=== PATIENT | male | born 1955 | race Hispanic/Latino ===

== ENCOUNTER 2016-12-11 07:52 | Emergency (ER) | payer MEDICARE, BC ==
[2016-12-11 08:29] VITALS: BP 133/97; PULSE 76; RESP 20; TEMP 98.5; O2SAT 95; BMI 38.3
--- NOTE | 2016-12-11 09:26 | ED PDOC ---
Arrival/HPI - General Chief Complaint: Abnormal Skin Integrity Time Seen by Provider: 12/11/16 08:36 Historian: Patient - History of Present Illness Narrative History of Present Illness (Text): 12/11/16 09:22 61 year old male with past medical history that includes CHF, hypertension, TIA , hiatal hernia, presents to the emergency department complaining of left posterior elbow redness x 4 days. He said he has been taking Clindamycin TID. Denies fever or other complains. Time/Duration: < week Context: Home Past Medical History - Provider Review Nursing Documentation Reviewed: Yes - Infectious Disease Hx of Infectious Diseases: None - Tetanus Immunization Tetanus Immunization: Up to Date - Cardiac Hx Congestive Heart Failure: Yes Hx PR: No Hx Hypertension: Yes - Pulmonary Hx Respiratory Disorders: No - Neurological Hx Transient Ischemic Attacks (TIA): Yes - HEENT Hx HEENT Disorder: No (WEARS RX GLASSES) - Renal Hx Renal Disorder: No - Endocrine/Metabolic Hx Diabetes Mellitus Type 2: Yes - Hematological/Oncological Hx Blood Transfusions: No Hx Blood Transfusion Reaction: No - Integumentary Hx Dermatological Disorder: No - Musculoskeletal/Rheumatological Hx Musculoskeletal Disorders: No - Gastrointestinal Hx Gastrointestinal Disorders: No Other/Comment: HIATAL HERNIA,CONSTIPATION - Genitourinary/Gynecological Hx Genitourinary Disorders: No - Psychiatric Hx Emotional Abuse: No Hx Physical Abuse: No Hx Substance Use: No - Surgical History Hx Cardiac Catheterization: Yes Hx Orthopedic Surgery: Yes Other/Comment: LEFT MENISCUS TEAR,POLPS REMOVED -NASAL PASSAGES. - Anesthesia Hx Anesthesia: Yes Hx Anesthesia Reactions: No Hx Malignant Hyperthermia: No - Suicidal Assessment Feels Threatened In Home Enviroment: No Family/Social History - Physician Review Nursing Documentation Reviewed: Yes Family/Social History: No Known Family HX Smoking Status: Never Smoked Hx Alcohol Use: Yes (OCCASIONALLY) Hx Substance Use: No Allergies/Home Meds Allergies/Adverse Reactions: Allergies codeine Allergy (Verified 12/11/16 08:29) SWELLING metformin Allergy (Verified 12/11/16 08:29) DIARRHEA Penicillins Allergy (Verified 12/11/16 08:29) SWELLING tetracycline Allergy (Verified 12/11/16 08:29) SWELLING Home Medications: Home Meds Medication Instructions Recorded Confirmed Valsartan [Diovan] 40 mg PO QAM 11/08/15 12/11/16 Slow-Mag 1 tab PO DAILY 01/08/16 12/11/16 Apixaban [Eliquis] 5 mg PO BID 12/11/16 12/11/16 Glycambia 5 mg PO BID 12/11/16 Review of Systems - Review of Systems Constitutional: Normal. absent: Fatigue, Weight Change, Fevers Eyes: Normal ENT: Normal Respiratory: Normal Cardiovascular: Normal Gastrointestinal: Normal Genitourinary Male: Normal Musculoskeletal: Other ((+) posterior elbow redness and swelling.) Skin: Normal Neurological: Normal Endocrine: Normal Hemo/Lymphatic: Normal Psychiatric: Normal Physical Exam Vital Signs Temp Pulse Resp BP Pulse Ox 12/11/16 08:24 98.5 F 76 20 133/97 H 95 Temperature: Afebrile Blood Pressure: Normal Pulse: Regular Respiratory Rate: Normal Appearance: Positive for: Well-Appearing, Non-Toxic, Comfortable Pain Distress: None Mental Status: Positive for: Alert and Oriented X 3 - Systems Exam Head: Present: Atraumatic, Normocephalic Pupils: Present: PERRL Extroacular Muscles: Present: EOMI Conjunctiva: Present: Normal Mouth: Present: Moist Mucous Membranes Neck: Present: Normal Range of Motion Respiratory/Chest: Present: Clear to Auscultation, Good Air Exchange. No: Respiratory Distress, Accessory Muscle Use, Wheezes, Retracting, Rhonchi Cardiovascular: Present: Regular Rate and Rhythm, Bradycardic. No: Murmurs Upper Extremity: Present: Normal ROM, NORMAL PULSES, Tenderness, Swelling, Erythema, Neurovascularly Intact, Capillary Refill < 2s. No: Cyanosis, Edema, Temperature Abnormalties, Deformity Lower Extremity: Present: Normal Inspection, NORMAL PULSES, Normal ROM, Neurovascularly Intact, Capillary Refill < 2 s. No: Edema, CALF TENDERNESS Neurological: Present: GCS=15, CN II-XII Intact, Speech Normal, Motor Func Grossly Intact Skin: Present: Warm, Dry, Normal Color, Other ((+) postreior elbow redness, mild swelling. It resembles olecranon bursitis). No: Rashes Psychiatric: Present: Alert, Oriented x 3 Medical Decision Making ED Course and Treatment: 12/11/16 09:29 Patient came c/o left posterior elbow swelling, and redness. Patient was recommended NSAIDs, and to see Dr. Ramirez Orthopedist. in 1-2 days. 12/11/16 09:33 This case was discussed with Dr. Comer, and he agrees with plan. Re-evaluation Time: 09:30 Reassessment Condition: Re-examined, Improved Disposition/Present on Arrival - Present on Arrival Any Indicators Present on Arrival: No History of DVT/PE: No History of Uncontrolled Diabetes: Yes Urinary Catheter: No History of Decub. Ulcer: No History Surgical Site Infection Following: None - Disposition Have Diagnosis and Disposition been Completed?: Yes Diagnosis: Olecranon bursitis of left elbow Disposition: HOME/ ROUTINE Disposition Time: 09:30 Patient Plan: Discharge Patient Problems: Current Active Problems Problem Status Onset Olecranon bursitis of left elbow Acute Condition: GOOD Discharge Instructions (ExitCare): Elbow Bursitis (ED) Additional Instructions: Call Dr. Ramirez Orthopedist Office in 1-2 days for revaluation. Continue with home Clindamycin. Take medication as instructed with food. Return to emergency if symptoms worsen. Prescriptions: Naproxen [Naprosyn Tab] 375 mg PO BID #14 tab Referrals: Jeremy Lambert, [Primary Care Provider] - Follow up with primary Holly Ramirez MD [Staff Provider] - Follow up with primary
== END 2016-12-11 09:54 | disposition home or self-care (01) ==
LOC: ED 07:52
DX: M70.22 Olecranon bursitis, left elbow (principal)
CPT/HCPCS: 96372; 99283; J1885

== ENCOUNTER 2017-06-17 08:58 | Emergency (ER) | payer MEDICARE, BC ==
[2017-06-17 09:12] VITALS: TEMP 97.9; BMI 37.0
[2017-06-17 09:19] VITALS: RESP 16
[2017-06-17] MEDS ORDERED: Morphine 2 mg/ml ISec IVP STA (09:29)
[2017-06-17] MEDS ORDERED: Sodium Chloride 0.9% 1,000 ML IV SCH (09:30)
[2017-06-17 09:50] LABS: BASO # 0.02 K/mm3 (0.0-2.0); BASO % 0.2 % (0.0-3.0); EOS # 0.1 (0.0-0.7); EOS % 0.6 % (1.5-5.0); GRAN # 10.43 (1.4-6.5); GRAN % 83.8 % (50.0-68.0); HEMATOCRIT 51.7 % (42.0-52.0); LYMPH # 1.4 (1.2-3.4); LYMPH % 11.3 % (22.0-35.0); MEAN CELL VOLUME 89.8 fl (80.0-105.0); MEAN CORPUSCULAR HEMOGLOBIN 30.6 pg (25.0-35.0); MEAN PLATELET VOLUME 10.8 fl (7.0-11.0); MONO # 0.5 (0.1-0.6); MONO % 4.1 % (1.0-6.0); RED CELL DISTRIBUTION WIDTH 14.9 % (11.5-14.5); WHITE BLOOD COUNT 12.5 10^3/ul (4.5-11.0)
--- NOTE | 2017-06-17 09:53 | ED PDOC ---
Arrival/HPI - General Chief Complaint: Cough, Cold, Congestion Time Seen by Provider: 06/17/17 08:59 Historian: Patient EM Caveat: Acuity of Condition - History of Present Illness Narrative History of Present Illness (Text): 06/17/17 09:54 pt presents with sudden onset of severe diffuse body chills, no sweats, no new pain; pt states he was receiving his 3 days/weekly back rehab for his chronic back pain when he suddenly felt the severe body chills and noted dry coughing; pt states no fever/sweats, no cp/sob/palpitations, + dry coughing, no abd pain, no n/v, no numbness/tingling, no urinary/bowel changes, no fall/trauma/sick contact, no travel; pt denied other complaints; pt is here for further eval. Time/Duration: Prior to Arrival Symptom Onset: Sudden Symptom Course: Unchanged Severity Level: Moderate Activities at Onset: Rest Context: Other (pt was receiving rehabilitation) Past Medical History - Provider Review Nursing Documentation Reviewed: Yes - Travel History Have you recently traveled outside [place] w/in the past 3 mons?: No - Infectious Disease Hx of Infectious Diseases: None - Tetanus Immunization Tetanus Immunization: Up to Date - Cardiac Hx Cardiac Disorders: Yes Hx Congestive Heart Failure: Yes Hx WI: No Hx Hypertension: Yes Hx Pacemaker: Yes - Pulmonary Hx Respiratory Disorders: No - Neurological Hx Transient Ischemic Attacks (TIA): Yes - HEENT Hx HEENT Disorder: No (WEARS RX GLASSES) - Renal Hx Renal Disorder: No - Endocrine/Metabolic Hx Diabetes Mellitus Type 2: Yes - Hematological/Oncological Hx Blood Transfusions: No Hx Blood Transfusion Reaction: No - Integumentary Hx Dermatological Disorder: No - Musculoskeletal/Rheumatological Hx Musculoskeletal Disorders: No Hx Back Pain: Yes - Gastrointestinal Hx Gastrointestinal Disorders: No Other/Comment: HIATAL HERNIA,CONSTIPATION - Genitourinary/Gynecological Hx Genitourinary Disorders: No - Psychiatric Hx Emotional Abuse: No Hx Physical Abuse: No Hx Substance Use: No - Surgical History Hx Cardiac Catheterization: Yes Hx Orthopedic Surgery: Yes Other/Comment: LEFT MENISCUS TEAR,POLPS REMOVED -NASAL PASSAGES. - Anesthesia Hx Anesthesia: Yes Hx Anesthesia Reactions: No Hx Malignant Hyperthermia: No - Suicidal Assessment Suicidal Thoughts: No Feels Threatened In Home Enviroment: No Family/Social History - Physician Review Nursing Documentation Reviewed: Yes Family/Social History: Other (non-contributory) Smoking Status: Never Smoked Hx Alcohol Use: Yes (OCCASIONALLY) Frequency of alcohol use: Socially Hx Substance Use: No Route: Oral Hx Substance Use Treatment: No Allergies/Home Meds Allergies/Adverse Reactions: Allergies codeine Allergy (Verified 12/11/16 08:29) SWELLING metformin Allergy (Verified 12/11/16 08:29) DIARRHEA Penicillins Allergy (Verified 12/11/16 08:29) SWELLING tetracycline Allergy (Verified 12/11/16 08:29) SWELLING Home Medications: Home Meds Medication Instructions Recorded Confirmed Apixaban [Eliquis] 5 mg PO BID 12/11/16 06/17/17 Glycambia 10 mg PO BID 12/11/16 06/17/17 K Phos/Na Phos, Dibasic/Na P 250 mg PO DAILY 06/17/17 06/17/17 [Potassium/Sodium Phosphate] Review of Systems - Review of Systems Constitutional: Normal, Other (chills/no sweats) Eyes: Normal ENT: Normal Respiratory: Cough Cardiovascular: Normal. absent: Chest Pain, Palpitations, Syncope Gastrointestinal: Normal Genitourinary Male: Normal Musculoskeletal: Back Pain (chronic back pain) Skin: Normal Neurological: Normal Endocrine: Normal Hemo/Lymphatic: Normal Psychiatric: Normal Physical Exam Vital Signs Reviewed: Yes (elevated BP) Vital Signs Temp Pulse Resp BP Pulse Ox 06/17/17 11:05 97.9 F 94 H 16 138/98 H 96 06/17/17 09:12 97.9 F 96 H 16 96 06/17/17 09:11 97.9 F 86 19 145/109 H 97 Temperature: Afebrile Blood Pressure: Hypertensive Pulse: Regular Respiratory Rate: Normal Appearance: Positive for: Well-Appearing Pain Distress: Mild (mild back pain) Mental Status: Positive for: Alert and Oriented X 3 - Systems Exam Head: Present: Atraumatic, Normocephalic Pupils: Present: PERRL Extroacular Muscles: Present: EOMI Conjunctiva: Present: Normal Ears: Present: Normal Mouth: Present: Moist Mucous Membranes Pharnyx: Present: Normal Neck: Present: Normal Range of Motion Respiratory/Chest: Present: Clear to Auscultation, Good Air Exchange, Respiratory Distress, Accessory Muscle Use Cardiovascular: Present: Regular Rate and Rhythm, Murmurs, Normal S1, S2 Abdomen: Present: Normal Bowel Sounds, Other (obese male, no focal tenderness, no aguayo's sign, no mcburney's point tenderness). No: Tenderness, Distention, Rebound Back: Present: Normal Inspection Upper Extremity: Present: Normal Inspection. No: Cyanosis, Edema Lower Extremity: Present: Normal Inspection, Capillary Refill < 2 s. No: Edema Neurological: Present: GCS=15, CN II-XII Intact, Speech Normal Skin: Present: Warm, Normal Color. No: Rashes Psychiatric: Present: Alert, Oriented x 3, Normal Insight, Normal Concentration Medical Decision Making ED Course and Treatment: 06/17/17 11:08 pt with sudden onset of coughing/chills and chronic back pain (unchanged), no trauma/sick contact; no urinary/bowel changes noted; will check patient's lab results/U/A; provide pain control as pt states his back pain is becoming worse and he is on the last dose of tramadol; pt denied numbness/tingling to lower extremities; pt remains able to ambulate A/P: cough/chills, chronic back pain - labs - ua - ekg - xray - observe - spportive care 06/17/17 12:34 pt felt improved, pt's pain is improved pt is currently awaiting U/A results final disposition is pending Paged Dr Ramos, spoke to Dr Cotter, made aware of pt's medical presentation, agrees with ED mgt/txt, agrees with ED disposition, pt can be discharged with outpt f/u as directed 06/17/17 13:31 Dr Ramos was at bedside and spoke with the patient; Dr Ramos expressed concern that patient with his cough and chills, he would recommend abx coverage for him before pt is discharged home; pt is made aware of his PCP's recommendations and expressed agreement slightly improved vitals pt remained comfortable pt is not in any distress pt is made aware of his medical results pt will f/u as directed pt will be discharged home 06/17/17 13:34 Re-evaluation Time: 11:10 Reassessment Condition: Re-examined - Lab Interpretations Narrative Lab Interpretation (Text): 06/17/17 13:33 elevated GLUC; slightly above normal WBCs Lab Results: 06/17/17 09:37 06/17/17 09:37 Lab Results 06/17/17 11:23: Urine Color Yellow, Urine Appearance Clear, Urine pH 6.0, Ur Specific [place] 1.025, Urine Protein 100 H, Urine Glucose (UA) 100 H, Urine Ketones Negative, Urine Blood Negative, Urine Nitrate Negative, Urine Bilirubin Negative, Urine Urobilinogen 0.2, Ur Leukocyte Esterase Negative, Urine RBC 0 - 2, Urine WBC 0 - 2, Ur Epithelial Cells 1 - 3, Urine Bacteria Few, Fine Granular Casts 0 - 2 06/17/17 09:37: Sodium 138, Potassium 4.7, Chloride 101, Carbon Dioxide 26, Anion Gap 16, BUN 37 H, Creatinine 1.0, Est GFR ( Amer) > 60, Est GFR ( Non-Af Amer) > 60, Random Glucose 257 H, Calcium 9.6, Total Bilirubin 1.1, AST 24, ALT 25, Alkaline Phosphatase 99, Total Protein 8.0, Albumin 4.3, Globulin 3.7, Albumin/Globulin Ratio 1.1, Lipase 107 06/17/17 09:37: WBC 12.5 H D, RBC 5.76, Hgb 17.6, Hct 51.7, MCV 89.8, MCH 30.6, MCHC 34.0, RDW 14.9 H, Plt Count 155, MPV 10.8, Gran % 83.8 H, Lymph % (Auto) 11.3 L, [place] % (Auto) 4.1, Eos % (Auto) 0.6 L, Baso % (Auto) 0.2, Gran # 10.43 H , Lymph # 1.4, [place] # 0.5, Eos # 0.1, Baso # 0.02 I have reviewed the lab results: Yes - RAD Interpretation Narrative RAD Interpretations (Text): 06/17/17 11:17 PLEURA: No significant pleural effusion identified. No pneumothorax apparent. CARDIOVASCULAR: Mild cardiomegaly. Dual lead pacemaker OSSEOUS STRUCTURES: No significant abnormalities. VISUALIZED UPPER ABDOMEN: Normal. OTHER FINDINGS: None. IMPRESSION: No active disease. Radiology Orders: 06/17/17 09:28 CXR [CHEST TWO VIEWS (PA/LAT)] [RAD] Stat Instructor Modeling: Radiologist - EKG Interpretation EKG Interpretation (Text): 06/17/17 11:11 PACED rhythm at 85 bpm, + ECTOPYs, ABNL EKG; unchanged compare with old ekg 2015 Interpreted by ED Physician: Yes Type: 12 lead EKG Comparison: Similar to previous EKG - Medication Orders Current Medication Orders: Sodium Chloride (Sodium Chloride 0.9%) 1,000 mls @ 100 mls/hr IV .Q10H KATE Last Admin: 06/17/17 09:57 Dose: 100 mls/hr eMAR Start Stop Document 06/17/17 09:57 MS (Rec: 06/17/17 10:02 MS [id number]) Intravenous Solution Start Date 06/17/17 Start Time 10:02 Discontinued Medications Morphine Sulfate (Morphine) 4 mg IVP STAT STA Stop: 06/17/17 09:30 Last Admin: 06/17/17 10:02 Dose: 4 mg MAR Pain Assessment Document 06/17/17 10:02 MS (Rec: 06/17/17 10:03 MS [id number]) Pain Reassessment Is this a pain reassessment? No Sleep Is patient sleeping during reassessment? No Presence of Pain Presence of Pain Yes Pain Scale Used Pain Scale Used Numeric Location Pain Location Body Site Back Description Description Constant Intensity of Pain at present 7 Pain Behavior Moaning Facial Grimacing Aggravating Factors ADL's Changing Position IVP Administration Document 06/17/17 10:02 MS (Rec: 06/17/17 10:03 MS [id number]) Charges for Administration # of IVP Administrations 2 Disposition/Present on Arrival - Present on Arrival Any Indicators Present on Arrival: No History of DVT/PE: No History of Uncontrolled Diabetes: Yes Urinary Catheter: No History of Decub. Ulcer: No History Surgical Site Infection Following: None - Disposition Have Diagnosis and Disposition been Completed?: Yes Diagnosis: Chills (without fever), Cough Disposition: HOME/ ROUTINE Disposition Time: 13:19 Patient Plan: Discharge Patient Problems: Current Active Problems Problem Status Onset Chills (without fever) Acute Cough Acute Condition: STABLE Discharge Instructions (ExitCare): Acute Cough (ED), Normal Exam (ED) Print Language: [place] LEONE[place] Additional Instructions: Make sure to see your doctor in 1-2 days DRINK PLENTY OF FLUIDS; keep hydrated take your medications as prescribed RETURN TO ED IF worse pain, cant breath, persistent vomiting, high fever >101- 102 for hours, altered behavior, unable to urinate, heavy/persistent bleeding, passing out, chest pain, or other medical emergencies Prescriptions: levoFLOXacin [Levaquin] 750 mg PO DAILY 7 Days tab Referrals: Tye Ramos MD [Primary Care Provider] - Follow up with primary Forms: Air[employer] (Czech)
[2017-06-17 10:02] LABS: ALB/GLOB RATIO 1.1 (1.1-1.8); BILIRUBIN,TOTAL 1.1 mg/dL (0.2-1.3); CALCIUM 9.6 mg/dL (8.4-10.5); GFR AFRICAN-AMERICAN > 60; GLUCOSE,RANDOM 257 mg/dL (70-110); LIPASE 107 U/L (23-300)
[2017-06-17 10:03] LABS: ALKALINE PHOSPHATASE 99 U/L (38-126); ALT/SGPT 25 U/L (7-56); AST/SGOT 24 U/L (17-59); BLOOD UREA NITROGEN 37 mg/dL (7-21); CARBON DIOXIDE 26 mmol/L (21-33); CHLORIDE 101 mmol/L (98-107); POTASSIUM 4.7 mmol/L (3.6-5.0); SODIUM 138 mmol/L (132-148)
--- NOTE | 2017-06-17 10:07 | ED PDOC ---
Physical Exam Vital Signs Temp Pulse Resp BP Pulse Ox 06/17/17 09:12 97.9 F 96 H 16 96 06/17/17 09:11 97.9 F 86 19 145/109 H 97 Medical Decision Making ED Course and Treatment: 06/17/17 10:06 Patient is signed out to me by Dr. Andino. The patient is pending labs and chest x-ray. 06/17/17 11:06 CXR normal. No pneumonia. Signed case back to Dr. Rahman, to f/u UA, reevaluate and disposition. - Lab Interpretations Lab Results: 06/17/17 09:37 06/17/17 09:37 Lab Results 06/17/17 09:37: Sodium 138, Potassium 4.7, Chloride 101, Carbon Dioxide 26, Anion Gap 16, BUN 37 H, Creatinine 1.0, Est GFR ( Amer) > 60, Est GFR ( Non-Af Amer) > 60, Random Glucose 257 H, Calcium 9.6, Total Bilirubin 1.1, AST 24, ALT 25, Alkaline Phosphatase 99, Total Protein 8.0, Albumin 4.3, Globulin 3.7, Albumin/Globulin Ratio 1.1, Lipase 107 06/17/17 09:37: WBC 12.5 H D, RBC 5.76, Hgb 17.6, Hct 51.7, MCV 89.8, MCH 30.6, MCHC 34.0, RDW 14.9 H, Plt Count 155, MPV 10.8, Gran % 83.8 H, Lymph % (Auto) 11.3 L, [place] % (Auto) 4.1, Eos % (Auto) 0.6 L, Baso % (Auto) 0.2, Gran # 10.43 H , Lymph # 1.4, [place] # 0.5, Eos # 0.1, Baso # 0.02 - RAD Interpretation Radiology Orders: 06/17/17 09:28 CXR [CHEST TWO VIEWS (PA/LAT)] [RAD] Stat - Medication Orders Current Medication Orders: Sodium Chloride (Sodium Chloride 0.9%) 1,000 mls @ 100 mls/hr IV .Q10H KATE Last Admin: 06/17/17 09:57 Dose: 100 mls/hr eMAR Start Stop Document 06/17/17 09:57 MS (Rec: 06/17/17 10:02 MS [id number]) Intravenous Solution Start Date 06/17/17 Start Time 10:02 Discontinued Medications Morphine Sulfate (Morphine) 4 mg IVP STAT STA Stop: 06/17/17 09:30 Last Admin: 06/17/17 10:02 Dose: 4 mg MAR Pain Assessment Document 06/17/17 10:02 MS (Rec: 06/17/17 10:03 [id number] Pain Reassessment Is this a pain reassessment? No Sleep Is patient sleeping during reassessment? No Presence of Pain Presence of Pain Yes Pain Scale Used Pain Scale Used Numeric Location Pain Location Body Site Back Description Description Constant Intensity of Pain at present 7 Pain Behavior Moaning Facial Grimacing Aggravating Factors ADL's Changing Position IVP Administration Document 06/17/17 10:02 MS (Rec: 06/17/17 10:03 [id number] Charges for Administration # of IVP Administrations 2 - Scribe Statement The provider has reviewed the documentation as recorded by the Carolaibdaniel Salazar Provider Scribe Attestation: All medical record entries made by the Scribe were at my direction and personally dictated by me. I have reviewed the chart and agree that the record accurately reflects my personal performance of the history, physical exam, medical decision making, and the department course for this patient. I have also personally directed, reviewed, and agree with the discharge instructions and disposition. Disposition/Present on Arrival - Present on Arrival Any Indicators Present on Arrival: Yes History of DVT/PE: No History of Uncontrolled Diabetes: Yes Urinary Catheter: No History of Decub. Ulcer: No History Surgical Site Infection Following: None - Disposition Have Diagnosis and Disposition been Completed?: Yes Diagnosis: Chills (without fever), Cough Disposition: HOME/ ROUTINE Disposition Time: 13:51 Patient Plan: Discharge Condition: STABLE Discharge Instructions (ExitCare): Normal Exam (ED), Acute Cough (ED) Print Language: SLOVENIAN Additional Instructions: Make sure to see your doctor in 1-2 days DRINK PLENTY OF FLUIDS; keep hydrated take your medications as prescribed RETURN TO ED IF worse pain, cant breath, persistent vomiting, high fever >101- 102 for hours, altered behavior, unable to urinate, heavy/persistent bleeding, passing out, chest pain, or other medical emergencies Prescriptions: levoFLOXacin [Levaquin] 750 mg PO DAILY 7 Days tab Referrals: Tye Ramos MD [Primary Care Provider] - Follow up with primary Forms: Par[employer] (Micronesian)
--- NOTE | 2017-06-17 10:26 | RAD ---
HISTORY: cough, weakness COMPARISON: 01/24/2016 TECHNIQUE: Chest PA and lateral FINDINGS: LUNGS: No active pulmonary disease. PLEURA: No significant pleural effusion identified. No pneumothorax apparent. CARDIOVASCULAR: Mild cardiomegaly. Dual lead pacemaker OSSEOUS STRUCTURES: No significant abnormalities. VISUALIZED UPPER ABDOMEN: Normal. OTHER FINDINGS: None. IMPRESSION: No active disease.
[2017-06-17 12:40] LABS: URINE BILIRUBIN NEGATIVE (NEGATIVE); URINE BLOOD NEGATIVE (NEGATIVE); URINE GLUCOSE (UA) 100 mg/dL (NEGATIVE); URINE KETONE NEGATIVE (NEGATIVE); URINE LEUKOCYTE ESTERASE NEGATIVE Leu/uL (NEGATIVE); URINE PROTEIN 100 mg/dL (<30 mg/dL); URINE UROBILINOGEN 0.2 E.U./dL (<1 E.U./dL)
[2017-06-17 12:41] LABS: URINE APPEARANCE CLEAR (CLEAR); URINE COLOR YELLOW (YELLOW)
[2017-06-17 12:52] LABS: URINE BACTERIA FEW (NEG); URINE RBC 0 - 2 /hpf (0-2); URINE WBC 0 - 2 /hpf (0-6)
[2017-06-17 13:58] VITALS: BP 180/93; PULSE 88; O2SAT 98
--- NOTE | 2017-06-17 15:40 | CARD ---
APPROVED REPORT EKG Measurement Heart [id number] <Conclusion> Electronic ventricular pacemaker Underlying rhythm is A Fib fusion beats.
== END 2017-06-17 13:50 | disposition home or self-care (01) ==
LOC: ED 08:58
DX: R68.83 Chills (without fever) (principal); R05 Cough; I10 Essential (primary) hypertension; E11.9 Type 2 diabetes mellitus without complications; Z86.73 Personal history of transient ischemic attack (TIA), and cerebral infarction without residual deficits; Z95.0 Presence of cardiac pacemaker
CPT/HCPCS: 71020; 80053; 81001; 83690; 85025; 93005; 96374; 96376; 99283; J2270; J7040

== ENCOUNTER 2017-06-18 11:41 | Inpatient (IN) | payer MEDICARE, BC ==
[2017-06-18 11:59] VITALS: BMI 37.3
--- NOTE | 2017-06-18 12:08 | ED PDOC ---
Arrival/HPI - General Chief Complaint: Dizziness/Lightheaded Time Seen by Provider: 06/18/17 11:52 Historian: Patient - History of Present Illness Narrative History of Present Illness (Text): 06/18/17 12:02 A 62 year old male, whose past medical history includes hypertension, chronic back pain, diabetes type 2, presents to the emergency department complaining of lightheadedness/dizziness. Patient was evaluated yesterday by me and followed up with Dr. Ramos today. Today, patient reports he was driving and began experiencing lightheadedness. He states having a near-syncopal episode, however did not syncope. Also, he notes continuation of coughing from yesterday, and experiences chronic back pain, and fatigue upon exertion Patient denies any sweats, nausea, diarrhea, abdominal pain, chest pain, shortness of breath, wheezing, tachycardia, dysuria, urinary output changes, or any other complaints. pt was at pcp's office today and was noted to have decr BP as well pt is here for further eval/exam PMD: Dr. Ramos 06/18/17 14:53 Time/Duration: Prior to Arrival Symptom Onset: Sudden Symptom Course: Unchanged Past Medical History - Provider Review Nursing Documentation Reviewed: Yes - Travel History Have you recently traveled outside [place] w/in the past 3 mons?: No - Infectious Disease Hx of Infectious Diseases: None - Tetanus Immunization Tetanus Immunization: Up to Date - Cardiac Hx Cardiac Disorders: Yes Hx Congestive Heart Failure: Yes Hx [place]: No Hx Hypertension: Yes Hx Pacemaker: Yes - Pulmonary Hx Respiratory Disorders: No - Neurological Hx Transient Ischemic Attacks (TIA): Yes - HEENT Hx HEENT Disorder: No (WEARS RX GLASSES) - Renal Hx Renal Disorder: No - Endocrine/Metabolic Hx Diabetes Mellitus Type 2: Yes - Hematological/Oncological Hx Blood Transfusions: No Hx Blood Transfusion Reaction: No - Integumentary Hx Dermatological Disorder: No - Musculoskeletal/Rheumatological Hx Musculoskeletal Disorders: No Hx Back Pain: Yes - Gastrointestinal Hx Gastrointestinal Disorders: No Other/Comment: HIATAL HERNIA,CONSTIPATION - Genitourinary/Gynecological Hx Genitourinary Disorders: No - Psychiatric Hx Emotional Abuse: No Hx Physical Abuse: No Hx Substance Use: No - Surgical History Hx Cardiac Catheterization: Yes Hx Orthopedic Surgery: Yes Other/Comment: LEFT MENISCUS TEAR,POLPS REMOVED -NASAL PASSAGES. - Anesthesia Hx Anesthesia: Yes Hx Anesthesia Reactions: No Hx Malignant Hyperthermia: No - Suicidal Assessment Feels Threatened In Home Enviroment: No Family/Social History - Physician Review Nursing Documentation Reviewed: Yes Family/Social History: No Known Family HX Smoking Status: Never Smoked Hx Alcohol Use: Yes (OCCASIONALLY) Hx Substance Use: No Hx Substance Use Treatment: No Allergies/Home Meds Allergies/Adverse Reactions: Allergies codeine Allergy (Verified 06/18/17 12:29) SWELLING metformin Allergy (Verified 06/18/17 12:29) DIARRHEA Penicillins Allergy (Verified 06/18/17 12:29) SWELLING tetracycline Allergy (Verified 06/18/17 12:29) SWELLING Home Medications: Home Meds Medication Instructions Recorded Confirmed Apixaban [Eliquis] 5 mg PO BID 12/11/16 06/18/17 Glycambia 10 mg PO BID 12/11/16 06/18/17 K Phos/Na Phos, Dibasic/Na P 250 mg PO DAILY 06/17/17 06/18/17 [Potassium/Sodium Phosphate] Cyclobenzaprine [Flexeril] 10 mg PO TID 06/18/17 06/18/17 Famotidine [Pepcid] 20 mg PO BID 06/18/17 06/18/17 Torsemide [Demadex] 5 mg PO BID 06/18/17 06/18/17 traMADol [Ultram] 50 mg PO QID PRN 06/18/17 06/18/17 Review of Systems - Physician Review All systems were reviewed & negative as marked: Yes - Review of Systems Constitutional: Fatigue. absent: Night Sweats Respiratory: Cough (since yesterday). absent: SOB, Wheezing Cardiovascular: absent: Chest Pain, Syncope (had near-syncopal episode but no syncope), Other (no tachycardia) Gastrointestinal: absent: Abdominal Pain, Diarrhea, Nausea Genitourinary Male: absent: Dysuria, Urinary Output Changes Musculoskeletal: Back Pain (chronic back pain) Neurological: Dizziness (lightheadedness) Physical Exam Vital Signs Reviewed: Yes (decr BP) Vital Signs Temp Pulse Resp BP Pulse Ox 06/18/17 13:53 74 17 119/76 97 06/18/17 11:56 97.6 F 75 16 98/66 L 97 Temperature: Afebrile Blood Pressure: Hypotensive Pulse: Regular Respiratory Rate: Normal Appearance: Positive for: Well-Appearing, Other (slightly uncomfortable, resting in bed, cooperative, alert/awake, GCS = 15, oriented x 3) Pain Distress: None Mental Status: Positive for: Alert and Oriented X 3 Finger Stick Blood Glucose: 220 - Systems Exam Head: Present: Atraumatic, Normocephalic Pupils: Present: PERRL Extroacular Muscles: Present: EOMI Conjunctiva: Present: Normal Ears: Present: Normal Mouth: Present: Moist Mucous Membranes Pharnyx: Present: Normal Neck: Present: Normal Range of Motion Respiratory/Chest: Present: Clear to Auscultation, Good Air Exchange. No: Respiratory Distress, Accessory Muscle Use Cardiovascular: Present: Regular Rate and Rhythm, Normal S1, S2. No: Murmurs Abdomen: Present: Normal Bowel Sounds. No: Tenderness, Distention, Peritoneal Signs Back: Present: Normal Inspection Upper Extremity: Present: Normal Inspection, Normal ROM, Capillary Refill < 2s. No: Cyanosis, Edema Lower Extremity: Present: Normal Inspection, Normal ROM, Capillary Refill < 2 s. No: Edema Neurological: Present: GCS=15, CN II-XII Intact, Speech Normal, Other (NIH stroke scale ~ 0; CNII-XII WNL, no facial asymmetries) Skin: Present: Warm, Dry, Normal Color. No: Rashes Psychiatric: Present: Alert, Oriented x 3, Normal Insight, Normal Concentration Medical Decision Making ED Course and Treatment: 06/18/17 12:06 pt with dizziness, decr BP, not feeling well, weakness, cough; pt was evaluated in the ED yesterday for cough/chills A/P: dizziness, decr BP, weakness - labs - iv - lactate - acs - observe - supportive care 06/18/17 14:57 pt is doing well currently pt's vital signs improved pt is made aware of his medical results agrees with admission pt denied chest pain currently I spoke with Dr Ramos, pt's PCP, made aware, agrees with ED mgt/txt and recommends admission; would like his resident paged and notified I spoke to Dr Alcaraz (resident), made aware, will see patient Re-evaluation Time: 14:30 Reassessment Condition: Improving,but remains with symptoms - Lab Interpretations Narrative Lab Interpretation (Text): 06/18/17 14:59 elevated BNP Lab Results: 06/18/17 12:22 06/18/17 12:22 Lab Results 06/18/17 12:22: pO2 37, VBG pH 7.33, VBG pCO2 47.0, VBG HCO3 24.8, VBG Total CO2 26.2, VBG O2 Sat (Calc) 69.5 H, VBG Base Excess -1.5 L, VBG Potassium 4.7, Sodium 136.0, Chloride 100.0, Glucose 274 H, Lactate 1.9, FiO2 21.0, Venous Blood Potassium 4.7 06/18/17 12:22: TSH 3rd Generation 7.56 H 06/18/17 12:22: Sodium 137, Chloride 103, Potassium 4.7, Carbon Dioxide 25, Anion Gap 14, BUN 36 H, Creatinine 1.0, Est GFR ( Amer) > 60, Est GFR ( Non-Af Amer) > 60, Random Glucose 255 H, Calcium 9.5, Total Bilirubin 0.9, AST 23, ALT 32, Alkaline Phosphatase 100, Troponin I 0.04 D, NT-Pro-B Natriuret Pep 3860 H, Total Protein 7.3, Albumin 3.9, Globulin 3.4, Albumin/Globulin Ratio 1.2 06/18/17 12:22: WBC 8.9 D, RBC 5.80, Hgb 17.7, Hct 51.9, MCV 89.5, MCH 30.5, MCHC 34.1, RDW 14.8 H, Plt Count 163, MPV 10.7, Gran % 68.8 H, Lymph % (Auto) 21.4 L, Sherman % (Auto) 8.0 H, Eos % (Auto) 1.6, Baso % (Auto) 0.2, Gran # 6.10, Lymph # 1.9, Sherman # 0.7 H, Eos # 0.1, Baso # 0.02 I have reviewed the lab results: Yes Interpretation: Abnormal lab values (elevated GLUC) - EKG Interpretation EKG Interpretation (Text): 06/18/17 14:59 Paced rhythm at 75 bpm, ABNL EKG; unchanged compare with recent EKG Interpreted by ED Physician: Yes Type: 12 lead EKG Comparison: Similar to previous EKG - Medication Orders Current Medication Orders: Discontinued Medications Furosemide (Lasix) 40 mg IVP STAT STA Stop: 06/18/17 14:41 - Scribe Statement The provider has reviewed the documentation as recorded by the Rhys Knapp Provider Scribe Attestation: All medical record entries made by the Scribe were at my direction and personally dictated by me. I have reviewed the chart and agree that the record accurately reflects my personal performance of the history, physical exam, medical decision making, and the department course for this patient. I have also personally directed, reviewed, and agree with the discharge instructions and disposition. Disposition/Present on Arrival - Present on Arrival Any Indicators Present on Arrival: Yes History of DVT/PE: No History of Uncontrolled Diabetes: Yes Urinary Catheter: No History of Decub. Ulcer: No History Surgical Site Infection Following: None - Disposition Have Diagnosis and Disposition been Completed?: Yes Diagnosis: Near syncope, Weakness, Acute on chronic combined systolic and diastolic CHF ( congestive heart failure), Hypotension Disposition: HOSPITALIZED Disposition Time: 14:42 Patient Plan: Admission, Telemetry Patient Problems: Current Active Problems Problem Status Onset Near syncope Acute Weakness Acute Acute on chronic combined systolic and diastolic CHF (congestive heart failure) Acute Hypotension Acute Condition: STABLE Discharge Instructions (ExitCare): Heart Failure (ED), Weakness (ED) Referrals: Tye Ramos MD [Primary Care Provider] - Follow up with primary Forms: [employer] (Al[place]ian)
[2017-06-18 12:44] LABS: BASO # 0.02 K/mm3 (0.0-2.0); BASO % 0.2 % (0.0-3.0); EOS # 0.1 (0.0-0.7); EOS % 1.6 % (1.5-5.0); GRAN # 6.1 (1.4-6.5); GRAN % 68.8 % (50.0-68.0); HEMATOCRIT 51.9 % (42.0-52.0); LYMPH # 1.9 (1.2-3.4); LYMPH % 21.4 % (22.0-35.0); MEAN CELL VOLUME 89.5 fl (80.0-105.0); MEAN CORPUSCULAR HEMOGLOBIN 30.5 pg (25.0-35.0); MEAN CORPUSCULAR HGB CONC 34.1 g/dl (31.0-37.0); MEAN PLATELET VOLUME 10.7 fl (7.0-11.0); MONO # 0.7 (0.1-0.6); RED CELL DISTRIBUTION WIDTH 14.8 % (11.5-14.5); WHITE BLOOD COUNT 8.9 10^3/ul (4.5-11.0)
[2017-06-18 12:51] LABS: VENOUS BLOOD GAS BASE EXCESS -1.5 mmol/L (0.0-2.0); VENOUS BLOOD PH 7.33 (7.32-7.43)
[2017-06-18 13:09] LABS: TROPONIN I 0.04 ng/mL
[2017-06-18 13:25] LABS: ALB/GLOB RATIO 1.2 (1.1-1.8); ALKALINE PHOSPHATASE 100 U/L (38-126); ALT/SGPT 32 U/L (7-56); AST/SGOT 23 U/L (17-59); BILIRUBIN,TOTAL 0.9 mg/dL (0.2-1.3); BLOOD UREA NITROGEN 36 mg/dL (7-21); CALCIUM 9.5 mg/dL (8.4-10.5); CARBON DIOXIDE 25 mmol/L (21-33); CHLORIDE 103 mmol/L (98-107); GFR AFRICAN-AMERICAN > 60; GLUCOSE,RANDOM 255 mg/dL (70-110); POTASSIUM 4.7 mmol/L (3.6-5.0); SODIUM 137 mmol/L (132-148); TOTAL PROTEIN 7.3 g/dL (5.8-8.3)
[2017-06-18] MEDS ORDERED: Albuterol-Ipratrop 3 mg / 0.5 (3 ml) UD IH PRN (15:35)
[2017-06-18 16:10] LABS: CHOLESTEROL 184 mg/dL (130-200)
[2017-06-18] MEDS ORDERED: Oxycodone/Acetaminophen 5/325 mg Tab PO STA (16:10)
--- NOTE | 2017-06-18 16:11 | CP.PCM.HP ---
History of Present Illness - History of Present Illness History of Present Illness: CC: Dizziness HPI: Patient is a 62 year old male with PMH significant for HTN, chronic back pain, DM2, CHF with AICD in place, atrial fibrillation, HLD, who presents to [facility] complaining of dizziness. Patient had been previously seen in ED yesterday for similar symptoms. Patient was seen at his PMD, Dr. Ramos today and noted to be hypotensive, cool to touch and dizzy without episode of syncope and sent over for evaluation. Patient reports that today while driving he began experiencing lightheadedness. He reports feeling dizzy standing up from seated position. Patient denies any history of previous work up for dizziness. Patient was most recently in [facility] about 2 weeks ago for possible acute exacerbation of CHF and given IV lasix. Patient was discharged home with plan for outpatient follow up with his PMD. Patient reports a four pillow orthopnea and denies waking up at night gasping for air. At current time of interview patient reports an ongoing dry non productive cough, back pain for which is chronic in nature and fatigue upon exertion. Patient denies sharp chest pain, chest pressure, abdominal pain, diarrhea, constipation, wheezing, palpitations, dysuria, hematuria, fever, nausea, sweats or vomiting. PMH: As above PSH: Left knee meniscus repair, Polyp removal from left nares SocHx: Tobacco: Denies, ETOH: social ID: denies All: Codeine, metformin, PCN, tetracycline Meds: Entresto 96/103mg BID Coreg 6.25mg 2 tabs BID Spironolactone 25mg BID Isosorbide Mononitrate 30mg Daily Eliquis 5mg BID Torsemide 5mg BID Atorvastatin 10mg Daily Famotidine 20mg BID Glyxambi 10/5mg Daily Tramadol 50mg 4 Tabs PRN pain Cyclopenzaprine 10mg TID prn muscle spasm K-Phos 1 tab daily PMD: Dr. Ramos Present on Admission - Present on Admission Any Indicators Present on Admission: No Review of Systems - Review of Systems Review of Systems: 12 point ROS benign otherwise mentioned in HPI Past Patient History - Infectious Disease Hx of Infectious Diseases: None - Tetanus Immunizations Tetanus Immunization: Up to Date - Past Social History Smoking Status: Never Smoked Alcohol: Social Drugs: Denies - CARDIAC Hx Cardiac Disorders: Yes Hx Congestive Heart Failure: Yes Hx Heart Attack: No Hx Hypertension: Yes Hx Pacemaker: Yes - PULMONARY Hx Respiratory Disorders: No - NEUROLOGICAL Hx Transient Ischemic Attacks (TIA): Yes - HEENT Hx HEENT Problems: No (WEARS RX GLASSES) - RENAL Hx Chronic Kidney Disease: No - ENDOCRINE/METABOLIC Hx Diabetes Mellitus Type 2: Yes - HEMATOLOGICAL/ONCOLOGICAL Hx Blood Transfusions: No Hx Blood Transfusion Reaction: No - INTEGUMENTARY Hx Dermatological Problems: No - MUSCULOSKELETAL/RHEUMATOLOGICAL Hx Musculoskeletal Disorders: No Hx Back Pain: Yes - GASTROINTESTINAL Hx Gastrointestinal Disorders: No Other/Comment: HIATAL HERNIA,CONSTIPATION - GENITOURINARY/GYNECOLOGICAL Hx Genitourinary Disorders: No - PSYCHIATRIC Hx Emotional Abuse: No Hx Physical Abuse: No Hx Substance Use: No - SURGICAL HISTORY Hx Cardiac Catheterization: Yes Hx Orthopedic Surgery: Yes Other/Comment: LEFT MENISCUS TEAR,POLPS REMOVED -NASAL PASSAGES. - ANESTHESIA Hx Anesthesia: Yes Hx Anesthesia Reactions: No Hx Malignant Hyperthermia: No Meds Allergies/Adverse Reactions: Allergies Allergy/AdvReac Type Severity Reaction Status Date / Time codeine Allergy SWELLING Verified 06/18/17 12:29 metformin Allergy DIARRHEA Verified 06/18/17 12:29 Penicillins Allergy SWELLING Verified 06/18/17 12:29 tetracycline Allergy SWELLING Verified 06/18/17 12:29 Physical Exam - Constitutional Appears: No Acute Distress - Head Exam Head Exam: ATRAUMATIC, NORMAL INSPECTION, NORMOCEPHALIC - Eye Exam Eye Exam: EOMI, PERRL - ENT Exam ENT Exam: Mucous Membranes Moist - Respiratory Exam Respiratory Exam: Rales (mild at right base), NORMAL BREATHING PATTERN. absent : Decreased Breath Sounds, Rhonchi, Wheezes - Cardiovascular Exam Cardiovascular Exam: Irregular Rhythm, +S1, +S2. absent: JVD - GI/Abdominal Exam GI & Abdominal Exam: Normal Bowel Sounds, Soft. absent: Guarding, Mass, Rebound , Rigid, Tenderness - Extremities Exam Extremities exam: Positive for: normal capillary refill, pedal edema (trace), pedal pulses present. Negative for: calf tenderness - Back Exam Back exam: paraspinal tenderness (Lumbar bilateral ) - Neurological Exam Neurological exam: Alert, CN II-XII Intact, Normal Gait, Oriented x3 Additional comments: Moving all four extremities Motor and Sensory grossly intact - Psychiatric Exam Psychiatric exam: Normal Affect, Normal Mood - Skin Skin Exam: Dry, Intact, Warm Results - Vital Signs Recent Vital Signs: Last Vital Signs Temp 97.6 F 06/18/17 11:56 Pulse 74 06/18/17 13:53 Resp 17 06/18/17 13:53 BP 119/76 06/18/17 13:53 Pulse Ox 97 06/18/17 13:53 - Labs Result Diagrams: 06/18/17 12:22 06/18/17 12:22 Assessment & Plan - Assessment and Plan (Free Text) Assessment: Patient is a 62 year old male with PMH significant for HTN, chronic back pain, DM2, CHF with AICD in place, atrial fibrillation, HLD, who presents to [facility] complaining of dizziness. Patient is to be admitted for dizziness and acute exacerbation of CHF. Plan: 1. Acute on Chronic CHF - CHF systolic, dilated cardiomyopathy, with AICD - Last known EF 30-35% per handoff, BNP 3000+ - Patient recently admitted to [facility] for acute exacerbation, IV lasix and discharge with plan for follow up - IV lasix 40mg Daily - Echocardiogram - Cardiology Consult, Dr. Clifton, appreciate recs - Trend Troponins 2. Dizziness - Etiology: hypotension vs. orthostatics vs. acute exacerbation of CHF - Orthostatics - Echocardiogram - Carotid US 3. Hypotension - Patient reportedly hypotensive in PMD office today - holding anti-HTN meds at this time - Will consider restarting anti-HTN meds if showing increase - monitor 4. Atrial Fibrillation - Chronic on AC with Eliquis 5mg BID - EKG showing Atrial Fibrillation in ED with AICD pacing - Eliquis continue 5. DM2 - ACHS - Carb consistent diet - ISS-low GI ppx: Pepcid DVT ppx: Eliquis 5mg, SCDs Patient, case, and plan discussed and reviewed with attending - Date & Time Date: 06/18/17 Time: 16:14
[2017-06-18] MEDS: Insulin Lispro (humaLOG) LOW Coverage SC SCH ×2 (17:28→21:38)
[2017-06-18] MEDS ORDERED: Pneumococcal 23-Valent Vaccine IM ONE (20:00)
[2017-06-18] MEDS ORDERED: Influenza Vaccine 60 mcg/0.5 mL SYR (4YR UP) IM ONE (20:00)
[2017-06-19 07:33] LABS: BASO # 0.03 K/mm3 (0.0-2.0); BASO % 0.3 % (0.0-3.0); EOS # 0.2 (0.0-0.7); EOS % 2.4 % (1.5-5.0); GRAN # 5.14 (1.4-6.5); GRAN % 56.6 % (50.0-68.0); HEMATOCRIT 49.2 % (42.0-52.0); LYMPH # 2.7 (1.2-3.4); LYMPH % 29.7 % (22.0-35.0); MEAN CELL VOLUME 90.3 fl (80.0-105.0); MEAN CORPUSCULAR HEMOGLOBIN 29.9 pg (25.0-35.0); MEAN CORPUSCULAR HGB CONC 33.1 g/dl (31.0-37.0); MEAN PLATELET VOLUME 10.8 fl (7.0-11.0); RED CELL DISTRIBUTION WIDTH 14.9 % (11.5-14.5); WHITE BLOOD COUNT 9.1 10^3/ul (4.5-11.0)
[2017-06-19 08:00] LABS: ALB/GLOB RATIO 1.1 (1.1-1.8); ALKALINE PHOSPHATASE 87 U/L (38-126); ALT/SGPT 28 U/L (7-56); AST/SGOT 17 U/L (17-59); BILIRUBIN,TOTAL 0.6 mg/dL (0.2-1.3); BLOOD UREA NITROGEN 41 mg/dL (7-21); CALCIUM 9.7 mg/dL (8.4-10.5); CARBON DIOXIDE 21 mmol/L (21-33); CHLORIDE 107 mmol/L (98-107); GFR AFRICAN-AMERICAN > 60; GLUCOSE,RANDOM 157 mg/dL (70-110); POTASSIUM 4.7 mmol/L (3.6-5.0); SODIUM 136 mmol/L (132-148); TOTAL PROTEIN 6.7 g/dL (5.8-8.3)
[2017-06-19 08:10] LABS: INR 1.2 (0.93-1.08)
[2017-06-19] MEDS: Insulin Lispro (humaLOG) LOW Coverage SC SCH ×4 (08:22→22:22)
[2017-06-19 09:10] LABS: FREE T4 1.04 ng/dL (0.78-2.19)
[2017-06-19] MEDS ORDERED: Sodium Chloride 0.9% 250 ML IV STA (09:20)
[2017-06-19 09:23] LABS: T3 1.13 ng/mL (0.97-1.69); THYROID STIMULATING HORMONE 6.56 mIU/mL (0.46-4.68)
--- NOTE | 2017-06-19 12:06 | CP.PCM.PN ---
Subjective - Date & Time of Evaluation Date of Evaluation: 06/19/17 Time of Evaluation: 12:03 - Subjective Subjective: Medicine Progress Note for [place] PGY2 Patient seen and examined at bedside. As per nursing, there were no acute overnight events. Patient report still feeling lightheaded today. He denies having chest pain, shortness of breath, decreased appetite, nausea/vomiting/ diarrhea, fever/chills, vision changes, numbness/tingling, dysuria or hematuria. Objective - Vital Signs/Intake and Output Vital Signs (last 24 hours): Temp Pulse Resp BP Pulse Ox 97.2 F L 75 18 96/68 L 94 L 06/19/17 06:00 06/19/17 06:00 06/19/17 06:00 06/19/17 06:00 06/19/17 06:00 Intake and Output: 06/19/17 06/19/17 06:59 18:59 Intake Total 240 Output Total 650 Balance -410 - Medications Medications: Current Medications Albuterol/Ipratropium (Duoneb 3 Mg/0.5 Mg (3 Ml) Ud) 3 ml IH [id number] PRN PRN Reason: Shortness of Breath Apixaban (Eliquis) 5 mg PO BID KATE PRN Reason: Protocol Last Admin: 06/19/17 10:30 Dose: 5 mg Atorvastatin Calcium (Lipitor) 10 mg PO DIN [facility] Last Admin: 06/18/17 17:42 Dose: 10 mg Carvedilol (Coreg) 6.25 mg PO BID [facility] Last Admin: 06/18/17 17:42 Dose: 6.25 mg Famotidine (Pepcid) 20 mg PO BID [facility] Last Admin: 06/19/17 10:30 Dose: 20 mg Furosemide (Lasix) 40 mg IVP DAILY [facility] Sodium Chloride (Sodium Chloride 0.9%) 1,000 mls @ 50 mls/hr IV .Q20H [facility] Insulin Human Lispro (Humalog Low) 0 units SC ACHS KATE PRN Reason: Protocol Last Admin: 06/19/17 08:22 Dose: 1 units - Labs Labs: 06/19/17 06:00 06/19/17 06:00 PT 13.2 SECONDS (9.4-12.5) H 06/19/17 06:00 INR 1.20 (0.93-1.08) H 06/19/17 06:00 - Constitutional Appears: No Acute Distress - Head Exam Head Exam: ATRAUMATIC, NORMAL INSPECTION, NORMOCEPHALIC - Eye Exam Eye Exam: Normal appearance, PERRL Pupil Exam: NORMAL ACCOMODATION, PERRL - ENT Exam ENT Exam: Mucous Membranes Dry - Respiratory Exam Respiratory Exam: Clear to Ausculation Bilateral, NORMAL BREATHING PATTERN. absent: Rales, Rhonchi, Wheezes - Cardiovascular Exam Cardiovascular Exam: REGULAR RHYTHM, +S1, +S2. absent: Gallop, Rubs - GI/Abdominal Exam GI & Abdominal Exam: Soft, Normal Bowel Sounds. absent: Rigid, Tenderness, Mass , Rebound - Extremities Exam Extremities Exam: Full ROM, Normal Inspection. absent: Calf Tenderness, Pedal Edema - Neurological Exam Neurological Exam: Alert, Awake, CN II-XII Intact, Oriented x3 - Psychiatric Exam Psychiatric exam: Normal Affect, Normal Mood - Skin Skin Exam: Dry, Warm Assessment and Plan - Assessment and Plan (Free Text) Assessment: This is a 62yo male with PMH of HTN, DM2, CHF with AICD, a.fib, HLD, chornic back pain who came to ED for dizziness which is secondary to dehydration. Plan: 1. Lightheadedness - Patient noted to be hypotensive and dehydrated - No evidence of fluid overload (lungs clear, no edema) - Orthostatics positive - Carotid dopplers pending - Cardiology consulted. - Discussed with Cardiology, Dr. Clifton: Hold hypertensives for now, start patient on NS@50 - If patient gets SOB, give patient Lasix 40mg IVP once - Troponins trended- stable - Patient was recently at [facility] and had a full work up. Echo not needed at this time. - will repeat orthostatics in AM - physical therapy 2. Chronic CHF - Last known Echo showed EF 30-35% as per Dr. Lawson - Patient is not in acute CHF at this time with no evidence of fluid overload - Will hold IV lasix and BP meds held for hypotension - AICD recently interrogated - Cardiology Consulted- recs appreciated - Will add Lasix 40IVP prn SOB since patient is on NS@50 3. Hx of Atrial fibrillation - EKG showed a.fib with AICD pacing - Continue home dose Eliquis 5mg BID 4. Hypothyroidism - Subclinical - TSH mildly elevated, T3/T4 normal - Recheck as outpatient 5. Hx of DM - will check HgbA1c - continue to monitor BG ACHS - ISS - Carb consistent/Heart healthy Diet 6. HLD - LDL: 114, goal LDL <70 - Will increase Lipitor to 20mg - Counseled patient on diet and exercise GI ppx: Pepcid DVT ppx: Eliquis 5mg, SCDs Case seen, discussed and reviewed with Dr. aLwson. [place] PGY2
[2017-06-19] MEDS ORDERED: Sodium Chloride 0.9% 1,000 ML IV SCH (12:15)
--- NOTE | 2017-06-19 12:49 | CON ---
CARDIOLOGY CONSULTATION DATE: 06/19/2017 HISTORY: The patient is a 62-year-old male who presented with transient dizziness. The patient's past medical history is notable for a dilated cardiomyopathy with an EF of 30-35%, treated with an ICD as well as a pacemaker. The patient also suffers from diabetes mellitus, atrial fibrillation as well as history of CHF. The patient denies shortness of breath. Denies edema in the lower extremities. SOCIAL HISTORY: The patient does not smoke. REVIEW OF SYSTEMS: A 14-point review of systems was reviewed in detail. No other cardiac symptomatology is noted. PHYSICAL EXAMINATION: VITAL SIGNS: Blood pressure is 112/77 with positive orthostatic changes, heart rate in the 70s which is paced. NECK: Negative JVD. LUNGS: Without rales. HEART: With S1, S2. EXTREMITIES: Without edema. LABORATORY DATA: Atrial fibrillation with paced rhythm. Troponins are negative. BUN and creatinine is 41 and 1.3. The hemoglobin is 16.3. IMPRESSION: 1. Dizziness likely secondary to #2. 2. Dehydration. 3. Dilated cardiomyopathy. 4. Coronary artery disease. 5. Atrial fibrillation. PLAN: Given these findings, I withhold the diuretics for today. Gentle hydration for the next 24 hours. Would recheck the orthostatic in the morning. If okay, the patient can be discharged with low doses of diuretics at home. Angus Clifton MD
--- NOTE | 2017-06-19 18:37 | US ---
PROCEDURE: Bilateral carotid artery duplex ultrasound HISTORY: Carotid stenosis PHYSICIAN(S): Angus Patel MD. TECHNIQUE: Duplex sonography and color-flow Doppler were used to evaluate the carotid bifurcations and limited segments of the vertebral arteries bilaterally. The exam is limited by body habitus FINDINGS: There is mild smooth heterogeneous plaque noted at the carotid bifurcations bilaterally. The peak systolic velocity in the proximal right internal carotid artery is 55 cm/sec. This corresponds to a 20 to 39% proximal right ICA stenosis. Normal systolic velocities are noted in the proximal right external carotid artery. There is antegrade flow in the right vertebral artery. The peak systolic velocity in the proximal left internal carotid artery is 39 cm/sec. This corresponds to a 20 to 39% proximal left ICA stenosis. Normal systolic velocities are noted in the proximal left external carotid artery. There is antegrade flow in the left vertebral artery. IMPRESSION: 1. Bilateral 20-39% proximal ICA stenoses. 2. Antegrade flow in both vertebral arteries.
--- NOTE | 2017-06-19 22:13 | CARD ---
APPROVED REPORT EKG Measurement Heart [id number] <Conclusion> Electronic ventricular pacemaker Underlying rhythm is A Fib
[2017-06-20 07:13] LABS: BASO # 0.02 K/mm3 (0.0-2.0); BASO % 0.2 % (0.0-3.0); EOS # 0.2 (0.0-0.7); EOS % 2.2 % (1.5-5.0); GRAN # 6.18 (1.4-6.5); GRAN % 64.8 % (50.0-68.0); HEMATOCRIT 49.2 % (42.0-52.0); LYMPH # 2.2 (1.2-3.4); LYMPH % 23.5 % (22.0-35.0); MEAN CELL VOLUME 90.1 fl (80.0-105.0); MEAN CORPUSCULAR HGB CONC 33.3 g/dl (31.0-37.0); MONO # 0.9 (0.1-0.6); MONO % 9.3 % (1.0-6.0); RED CELL DISTRIBUTION WIDTH 14.9 % (11.5-14.5); WHITE BLOOD COUNT 9.5 10^3/ul (4.5-11.0)
[2017-06-20 07:20] LABS: ALB/GLOB RATIO 1.2 (1.1-1.8); ALKALINE PHOSPHATASE 88 U/L (38-126); ALT/SGPT 25 U/L (7-56); AST/SGOT 17 U/L (17-59); BILIRUBIN,TOTAL 0.7 mg/dL (0.2-1.3); BLOOD UREA NITROGEN 36 mg/dL (7-21); CALCIUM 9.6 mg/dL (8.4-10.5); CARBON DIOXIDE 25 mmol/L (21-33); CHLORIDE 106 mmol/L (98-107); GFR AFRICAN-AMERICAN > 60; GLUCOSE,RANDOM 140 mg/dL (70-110); POTASSIUM 5.3 mmol/L (3.6-5.0); SODIUM 139 mmol/L (132-148); TOTAL PROTEIN 7.2 g/dL (5.8-8.3)
[2017-06-20] MEDS: Insulin Lispro (humaLOG) LOW Coverage SC SCH ×4 (08:03→22:46)
[2017-06-20] MEDS ORDERED: Sod Polystyrene Sulf 15 gm/60 ml Susp PO ONE (08:43)
--- NOTE | 2017-06-20 12:21 | CP.PCM.PN ---
<Desiree Garner - Last Filed: 06/20/17 12:18> Subjective - Date & Time of Evaluation Date of Evaluation: 06/20/17 Time of Evaluation: 07:00 - Subjective Subjective: Medicine Progress Note for New Jacob PGY2 Patient seen and examined at bedside. As per nursing staff, there were no acute overnight events. Patient reports his dizziness has improved. He denies chest pain, shortness of breath, numbness/tingling, nausea/vomiting/diarrhea, fever or chills. Patient is worried about going home because he is "afraid he will come right back to the hospital". Objective - Vital Signs/Intake and Output Vital Signs (last 24 hours): Temp Pulse Resp BP Pulse Ox 97.5 F L 73 19 136/85 95 06/20/17 06:00 06/20/17 09:15 06/20/17 06:00 06/20/17 10:04 06/20/17 06:00 Intake and Output: 06/20/17 06/20/17 06:59 18:59 Intake Total 620 Output Total 750 Balance -130 - Medications Medications: Current Medications Albuterol/Ipratropium (Duoneb 3 Mg/0.5 Mg (3 Ml) Ud) 3 ml IH [id number] PRN PRN Reason: Shortness of Breath Apixaban (Eliquis) 5 mg PO BID [facility] PRN Reason: Protocol Last Admin: 06/20/17 10:04 Dose: 5 mg Atorvastatin Calcium (Lipitor) 20 mg PO DIN [facility] Last Admin: 06/19/17 17:20 Dose: 20 mg Carvedilol (Coreg) 6.25 mg PO BID [facility] Last Admin: 06/18/17 17:42 Dose: 6.25 mg Famotidine (Pepcid) 20 mg PO BID [facility] Last Admin: 06/20/17 10:04 Dose: 20 mg Insulin Human Lispro (Humalog Low) 0 units SC ACHS [facility] PRN Reason: Protocol Last Admin: 06/20/17 12:13 Dose: Not Given Ketorolac Tromethamine (Toradol) 15 mg IVP Q6 PRN PRN Reason: Pain, moderate (4-7) Last Admin: 06/20/17 08:27 Dose: 15 mg Torsemide (Demadex) 10 mg PO DAILY [facility] - Labs Labs: 12/03/17 06:00 06/20/17 06:00 PT 13.2 SECONDS (9.4-12.5) H 06/19/17 06:00 INR 1.20 (0.93-1.08) H 06/19/17 06:00 - Constitutional Appears: Younger Than Stated Age - Head Exam Head Exam: ATRAUMATIC, NORMAL INSPECTION, NORMOCEPHALIC - Eye Exam Eye Exam: Normal appearance, PERRL Pupil Exam: NORMAL ACCOMODATION, PERRL - ENT Exam ENT Exam: Mucous Membranes Moist - Neck Exam Neck Exam: Full ROM, Normal Inspection - Respiratory Exam Respiratory Exam: Clear to Ausculation Bilateral, NORMAL BREATHING PATTERN. absent: Rales, Rhonchi, Wheezes - Cardiovascular Exam Cardiovascular Exam: REGULAR RHYTHM, +S1, +S2. absent: Gallop, Rubs, Murmur - GI/Abdominal Exam GI & Abdominal Exam: Soft, Normal Bowel Sounds. absent: Rigid, Tenderness, Mass , Rebound - Extremities Exam Extremities Exam: Normal Inspection. absent: Calf Tenderness, Pedal Edema - Neurological Exam Neurological Exam: Alert, Awake, CN II-XII Intact, Oriented x3 - Psychiatric Exam Psychiatric exam: Normal Affect, Normal Mood - Skin Skin Exam: Dry, Warm Assessment and Plan - Assessment and Plan (Free Text) Assessment: This is a 62yo male with PMH of HTN, DM2, CHF with AICD, a.fib, HLD, chornic back pain who came to ED for dizziness which is secondary to dehydration. Plan: 1. Lightheadedness- resolved - Repeat orthostatic normal - Carotid dopplers 20-39% bilateral ICA stenosis - Cardiology consulted- recs appreciated - Troponins trended- stable - Patient was recently at [facility] and had a full work up. Echo not needed at this time. - Physical therapy recommended TCU - BP now in 150s- will restart Coreg and Toresemide 10mg (is on 20mg at home) 2. Chronic CHF - Last known Echo showed EF 30-35% as per Dr. Lawson - Patient is not in acute CHF at this time with no evidence of fluid overload - AICD recently interrogated - Cardiology Consulted- recs appreciated - Toresemide 10mg daily 3. Hx of Atrial fibrillation - EKG showed a.fib with AICD pacing - Eliquis 5mg BID 4. Hypothyroidism (Subclinical) - TSH mildly elevated, T3/T4 normal - Recheck as outpatient 5. Hx of DM - hgbA1c pending - BGM ACHS, ISS 6. HLD - LDL: 114, goal LDL <70 - Lipitor 20mg (Lipitor 20mg not covered for insurance- Crestor 5mg sent to pharmacy upon D/C) GI ppx: Pepcid DVT ppx: Eliquis 5mg, SCDs Case seen, discussed and reviewed with Dr. Jose Roberto Garner PGY2 <Steven Cid - Last Filed: 06/21/17 06:45> Subjective - Subjective Subjective: discussed w/ resident at length went ob=raheel meds labs tests orders plans Objective - Vital Signs/Intake and Output Vital Signs (last 24 hours): Temp Pulse Resp BP Pulse Ox 97.6 F 75 18 145/100 H 96 06/21/17 06:00 06/21/17 06:00 06/21/17 06:00 06/21/17 06:00 06/21/17 06:00 - Medications Medications: Current Medications Albuterol/Ipratropium (Duoneb 3 Mg/0.5 Mg (3 Ml) Ud) 3 ml IH [id number] PRN PRN Reason: Shortness of Breath Apixaban (Eliquis) 5 mg PO BID [facility] PRN Reason: Protocol Last Admin: 06/20/17 18:05 Dose: 5 mg Atorvastatin Calcium (Lipitor) 20 mg PO DIN [facility] Last Admin: 06/20/17 18:05 Dose: 20 mg Carvedilol (Coreg) 6.25 mg PO BID [facility] Last Admin: 06/20/17 18:05 Dose: 6.25 mg Famotidine (Pepcid) 20 mg PO BID [facility] Last Admin: 06/20/17 18:05 Dose: 20 mg Insulin Human Lispro (Humalog Low) 0 units SC [facility] PRN Reason: Protocol Last Admin: 06/20/17 22:46 Dose: Not Given Ketorolac Tromethamine (Toradol) 15 mg IVP Q6 PRN PRN Reason: Pain, moderate (4-7) Last Admin: 06/21/17 01:04 Dose: 15 mg Torsemide (Demadex) 10 mg PO DAILY [facility] - Labs Labs: 06/20/17 06:00 06/20/17 06:00 PT 13.2 SECONDS (9.4-12.5) H 06/19/17 06:00 INR 1.20 (0.93-1.08) H 06/19/17 06:00
--- NOTE | 2017-06-20 13:20 | PN ---
DATE: 06/20/2017 SUBJECTIVE: The patient's dizziness is much improved. The patient is no longer orthostatic after IV hydration. OBJECTIVE: VITAL SIGNS: Blood pressure is 136/85 and heart rate is in the 70s. NECK: Negative JVD. LUNGS: Without rales. HEART: S1 and S2. EXTREMITIES: Without edema. LABORATORY DATA: BUN and creatinine is proved. Hemoglobin is 16.4. IMPRESSION: 1. Status post orthostatic hypotension secondary to dehydration secondary to dual diuretics. 2. Dehydration secondary to dual diuretics. 3. History of cardiomyopathy. 4. Coronary artery disease. 5. Chronic atrial fibrillation. PLAN: Given these findings, we will discontinue IV fluids. We will resume his diuretics. We will cut down his home diuretics to 12.5 of Aldactone at home. We will continue his Demadex. I will discontinue telemetry today. Angus Clifton MD
[2017-06-20 23:49] VITALS: RESP 18; TEMP 97.6
[2017-06-21 06:06] VITALS: O2SAT 96
[2017-06-21 07:58] LABS: BASO # 0.02 K/mm3 (0.0-2.0); BASO % 0.2 % (0.0-3.0); EOS # 0.2 (0.0-0.7); EOS % 2.2 % (1.5-5.0); GRAN # 5.35 (1.4-6.5); GRAN % 64.6 % (50.0-68.0); HEMATOCRIT 47.4 % (42.0-52.0); LYMPH # 1.9 (1.2-3.4); LYMPH % 22.7 % (22.0-35.0); MEAN CELL VOLUME 89.4 fl (80.0-105.0); MEAN CORPUSCULAR HEMOGLOBIN 29.6 pg (25.0-35.0); MEAN CORPUSCULAR HGB CONC 33.1 g/dl (31.0-37.0); MEAN PLATELET VOLUME 10.9 fl (7.0-11.0); MONO # 0.9 (0.1-0.6); MONO % 10.3 % (1.0-6.0); RED CELL DISTRIBUTION WIDTH 14.7 % (11.5-14.5); WHITE BLOOD COUNT 8.3 10^3/ul (4.5-11.0)
[2017-06-21 08:12] LABS: ALB/GLOB RATIO 1.3 (1.1-1.8); ALKALINE PHOSPHATASE 88 U/L (38-126); ALT/SGPT 30 U/L (7-56); AST/SGOT 17 U/L (17-59); BILIRUBIN,TOTAL 0.7 mg/dL (0.2-1.3); BLOOD UREA NITROGEN 41 mg/dL (7-21); CALCIUM 9.5 mg/dL (8.4-10.5); CARBON DIOXIDE 25 mmol/L (21-33); CHLORIDE 106 mmol/L (98-107); GFR AFRICAN-AMERICAN > 60; GLUCOSE,RANDOM 144 mg/dL (70-110); POTASSIUM 5.3 mmol/L (3.6-5.0); SODIUM 139 mmol/L (132-148)
[2017-06-21] MEDS: Insulin Lispro (humaLOG) LOW Coverage SC SCH ×2 (09:26→11:34)
[2017-06-21 09:27] VITALS: BP 161/109; PULSE 74
--- NOTE | 2017-06-21 13:48 | PN ---
DATE: 06/21/2017 CARDIOLOGY FOLLOWUP NOTE SUBJECTIVE: The patient is in bed and he is comfortable. He is still complaining of mild dizziness. PHYSICAL EXAMINATION: VITAL SIGNS: Blood pressure is up to 145/100. NECK: Negative JVD. LUNGS: Decreased breath sounds. HEART: Reveals S1 and S2. EXTREMITIES: Without edema. LABORATORY DATA: Hemoglobin is 15.7. Chemistries, BUN and creatinine is 41 over 1.3. IMPRESSION: 1. Resolution of orthostatic hypotension. 2. Chronic atrial fibrillation. 3. Hypercholesterolemia. 4. Obesity. 5. Hypertension. PLAN: Given these findings, I agree with restarting him on his diuretic. I agree with restarting on the diuretics. May need to restart GIUSEPPE or ARB depending on his response to his diuretics. Angus Clifton MD
--- NOTE | 2017-06-21 15:55 | CP.PCM.DIS ---
Provider - Provider Date of Admission: 06/18/17 14:44 Attending physician: Tye Ramos MD Primary care physician: Tye Ramos MD Consults: Cardiology: Dr. Angus Clifton Time Spent in preparation of Discharge (in minutes): 25 Hospital Course - Lab Results Lab Results: Most Recent Lab Values WBC 8.3 10^3/ul (4.5-11.0) 06/21/17 07:30 RBC 5.30 10^6/uL (3.5-6.1) 06/21/17 07:30 Hgb 15.7 g/dL (14.0-18.0) 06/21/17 07:30 Hct 47.4 % (42.0-52.0) 06/21/17 07:30 MCV 89.4 fl (80.0-105.0) 06/21/17 07:30 MCH 29.6 pg (25.0-35.0) 06/21/17 07:30 MCHC 33.1 g/dl (31.0-37.0) 06/21/17 07:30 RDW 14.7 % (11.5-14.5) H 06/21/17 07:30 Plt Count 168 10^3/uL (120.0-450.0) 06/21/17 07:30 MPV 10.9 fl (7.0-11.0) 06/21/17 07:30 Gran % 64.6 % (50.0-68.0) 06/21/17 07:30 Lymph % (Auto) 22.7 % (22.0-35.0) 06/21/17 07:30 Curry % (Auto) 10.3 % (1.0-6.0) H 06/21/17 07:30 Eos % (Auto) 2.2 % (1.5-5.0) 06/21/17 07:30 Baso % (Auto) 0.2 % (0.0-3.0) 06/21/17 07:30 Gran # 5.35 (1.4-6.5) 06/21/17 07:30 Lymph # 1.9 (1.2-3.4) 06/21/17 07:30 Curry # 0.9 (0.1-0.6) H 06/21/17 07:30 Eos # 0.2 (0.0-0.7) 06/21/17 07:30 Baso # 0.02 K/mm3 (0.0-2.0) 06/21/17 07:30 PT 13.2 SECONDS (9.4-12.5) H 06/19/17 06:00 INR 1.20 (0.93-1.08) H 06/19/17 06:00 pO2 37 mm/Hg (30-55) 06/18/17 12:22 VBG pH 7.33 (7.32-7.43) 06/18/17 12:22 VBG pCO2 47.0 (40-60) 06/18/17 12:22 VBG HCO3 24.8 mmol/l (21-28) 06/18/17 12:22 VBG Total CO2 26.2 mmol.L (22-28) 06/18/17 12:22 VBG O2 Sat (Calc) 69.5 % (40-65) H 06/18/17 12:22 VBG Base Excess -1.5 mmol/L (0.0-2.0) L 06/18/17 12:22 VBG Potassium 4.7 mmol/L (3.6-5.2) 06/18/17 12:22 Sodium 136.0 mmol/L (132-148) 06/18/17 12:22 Chloride 100.0 mmol/L (98-107) 06/18/17 12:22 Glucose 274 mg/dl (75-110) H 06/18/17 12:22 Lactate 1.9 mmol/L (0.7-2.1) 06/18/17 12:22 FiO2 21.0 % 06/18/17 12:22 Sodium 139 mmol/L (132-148) 06/21/17 07:30 Potassium 5.3 mmol/L (3.6-5.0) H 06/21/17 07:30 Chloride 106 mmol/L (98-107) 06/21/17 07:30 Carbon Dioxide 25 mmol/L (21-33) 06/21/17 07:30 Anion Gap 13 (10-20) 06/21/17 07:30 BUN 41 mg/dL (7-21) H 06/21/17 07:30 Creatinine 1.3 mg/dl (0.8-1.5) 06/21/17 07:30 Est GFR ( Amer) > 60 06/21/17 07:30 Est GFR (Non-Af Amer) 56 06/21/17 07:30 POC Glucose (mg/dL) 149 mg/dL (65-110) H 06/18/17 17:10 Random Glucose 144 mg/dL (70-110) H 06/21/17 07:30 Hemoglobin A1c 8.5 % (4.2-6.5) H D 06/18/17 12:22 Calcium 9.5 mg/dL (8.4-10.5) 06/21/17 07:30 Total Bilirubin 0.7 mg/dL (0.2-1.3) 06/21/17 07:30 AST 17 U/L (17-59) 06/21/17 07:30 ALT 30 U/L (7-56) 06/21/17 07:30 Alkaline Phosphatase 88 U/L (38-126) 06/21/17 07:30 Troponin I 0.04 ng/mL D 06/19/17 00:25 NT-Pro-B Natriuret Pep 3860 pg/mL (0-450) H 06/18/17 12:22 Total Protein 7.0 g/dL (5.8-8.3) 06/21/17 07:30 Albumin 3.9 g/dL (3.0-4.8) 06/21/17 07:30 Globulin 3.1 gm/dL 06/21/17 07:30 Albumin/Globulin Ratio 1.3 (1.1-1.8) 06/21/17 07:30 Triglycerides 133 mg/dL (35-160) 06/18/17 12:22 Cholesterol 184 mg/dL (130-200) 06/18/17 12:22 LDL Cholesterol Direct 144 mg/dL (0-129) H 06/18/17 12:22 HDL Cholesterol 31 mg/dL (29-60) 06/18/17 12:22 Free T4 1.04 ng/dL (0.78-2.19) 06/19/17 07:30 Total T3 1.13 ng/mL (0.97-1.69) 06/19/17 07:30 TSH 3rd Generation 6.56 mIU/mL (0.46-4.68) H 06/19/17 07:30 Venous Blood Potassium 4.7 mmol/L (3.6-5.2) 06/18/17 12:22 - Hospital Course Hospital Course: This is a 62yo male with PMH of HTN, DM2, CHF with AICD, a.fib, HLD, chornic back pain who came to ED for dizziness which is secondary to dehydration. Upon admission, orthostatics were mildly positive. BP medications were held. Patient was evaluated by Cardiology. Dr. Clifton recommended to gently hydrate patient. Patients BP improved. Orthostasis resolved. Carotid doppler showed 20-39% stenosis of the internal carotids bilaterally. Lipid panel showed elevated LDL. Lipitor was increased to 20mg. Patient continued to complain of weakness and back pain. Patient was evaluated by physical therapy and recommended further work with rehab. Patient evaluated and accepted by TCU. Patient discharged to TCU for reconditioning and physical therapy. Patient plan and medical management discussed and agreed upon. - Date & Time of H&P Date of H&P: 06/18/17 Time of H&P: 15:46 Discharge Exam - Head Exam Head Exam: ATRAUMATIC, NORMAL INSPECTION, NORMOCEPHALIC - Eye Exam Eye Exam: EOMI, PERRL - Neck Exam Neck exam: Full Rom - Respiratory Exam Respiratory Exam: Clear to PA & Lateral, NORMAL BREATHING PATTERN - Cardiovascular Exam Cardiovascular Exam: REGULAR RHYTHM, +S1, +S2 - GI/Abdominal Exam GI & Abdominal Exam: Normal Bowel Sounds, Soft, Tenderness (mild LLQ). absent: Guarding, Mass, Rigid - Back Exam Back exam: paraspinal tenderness (lumbar bilateral ) - Neurological Exam Neurological exam: Alert, Normal Gait, Oriented x3 - Psychiatric Exam Psychiatric exam: Normal Affect, Normal Mood - Skin Skin Exam: Dry, Intact Discharge Plan - Discharge Medications Prescriptions: Rosuvastatin Calcium [Crestor] 5 mg PO DAILY #30 tab Torsemide [Demadex] 10 mg PO DAILY #30 tab - Follow Up Plan Condition: STABLE Disposition: REHAB FACILITY/REHAB UNIT Instructions: Heart Failure (DC), Syncope (DC), Hypotension (DC), Weakness (GEN ) Additional Instructions: discharge to TCU for rehabilitation Continue current medications and orders Referrals: Tye Ramos MD [Primary Care Provider] -
== END 2017-06-21 15:40 | DRG 640 ==
LOC: ED 11:41 → ERH 14:44 → 3RSO 17:22
PROVIDERS: ADMIT Internal Medicine; ATTEND Internal Medicine
DX: E86.0 Dehydration (principal); I50.43 Acute on chronic combined systolic (congestive) and diastolic (congestive) heart failure; I42.0 Dilated cardiomyopathy; I95.2 Hypotension due to drugs; I48.2 Chronic atrial fibrillation; T50.2X5A Adverse effect of carbonic-anhydrase inhibitors, benzothiadiazides and other diuretics, initial encounter; I11.0 Hypertensive heart disease with heart failure; E11.9 Type 2 diabetes mellitus without complications; I25.10 Atherosclerotic heart disease of native coronary artery without angina pectoris; E78.5 Hyperlipidemia, unspecified; E78.00 Pure hypercholesterolemia, unspecified; E66.9 Obesity, unspecified; G89.29 Other chronic pain; Z79.01 Long term (current) use of anticoagulants; Z86.73 Personal history of transient ischemic attack (TIA), and cerebral infarction without residual deficits; Z95.0 Presence of cardiac pacemaker; Z95.810 Presence of automatic (implantable) cardiac defibrillator; K59.00 Constipation, unspecified; K44.9 Diaphragmatic hernia without obstruction or gangrene; Z88.1 Allergy status to other antibiotic agents; Z88.5 Allergy status to narcotic agent; Z88.0 Allergy status to penicillin; Z88.8 Allergy status to other drugs, medicaments and biological substances; R42 Dizziness and giddiness; E03.9 Hypothyroidism, unspecified; Z68.37 Body mass index [BMI] 37.0-37.9, adult

== ENCOUNTER 2017-06-21 15:40 | Inpatient (IN) | payer OTHER, BC ==
[2017-06-21] MEDS ORDERED: Albuterol-Ipratrop 3 mg / 0.5 (3 ml) UD IH PRN (17:03)
[2017-06-21] MEDS: Insulin Lispro (humaLOG) LOW Coverage SC SCH ×2 (18:05→21:38)
[2017-06-21] MEDS ORDERED: Influenza Vaccine 60 mcg/0.5 mL SYR (4YR UP) IM ONE (22:19)
[2017-06-21] MEDS ORDERED: Pneumococcal 23-Valent Vaccine IM ONE (22:19)
[2017-06-22] MEDS: Insulin Lispro (humaLOG) LOW Coverage SC SCH ×4 (06:30→21:41)
[2017-06-22 07:15] LABS: BASO # 0.03 K/mm3 (0.0-2.0); BASO % 0.3 % (0.0-3.0); EOS # 0.2 (0.0-0.7); EOS % 1.8 % (1.5-5.0); GRAN # 6.31 (1.4-6.5); GRAN % 68.6 % (50.0-68.0); HEMATOCRIT 48.3 % (42.0-52.0); LYMPH # 1.8 (1.2-3.4); LYMPH % 19.8 % (22.0-35.0); MEAN CELL VOLUME 89.4 fl (80.0-105.0); MEAN CORPUSCULAR HEMOGLOBIN 29.6 pg (25.0-35.0); MEAN CORPUSCULAR HGB CONC 33.1 g/dl (31.0-37.0); MEAN PLATELET VOLUME 10.7 fl (7.0-11.0); MONO # 0.9 (0.1-0.6); MONO % 9.5 % (1.0-6.0); RED CELL DISTRIBUTION WIDTH 14.7 % (11.5-14.5); WHITE BLOOD COUNT 9.2 10^3/ul (4.5-11.0)
[2017-06-22 07:18] LABS: ALB/GLOB RATIO 1.2 (1.1-1.8); ALKALINE PHOSPHATASE 94 U/L (38-126); ALT/SGPT 27 U/L (7-56); AST/SGOT 21 U/L (17-59); BILIRUBIN,TOTAL 0.6 mg/dL (0.2-1.3); BLOOD UREA NITROGEN 39 mg/dL (7-21); CALCIUM 9.3 mg/dL (8.4-10.5); CARBON DIOXIDE 25 mmol/L (21-33); CHLORIDE 104 mmol/L (98-107); GFR AFRICAN-AMERICAN > 60; GLUCOSE,RANDOM 144 mg/dL (70-110); POTASSIUM 4.6 mmol/L (3.6-5.0); SODIUM 139 mmol/L (132-148); TOTAL PROTEIN 7.6 g/dL (5.8-8.3)
--- NOTE | 2017-06-22 12:28 | CP.PCM.HP ---
History of Present Illness - History of Present Illness History of Present Illness: CC: Deconditioning HPI: This is a 62yo male with PMH of HTN, DM2, CHF with AICD, a.fib, HLD, chornic back pain who came to [facility] ED on 06/1017 for dizziness which is secondary to dehydration. Upon admission, orthostatics were mildly positive. BP medications were held. Patient was evaluated by Cardiology. Dr. Clifton recommended to gently hydrate patient. Patients BP improved. Orthostasis resolved. Carotid doppler showed 20-39% stenosis of the internal carotids bilaterally. Lipid panel showed elevated LDL. Lipitor was increased to 20mg. Patient continued to complain of weakness and back pain. Patient was evaluated by physical therapy and recommended further work with rehab. Patient evaluated and accepted by TCU. Patient discharged to TCU for reconditioning and physical therapy. Patient continues to complain of dizziness and lightheadedness that he describes as a fog when his BP is elevated or decreased. Patient glycemic medications to be restarted slowly. Patient home BP medications to be restarted slowly with continued monitoring for dizziness or orthostatic hypotension. Patient denies chest pain, shortness of breath, abdominal pain, constipation, diarrhea, nausea, vomiting, fever, chills. PMH: As above PSH: Left knee meniscus repair, Polyp removal from left nares SocHx: Tobacco: Denies, ETOH: social ID: denies All: Codeine, metformin, PCN, tetracycline Meds: See SEP PMD: Dr. Ramos Present on Admission - Present on Admission Any Indicators Present on Admission: No Review of Systems - Review of Systems Review of Systems: 12 point ROS benign otherwise mentioned in HPI Past Patient History - Infectious Disease Hx of Infectious Diseases: None - Tetanus Immunizations Tetanus Immunization: Up to Date - Past Social History Smoking Status: Former Smoker Alcohol: Social Drugs: Denies - CARDIAC Hx Hypertension: Yes - PULMONARY Hx Respiratory Disorders: No - NEUROLOGICAL Hx Neurological Disorder: No Hx Transient Ischemic Attacks (TIA): (pt denies) - HEENT Hx HEENT Problems: No (WEARS RX GLASSES) - RENAL Hx Chronic Kidney Disease: No - ENDOCRINE/METABOLIC Hx Diabetes Mellitus Type 2: Yes - HEMATOLOGICAL/ONCOLOGICAL Hx Blood Disorders: No - INTEGUMENTARY Hx Dermatological Problems: Yes Other/Comment: muultiple red scabs and rash to both feet c/o itch - MUSCULOSKELETAL/RHEUMATOLOGICAL Hx Falls: No - GASTROINTESTINAL Hx Gastrointestinal Disorders: Yes (obese) Other/Comment: HIATAL HERNIA,pt denies constipation, colonoscopy 11/11/15 dx hemorrhoids diverticulosis - GENITOURINARY/GYNECOLOGICAL Hx Reproductive Disorders: No - PSYCHIATRIC Hx Emotional Abuse: No Hx Physical Abuse: No - SURGICAL HISTORY Hx Orthopedic Surgery: Yes Other/Comment: LEFT MENISCUS TEAR 1996,POLPS REMOVED from NASAL PASSAGES, arthroscopic sx r knee - ANESTHESIA Hx Anesthesia: Yes Hx Anesthesia Reactions: No Hx Malignant Hyperthermia: No Meds Allergies/Adverse Reactions: Allergies Allergy/AdvReac Type Severity Reaction Status Date / Time codeine Allergy SWELLING Verified 06/18/17 12:29 metformin Allergy DIARRHEA Verified 06/18/17 12:29 Penicillins Allergy SWELLING Verified 06/18/17 12:29 tetracycline Allergy SWELLING Verified 06/18/17 12:29 Physical Exam - Constitutional Appears: Non-toxic, No Acute Distress - Head Exam Head Exam: ATRAUMATIC, NORMAL INSPECTION, NORMOCEPHALIC - Eye Exam Eye Exam: EOMI, PERRL - ENT Exam ENT Exam: Mucous Membranes Moist - Respiratory Exam Respiratory Exam: Clear to Auscultation Bilateral, NORMAL BREATHING PATTERN. absent: Rales, Rhonchi, Wheezes - Cardiovascular Exam Cardiovascular Exam: REGULAR RHYTHM, +S1, +S2 - GI/Abdominal Exam GI & Abdominal Exam: Normal Bowel Sounds, Soft. absent: Tenderness - Extremities Exam Extremities exam: Positive for: pedal pulses present. Negative for: calf tenderness - Back Exam Back exam: paraspinal tenderness (bilateral lumbar) - Neurological Exam Neurological exam: Alert, Normal Gait, Oriented x3 - Psychiatric Exam Psychiatric exam: Normal Affect, Normal Mood - Skin Skin Exam: Dry, Intact Results - Vital Signs Recent Vital Signs: Last Vital Signs Temp 97.4 F L 06/22/17 10:00 Pulse 74 06/22/17 10:00 Resp 20 06/22/17 10:00 BP 139/96 H 06/22/17 10:00 Pulse Ox 98 06/22/17 10:00 - Labs Result Diagrams: 06/22/17 06:30 06/22/17 06:30 Labs: Laboratory Results - last 24 hr 06/22/17 06/22/17 06/22/17 05:45 06:30 06:30 WBC 9.2 RBC 5.40 Hgb 16.0 Hct 48.3 MCV 89.4 MCH 29.6 MCHC 33.1 RDW 14.7 H Plt Count 177 MPV 10.7 Gran % 68.6 H Lymph % (Auto) 19.8 L Davidson % (Auto) 9.5 H Eos % (Auto) 1.8 Baso % (Auto) 0.3 Gran # 6.31 Lymph # 1.8 Davidson # 0.9 H Eos # 0.2 Baso # 0.03 Sodium 139 Potassium 4.6 Chloride 104 Carbon Dioxide 25 Anion Gap 14 BUN 39 H Creatinine 1.3 Est GFR ( Amer) > 60 Est GFR (Non-Af Amer) 56 POC Glucose (mg/dL) 133 H Random Glucose 144 H Calcium 9.3 Total Bilirubin 0.6 AST 21 ALT 27 Alkaline Phosphatase 94 Total Protein 7.6 Albumin 4.1 Globulin 3.5 Albumin/Globulin Ratio 1.2 Assessment & Plan - Assessment and Plan (Free Text) Assessment: Patient is a 62 year old male with PMH significant for HTN, chronic back pain, DM2, CHF with AICD in place, atrial fibrillation, HLD, who presented to [facility] ED complaining of dizziness. Patient was admitted for dizziness and acute exacerbation of CHF. Patient vital signs were stable and clinically improved. Patient noted to have weakness and lightheadedness, evaluated by physical therapy with recommendations for TCU for reconditioning. Plan: 1. Deconditioning - Admit to TCU - Physical therapy for reconditioning - continue to monitor 2. Acute on Chronic CHF - improved - CHF systolic, dilated cardiomyopathy, with AICD - Last known EF 30-35% per handoff - Patient recently admitted to [facility] for acute exacerbation, IV lasix and discharge with plan for follow up - Torsemide 10mg Daily - Cardiology Consult, Dr. Clifton continue 3. Dizziness/lightheadedness - Etiology: hypotension vs. orthostatics vs. acute exacerbation of CHF - Orthostatics - negative after admission - Carotid US - 20-39% previous admission - Persistent at this time - neuro consulted, appreciate recs 4. Chronic Back Pain - Etiology due disc bulge vs. stenosis - Patient recently admitted to [facility] with testing - Will call over for records of testing preformed - Pain control with Tylenol - Holding nephro damaging drugs due to elevation in Cr function 5. Hypertension - Patient on admission hypotensive - Hypertensive over past 24-48 hours - Restart home meds slowly - Carvedilol, Aldactone - Consider Entresto 24-26 for tomorrow 6. Atrial Fibrillation - chronic - Chronic on AC with Eliquis 5mg BID - EKG showing Atrial Fibrillation in ED with AICD pacing - Eliquis continue 7. DM2 - ACHS - HgA1c 8.5 - Carb consistent diet - ISS-low - Begin to restart home meds slowly - Glyxambi GI ppx: Pepcid DVT ppx: Eliquis 5mg, SCDs Patient, case, and plan discussed and reviewed with attending - Date & Time Date: 06/22/17 Time: 12:29
--- NOTE | 2017-06-22 13:04 | CP.PCM.CON ---
<Ifrah Roach - Last Filed: 06/22/17 16:10> History of Present Illness - History of Present Illness History of Present Illness: PGY-2 Neurology consult note for Dr. Paz's service 62 year old male with PMH of HTN, chronic back pain, DM2, CHF with AICD, atrial fibrillation, Hyperlipidemia, who presents complaining of lightheadedness and hypotension. Patient states that he was in physical therapy for his back pain when he began to have chills. He went to his primary care doctor and was found to be hypotensive, cold and lightheaded without episode of syncope. Patient was worked up in the hospital; and found to have orthostatic hypotension. Cardiology was consulted. patient was treated for dehydration and transferred to TCU for additional rehab. In rehab he continues to complain of lightheadedness. He describes it as becoming foggy. He states that it is intermittent, does not occur with standing, or movement of his head. He states that he has had it in the past when his blood pressure was to low or to high. He denies near syncope, dizziness. He does report mild tension headache, weakness, numbness or tingling. He also complains fo chronic back pain and neck pain. He states that he has been going to physical therapy and was to see a pain management doctor for epidural injection. Patient denies chest pain, sob, abd pain, fever, chills. PMH: HTN, chronic back pain, DM2, CHF with AICD, atrial fibrillation, Hyperlipidemia PSH: Left knee meniscus repair, Polyp removal from left nares SocHx: Tobacco: Denies, ETOH: social ID: denies All: Codeine, metformin, PCN, tetracycline Review of Systems - Review of Systems All systems: reviewed and no additional remarkable complaints except (as stated in HPI) Past Patient History - Infectious Disease Hx of Infectious Diseases: None - Tetanus Immunizations Tetanus Immunization: Up to Date - Past Social History Smoking Status: Former Smoker Alcohol: Social Drugs: Denies - CARDIAC Hx Hypertension: Yes - PULMONARY Hx Respiratory Disorders: No - NEUROLOGICAL Hx Neurological Disorder: No Hx Transient Ischemic Attacks (TIA): (pt denies) - HEENT Hx HEENT Problems: No (WEARS RX GLASSES) - RENAL Hx Chronic Kidney Disease: No - ENDOCRINE/METABOLIC Hx Diabetes Mellitus Type 2: Yes - HEMATOLOGICAL/ONCOLOGICAL Hx Blood Disorders: No - INTEGUMENTARY Hx Dermatological Problems: Yes Other/Comment: muultiple red scabs and rash to both feet c/o itch - MUSCULOSKELETAL/RHEUMATOLOGICAL Hx Falls: No - GASTROINTESTINAL Hx Gastrointestinal Disorders: Yes (obese) Other/Comment: HIATAL HERNIA,pt denies constipation, colonoscopy 11/11/15 dx hemorrhoids diverticulosis - GENITOURINARY/GYNECOLOGICAL Hx Reproductive Disorders: No - PSYCHIATRIC Hx Emotional Abuse: No Hx Physical Abuse: No - SURGICAL HISTORY Hx Orthopedic Surgery: Yes Other/Comment: LEFT MENISCUS TEAR 1996,POLPS REMOVED from NASAL PASSAGES, arthroscopic sx r knee - ANESTHESIA Hx Anesthesia: Yes Hx Anesthesia Reactions: No Hx Malignant Hyperthermia: No Meds Allergies/Adverse Reactions: Allergies Allergy/AdvReac Type Severity Reaction Status Date / Time codeine Allergy SWELLING Verified 06/18/17 12:29 metformin Allergy DIARRHEA Verified 06/18/17 12:29 Penicillins Allergy SWELLING Verified 06/18/17 12:29 tetracycline Allergy SWELLING Verified 06/18/17 12:29 - Medications Medications: Current Medications Albuterol/Ipratropium (Duoneb 3 Mg/0.5 Mg (3 Ml) Ud) 3 ml IH [id number] PRN; Protocol PRN Reason: Shortness of Breath Apixaban (Eliquis) 5 mg PO BID KATE PRN Reason: Protocol Last Admin: 06/22/17 11:56 Dose: 5 mg Atorvastatin Calcium (Lipitor) 20 mg PO DIN KATE PRN Reason: Protocol Last Admin: 06/21/17 18:21 Dose: 20 mg Carvedilol (Coreg) 6.25 mg PO 0800,1800 KATE PRN Reason: Protocol Last Admin: 06/22/17 08:03 Dose: 6.25 mg Famotidine (Pepcid) 20 mg PO 1000,2200 KATE PRN Reason: Protocol Last Admin: 06/22/17 11:00 Dose: 20 mg Insulin Human Lispro (Humalog Low) 0 units SC ACHS KATE PRN Reason: Protocol Last Admin: 06/22/17 06:30 Dose: Not Given Non-Formulary Medication (Empagliflozin/Linagliptin [Glyxambi 10 Mg-5 Mg Tablet] ) 1 tab PO DAILY KATE Spironolactone (Aldactone) 25 mg PO BID KATE Torsemide (Demadex) 10 mg PO DAILY KATE PRN Reason: Protocol Last Admin: 06/22/17 11:00 Dose: 10 mg Physical Exam - Constitutional Appears: Well, No Acute Distress - Head Exam Head Exam: ATRAUMATIC, NORMAL INSPECTION, NORMOCEPHALIC - Eye Exam Eye Exam: EOMI, Normal appearance, PERRL - ENT Exam ENT Exam: Mucous Membranes Moist - Respiratory Exam Respiratory Exam: Clear to Auscultation Bilateral, NORMAL BREATHING PATTERN. absent: Rales, Rhonchi, Wheezes, Respiratory Distress, Stridor - Cardiovascular Exam Cardiovascular Exam: REGULAR RHYTHM. absent: Tachycardia, Systolic Murmur - Extremities Exam Extremities exam: Positive for: normal inspection. Negative for: pedal edema, tenderness - Neurological Exam Neurological exam: Alert, CN II-XII Intact, Oriented x3 - Expanded Neurological Exam Expanded Patient oriented to: person, place, time Cranial nerves: EOM's Intact: Normal, Nystagmus: Normal, Tongue Deviation: Normal Cerebellar Function: Finger to Nose: Normal Neuro motor strength exam: Left Upper Extremity: 5, Right Upper Extremity: 5, Left Lower Extremity: 5, Right Lower Extremity: 5 - Psychiatric Exam Psychiatric exam: Normal Affect, Normal Mood - Skin Skin Exam: Dry, Intact, Normal Color, Warm Results - Vital Signs Recent Vital Signs: Last Vital Signs Temp 97.4 F L 06/22/17 10:00 Pulse 71 06/22/17 12:12 Resp 20 06/22/17 10:00 BP 139/96 H 06/22/17 10:00 Pulse Ox 98 06/22/17 10:00 - Labs Result Diagrams: 06/22/17 06:30 06/22/17 06:30 Labs: Laboratory Results - last 24 hr 06/22/17 06/22/17 06/22/17 05:45 06:30 06:30 WBC 9.2 RBC 5.40 Hgb 16.0 Hct 48.3 MCV 89.4 MCH 29.6 MCHC 33.1 RDW 14.7 H Plt Count 177 MPV 10.7 Gran % 68.6 H Lymph % (Auto) 19.8 L Greene % (Auto) 9.5 H Eos % (Auto) 1.8 Baso % (Auto) 0.3 Gran # 6.31 Lymph # 1.8 Greene # 0.9 H Eos # 0.2 Baso # 0.03 Sodium 139 Potassium 4.6 Chloride 104 Carbon Dioxide 25 Anion Gap 14 BUN 39 H Creatinine 1.3 Est GFR ( Amer) > 60 Est GFR (Non-Af Amer) 56 POC Glucose (mg/dL) 133 H Random Glucose 144 H Calcium 9.3 Total Bilirubin 0.6 AST 21 ALT 27 Alkaline Phosphatase 94 Total Protein 7.6 Albumin 4.1 Globulin 3.5 Albumin/Globulin Ratio 1.2 Assessment & Plan - Assessment and Plan (Free Text) Assessment: 62 year old male with PMH of HTN, chronic back pain, DM2, CHF with AICD, atrial fibrillation, Hyperlipidemia, who complains of lightheadedness most likely secondary to hypertension. 1. lightheadedness, dizziness 2. HTN 3. CHF - carotid US showed bilateral 20-39% stenosis of proximal ICA - maintain SBP between 120-130 - avoid fluctuation in Blood pressure - avoid sudden drops in blood pressure - PT/OT case reviewed and discussed with attending <Kp Paz - Last Filed: 06/22/17 17:07> Meds - Medications Medications: Current Medications Albuterol/Ipratropium (Duoneb 3 Mg/0.5 Mg (3 Ml) Ud) 3 ml IH [id number] PRN; Protocol PRN Reason: Shortness of Breath Apixaban (Eliquis) 5 mg PO BID KATE PRN Reason: Protocol Last Admin: 06/22/17 11:56 Dose: 5 mg Atorvastatin Calcium (Lipitor) 20 mg PO DIN KATE PRN Reason: Protocol Last Admin: 06/21/17 18:21 Dose: 20 mg Carvedilol (Coreg) 6.25 mg PO 0800,1800 KATE PRN Reason: Protocol Last Admin: 06/22/17 08:03 Dose: 6.25 mg Famotidine (Pepcid) 20 mg PO 1000,2200 KATE PRN Reason: Protocol Last Admin: 06/22/17 11:00 Dose: 20 mg Insulin Human Lispro (Humalog Low) 0 units SC ACHS KATE PRN Reason: Protocol Last Admin: 06/22/17 12:00 Dose: 1 units Non-Formulary Medication (Empagliflozin/Linagliptin [Glyxambi 10 Mg-5 Mg Tablet] ) 1 tab PO DAILY [facility] Spironolactone (Aldactone) 25 mg PO BID [facility] Last Admin: 06/22/17 13:13 Dose: 25 mg Torsemide (Demadex) 10 mg PO DAILY KATE PRN Reason: Protocol Last Admin: 06/22/17 11:00 Dose: 10 mg Results - Vital Signs Recent Vital Signs: Last Vital Signs Temp 97.4 F L 06/22/17 10:00 Pulse 71 06/22/17 12:12 Resp 20 06/22/17 10:00 BP 139/96 H 06/22/17 10:00 Pulse Ox 98 06/22/17 10:00 - Labs Result Diagrams: 06/22/17 06:30 06/22/17 06:30 Labs: Laboratory Results - last 24 hr 06/22/17 06/22/17 06/22/17 05:45 06:30 06:30 WBC 9.2 RBC 5.40 Hgb 16.0 Hct 48.3 MCV 89.4 MCH 29.6 MCHC 33.1 RDW 14.7 H Plt Count 177 MPV 10.7 Gran % 68.6 H Lymph % (Auto) 19.8 L Greene % (Auto) 9.5 H Eos % (Auto) 1.8 Baso % (Auto) 0.3 Gran # 6.31 Lymph # 1.8 Greene # 0.9 H Eos # 0.2 Baso # 0.03 Sodium 139 Potassium 4.6 Chloride 104 Carbon Dioxide 25 Anion Gap 14 BUN 39 H Creatinine 1.3 Est GFR ( Amer) > 60 Est GFR (Non-Af Amer) 56 POC Glucose (mg/dL) 133 H Random Glucose 144 H Calcium 9.3 Total Bilirubin 0.6 AST 21 ALT 27 Alkaline Phosphatase 94 Total Protein 7.6 Albumin 4.1 Globulin 3.5 Albumin/Globulin Ratio 1.2 Attending/Attestation - Attestation I have personally seen and examined this patient.: Yes I have fully participated in the care of the patient.: Yes I have reviewed all pertinent clinical information: Yes Notes (Text): combination of orthostatic hypotension/hypertension fluctuations/ poor cardiac output can lead to the dizziness. vincent COX 06/22/17 17:06
[2017-06-23 07:42] LABS: BASO # 0.03 K/mm3 (0.0-2.0); BASO % 0.4 % (0.0-3.0); EOS # 0.2 (0.0-0.7); GRAN # 4.53 (1.4-6.5); GRAN % 55.4 % (50.0-68.0); HEMATOCRIT 47.1 % (42.0-52.0); LYMPH # 2.5 (1.2-3.4); LYMPH % 31.1 % (22.0-35.0); MEAN CORPUSCULAR HEMOGLOBIN 29.7 pg (25.0-35.0); MEAN CORPUSCULAR HGB CONC 33.3 g/dl (31.0-37.0); MEAN PLATELET VOLUME 10.5 fl (7.0-11.0); MONO # 0.9 (0.1-0.6); MONO % 11.1 % (1.0-6.0); RED CELL DISTRIBUTION WIDTH 14.7 % (11.5-14.5); WHITE BLOOD COUNT 8.2 10^3/ul (4.5-11.0)
[2017-06-23 08:12] LABS: BLOOD UREA NITROGEN 34 mg/dL (7-21); CARBON DIOXIDE 25 mmol/L (21-33); CHLORIDE 103 mmol/L (98-107); GFR AFRICAN-AMERICAN > 60; GLUCOSE,RANDOM 135 mg/dL (70-110); POTASSIUM 4.5 mmol/L (3.6-5.0); SODIUM 138 mmol/L (132-148)
[2017-06-23] MEDS: Insulin Lispro (humaLOG) LOW Coverage SC SCH ×4 (08:28→21:34)
[2017-06-23] MEDS ORDERED: EMPAGLIFLOZIN PO SCH (10:00)
[2017-06-23] MEDS ORDERED: LINAGLIPTIN PO SCH (10:00)
--- NOTE | 2017-06-23 10:44 | CP.PCM.PN ---
Subjective - Date & Time of Evaluation Date of Evaluation: 06/23/17 Time of Evaluation: 09:00 - Subjective Subjective: PGY-2 Neurology progress note for Dr[address] Paz's service Patient seen and examined at bedside in TCU. No acute distress, patient is resting comfortably. He doe3s report mild lightheadedness with headache. He states that his blood pressure was elevated this morning. He denies chest pain, sob, vision changes. Objective - Vital Signs/Intake and Output Vital Signs (last 24 hours): Temp Pulse Resp BP Pulse Ox 97.3 F L 66 18 146/113 H 97 06/22/17 17:37 06/22/17 17:40 06/22/17 17:37 06/23/17 05:37 06/22/17 17:37 - Medications Medications: Current Medications Acetaminophen (Tylenol 325mg Tab) 650 mg PO Q6H PRN PRN Reason: Pain, Mild (1-3) Last Admin: 06/22/17 23:40 Dose: 650 mg Albuterol/Ipratropium (Duoneb 3 Mg/0.5 Mg (3 Ml) Ud) 3 ml IH [id number] PRN; Protocol PRN Reason: Shortness of Breath Apixaban (Eliquis) 5 mg PO BID KATE PRN Reason: Protocol Last Admin: 06/23/17 10:31 Dose: 5 mg Atorvastatin Calcium (Lipitor) 20 mg PO DIN KATE PRN Reason: Protocol Last Admin: 06/22/17 17:40 Dose: 20 mg Carvedilol (Coreg) 6.25 mg PO 0800,1800 KATE PRN Reason: Protocol Last Admin: 06/23/17 08:28 Dose: Not Given Famotidine (Pepcid) 20 mg PO 1000,2200 KATE PRN Reason: Protocol Last Admin: 06/22/17 21:45 Dose: 20 mg Insulin Human Lispro (Humalog Low) 0 units SC ACHS KATE PRN Reason: Protocol Last Admin: 06/23/17 08:28 Dose: Not Given Non-Formulary Medication (Empagliflozin/Linagliptin [Glyxambi 10 Mg-5 Mg Tablet] ) 1 tab PO DAILY [facility] Spironolactone (Aldactone) 25 mg PO BID [facility] Last Admin: 06/23/17 10:31 Dose: 25 mg Torsemide (Demadex) 10 mg PO DAILY KATE PRN Reason: Protocol Last Admin: 06/23/17 10:31 Dose: 10 mg - Labs Labs: 06/23/17 07:10 06/23/17 07:10 - Constitutional Appears: No Acute Distress - Head Exam Head Exam: ATRAUMATIC, NORMAL INSPECTION, NORMOCEPHALIC - Eye Exam Eye Exam: EOMI, Normal appearance - ENT Exam ENT Exam: Mucous Membranes Moist - Respiratory Exam Respiratory Exam: Clear to Ausculation Bilateral, NORMAL BREATHING PATTERN. absent: Respiratory Distress - Cardiovascular Exam Cardiovascular Exam: REGULAR RHYTHM - Neurological Exam Neurological Exam: Alert, Awake, CN II-XII Intact, Oriented x3 Neuro motor strength exam: Left Upper Extremity: 5, Right Upper Extremity: 5, Left Lower Extremity: 5, Right Lower Extremity: 5 - Skin Skin Exam: Dry, Intact, Normal Color, Warm Assessment and Plan - Assessment and Plan (Free Text) Assessment: 62 year old male with PMH of HTN, chronic back pain, DM2, CHF with AICD, atrial fibrillation, Hyperlipidemia, who complains of lightheadedness most likely secondary to combination of orthostatic hypotension, hypertension fluctuations and poor cardiac output. 1. lightheadedness, dizziness 2. HTN 3. CHF - carotid US showed bilateral 20-39% stenosis of proximal ICA - will order CT head - maintain SBP between 120-130 - avoid fluctuation in Blood pressure - avoid sudden drops in blood pressure - PT/OT case reviewed and discussed with attending
--- NOTE | 2017-06-23 11:05 | CP.PCM.PN ---
Subjective - Date & Time of Evaluation Date of Evaluation: 06/23/17 Time of Evaluation: 09:00 - Subjective Subjective: PGY [address] OBRIEN/DR. FLEMING Patient seen and evaluated in TCU. Patient resting comfortably in chair. No events overnight reported. Patient complaining of continued light headedness and dizziness, headache, and elevated blood pressure. Patient denies chest pain , shortness of breath, numbness, weakness in extremities, abdominal pain, n/v/f/ c. Patient to continue with physical therapy. Objective - Vital Signs/Intake and Output Vital Signs (last 24 hours): Temp Pulse Resp BP Pulse Ox 97.3 F L 66 18 146/113 H 97 06/22/17 17:37 06/22/17 17:40 06/22/17 17:37 06/23/17 05:37 06/22/17 17:37 - Medications Medications: Current Medications Acetaminophen (Tylenol 325mg Tab) 650 mg PO Q6H PRN PRN Reason: Pain, Mild (1-3) Last Admin: 06/22/17 23:40 Dose: 650 mg Albuterol/Ipratropium (Duoneb 3 Mg/0.5 Mg (3 Ml) Ud) 3 ml IH [id number] PRN; Protocol PRN Reason: Shortness of Breath Apixaban (Eliquis) 5 mg PO BID KATE PRN Reason: Protocol Last Admin: 06/23/17 10:31 Dose: 5 mg Atorvastatin Calcium (Lipitor) 20 mg PO DIN KATE PRN Reason: Protocol Last Admin: 06/22/17 17:40 Dose: 20 mg Carvedilol (Coreg) 6.25 mg PO 0800,1800 KATE PRN Reason: Protocol Last Admin: 06/23/17 08:28 Dose: Not Given Famotidine (Pepcid) 20 mg PO 1000,2200 KATE PRN Reason: Protocol Last Admin: 06/22/17 21:45 Dose: 20 mg Insulin Human Lispro (Humalog Low) 0 units SC ACHS KATE PRN Reason: Protocol Last Admin: 06/23/17 08:28 Dose: Not Given Ketorolac Tromethamine (Toradol) 15 mg IM Q6 [facility] Stop: 06/28/17 10:45 Non-Formulary Medication (Empagliflozin/Linagliptin [Glyxambi 10 Mg-5 Mg Tablet] ) 1 tab PO DAILY [facility] Spironolactone (Aldactone) 25 mg PO BID [facility] Last Admin: 06/23/17 10:31 Dose: 25 mg Torsemide (Demadex) 10 mg PO DAILY [facility] PRN Reason: Protocol Last Admin: 06/23/17 10:31 Dose: 10 mg - Labs Labs: 06/23/17 07:10 06/23/17 07:10 - Constitutional Appears: Non-toxic - Head Exam Head Exam: ATRAUMATIC, NORMAL INSPECTION, NORMOCEPHALIC - Eye Exam Eye Exam: EOMI, PERRL - ENT Exam ENT Exam: Mucous Membranes Moist - Respiratory Exam Respiratory Exam: Clear to Ausculation Bilateral, NORMAL BREATHING PATTERN. absent: Rales, Rhonchi, Wheezes - Cardiovascular Exam Cardiovascular Exam: REGULAR RHYTHM, +S1, +S2 - GI/Abdominal Exam GI & Abdominal Exam: Soft, Tenderness, Normal Bowel Sounds - Extremities Exam Extremities Exam: Pedal Edema. absent: Calf Tenderness - Back Exam Back Exam: paraspinal tenderness (bilateral lumbar, thoracic ) - Neurological Exam Neurological Exam: Alert, Awake, Normal Gait, Oriented x3 - Psychiatric Exam Psychiatric exam: Normal Affect, Normal Mood - Skin Skin Exam: Dry, Warm Assessment and Plan - Assessment and Plan (Free Text) Assessment: Patient is a 62 year old male with PMH significant for HTN, chronic back pain, DM2, CHF with AICD in place, atrial fibrillation, HLD, who presented to [facility] [place] ED complaining of dizziness. Patient was admitted for dizziness and acute exacerbation of CHF. Patient vital signs were stable and clinically improved. Patient noted to have weakness and lightheadedness, evaluated by physical therapy with recommendations for TCU for reconditioning. Plan: 1. Deconditioning - Physical therapy for reconditioning - continue to monitor 2. Acute on Chronic CHF - improved - CHF systolic, dilated cardiomyopathy, with AICD - Last known EF 30-35% - Torsemide 10mg Daily 3. Dizziness/lightheadedness - Etiology: hypotension vs. orthostatics vs. acute exacerbation of CHF - Orthostatics - negative to date - Persistent at this time - neuro consulted, appreciate recs - credit to low cardiac function, fluctuation in BP contributing to sxs - monitor BP with anti HTN meds 4. Chronic Back Pain - Etiology due disc bulge vs. stenosis - Patient recently admitted to [facility] [place] [place] with testing - Will call over for records of testing preformed - Pain control with Tylenol - Holding nephro damaging drugs due to elevation in Cr function - Toradol IM 15mg prn pain 5. Hypertension - Patient on admission hypotensive - Hypertensive over past 24-48 hours - Restart home meds slowly - Address pain for better control - Carvedilol, Aldactone - Patient to have friend bring in [employer] 6. Atrial Fibrillation - chronic - Chronic on AC with Eliquis 5mg BID - EKG showing Atrial Fibrillation in ED with AICD pacing - Eliquis continue 7. DM2 - ACHS - HgA1c 8.5 - Carb consistent diet - ISS-low - Begin to restart home meds slowly - Glyxambi GI ppx: Pepcid DVT ppx: Eliquis 5mg, SCDs Patient, case, and plan discussed and reviewed with attending
[2017-06-23] MEDS: EMPAGLIFLOZIN PO SCH (12:07)
[2017-06-23] MEDS: LINAGLIPTIN PO SCH (12:07)
[2017-06-24] MEDS: Insulin Lispro (humaLOG) LOW Coverage SC SCH ×5 (05:50→22:02)
[2017-06-24 07:41] LABS: BASO # 0.02 K/mm3 (0.0-2.0); BASO % 0.2 % (0.0-3.0); EOS # 0.2 (0.0-0.7); EOS % 2.7 % (1.5-5.0); GRAN # 5.17 (1.4-6.5); GRAN % 62.8 % (50.0-68.0); HEMATOCRIT 47.1 % (42.0-52.0); LYMPH # 1.9 (1.2-3.4); MEAN CELL VOLUME 89.4 fl (80.0-105.0); MEAN CORPUSCULAR HEMOGLOBIN 29.6 pg (25.0-35.0); MEAN CORPUSCULAR HGB CONC 33.1 g/dl (31.0-37.0); MEAN PLATELET VOLUME 10.2 fl (7.0-11.0); MONO # 0.9 (0.1-0.6); MONO % 11.3 % (1.0-6.0); RED CELL DISTRIBUTION WIDTH 14.6 % (11.5-14.5); WHITE BLOOD COUNT 8.2 10^3/ul (4.5-11.0)
--- NOTE | 2017-06-24 08:14 | CP.PCM.PN ---
Subjective - Date & Time of Evaluation Date of Evaluation: 06/24/17 Time of Evaluation: 07:30 - Subjective Subjective: PGY-[address] OBRIEN/DR. FLEMING Patient seen and evaluated in TCU. Patient reports continued dizzy symptoms and back pain. Patient indicates pain is mildly controlled with current medications. Does not take narcotics outpatient. Patient denies chest pain, shob , abdominal pain, weakness, numbness, syncope, n/v/f/c. Patient reports continued work with PT. Objective - Vital Signs/Intake and Output Vital Signs (last 24 hours): Temp Pulse Resp BP Pulse Ox 97.8 F 76 20 139/98 H 98 06/23/17 17:42 06/23/17 17:42 06/23/17 17:42 06/23/17 17:42 06/23/17 17:42 Intake and Output: 06/24/17 06/24/17 06:59 18:59 Intake Total 420 Balance 420 - Medications Medications: Current Medications Acetaminophen (Tylenol 325mg Tab) 650 mg PO Q6H PRN PRN Reason: Pain, Mild (1-3) Last Admin: 06/24/17 01:14 Dose: 650 mg Albuterol/Ipratropium (Duoneb 3 Mg/0.5 Mg (3 Ml) Ud) 3 ml IH [id number] PRN; Protocol PRN Reason: Shortness of Breath Apixaban (Eliquis) 5 mg PO BID KATE PRN Reason: Protocol Last Admin: 06/23/17 17:34 Dose: 5 mg Atorvastatin Calcium (Lipitor) 20 mg PO DIN KATE PRN Reason: Protocol Last Admin: 06/23/17 17:34 Dose: 20 mg Carvedilol (Coreg) 6.25 mg PO 0800,1800 KATE PRN Reason: Protocol Last Admin: 06/23/17 17:34 Dose: 6.25 mg Famotidine (Pepcid) 20 mg PO 1000,2200 KATE PRN Reason: Protocol Last Admin: 06/23/17 21:23 Dose: 20 mg Insulin Human Lispro (Humalog Low) 0 units SC ACHS KATE PRN Reason: Protocol Last Admin: 06/24/17 06:30 Dose: Not Given Ketorolac Tromethamine (Toradol) 15 mg IM Q6 [facility] Stop: 06/28/17 10:45 Last Admin: 06/24/17 05:22 Dose: 15 mg Non-Formulary Medication (Empagliflozin/Linagliptin [Glyxambi 10 Mg-5 Mg Tablet] ) 1 tab PO DAILY [facility] Last Admin: 06/23/17 12:07 Dose: 1 tab Spironolactone (Aldactone) 25 mg PO BID [facility] Last Admin: 06/23/17 17:33 Dose: 25 mg Torsemide (Demadex) 10 mg PO DAILY [facility] PRN Reason: Protocol Last Admin: 06/23/17 10:31 Dose: 10 mg - Labs Labs: 06/24/17 07:00 06/23/17 07:10 - Constitutional Appears: Non-toxic, No Acute Distress - Head Exam Head Exam: ATRAUMATIC, NORMAL INSPECTION, NORMOCEPHALIC - Eye Exam Eye Exam: EOMI, PERRL - ENT Exam ENT Exam: Mucous Membranes Moist - Neck Exam Neck Exam: Full ROM. absent: Tenderness - Respiratory Exam Respiratory Exam: Clear to Ausculation Bilateral, NORMAL BREATHING PATTERN - Cardiovascular Exam Cardiovascular Exam: REGULAR RHYTHM, +S1, +S2 - GI/Abdominal Exam GI & Abdominal Exam: Soft, Normal Bowel Sounds. absent: Tenderness - Extremities Exam Extremities Exam: absent: Calf Tenderness, Pedal Edema - Back Exam Back Exam: paraspinal tenderness (lumbar and thoracic bilateral) - Neurological Exam Neurological Exam: Alert, Awake, Normal Gait, Oriented x3 Neuro motor strength exam: Left Upper Extremity: 5, Right Upper Extremity: 5, Left Lower Extremity: 5, Right Lower Extremity: 5 - Psychiatric Exam Psychiatric exam: Normal Affect, Normal Mood - Skin Skin Exam: Dry, Intact, Normal Color. absent: Rash Assessment and Plan - Assessment and Plan (Free Text) Assessment: Patient is a 62 year old male with PMH significant for HTN, chronic back pain, DM2, CHF with AICD in place, atrial fibrillation, HLD, who presented to [facility] [place] ED complaining of dizziness. Patient was admitted for dizziness and acute exacerbation of CHF. Patient vital signs were stable and clinically improved. Patient noted to have weakness and lightheadedness, evaluated by physical therapy with recommendations for TCU for reconditioning. Patient continues to work with physical therapy and require medical management of blood pressure. Plan: 1. Deconditioning - Physical therapy for reconditioning - PT recommends continued work with PT - continue to monitor 2. Acute on Chronic CHF - improved - CHF systolic, dilated cardiomyopathy, with AICD - Last known EF 30-35% - Torsemide 10mg Daily 3. Dizziness/lightheadedness - Etiology: hypotension vs. orthostatics vs. acute exacerbation of CHF - Orthostatics - negative to date - Persistent at this time - neuro consulted, appreciate recs - credit to low cardiac function, fluctuation in BP contributing to sxs - head CT negative - monitor BP with anti HTN meds - avoid fluctuation in BP 4. Chronic Back Pain - Etiology due disc bulge vs. stenosis - Lumbar CT showing spinal stenosis with L5, myelogram spondolisthesis - Pain control with Tylenol - Toradol IM 15mg prn pain - E stim, warm compresses 5. Hypertension - Address pain for better control - Carvedilol, Aldactone - restart low dose entresto hussein 6. Atrial Fibrillation - chronic - Chronic on AC with Eliquis 5mg BID - EKG showing Atrial Fibrillation in ED with AICD pacing - Eliquis continue 7. DM2 - ACHS - Carb consistent diet - ISS-low - Glyxambi GI ppx: Pepcid DVT ppx: Eliquis 5mg, SCDs Patient, case, and plan discussed and reviewed with attending
[2017-06-24 08:25] LABS: BLOOD UREA NITROGEN 39 mg/dL (7-21); CALCIUM 9.4 mg/dL (8.4-10.5); CARBON DIOXIDE 26 mmol/L (21-33); CHLORIDE 102 mmol/L (98-107); GFR AFRICAN-AMERICAN > 60; GLUCOSE,RANDOM 131 mg/dL (70-110); SODIUM 138 mmol/L (132-148)
--- NOTE | 2017-06-24 10:00 | CP.PCM.PN ---
Subjective - Date & Time of Evaluation Date of Evaluation: 06/24/17 Time of Evaluation: 09:57 - Subjective Subjective: PGY-2 Neurology progress note for Dr[address] Paz's service Patient seen and examined at bedside in TCU. No acute distress, patient is resting comfortably. He reports that he does not have a headache and his lightheadedness has improved. He denies chest pain, sob, vision changes. Objective - Vital Signs/Intake and Output Vital Signs (last 24 hours): Temp Pulse Resp BP Pulse Ox 97.8 F 72 20 145/99 H 98 06/23/17 17:42 06/24/17 08:18 06/23/17 17:42 06/24/17 08:18 06/23/17 17:42 Intake and Output: 06/24/17 06/24/17 06:59 18:59 Intake Total 420 Balance 420 - Medications Medications: Current Medications Acetaminophen (Tylenol 325mg Tab) 650 mg PO Q6H PRN PRN Reason: Pain, Mild (1-3) Last Admin: 06/24/17 01:14 Dose: 650 mg Albuterol/Ipratropium (Duoneb 3 Mg/0.5 Mg (3 Ml) Ud) 3 ml IH [id number] PRN; Protocol PRN Reason: Shortness of Breath Apixaban (Eliquis) 5 mg PO BID KATE PRN Reason: Protocol Last Admin: 06/23/17 17:34 Dose: 5 mg Atorvastatin Calcium (Lipitor) 20 mg PO DIN KATE PRN Reason: Protocol Last Admin: 06/23/17 17:34 Dose: 20 mg Carvedilol (Coreg) 6.25 mg PO 0800,1800 KATE PRN Reason: Protocol Last Admin: 06/24/17 08:18 Dose: 6.25 mg Famotidine (Pepcid) 20 mg PO 1000,2200 KATE PRN Reason: Protocol Last Admin: 06/23/17 21:23 Dose: 20 mg Insulin Human Lispro (Humalog Low) 0 units SC ACHS KATE PRN Reason: Protocol Last Admin: 06/24/17 06:30 Dose: Not Given Ketorolac Tromethamine (Toradol) 15 mg IM Q6 KATE Stop: 06/28/17 10:45 Last Admin: 06/24/17 05:22 Dose: 15 mg Non-Formulary Medication (Empagliflozin/Linagliptin [Glyxambi 10 Mg-5 Mg Tablet] ) 1 tab PO DAILY [facility] Last Admin: 06/23/17 12:07 Dose: 1 tab Spironolactone (Aldactone) 25 mg PO BID [facility] Last Admin: 06/23/17 17:33 Dose: 25 mg Torsemide (Demadex) 10 mg PO DAILY [facility] PRN Reason: Protocol Last Admin: 06/23/17 10:31 Dose: 10 mg - Labs Labs: 06/24/17 07:00 06/24/17 07:00 - Constitutional Appears: No Acute Distress - Head Exam Head Exam: ATRAUMATIC, NORMAL INSPECTION, NORMOCEPHALIC - Eye Exam Eye Exam: EOMI, Normal appearance - ENT Exam ENT Exam: Mucous Membranes Moist - Respiratory Exam Respiratory Exam: Clear to Ausculation Bilateral, NORMAL BREATHING PATTERN. absent: Rhonchi, Wheezes, Respiratory Distress - Cardiovascular Exam Cardiovascular Exam: REGULAR RHYTHM - Neurological Exam Neurological Exam: Alert, Awake, CN II-XII Intact, Oriented x3 Neuro motor strength exam: Left Upper Extremity: 5, Right Upper Extremity: 5, Left Lower Extremity: 5, Right Lower Extremity: 5 Assessment and Plan - Assessment and Plan (Free Text) Assessment: 62 year old male with PMH of HTN, chronic back pain, DM2, CHF with AICD, atrial fibrillation, Hyperlipidemia, who complains of lightheadedness most likely secondary to combination of orthostatic hypotension, hypertension fluctuations and poor cardiac output. 1. lightheadedness, dizziness 2. HTN 3. CHF - carotid US showed bilateral 20-39% stenosis of proximal ICA - CT head showed nonspecific changes - maintain SBP between 120-130 - avoid fluctuation in Blood pressure - avoid sudden drops in blood pressure - PT/OT case reviewed and discussed with attending
[2017-06-24] MEDS: LINAGLIPTIN PO SCH (10:31)
[2017-06-24] MEDS: EMPAGLIFLOZIN PO SCH (10:31)
[2017-06-25] MEDS: Insulin Lispro (humaLOG) LOW Coverage SC SCH ×4 (06:57→21:35)
[2017-06-25 07:13] LABS: BASO # 0.03 K/mm3 (0.0-2.0); BASO % 0.4 % (0.0-3.0); EOS # 0.2 (0.0-0.7); EOS % 2.5 % (1.5-5.0); GRAN # 5.28 (1.4-6.5); HEMATOCRIT 45.8 % (42.0-52.0); LYMPH # 1.9 (1.2-3.4); LYMPH % 22.7 % (22.0-35.0); MEAN CELL VOLUME 88.8 fl (80.0-105.0); MEAN CORPUSCULAR HGB CONC 33.8 g/dl (31.0-37.0); MEAN PLATELET VOLUME 10.3 fl (7.0-11.0); MONO # 1.1 (0.1-0.6); MONO % 12.4 % (1.0-6.0); RED CELL DISTRIBUTION WIDTH 14.5 % (11.5-14.5); WHITE BLOOD COUNT 8.5 10^3/ul (4.5-11.0)
[2017-06-25 07:36] LABS: BLOOD UREA NITROGEN 40 mg/dL (7-21); CALCIUM 9.4 mg/dL (8.4-10.5); CARBON DIOXIDE 25 mmol/L (21-33); CHLORIDE 104 mmol/L (98-107); GFR AFRICAN-AMERICAN > 60; GLUCOSE,RANDOM 134 mg/dL (70-110); POTASSIUM 4.8 mmol/L (3.6-5.0); SODIUM 138 mmol/L (132-148)
--- NOTE | 2017-06-25 09:00 | CP.PCM.PN ---
Subjective - Date & Time of Evaluation Date of Evaluation: 06/25/17 Time of Evaluation: 08:57 - Subjective Subjective: IM PROGRESS NOTE DR. OBRIEN/DR. FLEMING Patient seen and examined at bedside. No acute events reported overnight. Patient complains of continued foggy, lightheadedness. Patient continues to work with PT. Pt denies syncope, weakness, numbness, chest pain, shob, abdominal pain, n/v/f/c. Objective - Vital Signs/Intake and Output Vital Signs (last 24 hours): Temp Pulse Resp BP Pulse Ox 97.5 F L 78 20 148/110 H 95 06/24/17 17:37 06/24/17 18:07 06/24/17 17:37 06/24/17 18:07 06/24/17 17:37 Intake and Output: 06/25/17 06/25/17 06:59 18:59 Intake Total 460 Balance 460 - Medications Medications: Current Medications Acetaminophen (Tylenol 325mg Tab) 650 mg PO Q6H PRN PRN Reason: Pain, Mild (1-3) Last Admin: 06/24/17 10:30 Dose: 650 mg Albuterol/Ipratropium (Duoneb 3 Mg/0.5 Mg (3 Ml) Ud) 3 ml IH [id number] PRN; Protocol PRN Reason: Shortness of Breath Apixaban (Eliquis) 5 mg PO BID KATE PRN Reason: Protocol Last Admin: 06/24/17 18:08 Dose: 5 mg Atorvastatin Calcium (Lipitor) 20 mg PO DIN KATE PRN Reason: Protocol Last Admin: 06/24/17 18:07 Dose: 20 mg Carvedilol (Coreg) 6.25 mg PO 0800,1800 KATE PRN Reason: Protocol Last Admin: 06/24/17 18:07 Dose: 6.25 mg Famotidine (Pepcid) 20 mg PO 1000,2200 KATE PRN Reason: Protocol Last Admin: 06/24/17 22:02 Dose: 20 mg Insulin Human Lispro (Humalog Low) 0 units SC ACHS KATE PRN Reason: Protocol Last Admin: 06/25/17 06:57 Dose: Not Given Ketorolac Tromethamine (Toradol) 15 mg IM Q6 KATE Stop: 06/28/17 10:45 Last Admin: 06/25/17 06:58 Dose: Not Given Non-Formulary Medication (Empagliflozin/Linagliptin [Glyxambi 10 Mg-5 Mg Tablet] ) 1 tab PO DAILY [facility] Last Admin: 06/24/17 10:31 Dose: 1 tab Sacubitril/Valsartan (Entresto 24 Mg-26 Mg Tablet) 1 each PO BID [facility] Spironolactone (Aldactone) 25 mg PO BID [facility] Last Admin: 06/24/17 18:07 Dose: 25 mg Torsemide (Demadex) 10 mg PO DAILY [facility] PRN Reason: Protocol Last Admin: 06/24/17 10:31 Dose: 10 mg - Labs Labs: 06/25/17 06:40 06/25/17 06:40 Assessment and Plan - Assessment and Plan (Free Text) Assessment: Patient is a 62 year old male with PMH significant for HTN, chronic back pain, DM2, CHF with AICD in place, atrial fibrillation, HLD, who presented to [facility] [place] [facility] complaining of dizziness. Patient was admitted for dizziness and acute exacerbation of CHF. Patient vital signs were stable and clinically improved. Patient noted to have weakness and lightheadedness, evaluated by physical therapy with recommendations for TCU for reconditioning. Patient continues to work with physical therapy and require medical management of blood pressure. Plan: 1. Deconditioning - Physical therapy for reconditioning - PT recommends continued work with PT - continue to monitor 2. Acute on Chronic CHF - improved - CHF systolic, dilated cardiomyopathy, with AICD - Last known EF 30-35% - Torsemide 10mg Daily 3. Dizziness/lightheadedness - Etiology: hypotension vs. orthostatics vs. acute exacerbation of CHF - Orthostatics - negative to date - Persistent at this time - neuro consulted, appreciate recs - credit to low cardiac function, fluctuation in BP contributing to sxs - head CT negative - monitor BP with anti HTN meds - avoid fluctuation in BP 4. Chronic Back Pain - Etiology due disc bulge vs. stenosis - Lumbar CT showing spinal stenosis with L5, myelogram spondolisthesis - Pain control with Tylenol - Toradol IM 15mg prn pain - E stim, warm compresses 5. Hypertension - Address pain for better control - Carvedilol, Aldactone - Entresto 6. Atrial Fibrillation - chronic - Chronic on AC with Eliquis 5mg BID - EKG showing Atrial Fibrillation in ED with AICD pacing - Eliquis continue 7. DM2 - ACHS - Carb consistent diet - ISS-low - Glyxambi GI ppx: Pepcid DVT ppx: Eliquis 5mg, SCDs Patient, case, and plan discussed and reviewed with attending
[2017-06-25] MEDS: SACUBITRIL 24mg/VALSARTAN 26mg tab PO SCH ×2 (11:02→18:47)
[2017-06-25] MEDS: EMPAGLIFLOZIN PO SCH (11:30)
[2017-06-25] MEDS: LINAGLIPTIN PO SCH (11:30)
--- NOTE | 2017-06-25 14:20 | CP.PCM.PN ---
Subjective - Date & Time of Evaluation Date of Evaluation: 06/25/17 Time of Evaluation: 09:30 - Subjective Subjective: PGY-2 Neurology progress note for Dr. Paz's service Patient seen and examined at bedside in TCU. No acute distress, patient is resting comfortably. He reports that he does not have a headache and his lightheadedness has improved. He denies chest pain, sob, vision changes. He is participating with PT Objective - Vital Signs/Intake and Output Vital Signs (last 24 hours): Temp Pulse Resp BP Pulse Ox 98.7 F 73 18 145/100 H 97 06/25/17 11:32 06/25/17 11:32 06/25/17 11:32 06/25/17 11:32 06/25/17 11:32 Intake and Output: 06/25/17 06/25/17 06:59 18:59 Intake Total 460 Balance 460 - Medications Medications: Current Medications Acetaminophen (Tylenol 325mg Tab) 650 mg PO Q6H PRN PRN Reason: Pain, Mild (1-3) Last Admin: 06/24/17 10:30 Dose: 650 mg Albuterol/Ipratropium (Duoneb 3 Mg/0.5 Mg (3 Ml) Ud) 3 ml IH [id number] PRN; Protocol PRN Reason: Shortness of Breath Apixaban (Eliquis) 5 mg PO BID KATE PRN Reason: Protocol Last Admin: 06/25/17 11:02 Dose: 5 mg Atorvastatin Calcium (Lipitor) 20 mg PO DIN KATE PRN Reason: Protocol Last Admin: 06/24/17 18:07 Dose: 20 mg Carvedilol (Coreg) 6.25 mg PO 0800,1800 KATE PRN Reason: Protocol Last Admin: 06/25/17 11:03 Dose: 6.25 mg Docusate Sodium (Colace) 100 mg PO BID KATE Famotidine (Pepcid) 20 mg PO 1000,2200 KATE PRN Reason: Protocol Last Admin: 06/25/17 11:02 Dose: 20 mg Insulin Human Lispro (Humalog Low) 0 units SC ACHS KATE PRN Reason: Protocol Last Admin: 06/25/17 06:57 Dose: Not Given Ketorolac Tromethamine (Toradol) 15 mg IM Q6 KATE Stop: 06/28/17 10:45 Last Admin: 06/25/17 06:58 Dose: Not Given Non-Formulary Medication (Empagliflozin/Linagliptin [Glyxambi 10 Mg-5 Mg Tablet] ) 1 tab PO DAILY [facility] Last Admin: 06/24/17 10:31 Dose: 1 tab Sacubitril/Valsartan (Entresto 24 Mg-26 Mg Tablet) 1 each PO BID [facility] Last Admin: 06/25/17 11:02 Dose: 1 each Spironolactone (Aldactone) 25 mg PO BID [facility] Last Admin: 06/25/17 11:02 Dose: 25 mg Torsemide (Demadex) 10 mg PO DAILY [facility] PRN Reason: Protocol Last Admin: 06/25/17 11:02 Dose: 10 mg - Labs Labs: 06/25/17 06:40 06/25/17 06:40 - Constitutional Appears: Well, No Acute Distress - Head Exam Head Exam: ATRAUMATIC, NORMAL INSPECTION, NORMOCEPHALIC - Eye Exam Eye Exam: EOMI, Normal appearance - ENT Exam ENT Exam: Mucous Membranes Moist - Respiratory Exam Respiratory Exam: NORMAL BREATHING PATTERN. absent: Respiratory Distress - Cardiovascular Exam Cardiovascular Exam: REGULAR RHYTHM - Neurological Exam Neurological Exam: Alert, Awake, CN II-XII Intact, Oriented x3 Neuro motor strength exam: Left Upper Extremity: 5, Right Upper Extremity: 5, Left Lower Extremity: 5, Right Lower Extremity: 5 - Skin Skin Exam: Dry, Intact, Normal Color, Warm Assessment and Plan - Assessment and Plan (Free Text) Assessment: 62 year old male with PMH of HTN, chronic back pain, DM2, CHF with AICD, atrial fibrillation, Hyperlipidemia, who complains of lightheadedness most likely secondary to combination of orthostatic hypotension, hypertension fluctuations and poor cardiac output. 1. lightheadedness, dizziness 2. HTN 3. CHF - carotid US showed bilateral 20-39% stenosis of proximal ICA - CT head showed nonspecific changes - maintain SBP between 120-130 - avoid fluctuation in Blood pressure - avoid sudden drops in blood pressure - PT/OT case reviewed and discussed with attending
[2017-06-26] MEDS: Insulin Lispro (humaLOG) LOW Coverage SC SCH ×4 (06:45→22:09)
[2017-06-26] MEDS: LINAGLIPTIN PO SCH (11:24)
[2017-06-26] MEDS: EMPAGLIFLOZIN PO SCH (11:24)
[2017-06-26] MEDS: SACUBITRIL 24mg/VALSARTAN 26mg tab PO SCH ×2 (11:25→17:32)
--- NOTE | 2017-06-26 12:46 | CP.PCM.PN ---
Subjective - Date & Time of Evaluation Date of Evaluation: 06/26/17 Time of Evaluation: 12:43 - Subjective Subjective: Seen and examined at bedside. No acute overnight events or new complaints. Encouraged continue with PT. Denies cp, palpitations, SOB. Objective - Vital Signs/Intake and Output Vital Signs (last 24 hours): Temp Pulse Resp BP Pulse Ox 98.3 F 82 20 139/93 H 96 06/26/17 10:26 06/26/17 10:26 06/26/17 10:26 06/26/17 10:26 06/26/17 10:26 - Medications Medications: Current Medications Acetaminophen (Tylenol 325mg Tab) 650 mg PO Q6H PRN PRN Reason: Pain, Mild (1-3) Last Admin: 06/26/17 08:31 Dose: 650 mg Albuterol/Ipratropium (Duoneb 3 Mg/0.5 Mg (3 Ml) Ud) 3 ml IH [id number] PRN; Protocol PRN Reason: Shortness of Breath Apixaban (Eliquis) 5 mg PO BID KATE PRN Reason: Protocol Last Admin: 06/26/17 11:24 Dose: 5 mg Atorvastatin Calcium (Lipitor) 20 mg PO DIN KATE PRN Reason: Protocol Last Admin: 06/25/17 18:45 Dose: 20 mg Carvedilol (Coreg) 6.25 mg PO 0800,1800 KATE PRN Reason: Protocol Last Admin: 06/26/17 08:29 Dose: 6.25 mg Docusate Sodium (Colace) 100 mg PO BID [facility] Last Admin: 06/26/17 11:23 Dose: 100 mg Famotidine (Pepcid) 20 mg PO 1000,2200 KATE PRN Reason: Protocol Last Admin: 06/26/17 11:25 Dose: 20 mg Insulin Human Lispro (Humalog Low) 0 units SC ACHS KATE PRN Reason: Protocol Last Admin: 06/26/17 12:13 Dose: 1 units Ketorolac Tromethamine (Toradol) 15 mg IM Q6 KATE Stop: 06/28/17 10:45 Last Admin: 06/26/17 05:37 Dose: 15 mg Non-Formulary Medication (Empagliflozin/Linagliptin [Glyxambi 10 Mg-5 Mg Tablet] ) 1 tab PO DAILY [facility] Last Admin: 06/26/17 11:24 Dose: 1 tab Sacubitril/Valsartan (Entresto 24 Mg-26 Mg Tablet) 1 each PO BID [facility] Last Admin: 06/26/17 11:25 Dose: 1 each Spironolactone (Aldactone) 25 mg PO BID [facility] Last Admin: 06/26/17 11:23 Dose: 25 mg Torsemide (Demadex) 10 mg PO DAILY [facility] PRN Reason: Protocol Last Admin: 06/26/17 11:24 Dose: 10 mg - Labs Labs: 06/25/17 06:40 06/25/17 06:40 - Constitutional Appears: No Acute Distress - Head Exam Head Exam: ATRAUMATIC, NORMOCEPHALIC - Eye Exam Eye Exam: EOMI, PERRL - ENT Exam ENT Exam: Mucous Membranes Moist - Respiratory Exam Respiratory Exam: absent: Rales, Rhonchi, Wheezes - Cardiovascular Exam Cardiovascular Exam: Irregular Rhythm, +S1, +S2. absent: Gallop, Rubs - GI/Abdominal Exam GI & Abdominal Exam: Soft. absent: Distended, Firm, Guarding, Rigid, Tenderness , Rebound - Neurological Exam Neurological Exam: Alert, Awake, Oriented x3 - Psychiatric Exam Psychiatric exam: Normal Affect, Normal Mood - Skin Skin Exam: Dry, Intact, Normal Color, Warm Assessment and Plan - Assessment and Plan (Free Text) Plan: Patient is a 62 year old male with PMH significant for HTN, chronic back pain, DM2, CHF with AICD in place, atrial fibrillation, HLD, who presented to [facility] [place] [facility] complaining of dizziness. Patient was admitted for dizziness and acute exacerbation of CHF. Patient vital signs were stable and clinically improved. Patient noted to have weakness and lightheadedness, evaluated by physical therapy with recommendations for TCU for reconditioning. Patient continues to work with physical therapy and require medical management of blood pressure. 1. Deconditioning - Physical therapy for reconditioning - PT recommends continued work with PT 2. Acute on Chronic CHF - improved - CHF systolic, dilated cardiomyopathy, with AICD - Last known EF 30-35% - Torsemide 10mg Daily 3. Dizziness/lightheadedness - Etiology: hypotension vs. orthostatics vs. acute exacerbation of CHF - Orthostatics - negative to date - Persistent at this time - neuro consulted, appreciate recs - credit to low cardiac function, fluctuation in BP contributing to sxs - head CT negative - monitor BP with anti HTN meds - avoid fluctuation in BP 4. Chronic Back Pain - Etiology due disc bulge vs. stenosis - Lumbar CT showing spinal stenosis with L5, myelogram spondolisthesis - Pain control with Tylenol - Toradol IM 15mg prn pain - E stim, warm compresses 5. Hypertension - Address pain for better control - Carvedilol, Aldactone - Entresto 6. Atrial Fibrillation - chronic - Chronic on AC with Eliquis 5mg BID - EKG showing Atrial Fibrillation in ED with AICD pacing 7. DM2 - ACHS - Carb consistent diet - ISS-low - Glyxambi GI ppx: Pepcid DVT ppx: Eliquis 5mg, SCDs Patient, case, and plan discussed and reviewed with attending
[2017-06-27 06:08] LABS: HEMATOCRIT 50.4 % (42.0-52.0); MEAN CELL VOLUME 89.8 fl (80.0-105.0); MEAN CORPUSCULAR HEMOGLOBIN 30.5 pg (25.0-35.0); MEAN CORPUSCULAR HGB CONC 33.9 g/dl (31.0-37.0); MEAN PLATELET VOLUME 10.4 fl (7.0-11.0); RED CELL DISTRIBUTION WIDTH 14.6 % (11.5-14.5); WHITE BLOOD COUNT 8.6 10^3/ul (4.5-11.0)
[2017-06-27 06:19] LABS: CALCIUM 9.5 mg/dL (8.4-10.5); POTASSIUM 5.2 mmol/L (3.6-5.0)
[2017-06-27] MEDS: Insulin Lispro (humaLOG) LOW Coverage SC SCH ×4 (06:42→22:15)
--- NOTE | 2017-06-27 09:36 | CP.PCM.PN ---
Subjective - Date & Time of Evaluation Date of Evaluation: 06/27/17 Time of Evaluation: 07:50 - Subjective Subjective: Medicine progress note: Pt seen and examined at bedside. No acute events overnight. Denies any mcadams, or dizziness at this time. No sob or chest pain. Pt States that he is doing well. 12 Point ROS performed and negative other than stated above. Objective - Vital Signs/Intake and Output Vital Signs (last 24 hours): Temp Pulse Resp BP Pulse Ox 98.3 F 77 20 112/88 96 06/26/17 10:26 06/27/17 08:12 06/26/17 10:26 06/27/17 08:12 06/26/17 10:26 Intake and Output: 06/27/17 06/27/17 06:59 18:59 Intake Total 420 Balance 420 - Medications Medications: Current Medications Acetaminophen (Tylenol 325mg Tab) 650 mg PO Q6H PRN PRN Reason: Pain, Mild (1-3) Last Admin: 06/26/17 08:31 Dose: 650 mg Albuterol/Ipratropium (Duoneb 3 Mg/0.5 Mg (3 Ml) Ud) 3 ml IH [id number] PRN; Protocol PRN Reason: Shortness of Breath Apixaban (Eliquis) 5 mg PO BID KATE PRN Reason: Protocol Last Admin: 06/26/17 17:32 Dose: 5 mg Atorvastatin Calcium (Lipitor) 20 mg PO DIN KATE PRN Reason: Protocol Last Admin: 06/26/17 17:30 Dose: 20 mg Carvedilol (Coreg) 6.25 mg PO 0800,1800 KATE PRN Reason: Protocol Last Admin: 06/27/17 08:12 Dose: 6.25 mg Cyclobenzaprine HCl (Flexeril) 5 mg PO TID PRN PRN Reason: Muscle spasm Last Admin: 06/26/17 17:32 Dose: 5 mg Docusate Sodium (Colace) 100 mg PO BID [facility] Last Admin: 06/26/17 17:31 Dose: 100 mg Famotidine (Pepcid) 20 mg PO 1000,2200 KATE PRN Reason: Protocol Last Admin: 06/26/17 22:09 Dose: 20 mg Insulin Human Lispro (Humalog Low) 0 units SC ACHS KATE PRN Reason: Protocol Last Admin: 06/27/17 06:42 Dose: Not Given Ketorolac Tromethamine (Toradol) 15 mg IM Q6 [facility] Stop: 06/28/17 10:45 Last Admin: 06/27/17 06:43 Dose: 15 mg Non-Formulary Medication (Empagliflozin/Linagliptin [Glyxambi 10 Mg-5 Mg Tablet] ) 1 tab PO DAILY [facility] Last Admin: 06/26/17 11:24 Dose: 1 tab Sacubitril/Valsartan (Entresto 24 Mg-26 Mg Tablet) 1 each PO BID [facility] Last Admin: 06/26/17 17:32 Dose: 1 each Spironolactone (Aldactone) 25 mg PO BID [facility] Last Admin: 06/26/17 17:31 Dose: 25 mg Torsemide (Demadex) 10 mg PO DAILY [facility] PRN Reason: Protocol Last Admin: 06/26/17 11:24 Dose: 10 mg - Labs Labs: 06/27/17 05:45 06/27/17 05:45 - Constitutional Appears: No Acute Distress - Head Exam Head Exam: ATRAUMATIC, NORMOCEPHALIC - Eye Exam Eye Exam: EOMI, PERRL - ENT Exam ENT Exam: Mucous Membranes Moist - Respiratory Exam Respiratory Exam: Clear to Ausculation Bilateral. absent: Wheezes - Cardiovascular Exam Cardiovascular Exam: REGULAR RHYTHM, RRR, +S1, +S2 - GI/Abdominal Exam GI & Abdominal Exam: Soft. absent: Tenderness - Extremities Exam Extremities Exam: absent: Calf Tenderness, Pedal Edema - Neurological Exam Neurological Exam: Alert, Awake, Oriented x3 - Psychiatric Exam Psychiatric exam: Normal Affect, Normal Mood - Skin Skin Exam: Dry, Intact, Warm Assessment and Plan - Assessment and Plan (Free Text) Assessment: Patient is a 62 year old male with PMH significant for HTN, chronic back pain, DM2, CHF with AICD in place, atrial fibrillation, HLD, who presented [place] [facility] [place] of [place]. Patient was admitted for dizziness and acute exacerbation of CHF. Patient vital signs were stable and clinically improved. Patient noted to have weakness and lightheadedness, evaluated by physical therapy with recommendations for TCU for reconditioning. Patient continues to work with physical therapy in TCU. 1. Deconditioning - Continue physical therapy for reconditioning 2. Acute on Chronic CHF - improved - CHF systolic, dilated cardiomyopathy, with AICD - Last known EF 30-35% - Torsemide 10mg Daily 3. Dizziness/lightheadedness - Etiology: hypotension vs. orthostatics vs. acute exacerbation of CHF - Orthostatics - negative - Persistent at this time - neuro consulted, appreciate recs - credit to low cardiac function, fluctuation in BP contributing to sxs - head CT negative - monitor BP with anti HTN meds 4. Chronic Back Pain - Etiology due disc bulge vs. stenosis - Lumbar CT showing spinal stenosis with L5, myelogram spondolisthesis - Pain control with Tylenol, Toradol IM 15mg prn pain - E stim, warm compresses 5. Hypertension - Address pain for better control - Carvedilol, Aldactone, Entresto 6. Atrial Fibrillation - chronic - Chronic on AC with Eliquis 5mg BID - rate controlled 7. DM2 - ACHS - Carb consistent diet - ISS-low - Glyxambi 8. Hyperkalemia - K of 5.2 - Will cont to monitor GI ppx: Pepcid DVT ppx: Eliquis 5mg, SCDs Patient, case, and plan discussed and reviewed with attending
[2017-06-27] MEDS: LINAGLIPTIN PO SCH (10:22)
[2017-06-27] MEDS: SACUBITRIL 24mg/VALSARTAN 26mg tab PO SCH ×2 (10:22→18:33)
[2017-06-27] MEDS: EMPAGLIFLOZIN PO SCH (10:22)
[2017-06-28] MEDS: Insulin Lispro (humaLOG) LOW Coverage SC SCH ×4 (06:33→22:08)
--- NOTE | 2017-06-28 06:42 | CP.PCM.PN ---
Subjective - Date & Time of Evaluation Date of Evaluation: 06/28/17 Time of Evaluation: 07:30 - Subjective Subjective: PGY [address] OBRIEN/DR. FLEMING Patient seen and evaluated at bedside. No acute events overnight reported. Patient denies chest pain, shob, abdominal pain, syncope, weakness, numbness. Patient continues to endorse dizziness at rest. Patient continues to work with physical therapy. Objective - Vital Signs/Intake and Output Vital Signs (last 24 hours): Temp Pulse Resp BP Pulse Ox 98.7 F 86 26 H 135/100 H 97 06/27/17 16:29 06/28/17 06:24 06/27/17 16:29 06/28/17 06:24 06/27/17 16:29 Intake and Output: 06/27/17 06/28/17 18:59 06:59 Intake Total 420 Balance 420 - Medications Medications: Current Medications Acetaminophen (Tylenol 325mg Tab) 650 mg PO Q6H PRN PRN Reason: Pain, Mild (1-3) Last Admin: 06/26/17 08:31 Dose: 650 mg Albuterol/Ipratropium (Duoneb 3 Mg/0.5 Mg (3 Ml) Ud) 3 ml IH [id number] PRN; Protocol PRN Reason: Shortness of Breath Apixaban (Eliquis) 5 mg PO BID [facility] PRN Reason: Protocol Last Admin: 06/27/17 18:32 Dose: 5 mg Atorvastatin Calcium (Lipitor) 20 mg PO DIN [facility] PRN Reason: Protocol Last Admin: 06/27/17 18:34 Dose: 20 mg Carvedilol (Coreg) 6.25 mg PO 0800,1800 [facility] PRN Reason: Protocol Last Admin: 06/28/17 06:24 Dose: 6.25 mg Cyclobenzaprine HCl (Flexeril) 5 mg PO TID PRN PRN Reason: Muscle spasm Last Admin: 06/27/17 10:23 Dose: 5 mg Docusate Sodium (Colace) 100 mg PO BID [facility] Last Admin: 06/27/17 18:29 Dose: 100 mg Famotidine (Pepcid) 20 mg PO 1000,2200 [facility] PRN Reason: Protocol Last Admin: 06/27/17 22:14 Dose: 20 mg Insulin Human Lispro (Humalog Low) 0 units SC ACHS [facility] PRN Reason: Protocol Last Admin: 06/28/17 06:33 Dose: Not Given Ketorolac Tromethamine (Toradol) 15 mg IM Q6 [facility] Stop: 06/28/17 10:45 Last Admin: 06/28/17 06:19 Dose: 15 mg Non-Formulary Medication (Empagliflozin/Linagliptin [Glyxambi 10 Mg-5 Mg Tablet] ) 1 tab PO DAILY [facility] Last Admin: 06/27/17 10:22 Dose: 1 tab Sacubitril/Valsartan (Entresto 24 Mg-26 Mg Tablet) 1 each PO BID [facility] Last Admin: 06/27/17 18:33 Dose: 1 each Spironolactone (Aldactone) 25 mg PO BID [facility] Last Admin: 06/27/17 18:29 Dose: 25 mg Torsemide (Demadex) 10 mg PO DAILY [facility] PRN Reason: Protocol Last Admin: 06/27/17 10:21 Dose: 10 mg - Labs Labs: 06/27/17 05:45 06/27/17 05:45 - Head Exam Head Exam: ATRAUMATIC, NORMAL INSPECTION, NORMOCEPHALIC - Eye Exam Eye Exam: EOMI, PERRL - ENT Exam ENT Exam: Mucous Membranes Moist - Respiratory Exam Respiratory Exam: Clear to Ausculation Bilateral, NORMAL BREATHING PATTERN. absent: Rhonchi, Wheezes - Cardiovascular Exam Cardiovascular Exam: REGULAR RHYTHM, +S1, +S2 - GI/Abdominal Exam GI & Abdominal Exam: Soft, Normal Bowel Sounds - Extremities Exam Extremities Exam: absent: Pedal Edema, Tenderness - Neurological Exam Neurological Exam: Alert, Awake, Normal Gait, Oriented x3 - Psychiatric Exam Psychiatric exam: Normal Affect, Normal Mood - Skin Skin Exam: Dry, Warm. absent: Rash Assessment and Plan - Assessment and Plan (Free Text) Assessment: Patient is a 62 year old male with PMH significant for HTN, chronic back pain, DM2, CHF with AICD in place, atrial fibrillation, HLD, who presented to [facility] ED complaining of dizziness. Patient was admitted for dizziness and acute exacerbation of CHF. Patient vital signs were stable and clinically improved. Patient noted to have weakness and lightheadedness, evaluated by physical therapy with recommendations for TCU for reconditioning. Patient continues to work with physical therapy in TCU. Plan: 1. Deconditioning - Continue physical therapy for reconditioning 2. Acute on Chronic CHF - improved - CHF systolic, dilated cardiomyopathy, with AICD - Last known EF 30-35% - Torsemide 10mg Daily 3. Dizziness/lightheadedness - Etiology: hypotension vs. orthostatics vs. acute exacerbation of CHF - Orthostatics - negative - Persistent at this time - neuro consulted, appreciate recs - credit to low cardiac function, fluctuation in BP contributing to sxs - head CT negative - monitor BP with anti HTN meds 4. Chronic Back Pain - Etiology due disc bulge vs. stenosis - Lumbar CT showing spinal stenosis with L5, myelogram spondolisthesis - Pain control with Tylenol, Toradol IM 15mg prn pain - E stim, warm compresses 5. Hypertension - Address pain for better control - Carvedilol, Aldactone, Entresto 6. Atrial Fibrillation - chronic - Chronic on AC with Eliquis 5mg BID - rate controlled 7. DM2 - ACHS - Carb consistent diet - ISS-low - Glyxambi 8. Hyperkalemia - Will cont to monitor GI ppx: Pepcid DVT ppx: Eliquis 5mg, SCDs Patient, case, and plan discussed and reviewed with attending
[2017-06-28 08:06] LABS: BLOOD UREA NITROGEN 44 mg/dL (7-21); CALCIUM 9.7 mg/dL (8.4-10.5); CARBON DIOXIDE 22 mmol/L (21-33); CHLORIDE 103 mmol/L (98-107); GFR AFRICAN-AMERICAN > 60; GLUCOSE,RANDOM 130 mg/dL (70-110); POTASSIUM 4.9 mmol/L (3.6-5.0); SODIUM 135 mmol/L (132-148)
[2017-06-28] MEDS: LINAGLIPTIN PO SCH (10:03)
[2017-06-28] MEDS: EMPAGLIFLOZIN PO SCH (10:03)
[2017-06-28] MEDS: SACUBITRIL 24mg/VALSARTAN 26mg tab PO SCH ×2 (10:05→17:12)
--- NOTE | 2017-06-28 15:02 | CP.PCM.PN ---
<Ifrah Roach - Last Filed: 06/28/17 17:31> Subjective - Date & Time of Evaluation Date of Evaluation: 06/28/17 Time of Evaluation: 09:30 - Subjective Subjective: PGY-2 Neurology progress note for Dr. Paz's service Patient seen and examined at bedside in TCU. No acute distress, patient is resting comfortably. He reports that his headache has returned starting this morning. He denies chest pain, sob, vision changes. He is participating with PT. Diastolic BP continues to be elevated. Objective - Vital Signs/Intake and Output Vital Signs (last 24 hours): Temp Pulse Resp BP Pulse Ox 97.9 F 86 20 135/100 H 98 06/28/17 06:00 06/28/17 06:24 06/28/17 06:00 06/28/17 06:24 06/28/17 06:00 Intake and Output: 06/28/17 06/28/17 06:59 18:59 Intake Total 420 360 Output Total 130 Balance 420 230 - Medications Medications: Current Medications Acetaminophen (Tylenol 325mg Tab) 650 mg PO Q6H PRN PRN Reason: Pain, Mild (1-3) Last Admin: 06/28/17 10:03 Dose: 650 mg Albuterol/Ipratropium (Duoneb 3 Mg/0.5 Mg (3 Ml) Ud) 3 ml IH [id number] PRN; Protocol PRN Reason: Shortness of Breath Apixaban (Eliquis) 5 mg PO BID [facility] PRN Reason: Protocol Last Admin: 06/28/17 10:02 Dose: 5 mg Atorvastatin Calcium (Lipitor) 20 mg PO DIN [facility] PRN Reason: Protocol Last Admin: 06/27/17 18:34 Dose: 20 mg Carvedilol (Coreg) 6.25 mg PO 0800,1800 [facility] PRN Reason: Protocol Last Admin: 06/28/17 08:33 Dose: Not Given Cyclobenzaprine HCl (Flexeril) 5 mg PO TID PRN PRN Reason: Muscle spasm Last Admin: 06/27/17 10:23 Dose: 5 mg Docusate Sodium (Colace) 100 mg PO BID [facility] Last Admin: 06/28/17 10:02 Dose: 100 mg Famotidine (Pepcid) 20 mg PO 1000,2200 [facility] PRN Reason: Protocol Last Admin: 06/28/17 10:04 Dose: 20 mg Insulin Human Lispro (Humalog Low) 0 units SC ACHS [facility] PRN Reason: Protocol Last Admin: 06/28/17 12:00 Dose: 2 units Non-Formulary Medication (Empagliflozin/Linagliptin [Glyxambi 10 Mg-5 Mg Tablet] ) 1 tab PO DAILY [facility] Last Admin: 06/28/17 10:03 Dose: 1 tab Sacubitril/Valsartan (Entresto 24 Mg-26 Mg Tablet) 1 each PO BID [facility] Last Admin: 06/28/17 10:05 Dose: 1 each Spironolactone (Aldactone) 25 mg PO BID [facility] Last Admin: 06/28/17 10:02 Dose: 25 mg Torsemide (Demadex) 10 mg PO DAILY [facility] PRN Reason: Protocol Last Admin: 06/28/17 10:03 Dose: 10 mg - Labs Labs: 06/27/17 05:45 06/28/17 07:30 - Constitutional Appears: No Acute Distress - Head Exam Head Exam: ATRAUMATIC, NORMAL INSPECTION, NORMOCEPHALIC - Eye Exam Eye Exam: EOMI, Normal appearance - Respiratory Exam Respiratory Exam: NORMAL BREATHING PATTERN. absent: Respiratory Distress - Cardiovascular Exam Cardiovascular Exam: REGULAR RHYTHM - Neurological Exam Neurological Exam: Alert, Awake, CN II-XII Intact, Oriented x3 Neuro motor strength exam: Left Upper Extremity: 5, Right Upper Extremity: 5, Left Lower Extremity: 5, Right Lower Extremity: 5 - Skin Skin Exam: Dry, Intact, Normal Color, Warm Assessment and Plan - Assessment and Plan (Free Text) Assessment: 62 year old male with PMH of HTN, chronic back pain, DM2, CHF with AICD, atrial fibrillation, Hyperlipidemia, who complains of lightheadedness most likely secondary to combination of orthostatic hypotension, hypertension fluctuations and poor cardiac output. 1. lightheadedness, dizziness 2. HTN 3. CHF - carotid US showed bilateral 20-39% stenosis of proximal ICA - CT head showed nonspecific changes - maintain SBP between 120-130 - avoid fluctuation in Blood pressure - maintain systolic P between 130-140, diastolic BP between 80-70 - PT/OT case reviewed and discussed with attending <Kp Paz - Last Filed: 06/28/17 17:59> Objective - Vital Signs/Intake and Output Vital Signs (last 24 hours): Temp Pulse Resp BP Pulse Ox 97.9 F 86 20 124/90 98 06/28/17 06:00 06/28/17 06:24 06/28/17 06:00 06/28/17 17:11 06/28/17 06:00 Intake and Output: 06/28/17 06/28/17 06:59 18:59 Intake Total 420 360 Output Total 130 Balance 420 230 - Medications Medications: Current Medications Acetaminophen (Tylenol 325mg Tab) 650 mg PO Q6H PRN PRN Reason: Pain, Mild (1-3) Last Admin: 06/28/17 10:03 Dose: 650 mg Albuterol/Ipratropium (Duoneb 3 Mg/0.5 Mg (3 Ml) Ud) 3 ml IH [id number] PRN; Protocol PRN Reason: Shortness of Breath Apixaban (Eliquis) 5 mg PO BID [facility] PRN Reason: Protocol Last Admin: 06/28/17 17:11 Dose: 5 mg Atorvastatin Calcium (Lipitor) 20 mg PO DIN [facility] PRN Reason: Protocol Last Admin: 06/28/17 17:10 Dose: 20 mg Carvedilol (Coreg) 6.25 mg PO 0800,1800 [facility] PRN Reason: Protocol Last Admin: 06/28/17 17:11 Dose: 6.25 mg Cyclobenzaprine HCl (Flexeril) 5 mg PO TID PRN PRN Reason: Muscle spasm Last Admin: 06/27/17 10:23 Dose: 5 mg Docusate Sodium (Colace) 100 mg PO BID [facility] Last Admin: 06/28/17 17:10 Dose: 100 mg Famotidine (Pepcid) 20 mg PO 1000,2200 [facility] PRN Reason: Protocol Last Admin: 06/28/17 10:04 Dose: 20 mg Insulin Human Lispro (Humalog Low) 0 units SC ACHS [facility] PRN Reason: Protocol Last Admin: 06/28/17 12:00 Dose: 2 units Non-Formulary Medication (Empagliflozin/Linagliptin [Glyxambi 10 Mg-5 Mg Tablet] ) 1 tab PO DAILY [facility] Last Admin: 06/28/17 10:03 Dose: 1 tab Sacubitril/Valsartan (Entresto 24 Mg-26 Mg Tablet) 1 each PO BID [facility] Last Admin: 06/28/17 17:12 Dose: 1 each Spironolactone (Aldactone) 25 mg PO BID [facility] Last Admin: 06/28/17 17:09 Dose: 25 mg Torsemide (Demadex) 10 mg PO DAILY [facility] PRN Reason: Protocol Last Admin: 06/28/17 10:03 Dose: 10 mg - Labs Labs: 06/27/17 05:45 06/28/17 07:30 Attending/Attestation - Attestation I have personally seen and examined this patient.: Yes I have fully participated in the care of the patient.: Yes I have reviewed all pertinent clinical information, including history, physical exam and plan: Yes
[2017-06-29 01:18] VITALS: RESP 18
[2017-06-29] MEDS: Insulin Lispro (humaLOG) LOW Coverage SC SCH ×2 (07:56→12:33)
[2017-06-29] MEDS: LINAGLIPTIN PO SCH (11:28)
[2017-06-29] MEDS: EMPAGLIFLOZIN PO SCH (11:28)
[2017-06-29] MEDS: SACUBITRIL 24mg/VALSARTAN 26mg tab PO SCH (11:29)
[2017-06-29 11:58] VITALS: BP 124/83; PULSE 68; TEMP 98.5; O2SAT 94
--- NOTE | 2017-06-29 13:57 | CP.PCM.DIS ---
Provider - Provider Date of Admission: 06/21/17 15:40 Attending physician: Tye Ramos MD Primary care physician: Tye Ramos MD Consults: Neuro: Dr. Kp Paz Cardio: Dr. Angus Clifton Time Spent in preparation of Discharge (in minutes): 30 Diagnosis - Discharge Diagnosis (1) Physical deconditioning Status: Acute (2) Near syncope Status: Resolved (3) Weakness Status: Resolved Hospital Course - Lab Results Lab Results: Most Recent Lab Values WBC 8.6 10^3/ul (4.5-11.0) 06/27/17 05:45 RBC 5.61 10^6/uL (3.5-6.1) 06/27/17 05:45 Hgb 17.1 g/dL (14.0-18.0) 06/27/17 05:45 Hct 50.4 % (42.0-52.0) 06/27/17 05:45 MCV 89.8 fl (80.0-105.0) 06/27/17 05:45 MCH 30.5 pg (25.0-35.0) 06/27/17 05:45 MCHC 33.9 g/dl (31.0-37.0) 06/27/17 05:45 RDW 14.6 % (11.5-14.5) H 06/27/17 05:45 Plt Count 225 10^3/uL (120.0-450.0) 06/27/17 05:45 MPV 10.4 fl (7.0-11.0) 06/27/17 05:45 Gran % 62.0 % (50.0-68.0) 06/25/17 06:40 Lymph % (Auto) 22.7 % (22.0-35.0) 06/25/17 06:40 Cocke % (Auto) 12.4 % (1.0-6.0) H 06/25/17 06:40 Eos % (Auto) 2.5 % (1.5-5.0) 06/25/17 06:40 Baso % (Auto) 0.4 % (0.0-3.0) 06/25/17 06:40 Gran # 5.28 (1.4-6.5) 06/25/17 06:40 Lymph # 1.9 (1.2-3.4) 06/25/17 06:40 Cocke # 1.1 (0.1-0.6) H 06/25/17 06:40 Eos # 0.2 (0.0-0.7) 06/25/17 06:40 Baso # 0.03 K/mm3 (0.0-2.0) 06/25/17 06:40 Sodium 135 mmol/L (132-148) 06/28/17 07:30 Potassium 4.9 mmol/L (3.6-5.0) 06/28/17 07:30 Chloride 103 mmol/L (98-107) 06/28/17 07:30 Carbon Dioxide 22 mmol/L (21-33) 06/28/17 07:30 Anion Gap 15 (10-20) 06/28/17 07:30 BUN 44 mg/dL (7-21) H 06/28/17 07:30 Creatinine 1.3 mg/dl (0.8-1.5) 06/28/17 07:30 Est GFR ( Amer) > 60 06/28/17 07:30 Est GFR (Non-Af Amer) 56 06/28/17 07:30 POC Glucose (mg/dL) 195 mg/dL (65-110) H 06/29/17 11:19 Random Glucose 130 mg/dL (70-110) H 06/28/17 07:30 Calcium 9.7 mg/dL (8.4-10.5) 06/28/17 07:30 Total Bilirubin 0.6 mg/dL (0.2-1.3) 06/22/17 06:30 AST 21 U/L (17-59) 06/22/17 06:30 ALT 27 U/L (7-56) 06/22/17 06:30 Alkaline Phosphatase 94 U/L (38-126) 06/22/17 06:30 Total Protein 7.6 g/dL (5.8-8.3) 06/22/17 06:30 Albumin 4.1 g/dL (3.0-4.8) 06/22/17 06:30 Globulin 3.5 gm/dL 06/22/17 06:30 Albumin/Globulin Ratio 1.2 (1.1-1.8) 06/22/17 06:30 - Hospital Course Hospital Course: This is a 62yo male with PMH of HTN, DM2, CHF with AICD, a.fib, HLD, chornic back pain who came to [facility] ED on 06/27/17 for dizziness which is secondary to dehydration. Upon admission, orthostatics were mildly positive. BP medications were held. Patient was evaluated by Cardiology. Dr. Clifton recommended to gently hydrate patient. Patients BP improved. Orthostasis resolved. Carotid doppler showed 20-39% stenosis of the internal carotids bilaterally. Lipid panel showed elevated LDL. Lipitor was increased to 20mg. Patient continued to complain of weakness and back pain. Patient was evaluated by physical therapy and recommended further work with rehab. Patient evaluated and accepted by TCU. Patient discharged to TCU for reconditioning and physical therapy. While in TCU patient continued to work with physical therapy for strengthening and reconditioning. Patient BP medications and anti-glycemic medications were slowly restarted with appropriate response. Patient dizziness had improved during stay in TCU. Patient's noted to be hemodynamically stable with stable vital signs, euvolemic, normothermic and appropriate for discharge with outpatient follow up. Discharge planning and outpatient follow up, along with medication reconciliation were discussed with patient who was in understanding and agreement. - Date & Time of H&P Date of H&P: 06/22/17 Time of H&P: 12:20 Discharge Exam - Head Exam Head Exam: ATRAUMATIC, NORMAL INSPECTION, NORMOCEPHALIC - Eye Exam Eye Exam: EOMI, PERRL Pupil Exam: PERRL - ENT Exam ENT Exam: Mucous Membranes Moist - Respiratory Exam Respiratory Exam: Clear to PA & Lateral, NORMAL BREATHING PATTERN - Cardiovascular Exam Cardiovascular Exam: REGULAR RHYTHM, +S1, +S2 - GI/Abdominal Exam GI & Abdominal Exam: Normal Bowel Sounds, Soft. absent: Tenderness - Extremities Exam Extremities exam: normal capillary refill - Back Exam Back exam: paraspinal tenderness (thoracic and lumbar bilateral - chronic ) - Neurological Exam Neurological exam: Alert, Normal Gait, Oriented x3 - Psychiatric Exam Psychiatric exam: Normal Affect, Normal Mood - Skin Skin Exam: Dry, Intact Discharge Plan - Discharge Medications Prescriptions: Atorvastatin [Lipitor] 20 mg PO DIN #30 tab Sacubitril/Valsartan [Entresto 24 mg-26 mg Tablet] 1 each PO BID #60 tablet - Follow Up Plan Condition: GOOD Disposition: HOME/ ROUTINE Instructions: Heart Failure (DC), Heart Failure (GEN), Syncope (DC), Syncope ( GEN), Hypertensive Crisis (GEN), Hypertension (DC), Hypertension (GEN) Additional Instructions: Follow up with PMD within one week of discharge Follow up with Lump Receiver, Dr. Rock on July 01 Follow up with Spinal specialist July 05 to review myelogram results from [facility] Take medications as prescribed to you - Entresto 24mg-26mg PO BID - Aldactone 25mg PO BID - Torsemide 10mg Daily - Glyxambi 10mg-5mg PO Daily - Pepcid 20mg BID - Colace 100mg PO BID - Coreg 6.25 BID - Lipitor 20mg PO at Dinner - Eliquis 5mg PO BID - Isosorbide 30mg PO Daily - Glycambia 10 PO BID Remain appropriately hydrated and euvolemic Continue home PT with services Return to the hospital or ED if your symptoms worsen or return Referrals: Tye Ramos MD [Primary Care Provider] -
== END 2017-06-29 14:20 | disposition home or self-care (01) | DRG 640 ==
LOC: TRCU 15:40
PROVIDERS: ADMIT Internal Medicine; ATTEND Internal Medicine
PROC: F07Z9FZ Gait Training/Functional Ambulation Treatment using Assistive, Adaptive, Supportive or Protective Equipment (ICD-10-PCS; principal; 2017-06-22)
PROC: F07M6ZZ Therapeutic Exercise Treatment of Musculoskeletal System - Whole Body (ICD-10-PCS; 2017-06-22)
DX: E86.0 Dehydration (principal); I50.23 Acute on chronic systolic (congestive) heart failure; I95.1 Orthostatic hypotension; I48.2 Chronic atrial fibrillation; I42.0 Dilated cardiomyopathy; I11.0 Hypertensive heart disease with heart failure; M48.061 Spinal stenosis, lumbar region without neurogenic claudication; G89.29 Other chronic pain; G44.209 Tension-type headache, unspecified, not intractable; E87.5 Hyperkalemia; E78.5 Hyperlipidemia, unspecified; E11.9 Type 2 diabetes mellitus without complications; Z87.891 Personal history of nicotine dependence; Z95.810 Presence of automatic (implantable) cardiac defibrillator; Z88.1 Allergy status to other antibiotic agents; Z88.5 Allergy status to narcotic agent; Z88.0 Allergy status to penicillin; Z88.8 Allergy status to other drugs, medicaments and biological substances; R53.81 Other malaise; M54.9 Dorsalgia, unspecified

== ENCOUNTER 2017-08-02 10:36 | Emergency (ER) | payer MEDICARE, BC ==
[2017-08-02 11:17] VITALS: TEMP 98.4; BMI 37.5
--- NOTE | 2017-08-02 11:52 | ED PDOC ---
Arrival/HPI - General Chief Complaint: Back Pain Time Seen by Provider: 08/02/17 10:51 Historian: Patient - History of Present Illness Narrative History of Present Illness (Text): 08/02/17 11:45 A 62 year old male, whose past medical history includes, CHF (on pacemaker), hypertension, chronic back pain, diabetes, presents to the emergency department complaining of 4 month duration lower back pain. The patient states that he experienced a fall 1 year ago and has been following up with his PMD regarding his symptoms. He states that this morning, his back felt like it was "locked". The patient also notes a rash on both lower extremities. The patient denies fevers, chills, headache, dizziness, chest pain, shortness of breath, dyspnea on exertion, cough, abdominal pain, nausea, vomiting, diarrhea, urinary/bowel changes, or any other complaint. PMD: Dr. Ramos Time/Duration: Other (4 months) Symptom Onset: Sudden Symptom Course: Unchanged Activities at Onset: Rest, Light Context: Home Past Medical History - Provider Review Nursing Documentation Reviewed: Yes - Infectious Disease Hx of Infectious Diseases: None - Tetanus Immunization Tetanus Immunization: Up to Date - Cardiac Hx Hypertension: Yes Hx Internal Defibrillator: Yes Hx Pacemaker: Yes - Pulmonary Hx Respiratory Disorders: No - Neurological Hx Neurological Disorder: No Hx Transient Ischemic Attacks (TIA): (pt denies) - HEENT Hx HEENT Disorder: No (WEARS RX GLASSES) - Renal Hx Renal Disorder: No - Endocrine/Metabolic Hx Diabetes Mellitus Type 2: Yes - Hematological/Oncological Hx Blood Disorders: No - Integumentary Hx Dermatological Disorder: Yes Other/Comment: muultiple red scabs and rash to both feet c/o itch - Musculoskeletal/Rheumatological Hx Falls: No - Gastrointestinal Hx Gastrointestinal Disorders: Yes (obese) Other/Comment: HIATAL HERNIA,pt denies constipation, colonoscopy 11/11/15 dx hemorrhoids diverticulosis - Genitourinary/Gynecological Hx Reproductive Disorders: No - Psychiatric Hx Emotional Abuse: No Hx Physical Abuse: No Hx Substance Use: No - Surgical History Hx Orthopedic Surgery: Yes Other/Comment: LEFT MENISCUS TEAR 1996,POLPS REMOVED from NASAL PASSAGES, arthroscopic sx r knee - Anesthesia Hx Anesthesia: Yes Hx Anesthesia Reactions: No Hx Malignant Hyperthermia: No - Suicidal Assessment Feels Threatened In Home Enviroment: No Family/Social History - Physician Review Nursing Documentation Reviewed: Yes Family/Social History: No Known Family HX Smoking Status: Former Smoker Hx Alcohol Use: Yes (occasional) Hx Substance Use: No Hx Substance Use Treatment: No Allergies/Home Meds Allergies/Adverse Reactions: Allergies codeine Allergy (Verified 08/02/17 11:36) SWELLING metformin Allergy (Verified 08/02/17 11:36) DIARRHEA Penicillins Allergy (Verified 08/02/17 11:36) SWELLING tetracycline Allergy (Verified 08/02/17 11:36) SWELLING Home Medications: Home Meds Medication Instructions Recorded Confirmed Apixaban [Eliquis] 5 mg PO BID 12/11/16 06/21/17 Glycambia 10 mg PO BID 12/11/16 06/21/17 K Phos/Na Phos, Dibasic/Na P 250 mg PO DAILY 06/17/17 06/21/17 [Potassium/Sodium Phosphate] Famotidine [Pepcid] 20 mg PO BID 06/18/17 06/21/17 traMADol [Ultram] 50 mg PO QID PRN 06/18/17 06/21/17 Empagliflozin/Linagliptin 1 tab PO DAILY 06/21/17 06/21/17 [Glyxambi 10 mg-5 mg Tablet] Torsemide [Demadex] 10 mg PO BID 06/21/17 06/21/17 Review of Systems - Review of Systems Constitutional: absent: Fevers Respiratory: absent: SOB, Cough Cardiovascular: absent: Chest Pain, CHRISTY Gastrointestinal: absent: Abdominal Pain, Stool Changes, Diarrhea, Nausea, Vomiting Genitourinary Male: absent: Urinary Output Changes Musculoskeletal: Back Pain (Lower back pain) Skin: Rash (Rash on lower extremities. ) Neurological: absent: Headache, Dizziness Physical Exam Vital Signs Reviewed: Yes Vital Signs Temp Pulse Resp BP Pulse Ox 08/02/17 11:16 98.4 F 85 18 147/89 97 Temperature: Afebrile Blood Pressure: Normal Pulse: Regular Respiratory Rate: Normal Appearance: Positive for: Well-Appearing, Non-Toxic, Comfortable Pain Distress: None Mental Status: Positive for: Alert and Oriented X 3 - Systems Exam Head: Present: Atraumatic, Normocephalic Pupils: Present: PERRL Extroacular Muscles: Present: EOMI Conjunctiva: Present: Normal Mouth: Present: Moist Mucous Membranes Neck: Present: Normal Range of Motion Respiratory/Chest: Present: Clear to Auscultation, Good Air Exchange. No: Respiratory Distress, Accessory Muscle Use Cardiovascular: Present: Regular Rate and Rhythm, Normal S1, S2. No: Murmurs Abdomen: Present: Normal Bowel Sounds. No: Tenderness, Distention, Peritoneal Signs Back: Present: Midline Tenderness (Lumbosacral, paraspinal muscle, midline tenderness. ), Other (Neurovascularly intact. ). No: Pain with Leg Raise Upper Extremity: Present: Normal Inspection. No: Cyanosis, Edema Lower Extremity: Present: Normal Inspection. No: Edema Neurological: Present: GCS=15, CN II-XII Intact, Speech Normal Skin: Present: Abrasion (lumbar abrasions to the anterior aspect of both legs.) Psychiatric: Present: Alert, Oriented x 3, Normal Insight, Normal Concentration Medical Decision Making ED Course and Treatment: 08/02/17 11:55 Impression: A 62 year old male presents to the emergency department complaining of 4 month duration lower back pain. Plan: -- Toradol -- Reassess and disposition Prior Visits: Notes and results from previous visits were reviewed. Patient was last seen in the emergency department on 07/26/17. The patient was seen in the emergency department for a complaint of neck pain, dizziness, and dry throat. The patient was discharged home. Progress Notes: - Medication Orders Current Medication Orders: Discontinued Medications Ketorolac Tromethamine (Toradol) 60 mg IM STAT STA Stop: 08/02/17 11:31 Last Admin: 08/02/17 11:48 Dose: 60 mg MAR Pain Assessment Document 08/02/17 11:48 HI (Rec: 08/02/17 11:48 [id number]) Pain Reassessment Is this a pain reassessment? No Sleep Is patient sleeping during reassessment? No Presence of Pain Presence of Pain Yes IM Administration Charges Document 08/02/17 11:48 HI (Rec: 08/02/17 11:48 [id number]) Charges for Administration # of IM Administrations 1 - Scribe Statement The provider has reviewed the documentation as recorded by the Scribe [place] Coles Provider Scribe Attestation: All medical record entries made by the Scribe were at my direction and personally dictated by me. I have reviewed the chart and agree that the record accurately reflects my personal performance of the history, physical exam, medical decision making, and the department course for this patient. I have also personally directed, reviewed, and agree with the discharge instructions and disposition. Disposition/Present on Arrival - Present on Arrival Any Indicators Present on Arrival: No History of DVT/PE: No History of Uncontrolled Diabetes: No Urinary Catheter: No History of Decub. Ulcer: No History Surgical Site Infection Following: None - Disposition Have Diagnosis and Disposition been Completed?: Yes Diagnosis: Lumbosacral dysfunction Disposition: HOME/ ROUTINE Disposition Time: 11:45 Patient Plan: Discharge Patient Problems: Current Active Problems Problem Status Onset Lumbosacral dysfunction Acute Condition: STABLE Additional Instructions: see your doctor for further care and pursue appointment for epidural injections. Continue all medications per your doctor. Prescriptions: Hydrocortisone Clair 0.2% Oint [Westcort] 2 gm TP BID #45 tube Methocarbamol [Robaxin-750] 750 mg PO TID #15 tablet Referrals: Tye Ramos MD [Primary Care Provider] - Follow up with primary Forms: [facility] ([place])
[2017-08-02 12:39] VITALS: BP 142/87; PULSE 82; RESP 16; O2SAT 98
== END 2017-08-02 11:41 | disposition home or self-care (01) ==
LOC: ED 10:36
DX: M54.5 Low back pain (principal)
CPT/HCPCS: 96372; 99283; J1885

== ENCOUNTER 2017-08-05 14:05 | Inpatient (IN) | payer MEDICARE, BC ==
--- NOTE | 2017-08-05 14:51 | ED PDOC ---
Arrival/HPI - General Chief Complaint: Chest Pain Time Seen by Provider: 08/05/17 14:13 Historian: Patient - History of Present Illness Narrative History of Present Illness (Text): 08/05/17 14:45 A 62 year old male, whose past medical history includes diabetes, hypertension, chronic back pain, pacemaker and CHF, presents to the emergency department complaining of epigastric abdominal discomfort since this morning. Patient describes it as a "burping" sensation. Patient denies any fever, chills, nausea , vomiting, diarrhea, urinary symptoms, chest pain, shortness of breath or any other complaints. PMD: Dr. Ramos Time/Duration: Other (This morning) Symptom Course: Unchanged Quality: Other ("burping" sensation) Context: Home Past Medical History - Provider Review Nursing Documentation Reviewed: Yes - Infectious Disease Hx of Infectious Diseases: None - Tetanus Immunization Tetanus Immunization: Up to Date - Cardiac Hx Hypertension: Yes Hx Internal Defibrillator: Yes Hx Pacemaker: Yes - Pulmonary Hx Respiratory Disorders: No - Neurological Hx Neurological Disorder: No Hx Transient Ischemic Attacks (TIA): (pt denies) - HEENT Hx HEENT Disorder: No (WEARS RX GLASSES) - Renal Hx Renal Disorder: No - Endocrine/Metabolic Hx Diabetes Mellitus Type 2: Yes - Hematological/Oncological Hx Blood Disorders: No - Integumentary Hx Dermatological Disorder: Yes Other/Comment: muultiple red scabs and rash to both feet c/o itch - Musculoskeletal/Rheumatological Hx Falls: No - Gastrointestinal Hx Gastrointestinal Disorders: Yes (obese) Other/Comment: HIATAL HERNIA,pt denies constipation, colonoscopy 11/11/15 dx hemorrhoids diverticulosis - Genitourinary/Gynecological Hx Reproductive Disorders: No - Psychiatric Hx Emotional Abuse: No Hx Physical Abuse: No Hx Substance Use: No - Surgical History Hx Orthopedic Surgery: Yes Other/Comment: LEFT MENISCUS TEAR 1996,POLPS REMOVED from NASAL PASSAGES, arthroscopic sx r knee - Anesthesia Hx Anesthesia: Yes Hx Anesthesia Reactions: No Hx Malignant Hyperthermia: No - Suicidal Assessment Feels Threatened In Home Enviroment: No Family/Social History - Physician Review Nursing Documentation Reviewed: Yes Family/Social History: No Known Family HX Smoking Status: Former Smoker Hx Alcohol Use: Yes (occasional) Hx Substance Use: No Hx Substance Use Treatment: No Allergies/Home Meds Allergies/Adverse Reactions: Allergies codeine Allergy (Verified 08/02/17 11:36) SWELLING metformin Allergy (Verified 08/02/17 11:36) DIARRHEA Penicillins Allergy (Verified 08/02/17 11:36) SWELLING tetracycline Allergy (Verified 08/02/17 11:36) SWELLING Home Medications: Home Meds Medication Instructions Recorded Confirmed Glycambia 10 mg PO BID 12/11/16 08/05/17 K Phos/Na Phos, Dibasic/Na P 250 mg PO DAILY 06/17/17 08/05/17 [Potassium/Sodium Phosphate] Famotidine [Pepcid] 20 mg PO BID 06/18/17 08/05/17 traMADol [Ultram] 50 mg PO QID PRN 06/18/17 08/05/17 Empagliflozin/Linagliptin 1 tab PO DAILY 06/21/17 08/05/17 [Glyxambi 10 mg-5 mg Tablet] Torsemide [Demadex] 10 mg PO BID 06/21/17 08/05/17 Review of Systems - Physician Review All systems were reviewed & negative as marked: Yes - Review of Systems Constitutional: absent: Fevers, Night Sweats Respiratory: absent: SOB Cardiovascular: absent: Chest Pain Gastrointestinal: Abdominal Pain (epigastric). absent: Diarrhea, Nausea, Vomiting Genitourinary Male: absent: Dysuria, Frequency, Hematuria Musculoskeletal: Back Pain (chronic) Physical Exam Vital Signs Reviewed: Yes Vital Signs Temp Pulse Resp BP Pulse Ox 08/05/17 16:44 71 16 179/77 H 98 08/05/17 16:05 78 16 169/136 H 98 08/05/17 15:22 89 155/115 H 08/05/17 14:29 97.8 F 86 16 166/109 H 97 Temperature: Afebrile Blood Pressure: Hypertensive Pulse: Regular Respiratory Rate: Normal Appearance: Positive for: Non-Toxic, Comfortable, Other (Morbidly obese male) Pain Distress: None Mental Status: Positive for: Alert and Oriented X 3 - Systems Exam Head: Present: Atraumatic, Normocephalic Pupils: Present: PERRL Extroacular Muscles: Present: EOMI Conjunctiva: Present: Normal Mouth: Present: Moist Mucous Membranes Respiratory/Chest: Present: Clear to Auscultation, Good Air Exchange. No: Respiratory Distress, Accessory Muscle Use, Tender to Palpation Cardiovascular: Present: Regular Rate and Rhythm, Normal S1, S2. No: Murmurs Abdomen: Present: Normal Bowel Sounds. No: Tenderness, Distention, Peritoneal Signs, Rebound, Guarding Back: Present: Normal Inspection Upper Extremity: Present: Normal Inspection. No: Cyanosis, Edema Lower Extremity: Present: Normal Inspection. No: Edema Neurological: Present: GCS=15, CN II-XII Intact, Speech Normal Skin: Present: Warm, Dry, Normal Color. No: Rashes Psychiatric: Present: Alert, Oriented x 3, Normal Insight, Normal Concentration Medical Decision Making ED Course and Treatment: 08/05/17 14:45 Impression: A 62 year old male with epigastric abdominal discomfort. Plan: -- Abdominal ultrasound -- Chest xray -- EKG -- Labs -- Reassess and disposition Progress Notes: EKG shows paced rhythm at [address]/T wave changes. Interpreted by me. 08/05/2017 15:57 Chest X-ray IMPRESSION: No active disease. Dictator: Jarret Hutchinson MD 08/05/17 16:[address] Braxton whom recommends consulting with virtual assistant for advertisers Dr. Angus Clifton; also recommends patient be put under telemetry. States to give patient aspiring and nitroglycerin; and to hold off on Beta-suman to check whether or not to start patient on Heparin drop, even though patient is currently on Eliquis. 08/05/17 16:47 Dr. Clifton recommends low presser 25 mg BIV. - Critical Care Critical Care Minutes: 30 minutes - Lab Interpretations Lab Results: 08/05/17 15:07 08/05/17 15:07 Lab Results 08/05/17 15:07: Sodium 143, Potassium 4.1, Chloride 106, Carbon Dioxide 28, Anion Gap 14, BUN 19, Creatinine 0.8, Est GFR ( Amer) > 60, Est GFR (Non- Af Amer) > 60, Random Glucose 162 H, Calcium 9.7, Total Bilirubin 0.9, AST 29, ALT 28, Alkaline Phosphatase 83, Lactate Dehydrogenase 575, Total Creatine Kinase 82, Troponin I 2.23 H* D, NT-Pro-B Natriuret Pep 39213 H, Total Protein 7.3, Albumin 4.1, Globulin 3.2, Albumin/Globulin Ratio 1.3 08/05/17 15:07: PT 12.1, INR 1.06 08/05/17 15:07: WBC 9.0, RBC 4.86, Hgb 14.7, Hct 45.1, MCV 92.8, MCH 30.2, MCHC 32.6, RDW 16.6 H, Plt Count 183, MPV 10.6, Gran % 69.3 H, Lymph % (Auto) 23.0, [place] % (Auto) 7.4 H, Eos % (Auto) 0.2 L, Baso % (Auto) 0.1, Gran # 6.25, Lymph # 2.1, [place] # 0.7 H, Eos # 0.0, Baso # 0.01 I have reviewed the lab results: Yes - RAD Interpretation Radiology Orders: 08/05/17 14:48 CHEST TWO VIEWS (PA/LAT) [RAD] Stat ABDOMEN COMPLETE [US] Stat - Medication Orders Current Medication Orders: Simethicone (Mylicon Liq) 120 mg PO QID KATE Discontinued Medications Al Hydrox/Mg Hydrox/Simethicone (Maalox Plus 30 Ml) 30 ml PO STAT STA Stop: 08/05/17 14:59 Last Admin: 08/05/17 15:13 Dose: 30 ml Aspirin (Aspirin Chewable) 324 mg PO STAT STA Stop: 08/05/17 16:04 Last Admin: 08/05/17 16:30 Dose: 324 mg Hydralazine HCl (Apresoline) 10 mg IVP ONCE ONE Stop: 08/05/17 14:56 Last Admin: 08/05/17 15:22 Dose: 10 mg IVP Administration Document 08/05/17 15:22 MS (Rec: 08/05/17 15:22 MS [id number]) Charges for Administration # of IVP Administrations 1 SEP Pulse and Blood Pressure Document 08/05/17 15:22 MS (Rec: 08/05/17 15:22 MS [id number]) Pulse Pulse Rate (60-90) 89 Blood Pressure Blood Pressure (100/60-150/90) 155/115 Nitroglycerin (Nitro-Bid 2% Oint) 1 ea TOP STAT STA Stop: 08/05/17 16:04 Last Admin: 08/05/17 16:40 Dose: 1 ea - PA / PUBLIC SPACE ATTENDANT / Resident Statement MD/DO has reviewed & agrees with the documentation as recorded. - Scribe Statement The provider has reviewed the documentation as recorded by the Scribe Cherelle Gaxiola Provider Carolaibe Attestation: All medical record entries made by the Scribe were at my direction and personally dictated by me. I have reviewed the chart and agree that the record accurately reflects my personal performance of the history, physical exam, medical decision making, and the department course for this patient. I have also personally directed, reviewed, and agree with the discharge instructions and disposition. Disposition/Present on Arrival - Present on Arrival Any Indicators Present on Arrival: No History of DVT/PE: No History of Uncontrolled Diabetes: No Urinary Catheter: No History of Decub. Ulcer: No History Surgical Site Infection Following: None - Disposition Have Diagnosis and Disposition been Completed?: Yes Diagnosis: NSTEMI, initial episode of care, Epigastric pain, Hypertensive crisis, unspecified Disposition: HOSPITALIZED Disposition Time: 16:41 Patient Plan: Admission, Telemetry Patient Problems: Current Active Problems Problem Status Onset NSTEMI, initial episode of care Acute Epigastric pain Acute Hypertensive crisis, unspecified Acute Condition: FAIR Referrals: Alma Johns Ibeth Req, [Non-Staff] - Follow up with primary Forms: ABB ([place])
[2017-08-05] MEDS ORDERED: Alum-Mag Hydrox-Simethicone Susp (30 mL) PO STA (14:58)
[2017-08-05 15:17] LABS: BASO # 0.01 K/mm3 (0.0-2.0); BASO % 0.1 % (0.0-3.0); EOS % 0.2 % (1.5-5.0); GRAN # 6.25 (1.4-6.5); GRAN % 69.3 % (50.0-68.0); HEMOGLOBIN 14.7 g/dL (14.0-18.0); LYMPH # 2.1 (1.2-3.4); MEAN CELL VOLUME 92.8 fl (80.0-105.0); MEAN CORPUSCULAR HEMOGLOBIN 30.2 pg (25.0-35.0); MEAN CORPUSCULAR HGB CONC 32.6 g/dl (31.0-37.0); MEAN PLATELET VOLUME 10.6 fl (7.0-11.0); MONO # 0.7 (0.1-0.6); MONO % 7.4 % (1.0-6.0); RBC 4.86 10^6/uL (3.5-6.1); RED CELL DISTRIBUTION WIDTH 16.6 % (11.5-14.5)
[2017-08-05 15:35] LABS: INR 1.06 (0.93-1.08); PROTHROMBIN TIME 12.1 SECONDS (9.4-12.5)
[2017-08-05 15:55] LABS: ALB/GLOB RATIO 1.3 (1.1-1.8); ALBUMIN 4.1 g/dL (3.0-4.8); ALT/SGPT 28 U/L (7-56); AST/SGOT 29 U/L (17-59); B-TYPE NATRIURETIC PEPTIDE 10100 pg/mL (0-450); BLOOD UREA NITROGEN 19 mg/dL (7-21); CALCIUM 9.7 mg/dL (8.4-10.5); GFR AFRICAN-AMERICAN > 60; GFR NON-AFRICAN AMERICAN > 60; TROPONIN I 2.23 ng/mL
--- NOTE | 2017-08-05 15:59 | RAD ---
HISTORY: epigastric pain/Hypertension COMPARISON: 07/26/2017 TECHNIQUE: Chest PA and lateral FINDINGS: LUNGS: No active pulmonary disease. PLEURA: No significant pleural effusion identified. No pneumothorax apparent. CARDIOVASCULAR: Mild cardiomegaly and aortic tortuosity. Dual lead pacemaker OSSEOUS STRUCTURES: No significant abnormalities. VISUALIZED UPPER ABDOMEN: Normal. OTHER FINDINGS: None. IMPRESSION: No active disease.
[2017-08-05] MEDS ORDERED: Nitroglycerin 2% Ointment Foilpak UD TOP STA (16:03)
[2017-08-05] MEDS: Simethicone 40 mg/0.6 ml Liquid (30 ml) PO SCH ×2 (17:34→22:09)
--- NOTE | 2017-08-05 17:58 | US ---
HISTORY: epigastric pain, belching, biliary colic COMPARISON: CT abdomen and pelvis with contrast performed 01/24/16 TECHNIQUE: Sonographic evaluation of the abdomen. FINDINGS: LIVER: Measures 18.8 cm in sagittal dimension. Echogenic liver may be seen in setting of hepatic parenchymal disease or fatty infiltration. No focal hepatic mass identified. The main portal vein appears patent with normal directional flow. No intrahepatic bile duct dilatation. GALLBLADDER: No gallstones. Gallbladder wall thickening/ pericholecystic edema measuring approximately 6 mm in diameter. Negative sonographic Salazar's sign as assessed by the unit supervisor. COMMON BILE DUCT: Measures 5 mm. PANCREAS: Not well visualized. RIGHT KIDNEY: Measures 10.8 x 5.1 x 5.6 cmcm. No obstructing calculus or hydronephrosis identified. 2.0 cm and 1.6 cm midpole renal cyst. Multiple calcifications in the lower pole. LEFT KIDNEY: Measures 13.4 x 5.2 x 4.8cm. No obstructing calculus or hydronephrosis identified. SPLEEN: Measures approximately 10.8 cm. AORTA: Limited views appear unremarkable. IVC: Limited views appear unremarkable. OTHER FINDINGS: None. IMPRESSION: Echogenic liver may be seen in setting of hepatic parenchymal disease or fatty infiltration. Gallbladder wall thickening/ pericholecystic edema measuring approximately 6 mm in diameter. No gallstones. Negative sonographic Salazar's sign as assessed by the unit supervisor. Correlate clinically. 2.0 cm and 1.6 cm midpole right renal cyst. Multiple calcifications in the right lower pole.
[2017-08-05] MEDS ORDERED: Heparin25000 units/250ml 1/2NS 25,000 UNITS/250 ML BAG IV SCH (18:00)
[2017-08-05] MEDS ORDERED: SACUBITRIL 24mg/VALSARTAN 26mg tab PO SCH (18:00)
--- NOTE | 2017-08-05 18:07 | CP.PCM.HP ---
<Yoly Anderson - Last Filed: 08/05/17 17:57> History of Present Illness - History of Present Illness History of Present Illness: Dr. Gallego Service CC: Epigastric discomfort, chest pain, belching HPI: 62 M with a PMHx of HTN, CHF (Ef 18%) with Pacemaker and AICD, hiatal hernia, Afib on elaquis, HLD, ad DM2 presenting to the [facility] ED with complaints of chest pains, bleching, SOB, and epigastric discomfort described as a "burping " sensation. Pt states that the symptoms began this morning approx 5am and has continued until now. Pt went to his PMD office for evaluation and during his visit was instructed to have the ambulance take the pt to the [facility] ED. Pt states his chest pain is midsternal in location without radiation and rated at a 7/10. Pt admitted to SOB on exertion. Pt has had similair episodes of chest pains in the past, however did not have the burning/belching epigastric symptoms he presents with today. Pt was seen and examined at bedside. Patient denies any fever, chills, nausea, vomiting, diarrhea, urinary symptoms, palpitations, lightheadedness or dizziness. PMH: As above PSH: Left knee meniscus repair, Polyp removal from left nares SocHx: Tobacco: former smoker, ETOH: social ID: denies All: Codeine, metformin, PCN, tetracycline Meds: Entresto 96/103mg BID Coreg 6.25mg 2 tabs BID Spironolactone 25mg BID Isosorbide Mononitrate 30mg Daily Eliquis 5mg BID Torsemide 5mg BID Atorvastatin 10mg Daily Famotidine 20mg BID Glyxambi 10/5mg Daily Tramadol 50mg 4 Tabs PRN pain Cyclopenzaprine 10mg TID prn muscle spasm K-Phos 1 tab daily PMD: Dr. Ramos Rx: Christopher Present on Admission - Present on Admission Any Indicators Present on Admission: No Review of Systems - Review of Systems Review of Systems: As per HPI otherwise negative Past Patient History - Infectious Disease Hx of Infectious Diseases: None - Tetanus Immunizations Tetanus Immunization: Up to Date - Past Social History Smoking Status: Former Smoker - CARDIAC Hx Hypertension: Yes Hx Internal Defibrillator: Yes Hx Pacemaker: Yes - PULMONARY Hx Respiratory Disorders: No - NEUROLOGICAL Hx Neurological Disorder: No Hx Transient Ischemic Attacks (TIA): (pt denies) - HEENT Hx HEENT Problems: No (WEARS RX GLASSES) - RENAL Hx Chronic Kidney Disease: No - ENDOCRINE/METABOLIC Hx Diabetes Mellitus Type 2: Yes - HEMATOLOGICAL/ONCOLOGICAL Hx Blood Disorders: No - INTEGUMENTARY Hx Dermatological Problems: Yes Other/Comment: muultiple red scabs and rash to both feet c/o itch - MUSCULOSKELETAL/RHEUMATOLOGICAL Hx Falls: No - GASTROINTESTINAL Hx Gastrointestinal Disorders: Yes (obese) Other/Comment: HIATAL HERNIA,pt denies constipation, colonoscopy 11/11/15 dx hemorrhoids diverticulosis - GENITOURINARY/GYNECOLOGICAL Hx Reproductive Disorders: No - PSYCHIATRIC Hx Emotional Abuse: No Hx Physical Abuse: No Hx Substance Use: No - SURGICAL HISTORY Hx Orthopedic Surgery: Yes Other/Comment: LEFT MENISCUS TEAR 1996,POLPS REMOVED from NASAL PASSAGES, arthroscopic sx r knee - ANESTHESIA Hx Anesthesia: Yes Hx Anesthesia Reactions: No Hx Malignant Hyperthermia: No Meds Allergies/Adverse Reactions: Allergies Allergy/AdvReac Type Severity Reaction Status Date / Time codeine Allergy SWELLING Verified 08/02/17 11:36 metformin Allergy DIARRHEA Verified 08/02/17 11:36 Penicillins Allergy SWELLING Verified 08/02/17 11:36 tetracycline Allergy SWELLING Verified 08/02/17 11:36 Physical Exam - Constitutional Appears: No Acute Distress - Head Exam Head Exam: ATRAUMATIC, NORMAL INSPECTION, NORMOCEPHALIC - Eye Exam Eye Exam: EOMI, Normal appearance, PERRL Pupil Exam: NORMAL ACCOMODATION, PERRL - ENT Exam ENT Exam: Mucous Membranes Moist, Normal Exam - Neck Exam Neck exam: Positive for: Normal Inspection - Respiratory Exam Respiratory Exam: Clear to Auscultation Bilateral, NORMAL BREATHING PATTERN - Cardiovascular Exam Cardiovascular Exam: Irregular Rhythm, +S1, +S2 - GI/Abdominal Exam GI & Abdominal Exam: Distended, Normal Bowel Sounds, Soft. absent: Tenderness - Extremities Exam Extremities exam: Positive for: normal inspection - Neurological Exam Neurological exam: Alert, CN II-XII Intact, Oriented x3, Reflexes Normal - Psychiatric Exam Psychiatric exam: Normal Affect, Normal Mood - Skin Skin Exam: Dry, Intact, Normal Color, Warm Results - Vital Signs Recent Vital Signs: Last Vital Signs Temp 97.8 F 08/05/17 14:29 Pulse 77 08/05/17 17:32 Resp 16 01/18/18 16:44 BP 168/120 H 08/05/17 17:32 Pulse Ox 98 08/05/17 16:44 - Labs Result Diagrams: 08/05/17 15:07 08/05/17 15:07 Assessment & Plan - Assessment and Plan (Free Text) Assessment: 62 M with a PMHx of HTN, CHF (Ef 18%) with Pacemaker and AICD, hiatal hernia, Afib on elaquis, HLD, ad DM2 presenting to the [facility] ED with complaints of chest pains, bleching, SOB, and epigastric discomfort admitted for NSTEMI in the setting of CHF, with BNP of 10,100. NSTEMI - tele - Cardiology Consulted, Dr. Clifton - pt on elaquis at home, will start heparin drip - asa, coreg, lipitor, imdur - trend trops, initial trop positive 2.23 - Serial EKG CHF - EF 18% - AICD/pacemaker in place - BNP: 10,100 - IV lasix 40 BID - continue home meds, spironolactone, entresto - daily weights - strict I&Os - Monitor renal function Afib - elaquis at home - heparin drip started - rate controlled HTN - hypertensive upon admission - continue home meds, coreg, imdur - continue to monitor DM2 - HH/Consistent carb diet - ISS - hold oral antihyperglycemics - Fingersticks ACHS HLD - lipitor 40 - fu lipid profile GI DVT ppx reviewed Seen reviewed and discussed with attending, Dr. Gallego <Reynaldo Gallego - Last Filed: 08/06/17 07:16> Results - Vital Signs Recent Vital Signs: Last Vital Signs Temp 97.8 F 08/05/17 22:07 Pulse 71 08/06/17 06:00 Resp 16 08/05/17 22:07 BP 138/100 H 08/06/17 00:30 Pulse Ox 98 08/05/17 16:44 - Labs Result Diagrams: 08/06/17 05:50 08/06/17 05:50 Labs: Laboratory Results - last 24 hr 08/05/17 08/05/17 08/05/17 21:20 22:59 22:59 WBC RBC Hgb Hct MCV MCH MCHC RDW Plt Count MPV Gran % Lymph % (Auto) [place] % (Auto) Eos % (Auto) Baso % (Auto) Gran # Lymph # [place] # Eos # Baso # APTT 86.6 H Sodium Potassium Chloride Carbon Dioxide Anion Gap BUN Creatinine Est GFR ( Amer) Est GFR (Non-Af Amer) POC Glucose (mg/dL) 166 H Random Glucose Calcium Total Bilirubin AST ALT Alkaline Phosphatase Troponin I 2.10 H* Total Protein Albumin Globulin Albumin/Globulin Ratio Triglycerides Cholesterol LDL Cholesterol Direct HDL Cholesterol 08/06/17 08/06/17 08/06/17 05:50 05:50 05:50 WBC 9.3 RBC 4.74 Hgb 14.4 Hct 43.8 MCV 92.4 MCH 30.4 MCHC 32.9 RDW 16.8 H Plt Count 172 MPV 10.4 Gran % 66.0 Lymph % (Auto) 24.5 [place] % (Auto) 8.2 H Eos % (Auto) 1.0 L Baso % (Auto) 0.3 Gran # 6.16 Lymph # 2.3 [place] # 0.8 H Eos # 0.1 Baso # 0.03 APTT 47.7 H Sodium 142 Potassium 3.5 L Chloride 105 Carbon Dioxide 30 Anion Gap 11 BUN 21 Creatinine 0.8 Est GFR ( Amer) > 60 Est GFR (Non-Af Amer) > 60 POC Glucose (mg/dL) Random Glucose 154 H Calcium 9.2 Total Bilirubin 1.2 AST 28 ALT 23 Alkaline Phosphatase 81 Troponin I Total Protein 6.9 Albumin 3.8 Globulin 3.0 Albumin/Globulin Ratio 1.3 Triglycerides 100 Cholesterol 159 LDL Cholesterol Direct 114 HDL Cholesterol 32 Attending/Attestation - Attestation I have personally seen and examined this patient.: Yes I have fully participated in the care of the patient.: Yes I have reviewed all pertinent clinical information: Yes Notes (Text): 08/05/17 62 year old male with past medical history of hypertension, afib on eliquid, dyslipidemia, diabetes and CHF s/p PPM/AICD who presents wtih chest pain/ epigastric pain and shortness of breath. He is found to have elevated troponin and brobnp and admitted for acute CHF and NSTEMI. Continue with aspirin, statin , coreg and imdur. Will start on heparin drip. Cardiology evaluation is requested and echocardiogram is ordered. Continue with iv lasix with daily weights and strict Is/Os. US abdomen reviewed; echogenic fatty liver, gallbladder wall thickening without gallstones and right renal cyst. He denies RUQ or flank pain. LFTs are normal. Reynaldo Gallego MD Hospitalist.
[2017-08-05] MEDS ORDERED: Influenza Vaccine 60 mcg/0.5 mL SYR (4YR UP) IM ONE (22:18)
[2017-08-05] MEDS ORDERED: Pneumococcal 23-Valent Vaccine IM ONE (22:18)
[2017-08-05] MEDS: Insulin Lispro (humaLOG) LOW Coverage SC SCH (22:25)
[2017-08-05 22:51] VITALS: BMI 37.5
[2017-08-06 06:23] LABS: BASO # 0.03 K/mm3 (0.0-2.0); BASO % 0.3 % (0.0-3.0); EOS # 0.1 (0.0-0.7); GRAN # 6.16 (1.4-6.5); HEMOGLOBIN 14.4 g/dL (14.0-18.0); LYMPH # 2.3 (1.2-3.4); LYMPH % 24.5 % (22.0-35.0); MEAN CELL VOLUME 92.4 fl (80.0-105.0); MEAN CORPUSCULAR HEMOGLOBIN 30.4 pg (25.0-35.0); MEAN CORPUSCULAR HGB CONC 32.9 g/dl (31.0-37.0); MEAN PLATELET VOLUME 10.4 fl (7.0-11.0); MONO # 0.8 (0.1-0.6); MONO % 8.2 % (1.0-6.0); RBC 4.74 10^6/uL (3.5-6.1); RED CELL DISTRIBUTION WIDTH 16.8 % (11.5-14.5); WHITE BLOOD COUNT 9.3 10^3/ul (4.5-11.0)
[2017-08-06 06:52] LABS: ALB/GLOB RATIO 1.3 (1.1-1.8); ALBUMIN 3.8 g/dL (3.0-4.8); ALT/SGPT 23 U/L (7-56); AST/SGOT 28 U/L (17-59); BLOOD UREA NITROGEN 21 mg/dL (7-21); CALCIUM 9.2 mg/dL (8.4-10.5); GFR AFRICAN-AMERICAN > 60; GFR NON-AFRICAN AMERICAN > 60; HDL CHOLESTEROL 32 mg/dL (29-60)
[2017-08-06 07:06] LABS: LDL CHOLESTEROL 114 mg/dL (0-129)
[2017-08-06 07:28] LABS: TROPONIN I 1.83 ng/mL
[2017-08-06] MEDS: Insulin Lispro (humaLOG) LOW Coverage SC SCH ×4 (08:48→22:09)
[2017-08-06] MEDS: Simethicone 40 mg/0.6 ml Liquid (30 ml) PO SCH ×4 (09:33→21:35)
[2017-08-06] MEDS: SACUBITRIL 24mg/VALSARTAN 26mg tab PO SCH ×2 (09:33→17:19)
[2017-08-06] MEDS ORDERED: SACUBITRIL 24mg/VALSARTAN 26mg tab PO SCH (10:00)
[2017-08-06] MEDS ORDERED: ISOSORBIDE 30 MG PO SCH (10:00)
--- NOTE | 2017-08-06 10:35 | CARD ---
APPROVED REPORT EKG Measurement Heart [id number] <Conclusion> Electronic ventricular pacemaker: 100 % V. Paced A. Fib. No change
[2017-08-06] MEDS ORDERED: Potassium Chloride 40 mEq/30 ml LIQ UD PO ONE (12:40)
--- NOTE | 2017-08-06 12:49 | CP.PCM.PN ---
<Taco Ellis - Last Filed: 08/06/17 14:12> Subjective - Date & Time of Evaluation Date of Evaluation: 08/06/17 Time of Evaluation: 06:00 - Subjective Subjective: Patient seen and evaluated bedside. No acute issues overnight. Patient states he has a cough. Denies any chest pain, shortness of breath, palpitations or any other complaints. Objective - Vital Signs/Intake and Output Vital Signs (last 24 hours): Temp Pulse Resp BP Pulse Ox 97.8 F 72 16 139/99 H 98 08/05/17 22:07 08/06/17 10:00 08/05/17 22:07 08/06/17 12:11 08/05/17 16:44 Intake and Output: 08/06/17 08/06/17 06:59 18:59 Intake Total 230 Output Total 2300 Balance -2070 - Medications Medications: Current Medications Acetaminophen (Tylenol 325mg Tab) 650 mg PO Q6H PRN PRN Reason: Headache Aspirin (Ecotrin) 81 mg PO DAILY [facility] Last Admin: 08/06/17 09:31 Dose: 81 mg Atorvastatin Calcium (Lipitor) 40 mg PO DIN [facility] Last Admin: 08/05/17 18:36 Dose: 40 mg Carvedilol (Coreg) 12.5 mg PO BID [facility] Clopidogrel Bisulfate (Plavix) 75 mg PO DAILY [facility] Enoxaparin Sodium (Lovenox) 110 mg SC Q12H [facility] PRN Reason: Protocol Stop: 08/08/17 14:00 Famotidine (Pepcid) 20 mg PO 1000,2200 [facility] Furosemide (Lasix) 40 mg IVP Q12 [facility] Last Admin: 08/06/17 09:32 Dose: 40 mg Insulin Human Lispro (Humalog Low) 0 units SC ACHS [facility] PRN Reason: Protocol Last Admin: 08/06/17 12:10 Dose: 1 units Isosorbide Mononitrate (Imdur Er) 30 mg PO DAILY [facility] Last Admin: 08/06/17 09:31 Dose: 30 mg Sacubitril/Valsartan (Entresto 24 Mg-26 Mg Tablet) 1 each PO BID [facility] Last Admin: 08/06/17 09:33 Dose: 1 each Simethicone (Mylicon Liq) 120 mg PO QID [facility] Last Admin: 08/06/17 09:33 Dose: 120 mg Spironolactone (Aldactone) 25 mg PO BID [facility] Last Admin: 08/06/17 09:32 Dose: 25 mg - Labs Labs: 08/06/17 05:50 08/06/17 05:50 PT 12.1 SECONDS (9.4-12.5) 08/05/17 15:07 INR 1.06 (0.93-1.08) 08/05/17 15:07 APTT 84.3 Seconds (25.1-36.5) H 08/06/17 11:25 - Constitutional Appears: Non-toxic, No Acute Distress - Head Exam Head Exam: ATRAUMATIC, NORMAL INSPECTION, NORMOCEPHALIC - Eye Exam Eye Exam: Normal appearance, PERRL - ENT Exam ENT Exam: Mucous Membranes Moist - Neck Exam Neck Exam: absent: Lymphadenopathy, Tenderness - Respiratory Exam Respiratory Exam: Clear to Ausculation Bilateral, NORMAL BREATHING PATTERN - Cardiovascular Exam Cardiovascular Exam: REGULAR RHYTHM, +S1, +S2 - Neurological Exam Neurological Exam: Alert, Awake, Oriented x3 Assessment and Plan - Assessment and Plan (Free Text) Assessment: 62 M with a PMHx of HTN, CHF (Ef 18%) with Pacemaker and AICD, hiatal hernia, Afib on , HLD, ad DM2 presenting to the [facility] ED with complaints of chest pains, bleching, SOB, and epigastric discomfort admitted for NSTEMI in the setting of CHF, with BNP of 10,100. Plan: NSTEMI - tele - Cardiology Consulted, Dr. Clifton, will perform cardiac cath on wednesday , NPO after midnight on Wednesday - heparin changed to lovenox - asa, coreg, lipitor, imdur, plavix - trend trops, initial trop positive 2.23, subsequent 2.10, 1.83 - Serial EKG CHF - EF 18% - AICD/pacemaker in place - BNP: 10,100 - IV lasix 40 BID - continue home meds, spironolactone, entresto - daily weights - strict I&Os - Monitor renal function Afib - elaquis at home - lovenox - rate controlled HTN - watch currently 138/100 - hypertensive upon admission - continue home meds, coreg, imdur DM2 - HH/Consistent carb diet - ISS - hold oral antihyperglycemics - Fingersticks ACHS HLD - lipitor 40 - fu lipid profile Hypokalemia 3.5 -repleted -comitor GI DVT ppx reviewed-protonix changed to pepcid <Reynaldo Gallego - Last Filed: 08/06/17 14:25> Objective - Vital Signs/Intake and Output Vital Signs (last 24 hours): Temp Pulse Resp BP Pulse Ox 97.3 F L 78 20 139/99 H 98 08/06/17 12:00 08/06/17 12:00 08/06/17 12:00 08/06/17 12:11 08/05/17 16:44 Intake and Output: 08/06/17 08/06/17 06:59 18:59 Intake Total 230 Output Total 2300 Balance -2069 - Medications Medications: Current Medications Acetaminophen (Tylenol 325mg Tab) 650 mg PO Q6H PRN PRN Reason: Headache Aspirin (Ecotrin) 81 mg PO DAILY [facility] Last Admin: 08/06/17 09:31 Dose: 81 mg Atorvastatin Calcium (Lipitor) 40 mg PO DIN [facility] Last Admin: 08/05/17 18:36 Dose: 40 mg Carvedilol (Coreg) 12.5 mg PO BID [facility] Clopidogrel Bisulfate (Plavix) 75 mg PO DAILY [facility] Enoxaparin Sodium (Lovenox) 110 mg SC Q12H [facility] PRN Reason: Protocol Stop: 08/08/17 14:00 Famotidine (Pepcid) 20 mg PO 1000,2200 [facility] Furosemide (Lasix) 40 mg IVP Q12 [facility] Last Admin: 08/06/17 09:32 Dose: 40 mg Guaifenesin (Robitussin) 100 mg PO Q4H PRN PRN Reason: Cough Insulin Human Lispro (Humalog Low) 0 units SC [facility] PRN Reason: Protocol Last Admin: 08/06/17 12:10 Dose: 1 units Isosorbide Mononitrate (Imdur Er) 30 mg PO DAILY [facility] Last Admin: 08/06/17 09:31 Dose: 30 mg Sacubitril/Valsartan (Entresto 24 Mg-26 Mg Tablet) 1 each PO BID [facility] Last Admin: 08/06/17 09:33 Dose: 1 each Simethicone (Mylicon Liq) 120 mg PO QID [facility] Last Admin: 08/06/17 13:20 Dose: 120 mg Spironolactone (Aldactone) 25 mg PO BID [facility] Last Admin: 08/06/17 09:32 Dose: 25 mg - Labs Labs: 08/06/17 05:50 08/06/17 05:50 PT 12.1 SECONDS (9.4-12.5) 08/05/17 15:07 INR 1.06 (0.93-1.08) 08/05/17 15:07 APTT 84.3 Seconds (25.1-36.5) H 08/06/17 11:25 Attending/Attestation - Attestation I have personally seen and examined this patient.: Yes I have fully participated in the care of the patient.: Yes I have reviewed all pertinent clinical information, including history, physical exam and plan: Yes Notes (Text): 08/06/17 14:22 62 year old male with past medical history of hypertension, afib on eliquid, dyslipidemia, diabetes and CHF s/p PPM/AICD who presented with chest pain/ epigastric pain and shortness of breath. He was found to have elevated troponin and brobnp and admitted for NSTEMI and CHF. Continue with aspirin, statin, coreg and imdur. Continue with iv lasix. He is also on lovenox for anticoagulation. Case was discussed with Dr. Clifton; plan is for cardiac cath on Wednesday. He is pending echocardiogram. His epigastric pain has resolved. His abdominal ultrasound was reviewed which showed echogenic fatty liver, gallbladder wall thickening without gallstones and right renal cyst. Will replete and repeat potassium. Reynaldo Gallego MD Hospitalist.
[2017-08-06] MEDS ORDERED: guaiFENesin 100 mg/5 ml Syrup UD PO PRN (14:08)
[2017-08-06] MEDS: Enoxaparin 120 mg Syringe SC SCH (17:18)
--- NOTE | 2017-08-06 19:17 | CON ---
DATE: 08/06/2017 HISTORY: The patient is a 62-year-old male who presents with epigastric discomfort. He was found to have an elevated troponin of 2. PAST MEDICAL HISTORY: The patient's past medical history includes hypertension, diabetes mellitus, history of documented dilated cardiomyopathy with recurrent CHF in the past. He has documented coronary disease which was treated medically. The patient was on Eliquis with his last dose which was yesterday morning for his underlying atrial fibrillation and is status post pacemaker placement. SOCIAL HISTORY: The patient does not smoke. REVIEW OF SYSTEMS: Negative shortness of breath. Positive epigastric pain without chest pain. Negative edema in the lower extremities. PHYSICAL EXAMINATION: VITAL SIGNS: Blood pressure is 160/95, heart rate in the 70s. NECK: Negative JVD. LUNGS: Without rales. HEART: Reveal S1, S2. EXTREMITIES: Without edema. IMAGING: EKG shows a paced rhythm with baseline atrial fibrillation. LABORATORY DATA: Troponin was initially 2.23, is down to 1.83 today. BUN and creatinine are unremarkable. Glucose is 154. Hemoglobin is 14.4. IMPRESSION: 1. [id number] myocardial infarction. 2. Dilated cardiomyopathy with an ejection fraction of 30% in the past. 3. History of chronic atrial fibrillation, on anticoagulation. 4. Status post pacemaker placement. 5. Diabetes mellitus. 6. Hypertension. PLAN: Given these findings, we will stop his Eliquis. We will place the patient on subcutaneous Lovenox today. We will schedule him for cardiac catheterization on Wednesday once his Eliquis has left the system. Angus Clifton MD
[2017-08-07] MEDS: Enoxaparin 120 mg Syringe SC SCH ×2 (05:53→17:41)
[2017-08-07 07:08] LABS: BASO # 0.01 K/mm3 (0.0-2.0); BASO % 0.1 % (0.0-3.0); EOS # 0.1 (0.0-0.7); EOS % 1.6 % (1.5-5.0); GRAN # 4.16 (1.4-6.5); GRAN % 52.5 % (50.0-68.0); HEMOGLOBIN 15.7 g/dL (14.0-18.0); LYMPH # 2.7 (1.2-3.4); LYMPH % 33.8 % (22.0-35.0); MEAN CELL VOLUME 91.5 fl (80.0-105.0); MEAN CORPUSCULAR HEMOGLOBIN 30.2 pg (25.0-35.0); MEAN PLATELET VOLUME 10.7 fl (7.0-11.0); RBC 5.2 10^6/uL (3.5-6.1); RED CELL DISTRIBUTION WIDTH 16.2 % (11.5-14.5); WHITE BLOOD COUNT 7.9 10^3/ul (4.5-11.0)
[2017-08-07 07:20] LABS: ALB/GLOB RATIO 1.2 (1.1-1.8); ALT/SGPT 26 U/L (7-56); AST/SGOT 21 U/L (17-59); BLOOD UREA NITROGEN 25 mg/dL (7-21); CALCIUM 9.3 mg/dL (8.4-10.5); GFR AFRICAN-AMERICAN > 60; GFR NON-AFRICAN AMERICAN > 60
[2017-08-07] MEDS ORDERED: Potassium Chloride 40 mEq/30 ml LIQ UD PO ONE (07:32)
[2017-08-07] MEDS: Insulin Lispro (humaLOG) LOW Coverage SC SCH ×4 (08:05→23:29)
[2017-08-07] MEDS: SACUBITRIL 24mg/VALSARTAN 26mg tab PO SCH ×2 (09:23→17:40)
--- NOTE | 2017-08-07 11:16 | CARD ---
APPROVED REPORT EKG Measurement Heart [id number] P16 [id number] <Conclusion> Electronic ventricular pacemaker: 100 % V. Paced A. Fib. No change
--- NOTE | 2017-08-07 11:49 | CP.PCM.PN ---
<Ifrah Roach - Last Filed: 08/07/17 14:06> Subjective - Date & Time of Evaluation Date of Evaluation: 08/07/17 Time of Evaluation: 09:00 - Subjective Subjective: PGY-2 Progress note for hospitalist service Patient was seen and examined at bedside on tele. No acute distress, no acute events overnight. Patient does report headache. Overnight patient blood pressure continued to be elevated, however it improved. Objective - Vital Signs/Intake and Output Vital Signs (last 24 hours): Temp Pulse Resp BP Pulse Ox 98.2 F 74 20 162/110 H 96 08/07/17 06:00 08/07/17 10:44 08/07/17 06:00 08/07/17 10:44 08/07/17 06:00 Intake and Output: 08/07/17 08/07/17 06:59 18:59 Intake Total 240 Output Total 1900 Balance -1660 - Medications Medications: Current Medications Acetaminophen (Tylenol 325mg Tab) 650 mg PO Q6H PRN PRN Reason: Headache Last Admin: 08/06/17 21:34 Dose: 650 mg Amlodipine Besylate (Norvasc) 5 mg PO DAILY [facility] Last Admin: 08/07/17 10:44 Dose: 5 mg Aspirin (Ecotrin) 81 mg PO DAILY [facility] Last Admin: 08/07/17 09:20 Dose: 81 mg Atorvastatin Calcium (Lipitor) 40 mg PO DIN [facility] Last Admin: 08/06/17 17:18 Dose: 40 mg Carvedilol (Coreg) 12.5 mg PO BID [facility] Last Admin: 08/07/17 09:20 Dose: 12.5 mg Clopidogrel Bisulfate (Plavix) 75 mg PO DAILY [facility] Last Admin: 08/07/17 09:21 Dose: 75 mg Enoxaparin Sodium (Lovenox) 110 mg SC Q12H [facility] PRN Reason: Protocol Stop: 08/08/17 14:00 Last Admin: 08/07/17 05:53 Dose: 110 mg Famotidine (Pepcid) 20 mg PO 1000,2200 [facility] Last Admin: 08/07/17 09:21 Dose: 20 mg Furosemide (Lasix) 40 mg IVP Q12 [facility] Last Admin: 08/07/17 09:20 Dose: 40 mg Guaifenesin (Robitussin) 100 mg PO Q4H PRN PRN Reason: Cough Last Admin: 08/06/17 21:42 Dose: 100 mg Insulin Human Lispro (Humalog Low) 0 units SC ACHS [facility] PRN Reason: Protocol Last Admin: 08/07/17 08:05 Dose: Not Given Isosorbide Mononitrate (Imdur Er) 30 mg PO DAILY [facility] Last Admin: 08/07/17 09:21 Dose: 30 mg Sacubitril/Valsartan (Entresto 24 Mg-26 Mg Tablet) 1 each PO BID [facility] Last Admin: 08/07/17 09:23 Dose: 1 each Simethicone (Mylicon Liq) 120 mg PO QID [facility] Last Admin: 08/06/17 21:35 Dose: 120 mg Spironolactone (Aldactone) 25 mg PO BID [facility] Last Admin: 08/07/17 09:21 Dose: 25 mg - Labs Labs: 08/07/17 06:00 08/07/17 06:00 PT 12.1 SECONDS (9.4-12.5) 08/05/17 15:07 INR 1.06 (0.93-1.08) 08/05/17 15:07 APTT 84.3 Seconds (25.1-36.5) H 08/06/17 11:25 - Constitutional Appears: No Acute Distress - Head Exam Head Exam: ATRAUMATIC, NORMAL INSPECTION - Eye Exam Eye Exam: Normal appearance - ENT Exam ENT Exam: Mucous Membranes Moist - Respiratory Exam Respiratory Exam: Clear to Ausculation Bilateral, NORMAL BREATHING PATTERN. absent: Rhonchi, Wheezes, Respiratory Distress - Cardiovascular Exam Cardiovascular Exam: REGULAR RHYTHM, +S1, +S2. absent: Tachycardia, Murmur - GI/Abdominal Exam GI & Abdominal Exam: Soft, Normal Bowel Sounds. absent: Distended, Firm, Tenderness - Neurological Exam Neurological Exam: Alert, Awake, Oriented x3 - Skin Skin Exam: Dry, Intact, Normal Color, Warm Assessment and Plan - Assessment and Plan (Free Text) Assessment: 62 M with a PMHx of HTN, CHF (Ef 18%) with Pacemaker and AICD, hiatal hernia, Afib on elaquis, HLD, ad DM2 presenting to the [facility] ED with complaints of chest pains, SOB, and epigastric discomfort admitted for NSTEMI in the setting of CHF , with BNP of 10,100. Plan: NSTEMI - continue to monitor on tele - Cardiology Consulted, Dr. Cliftno, will perform cardiac cath on wednesday, NPO after midnight on Wednesday - heparin changed to theraputic lovenox - continue asa 81mg, lipitor 40mg, imdur 30mg, plavix 75mg - coreg was increased to 12.5 bid yesterday - trend trops, initial trop positive 2.23, subsequent 2.10, 1.83 - Serial EKG, EKG from this AM was unchanged HTN - uncontrolled, improved from admission - started on norvasc 5mg daily and losartin 50mg daily - home coreg increased to 12.5 bid - continue imdur 30mg daily, spironolactone 25 bid , entresto CHF - echo pending offical read - previous echo on 10/01 showed EF 18%, global hypokinesis of left ventricle, moderatly enlarged aortic root, mild pulm htn - AICD/pacemaker in place - BNP: 10,100 - continue IV lasix 40 BID - continue home med spironolactone - daily weights - strict I&Os, negative balance of 1660 ml yesterday - contine to monitor fluid status and renal function Afib - elaquis at home, held - continue theraputic lovenox 110mg q12 - rate controlled with corge DM2 - HH/Consistent carb diet - ISS - hold oral antihyperglycemics - Fingersticks ACHS epigastric pain - resolved - abdominal ultrasound was reviewed which showed echogenic fatty liver, gallbladder wall thickening without gallstones and right renal cyst. HLD - lipitor 40 - lipid profile with normal limits Hypokalemia - 3.5 this am - repleted - will continue to monitor GI ppx pepcid DVT ppx lovenox <Reynaldo Gallego - Last Filed: 08/07/17 14:19> Objective - Vital Signs/Intake and Output Vital Signs (last 24 hours): Temp Pulse Resp BP Pulse Ox 97.7 F 72 20 142/99 H 96 08/07/17 12:00 08/07/17 12:42 08/07/17 12:00 08/07/17 12:42 08/07/17 06:00 Intake and Output: 08/07/17 08/07/17 06:59 18:59 Intake Total 240 Output Total 1900 Balance -1660 - Medications Medications: Current Medications Acetaminophen (Tylenol 325mg Tab) 650 mg PO Q6H PRN PRN Reason: Headache Last Admin: 08/06/17 21:34 Dose: 650 mg Amlodipine Besylate (Norvasc) 5 mg PO DAILY [facility] Last Admin: 08/07/17 10:44 Dose: 5 mg Aspirin (Ecotrin) 81 mg PO DAILY [facility] Last Admin: 08/07/17 09:20 Dose: 81 mg Atorvastatin Calcium (Lipitor) 40 mg PO DIN [facility] Last Admin: 08/06/17 17:18 Dose: 40 mg Carvedilol (Coreg) 12.5 mg PO BID [facility] Last Admin: 08/07/17 09:20 Dose: 12.5 mg Clopidogrel Bisulfate (Plavix) 75 mg PO DAILY [facility] Last Admin: 08/07/17 09:21 Dose: 75 mg Enoxaparin Sodium (Lovenox) 110 mg SC Q12H [facility] PRN Reason: Protocol Stop: 08/08/17 14:00 Last Admin: 08/07/17 05:53 Dose: 110 mg Famotidine (Pepcid) 20 mg PO 1000,2200 [facility] Last Admin: 08/07/17 09:21 Dose: 20 mg Furosemide (Lasix) 40 mg IVP Q12 [facility] Last Admin: 08/07/17 09:20 Dose: 40 mg Guaifenesin (Robitussin) 100 mg PO Q4H PRN PRN Reason: Cough Last Admin: 08/06/17 21:42 Dose: 100 mg Insulin Human Lispro (Humalog Low) 0 units SC ACHS [facility] PRN Reason: Protocol Last Admin: 08/07/17 12:20 Dose: 1 units Isosorbide Mononitrate (Imdur Er) 30 mg PO DAILY [facility] Last Admin: 08/07/17 09:21 Dose: 30 mg Losartan Potassium (Cozaar) 50 mg PO DAILY [facility] Last Admin: 08/07/17 12:42 Dose: 50 mg Sacubitril/Valsartan (Entresto 24 Mg-26 Mg Tablet) 1 each PO BID [facility] Last Admin: 08/07/17 09:23 Dose: 1 each Simethicone (Mylicon Liq) 120 mg PO QID [facility] Last Admin: 08/06/17 21:35 Dose: 120 mg Spironolactone (Aldactone) 25 mg PO BID [facility] Last Admin: 08/07/17 09:21 Dose: 25 mg - Labs Labs: 08/07/17 06:00 08/07/17 06:00 PT 12.1 SECONDS (9.4-12.5) 08/05/17 15:07 INR 1.06 (0.93-1.08) 08/05/17 15:07 APTT 84.3 Seconds (25.1-36.5) H 08/06/17 11:25 Attending/Attestation - Attestation I have personally seen and examined this patient.: Yes I have fully participated in the care of the patient.: Yes I have reviewed all pertinent clinical information, including history, physical exam and plan: Yes Notes (Text): 08/07/17 14:18 62 year old male with past medical history of hypertension, afib on eliquid, dyslipidemia, diabetes and CHF s/p PPM/AICD who presented with chest pain/ epigastric pain and shortness of breath. He was found to have elevated troponin and brobnp and admitted for NSTEMI and CHF. Continue with aspirin, statin, coreg and imdur. Continue with iv lasix. He is also on lovenox for anticoagulation. Cardiology is following and plan is for cardiac cath on Wednesday. He is pending echocardiogram. Norvasc was added today for uncontrolled hypertension. His epigastric pain has resolved. His abdominal ultrasound was reviewed which showed echogenic fatty liver, gallbladder wall thickening without gallstones and right renal cyst. Will replete and repeat potassium. Reynaldo Gallego MD Hospitalist.
--- NOTE | 2017-08-07 16:00 | PN ---
SUBJECTIVE: The patient denies any chest pain or shortness of breath at this time. PHYSICAL EXAMINATION: VITAL SIGNS: Blood pressure 162/110, heart rate 74, temperature 98.2, respirations 20. HEENT: Normocephalic. CHEST: Minimal rhonchi. HEART: S1 and S2 regular. ABDOMEN: Soft. EXTREMITIES: Trace leg edema. LABORATORY DATA: Hemoglobin and hematocrit 16.7 and 47.6. White count and platelets are within normal limits. SMA-7; sodium 138, potassium 2.5, chloride 99, CO2 of 28, glucose 155, BUN 25, creatinine 0.5. Troponin yesterday was 1.83. Today's EKG revealed a ventricular paced rhythm with 100% capture, underlying rhythm is AFib. ASSESSMENT: 1. Status post [id number] myocardial infarction. 2. Dilated cardiomyopathy. 3. Chronic atrial fibrillation. 4. Status post ventricular pacemaker placement . RECOMMENDATION: Continue Aldactone 25 mg twice a day, Coreg 12.5 mg twice a day, aspirin 81 mg once a day, Lasix 40 mg intravenously twice a day, therapeutic subcutaneous Lovenox 110 mg twice a day, Norvasc 5 mg once a day, Plavix 75 mg once a day was started today. Further plan, PCI on Wednesday. Filipe Patricia MD
[2017-08-07] MEDS: Simethicone 40 mg/0.6 ml Liquid (30 ml) PO SCH ×4 (16:24→23:28)
[2017-08-08] MEDS: Enoxaparin 120 mg Syringe SC SCH (05:40)
[2017-08-08 06:57] LABS: BASO # 0.03 K/mm3 (0.0-2.0); BASO % 0.4 % (0.0-3.0); EOS # 0.1 (0.0-0.7); EOS % 1.7 % (1.5-5.0); GRAN # 3.64 (1.4-6.5); GRAN % 46.8 % (50.0-68.0); HEMOGLOBIN 16.1 g/dL (14.0-18.0); LYMPH # 3.1 (1.2-3.4); LYMPH % 39.9 % (22.0-35.0); MEAN CORPUSCULAR HEMOGLOBIN 30.3 pg (25.0-35.0); MEAN CORPUSCULAR HGB CONC 33.3 g/dl (31.0-37.0); MEAN PLATELET VOLUME 10.7 fl (7.0-11.0); MONO # 0.9 (0.1-0.6); MONO % 11.2 % (1.0-6.0); RBC 5.32 10^6/uL (3.5-6.1); RED CELL DISTRIBUTION WIDTH 16.3 % (11.5-14.5); WHITE BLOOD COUNT 7.8 10^3/ul (4.5-11.0)
[2017-08-08 07:19] LABS: ALB/GLOB RATIO 1.2 (1.1-1.8); ALBUMIN 3.9 g/dL (3.0-4.8); ALT/SGPT 26 U/L (7-56); AST/SGOT 18 U/L (17-59); BLOOD UREA NITROGEN 27 mg/dL (7-21); CALCIUM 9.4 mg/dL (8.4-10.5); GFR AFRICAN-AMERICAN > 60; GFR NON-AFRICAN AMERICAN > 60
--- NOTE | 2017-08-08 07:19 | CP.PCM.PN ---
<Ifrah Roach - Last Filed: 08/08/17 12:37> Subjective - Date & Time of Evaluation Date of Evaluation: 08/08/17 Time of Evaluation: 08:00 - Subjective Subjective: PGY-2 Progress note for Hospitalist service. Patient seen and examined at bedside. No acute distress. Per nurse patient had headache overnight. He states that he continues to have a headache despite better blood pressure control. Patient is scheduled for pci tomorrow, npo after midnight. Patient denies any other complaints. Objective - Vital Signs/Intake and Output Vital Signs (last 24 hours): Temp Pulse Resp BP Pulse Ox 97.8 F 71 20 137/95 H 92 L 08/08/17 06:00 08/08/17 06:00 08/08/17 06:00 08/08/17 06:00 08/08/17 06:00 Intake and Output: 08/08/17 08/08/17 06:59 18:59 Intake Total 240 Output Total 500 Balance -260 - Medications Medications: Current Medications Acetaminophen (Tylenol 325mg Tab) 650 mg PO Q6H PRN PRN Reason: Headache Last Admin: 08/08/17 05:40 Dose: 650 mg Amlodipine Besylate (Norvasc) 5 mg PO DAILY [facility] Last Admin: 08/07/17 10:44 Dose: 5 mg Aspirin (Ecotrin) 81 mg PO DAILY [facility] Last Admin: 08/07/17 09:20 Dose: 81 mg Atorvastatin Calcium (Lipitor) 40 mg PO DIN [facility] Last Admin: 08/07/17 17:39 Dose: 40 mg Carvedilol (Coreg) 12.5 mg PO BID [facility] Last Admin: 08/07/17 17:40 Dose: 12.5 mg Clopidogrel Bisulfate (Plavix) 75 mg PO DAILY [facility] Last Admin: 08/07/17 09:21 Dose: 75 mg Enoxaparin Sodium (Lovenox) 110 mg SC Q12H [facility] PRN Reason: Protocol Stop: 08/08/17 14:00 Last Admin: 08/08/17 05:40 Dose: 110 mg Famotidine (Pepcid) 20 mg PO 1000,2200 [facility] Last Admin: 08/07/17 23:28 Dose: 20 mg Furosemide (Lasix) 40 mg IVP Q12 [facility] Last Admin: 08/07/17 23:28 Dose: 40 mg Guaifenesin (Robitussin) 100 mg PO Q4H PRN PRN Reason: Cough Last Admin: 08/06/17 21:42 Dose: 100 mg Insulin Human Lispro (Humalog Low) 0 units SC ACHS [facility] PRN Reason: Protocol Last Admin: 08/07/17 23:29 Dose: Not Given Isosorbide Mononitrate (Imdur Er) 30 mg PO DAILY [facility] Last Admin: 08/07/17 09:21 Dose: 30 mg Losartan Potassium (Cozaar) 50 mg PO DAILY [facility] Last Admin: 08/07/17 12:42 Dose: 50 mg Sacubitril/Valsartan (Entresto 24 Mg-26 Mg Tablet) 1 each PO BID [facility] Last Admin: 08/07/17 17:40 Dose: 1 each Simethicone (Mylicon Liq) 120 mg PO QID [facility] Last Admin: 08/07/17 23:28 Dose: 120 mg Spironolactone (Aldactone) 25 mg PO BID [facility] Last Admin: 08/07/17 17:39 Dose: 25 mg - Labs Labs: 08/07/17 06:00 08/07/17 06:00 PT 12.1 SECONDS (9.4-12.5) 08/05/17 15:07 INR 1.06 (0.93-1.08) 08/05/17 15:07 APTT 84.3 Seconds (25.1-36.5) H 08/06/17 11:25 - Constitutional Appears: No Acute Distress - Head Exam Head Exam: ATRAUMATIC, NORMAL INSPECTION, NORMOCEPHALIC - Eye Exam Eye Exam: EOMI, Normal appearance - Respiratory Exam Respiratory Exam: Clear to Ausculation Bilateral, NORMAL BREATHING PATTERN. absent: Rales, Rhonchi, Wheezes, Respiratory Distress - Cardiovascular Exam Cardiovascular Exam: REGULAR RHYTHM, +S1, +S2. absent: Tachycardia, Murmur - GI/Abdominal Exam GI & Abdominal Exam: Soft, Normal Bowel Sounds. absent: Distended, Firm, Tenderness - Extremities Exam Extremities Exam: Normal Inspection. absent: Pedal Edema - Neurological Exam Neurological Exam: Alert, Awake, Oriented x3 - Skin Skin Exam: Dry, Intact, Normal Color, Warm Assessment and Plan - Assessment and Plan (Free Text) Assessment: 62 M with a PMHx of HTN, CHF (Ef 18%) with Pacemaker and AICD, hiatal hernia, Afib on elaquis, HLD, ad DM2 [place] [facility] with complaints of chest pains, SOB, and epigastric discomfort admitted for NSTEMI in the setting of CHF , with BNP of 10,100. Plan: NSTEMI - continue to monitor on tele - Cardiology Consulted, Dr. Clifton, will perform cardiac cath on Wednesday, NPO after midnight - heparin changed to therapeutic lovenox - continue asa 81mg, Lipitor 40mg, imdur 30mg, plavix 75mg - coreg was increased to 12.5 bid yesterday - trend trops, initial trop positive 2.23, subsequent 2.10, 1.83 - Serial EKG, EKG from this AM was unchanged HTN - uncontrolled, improved from admission - started on norvasc 5mg daily and losartan 50mg daily - home coreg increased to 12.5 bid - continue imdur 30mg daily, spironolactone 25 bid , entresto CHF - echo pending official read - previous echo on 10/01 showed EF 18%, global hypokinesis of left ventricle, moderately enlarged aortic root, mild pulm htn - AICD/pacemaker in place - BNP: 10,100 - continue IV lasix 40 BID - continue home med spironolactone - daily weights - strict I&Os - continue to monitor fluid status and renal function Afib - eliquis at home, held - continue therapeutic lovenox 110mg q12 - rate controlled with corge DM2 - HH/Consistent carb diet - ISS - hold oral antihyperglycemics - Fingersticks ACHS epigastric pain - resolved - abdominal ultrasound was reviewed which showed echogenic fatty liver, gallbladder wall thickening without gallstones and right renal cyst. HLD - lipitor 40 - lipid profile with normal limits Hypokalemia - 3.5 this am - repleted - will continue to monitor GI ppx pepcid DVT ppx lovenox <Reynaldo Gallego - Last Filed: 08/08/17 14:19> Objective - Vital Signs/Intake and Output Vital Signs (last 24 hours): Temp Pulse Resp BP Pulse Ox 98.3 F 70 20 116/82 92 L 08/08/17 12:00 08/08/17 12:00 08/08/17 12:00 08/08/17 12:00 08/08/17 06:00 Intake and Output: 08/08/17 08/08/17 06:59 18:59 Intake Total 240 Output Total 500 Balance -260 - Medications Medications: Current Medications Acetaminophen (Tylenol 325mg Tab) 650 mg PO Q6H PRN PRN Reason: Headache Last Admin: 08/08/17 05:40 Dose: 650 mg Amlodipine Besylate (Norvasc) 5 mg PO DAILY [facility] Last Admin: 08/08/17 10:42 Dose: 5 mg Aspirin (Ecotrin) 81 mg PO DAILY [facility] Last Admin: 08/08/17 10:40 Dose: 81 mg Atorvastatin Calcium (Lipitor) 40 mg PO DIN [facility] Last Admin: 08/07/17 17:39 Dose: 40 mg Carvedilol (Coreg) 12.5 mg PO BID [facility] Last Admin: 08/08/17 10:42 Dose: 12.5 mg Clonidine HCl (Catapres) 0.1 mg PO BID [facility] Clopidogrel Bisulfate (Plavix) 75 mg PO DAILY [facility] Last Admin: 08/08/17 10:40 Dose: 75 mg Famotidine (Pepcid) 20 mg PO 1000,2200 [facility] Last Admin: 08/08/17 10:40 Dose: 20 mg Furosemide (Lasix) 40 mg IVP Q12 [facility] Last Admin: 08/08/17 10:41 Dose: 40 mg Guaifenesin (Robitussin) 100 mg PO Q4H PRN PRN Reason: Cough Last Admin: 08/06/17 21:42 Dose: 100 mg Insulin Human Lispro (Humalog Low) 0 units SC ACHS [facility] PRN Reason: Protocol Last Admin: 08/08/17 11:58 Dose: 1 units Isosorbide Mononitrate (Imdur Er) 30 mg PO DAILY [facility] Last Admin: 08/08/17 10:40 Dose: 30 mg Sacubitril/Valsartan (Entresto 24 Mg-26 Mg Tablet) 1 each PO BID [facility] Last Admin: 08/08/17 10:41 Dose: 1 each Simethicone (Mylicon Liq) 120 mg PO QID [facility] Last Admin: 08/08/17 13:05 Dose: 120 mg Spironolactone (Aldactone) 25 mg PO BID [facility] Last Admin: 08/08/17 10:40 Dose: 25 mg - Labs Labs: 08/08/17 06:30 08/08/17 06:30 PT 12.1 SECONDS (9.4-12.5) 08/05/17 15:07 INR 1.06 (0.93-1.08) 08/05/17 15:07 APTT 84.3 Seconds (25.1-36.5) H 08/06/17 11:25 Attending/Attestation - Attestation I have personally seen and examined this patient.: Yes I have fully participated in the care of the patient.: Yes I have reviewed all pertinent clinical information, including history, physical exam and plan: Yes Notes (Text): 08/08/17 14:17 62 year old male with past medical history of hypertension, afib on eliquis, dyslipidemia, diabetes and CHF s/p PPM/AICD who presented with chest pain/ epigastric pain and shortness of breath. He was found to have elevated troponin and brobnp and admitted for NSTEMI and CHF. Continue with aspirin, statin, coreg and imdur. Continue with iv lasix for CHF and lovenox for anticoagulation. Cardiology is following and plan is for cardiac cath on tomorrow. Echocardiogram was reviewed. Norvasc was added yesterday and his blood pressure has improved. His epigastric pain has resolved. His abdominal ultrasound was reviewed which showed echogenic fatty liver, gallbladder wall thickening without gallstones and right renal cyst. Reynaldo Gallego MD Hospitalist.
[2017-08-08] MEDS: Insulin Lispro (humaLOG) LOW Coverage SC SCH ×4 (08:00→22:22)
[2017-08-08] MEDS ORDERED: Apap-Butalbital-Caffeine 325-50-40mg Tab PO ONE (10:29)
--- NOTE | 2017-08-08 10:34 | CARD ---
APPROVED REPORT EKG Measurement Heart [id number] <Conclusion> Electronic ventricular pacemaker: 100 % V. Paced A. Fib. No change
[2017-08-08] MEDS: SACUBITRIL 24mg/VALSARTAN 26mg tab PO SCH ×2 (10:41→17:11)
[2017-08-08] MEDS: Simethicone 40 mg/0.6 ml Liquid (30 ml) PO SCH ×4 (10:56→21:29)
--- NOTE | 2017-08-08 19:02 | PN ---
DATE: SUBJECTIVE: The patient did report headache. He denies any dizziness or chest pain. PHYSICAL EXAMINATION: VITAL SIGNS: Blood pressure 116/82, heart rate 70, temperature 98.3, and respirations 20. HEENT: Normocephalic. CHEST: Diminished breath sounds over the bases. HEART: S1 and S2 regular. EXTREMITIES: 1+ pitting edema. LABORATORY DATA: Today's hemoglobin, hematocrit, white count, and platelet count are within normal limits. SMA-7 is within normal limits except for glucose of 127 and BUN of 27. Today's EKG revealed ventricular paced strips with underlying atrial fibrillation. ASSESSMENT: 1. Status post non-ST elevation myocardial infarction. 2. Dilated cardiomyopathy. 3. Chronic atrial fibrillation. 4. History of permanent pacemaker placement. 5. Hypertension, which is better controlled today. RECOMMENDATIONS: Case was discussed with Dr. Gallego. Continue Aldactone 25 mg once a day. Discontinue Zocor. Start clonidine 0.1 mg twice a day. Continue aspirin 81 mg once a day, Lasix mg intravenously twice a day, Lipitor 40 mg once a day, subcutaneous Lovenox at 110 mg twice a day, Norvasc at 5 mg once a day, and Plavix 75 mg once a day. The patient's cardiac catheterization tomorrow. Filipe Patricia MD
[2017-08-09 06:32] LABS: BASO # 0.02 K/mm3 (0.0-2.0); BASO % 0.3 % (0.0-3.0); EOS # 0.1 (0.0-0.7); EOS % 1.9 % (1.5-5.0); GRAN # 3.26 (1.4-6.5); GRAN % 45.1 % (50.0-68.0); HEMOGLOBIN 15.8 g/dL (14.0-18.0); LYMPH % 40.7 % (22.0-35.0); MEAN CELL VOLUME 91.4 fl (80.0-105.0); MEAN CORPUSCULAR HEMOGLOBIN 30.3 pg (25.0-35.0); MEAN CORPUSCULAR HGB CONC 33.1 g/dl (31.0-37.0); MEAN PLATELET VOLUME 10.6 fl (7.0-11.0); MONO # 0.9 (0.1-0.6); RBC 5.22 10^6/uL (3.5-6.1); RED CELL DISTRIBUTION WIDTH 16.3 % (11.5-14.5); WHITE BLOOD COUNT 7.2 10^3/ul (4.5-11.0)
[2017-08-09] MEDS: Insulin Lispro (humaLOG) LOW Coverage SC SCH ×3 (07:34→16:32)
[2017-08-09 08:15] LABS: ALB/GLOB RATIO 1.2 (1.1-1.8); ALBUMIN 3.8 g/dL (3.0-4.8); ALT/SGPT 25 U/L (7-56); AST/SGOT 26 U/L (17-59); BLOOD UREA NITROGEN 37 mg/dL (7-21); CALCIUM 9.3 mg/dL (8.4-10.5); GFR AFRICAN-AMERICAN > 60; GFR NON-AFRICAN AMERICAN > 60
[2017-08-09] MEDS: SACUBITRIL 24mg/VALSARTAN 26mg tab PO SCH ×2 (09:36→17:58)
[2017-08-09] MEDS: Simethicone 40 mg/0.6 ml Liquid (30 ml) PO SCH ×4 (09:37→23:01)
--- NOTE | 2017-08-09 10:11 | CARD ---
APPROVED REPORT EXAM: Two-dimensional and M-mode echocardiogram with Doppler and color Doppler. Other Information Quality : FairRhythm : INDICATION Chest Pain 2D DIMENSIONS Left Atrium (2D)4.7 (1.6-4.0cm)IVSd1.2 (0.7-1.1cm) LVDd5.9 (3.9-5.9cm)PWd1.2 (0.7-1.1cm) LVDs5.2 (2.5-4.0cm)FS (%) 13.1 % LVEF (%)28.0 (>50%) M-Mode DIMENSIONS Aortic Root4.20 (2.2-3.7cm)Aortic Cusp Exc.2.10 (1.5-2.0cm) Aortic Valve AoV Peak Xjkqkhyb082.0cm/s Mitral Valve MV E Yqwjiref21.1cm/sMV A Qfkcwbsu77.9cm/sE/A ratio1.6 TDI E/Lateral E'0.0E/Medial E'0.0 Tricuspid Valve TR Peak Btxoqodk508mh/sRAP [id number] Peak Gr.15mmHg [id number] LEFT VENTRICLE The left ventricle is normal size. There is normal left ventricular wall thickness. Left ventricle systolic function is moderately to severely impaired. The Ejection Fraction is 25-30%. There is moderate to severe global hypokinesis. RIGHT VENTRICLE The right ventricle is normal size. There is a pacemaker lead in the right ventricle. ATRIA The left atrium is moderately dilated. The right atrium size is normal. AORTIC VALVE The aortic valve is normal in structure. MITRAL VALVE The mitral valve is normal in structure. TRICUSPID VALVE The tricuspid valve is normal in structure. There is mild tricuspid regurgitation. PULMONIC VALVE The pulmonic valve is not well visualized. GREAT VESSELS The aortic root is normal in size. PERICARDIAL EFFUSION There is no pericardial effusion. <Conclusion> This is a limited study. The left ventricle is normal size. There is normal left ventricular wall thickness. Left ventricle systolic function is moderately to severely impaired. The Ejection Fraction is 25-30%. There is moderate to severe global hypokinesis.
[2017-08-09] MEDS ORDERED: Lidocaine 2% Inj (20ml) ONE (10:36)
[2017-08-09] MEDS ORDERED: Midazolam 2 MG/2 ML VIAL ONE ×2 (10:37→11:42)
[2017-08-09] MEDS ORDERED: Iodixanol 320 MG/ML 100 ML BOTTLE IV ONE (10:37)
[2017-08-09] MEDS ORDERED: Iodixanol 320 MG/ML 200 ML BOTTLE IV ONE (10:37)
[2017-08-09] MEDS ORDERED: HEPARIN SODIUM/NS 2,000 ML IV ONE (10:37)
--- NOTE | 2017-08-09 10:49 | CP.PCM.PN ---
<Taco Ellis - Last Filed: 08/09/17 19:34> Subjective - Date & Time of Evaluation Date of Evaluation: 08/09/17 Time of Evaluation: 06:00 - Subjective Subjective: Patient seen and examined bedside. No issue overnight. Patien denies any chest pain or shortness of breath, aware of cath procedure later on today. Objective - Vital Signs/Intake and Output Vital Signs (last 24 hours): Temp Pulse Resp BP Pulse Ox 97.6 F 76 20 130/67 96 08/09/17 06:00 08/09/17 08:00 08/09/17 06:00 08/09/17 08:00 08/09/17 06:00 Intake and Output: 08/09/17 08/09/17 06:59 18:59 Output Total 1000 Balance -1000 - Medications Medications: Current Medications Acetaminophen (Tylenol 325mg Tab) 650 mg PO Q6H PRN PRN Reason: Headache Last Admin: 08/08/17 05:40 Dose: 650 mg Amlodipine Besylate (Norvasc) 5 mg PO DAILY [facility] Last Admin: 08/09/17 09:37 Dose: Not Given Aspirin (Ecotrin) 81 mg PO DAILY [facility] Last Admin: 08/09/17 09:36 Dose: Not Given Atorvastatin Calcium (Lipitor) 40 mg PO DIN [facility] Last Admin: 08/08/17 17:08 Dose: 40 mg Carvedilol (Coreg) 12.5 mg PO BID [facility] Last Admin: 08/09/17 09:36 Dose: Not Given Clonidine HCl (Catapres) 0.1 mg PO BID [facility] Last Admin: 08/09/17 09:36 Dose: Not Given Clopidogrel Bisulfate (Plavix) 75 mg PO DAILY [facility] Last Admin: 08/09/17 09:38 Dose: Not Given Famotidine (Pepcid) 20 mg PO 1000,2200 [facility] Last Admin: 08/09/17 09:38 Dose: Not Given Furosemide (Lasix) 40 mg IVP Q12 [facility] Last Admin: 08/09/17 09:37 Dose: Not Given Guaifenesin (Robitussin) 100 mg PO Q4H PRN PRN Reason: Cough Last Admin: 08/06/17 21:42 Dose: 100 mg Insulin Human Lispro (Humalog Low) 0 units SC ACHS [facility] PRN Reason: Protocol Last Admin: 08/09/17 07:34 Dose: Not Given Isosorbide Mononitrate (Imdur Er) 30 mg PO DAILY [facility] Last Admin: 08/09/17 09:37 Dose: Not Given Sacubitril/Valsartan (Entresto 24 Mg-26 Mg Tablet) 1 each PO BID [facility] Last Admin: 08/09/17 09:36 Dose: Not Given Simethicone (Mylicon Liq) 120 mg PO QID [facility] Last Admin: 08/09/17 09:37 Dose: Not Given Spironolactone (Aldactone) 25 mg PO BID [facility] Last Admin: 08/09/17 09:36 Dose: Not Given - Labs Labs: 08/09/17 05:30 08/09/17 05:30 PT 12.1 SECONDS (9.4-12.5) 08/05/17 15:07 INR 1.06 (0.93-1.08) 08/05/17 15:07 APTT 84.3 Seconds (25.1-36.5) H 08/06/17 11:25 - Constitutional Appears: Non-toxic, No Acute Distress - Head Exam Head Exam: ATRAUMATIC, NORMAL INSPECTION, NORMOCEPHALIC - Eye Exam Eye Exam: EOMI, Normal appearance - ENT Exam ENT Exam: Mucous Membranes Moist - Respiratory Exam Respiratory Exam: Clear to Ausculation Bilateral, NORMAL BREATHING PATTERN - Cardiovascular Exam Cardiovascular Exam: REGULAR RHYTHM, +S1, +S2 - GI/Abdominal Exam GI & Abdominal Exam: Soft - Neurological Exam Neurological Exam: Alert, Awake, Oriented x3 Assessment and Plan - Assessment and Plan (Free Text) Assessment: 62 M with a PMHx of HTN, CHF (Ef 18%) with Pacemaker and AICD, hiatal hernia, Afib on elaquis, HLD, ad DM2 presenting to the [facility] [place] [facility] with complaints of chest pains, SOB, and epigastric discomfort admitted for NSTEMI in the setting of CHF , with BNP of 10,100. Plan: NSTEMI-resolved - continue to monitor on tele - Cardiology Consulted, Dr. Clifton, will perform cardiac cath today - continue asa 81mg, Lipitor 40mg, imdur 30mg, plavix 75mg - coreg 12.5 bid HTN - uncontrolled, improved from admission - started on norvasc 5mg daily and losartan 50mg daily - home coreg increased to 12.5 bid - continue imdur 30mg daily, spironolactone 25 bid , entresto CHF - Echo showed EF 25-30% EF, global hypokinesis, - AICD/pacemaker in place - BNP: 10,100 - continue IV lasix 40 BID - continue home med spironolactone - daily weights - strict I&Os - continue to monitor fluid status and renal function Afib - eliquis at home, held - rate controlled with coreg DM2 - HH/Consistent carb diet - ISS - hold oral antihyperglycemics - Fingersticks ACHS epigastric pain - resolved - abdominal ultrasound was reviewed which showed echogenic fatty liver, gallbladder wall thickening without gallstones and right renal cyst. HLD - lipitor 40 - lipid profile with normal limits Hypokalemia-resolved - will continue to monitor GI ppx pepcid DVT ppx lovenox <Dony Norman - Last Filed: 08/11/17 14:22> Objective - Vital Signs/Intake and Output Vital Signs (last 24 hours): Temp Pulse Resp BP Pulse Ox 98.1 F 75 20 112/88 94 L 08/10/17 12:00 08/10/17 12:00 08/10/17 12:00 08/10/17 12:00 08/10/17 06:00 - Labs Labs: 08/10/17 07:30 08/10/17 07:30 PT 12.1 SECONDS (9.4-12.5) 08/05/17 15:07 INR 1.06 (0.93-1.08) 08/05/17 15:07 APTT 84.3 Seconds (25.1-36.5) H 08/06/17 11:25 Attending/Attestation - Attestation I have personally seen and examined this patient.: Yes I have fully participated in the care of the patient.: Yes I have reviewed all pertinent clinical information, including history, physical exam and plan: Yes Notes (Text): 08/11/17 14:18 Patient was seen and examined with emergency medical technician/driver.Agreed with assessment and plan. 62 year old male with PMH of hypertension, afib on eliquis, dyslipidemia, diabetes and CHF with systolic dysfunction ,SP AICD was admitted with NSEMI, treated with with aspirin, statin, coreg and imdur and IV heparin for anticoagulation. Patient is pain free.He is scheduled for cardiac catherization today.We will follow up cath results. Management plan was discussed in detail with patient .Education was provided. 08/11/17 14:22
[2017-08-09] MEDS ORDERED: Sodium Chloride 0.9% 1,000 ML IV SCH (13:15)
--- NOTE | 2017-08-09 22:03 | CARDCATH ---
PROCEDURE DATE: 08/09/2017 HISTORY: The patient is a 62-year-old male who presented with a non-STEMI. The patient's past medical history includes a history of a dilated cardiomyopathy as well as chronic atrial fibrillation treated with anticoagulation. He is also status post pacemaker placement. In addition, he suffers from diabetes and hypertension. Because of his non-STEMI, cardiac catheterization was recommended. PROCEDURE: Left heart catheterization with coronary arteriography and left ventriculogram. The right femoral artery was cannulated with a 6-[place] sheath. There were no complications. I performed moderate sedation, which included the presence of an independent trained observer that assisted in monitoring the patient's level of consciousness and physiologic status. After administration of Versed and fentanyl, my intra service time was 15 minutes. The findings on catheterization revealed a left ventricle that was diffusely hypokinetic with an EF between 30% and 35%. His coronary anatomy revealed a right dominant circulation. The RCA revealed diffuse ectatic lesions, which resulted in slow flow down the RCA, but was free of critical stenoses. Left main artery was unremarkable. The LAD revealed diffuse atherosclerosis without critical lesions. The diagonal vessel revealed 80% stenosis in its proximal portion. This the circumflex artery and obtuse marginal branches revealed intimal irregularities without significant stenoses. The patient tolerated the procedure well. Manual compression was used to close the femoral artery site. In summary, the procedure revealed an 80% stenosis of the diagonal vessel off the LAD. Diffuse ectasis of the RCA. Global LV hypokinesis with an EF of 30% to 35%. Given these findings, his coronary lesions will be treated medically. We will restart him on his Eliquis and continue aspirin. In addition, we will add statin therapy onto his diabetic and hypertensive medications. Angus Clifton MD
[2017-08-10 02:51] VITALS: O2SAT 94
--- NOTE | 2017-08-10 07:25 | CARD ---
APPROVED REPORT EKG Measurement Heart [id number] <Conclusion> Electronic ventricular pacemaker: 100 % V. Paced A. Fib. No change
--- NOTE | 2017-08-10 07:26 | CARD ---
APPROVED REPORT EXAM: Two-dimensional and M-mode echocardiogram with Doppler and color Doppler. INDICATION M-Mode DIMENSIONS Left Atrium (MM)4.60 (2.5-4.0cm)IVSd1.31 (0.7-1.1cm) Aortic Root4.50 (2.2-3.7cm)LVDd5.50 (4.0-5.6cm) Aortic Cusp Exc.2.30 (1.5-2.0cm)PWd1.76 (0.7-1.1cm) FS (%) 20 %LVDs4.39 (2.0-3.8cm) LVEF (%)41 (>50%) Aortic Valve AoV Peak Xhespbwl03.6cm/Mica Peak GR.3mmHg Mitral Valve MV E Sncarzgh92.2cm/s TDI Lateral E' Peak V6.63cm/sMedial E' Peak V6.24cm/sE/Lateral E'8.8 E/Medial E'9.3 Tricuspid Valve TR Peak Wcdggwfy117et/sRAP [id number] Peak Gr.12mmHg [id number] <Conclusion> Sub-optimal echo. Repeated 08/09/17. See report 08/09/17.
[2017-08-10 07:51] LABS: BASO # 0.01 K/mm3 (0.0-2.0); BASO % 0.1 % (0.0-3.0); EOS # 0.2 (0.0-0.7); GRAN # 4.73 (1.4-6.5); GRAN % 60.3 % (50.0-68.0); MEAN CELL VOLUME 91.9 fl (80.0-105.0); MEAN CORPUSCULAR HEMOGLOBIN 30.1 pg (25.0-35.0); MEAN CORPUSCULAR HGB CONC 32.8 g/dl (31.0-37.0); MEAN PLATELET VOLUME 10.4 fl (7.0-11.0); MONO # 0.9 (0.1-0.6); MONO % 11.6 % (1.0-6.0); RBC 5.31 10^6/uL (3.5-6.1); RED CELL DISTRIBUTION WIDTH 16.4 % (11.5-14.5); WHITE BLOOD COUNT 7.9 10^3/ul (4.5-11.0)
[2017-08-10 08:10] LABS: ALB/GLOB RATIO 1.3 (1.1-1.8); ALBUMIN 3.9 g/dL (3.0-4.8); ALT/SGPT 37 U/L (7-56); AST/SGOT 41 U/L (17-59); BLOOD UREA NITROGEN 34 mg/dL (7-21); CALCIUM 9.2 mg/dL (8.4-10.5); GFR AFRICAN-AMERICAN > 60; GFR NON-AFRICAN AMERICAN > 60
[2017-08-10] MEDS: Insulin Lispro (humaLOG) LOW Coverage SC SCH ×2 (08:30→12:25)
[2017-08-10] MEDS: Simethicone 40 mg/0.6 ml Liquid (30 ml) PO SCH ×2 (10:49→15:04)
[2017-08-10] MEDS: SACUBITRIL 24mg/VALSARTAN 26mg tab PO SCH (10:50)
[2017-08-10 12:03] VITALS: BP 112/88; PULSE 75; RESP 20; TEMP 98.1
--- NOTE | 2017-08-10 13:49 | PQF CHF ---
This form is a permanent part of the medical record Clarification of your documentation is requested to better reflect the severity of illness and intensity of treatment of your patient. Indicators present Pt w/ hx recurrent CHF w/ dilated cardiomyopathy, BNP- 58601. Treating w/ IV Lasix. Please document Acuity & type of CHF POA [x] Diagnosis of CHF and/or history of CHF [x] BNP > 200 [] Imaging Finding of Pulmonary Edema /Pleural Effusions [] Fluid/Volume Overload [] Pitting edema [x] Ejection Fraction < 40% (Indicative of Systolic Heart Failure) [] Ejection Fraction > 40% (Indicative of Diastolic Heart Failure) [] Dyspnea / Orthopenea / Paroxysmal Nocturnal Dyspnea [] Other: Location in the medical record that reflects the above clinical findings: [x] H& P Treatment Provided: [x] IV Lasix PHYSICIAN'S RESPONSE Based on your medical judgment of the clinical indicators outlined above, are you treating this patient for a known or suspected: [] Acute CHF x []x Systolic [] Diastolic [] Combined [] Chronic CHF [] Systolic [] Diastolic [] Combined [] Acute on Chronic CHF []Systolic [] Diastolic [] Combined [] CHF due hypertension [] Acute systolic []Chronic systolic [] Acute/ chronic systolic [] Other, please indicate: [] [] If Unable to Determine, please check the box, sign and date. Present On Admission (POA) Indicator: [] Present at the time of admission [] Not present at the time of admission [] Clinically Undetermined In responding to this query, please exercise your independent professional judgment. The fact that a question is asked does not imply that any particular answer is desired or expected. Thank you for your clarification on this documentation. If you have any questions please call:[ ][phone] * Thank you, [ ] Mary Artis RN CDS manager water [facility]ANGELA
--- NOTE | 2017-08-10 14:21 | CP.PCM.DIS ---
Provider - Provider Date of Admission: 08/05/17 16:37 Attending physician: Dony Norman MD Primary care physician: Tye Ramos MD [facility] - Lab Results Lab Results: Most Recent Lab Values WBC 7.9 10^3/ul (4.5-11.0) 08/10/17 07:30 RBC 5.31 10^6/uL (3.5-6.1) 08/10/17 07:30 Hgb 16.0 g/dL (14.0-18.0) 08/10/17 07:30 Hct 48.8 % (42.0-52.0) 08/10/17 07:30 MCV 91.9 fl (80.0-105.0) 08/10/17 07:30 MCH 30.1 pg (25.0-35.0) 08/10/17 07:30 MCHC 32.8 g/dl (31.0-37.0) 08/10/17 07:30 RDW 16.4 % (11.5-14.5) H 08/10/17 07:30 Plt Count 183 10^3/uL (120.0-450.0) 08/10/17 07:30 MPV 10.4 fl (7.0-11.0) 08/10/17 07:30 Gran % 60.3 % (50.0-68.0) 08/10/17 07:30 Lymph % (Auto) 26.0 % (22.0-35.0) 08/10/17 07:30 [place] % (Auto) 11.6 % (1.0-6.0) H 08/10/17 07:30 Eos % (Auto) 2.0 % (1.5-5.0) 08/10/17 07:30 Baso % (Auto) 0.1 % (0.0-3.0) 08/10/17 07:30 Gran # 4.73 (1.4-6.5) 08/10/17 07:30 Lymph # 2.0 (1.2-3.4) 08/10/17 07:30 [place] # 0.9 (0.1-0.6) H 08/10/17 07:30 Eos # 0.2 (0.0-0.7) 08/10/17 07:30 Baso # 0.01 K/mm3 (0.0-2.0) 08/10/17 07:30 PT 12.1 SECONDS (9.4-12.5) 08/05/17 15:07 INR 1.06 (0.93-1.08) 08/05/17 15:07 APTT 84.3 Seconds (25.1-36.5) H 08/06/17 11:25 Sodium 138 mmol/L (132-148) 08/10/17 07:30 Potassium 3.9 mmol/L (3.6-5.0) 08/10/17 07:30 Chloride 101 mmol/L (98-107) 08/10/17 07:30 Carbon Dioxide 27 mmol/L (21-33) 08/10/17 07:30 Anion Gap 14 (10-20) 08/10/17 07:30 BUN 34 mg/dL (7-21) H 08/10/17 07:30 Creatinine 1.0 mg/dl (0.8-1.5) 08/10/17 07:30 Est GFR ( Amer) > 60 08/10/17 07:30 Est GFR (Non-Af Amer) > 60 08/10/17 07:30 POC Glucose (mg/dL) 151 mg/dL (65-110) H 08/10/17 11:25 Random Glucose 178 mg/dL (70-110) H 08/10/17 07:30 Calcium 9.2 mg/dL (8.4-10.5) 08/10/17 07:30 Total Bilirubin 0.6 mg/dL (0.2-1.3) 08/10/17 07:30 AST 41 U/L (17-59) 08/10/17 07:30 ALT 37 U/L (7-56) 08/10/17 07:30 Alkaline Phosphatase 75 U/L (38-126) 08/10/17 07:30 Lactate Dehydrogenase 575 U/L (333-699) 08/05/17 15:07 Total Creatine Kinase 82 U/L (35-230) 08/05/17 15:07 Troponin I 1.83 ng/mL H* 08/06/17 05:50 NT-Pro-B Natriuret Pep 80625 pg/mL (0-450) H 08/05/17 15:07 Total Protein 6.9 g/dL (5.8-8.3) 08/10/17 07:30 Albumin 3.9 g/dL (3.0-4.8) 08/10/17 07:30 Globulin 2.9 gm/dL 08/10/17 07:30 Albumin/Globulin Ratio 1.3 (1.1-1.8) 08/10/17 07:30 Triglycerides 100 mg/dL (35-160) 08/06/17 05:50 Cholesterol 159 mg/dL (130-200) 08/06/17 05:50 LDL Cholesterol Direct 114 mg/dL (0-129) 08/06/17 05:50 HDL Cholesterol 32 mg/dL (29-60) 08/06/17 05:50 Discharge Exam - Head Exam Head Exam: ATRAUMATIC, NORMAL INSPECTION, NORMOCEPHALIC Discharge Plan - Discharge Medications Prescriptions: Aspirin [Ecotrin] 81 mg PO DAILY #30 tabec Atorvastatin [Lipitor] 40 mg PO DIN #30 tab Carvedilol [Coreg] 12.5 mg PO BID #60 tab Furosemide [Lasix] 40 mg PO DAILY #30 tab - Follow Up Plan Condition: FAIR Disposition: HOME/ ROUTINE Additional Instructions: Please follow up with PMD Dr. Ramos Referrals: Tye Ramos MD [Primary Care Provider] -
--- NOTE | 2017-08-10 19:05 | PN ---
CARDIOLOGY FOLLOWUP DATE: 08/10/2017 SUBJECTIVE: The patient is feeling well; however, his pressure remains relatively low. OBJECTIVE: VITAL SIGNS: Blood pressure is currently 102/66 and heart rate in the 70s. NECK: Negative JVD. LUNGS: Without rales. HEART: Reveal S1 and S2. EXTREMITIES: Without edema. LABORATORY DATA: Hemoglobin is 16. Chemistries, BUN and creatinine is 34 and 1.0. IMPRESSION: 1. Status post cardiac catheterization. 2. Dilated cardiomyopathy. 3. Diabetes mellitus. 4. Obesity. 5. Cardiomyopathy. PLAN: Given these findings, I have drastically altered some of his medications especially stopped his Norvasc as well as stopped his Imdur, which is causing him to be relatively hypotensive. The patient is ambulating without symptoms. Followup and instructions were given to the patient in detail. Angus Clifton MD
== END 2017-08-10 16:40 | disposition home or self-care (01) | DRG 280 ==
LOC: ED 14:05 → ERH 16:37 → 2RSO 17:44
PROVIDERS: ADMIT Hospitalist; ATTEND Internal Medicine
PROC: 4A023N7 Measurement of Cardiac Sampling and Pressure, Left Heart, Percutaneous Approach (ICD-10-PCS; principal; 2017-08-09)
PROC: B2111ZZ Fluoroscopy of Multiple Coronary Arteries using Low Osmolar Contrast (ICD-10-PCS; 2017-08-09)
PROC: B2151ZZ Fluoroscopy of Left Heart using Low Osmolar Contrast (ICD-10-PCS; 2017-08-09)
DX: I21.4 Non-ST elevation (NSTEMI) myocardial infarction (principal); I50.21 Acute systolic (congestive) heart failure; I42.0 Dilated cardiomyopathy; E11.9 Type 2 diabetes mellitus without complications; N28.1 Cyst of kidney, acquired; I16.9 Hypertensive crisis, unspecified; I11.0 Hypertensive heart disease with heart failure; I48.2 Chronic atrial fibrillation; Z95.0 Presence of cardiac pacemaker; E66.9 Obesity, unspecified; E78.5 Hyperlipidemia, unspecified; I25.10 Atherosclerotic heart disease of native coronary artery without angina pectoris; K76.0 Fatty (change of) liver, not elsewhere classified; Z79.01 Long term (current) use of anticoagulants; Z87.891 Personal history of nicotine dependence; Z88.1 Allergy status to other antibiotic agents; Z88.5 Allergy status to narcotic agent; Z88.0 Allergy status to penicillin; Z88.8 Allergy status to other drugs, medicaments and biological substances; R40.2412 Glasgow coma scale score 13-15, at arrival to emergency department; E87.6 Hypokalemia; R10.13 Epigastric pain

== ENCOUNTER 2017-11-09 10:29 | Emergency (ER) | payer MEDICARE, BC ==
[2017-11-09 11:04] VITALS: RESP 18; BMI 36.0
[2017-11-09] MEDS: Naproxen 550 mg Tab PO STA (11:53)
[2017-11-09 13:21] VITALS: BP 138/86
--- NOTE | 2017-11-09 13:49 | RAD ---
PROCEDURE: Radiographs of the Lumbar Spine. HISTORY: back pain COMPARISON: No prior. FINDINGS: BONES: The vertebral bodies are maintained in height. The transverse processes and posterior elements appear intact. There is mild dextroscoliotic curvature. There is no listhesis. DISC SPACES: The disc spaces are maintained in height. There are osteophytes about all of the intervertebral disc spaces consistent with diffuse spondylotic change. Unremarkable. OTHER FINDINGS: None. IMPRESSION: Two-view spondylotic change. No fracture/dislocation.
[2017-11-09 13:52] LABS: URINE BILIRUBIN NEGATIVE (NEGATIVE); URINE BLOOD NEGATIVE (NEGATIVE); URINE GLUCOSE (UA) >=1000 mg/dL (NEGATIVE); URINE LEUKOCYTE ESTERASE NEGATIVE Leu/uL (NEGATIVE); URINE PROTEIN 30 mg/dL (<30 mg/dL); URINE UROBILINOGEN 0.2 E.U./dL (<1 E.U./dL)
[2017-11-09 14:06] LABS: URINE APPEARANCE CLEAR (CLEAR); URINE COLOR YELLOW (YELLOW); URINE EPITHELIAL CELLS 0 - 2 /hpf (0-5); URINE RBC 0 - 2 /hpf (0-2); URINE WBC 0 - 2 /hpf (0-6)
[2017-11-09 14:07] LABS: URINE BACTERIA NEG (NEG)
[2017-11-09 14:33] VITALS: PULSE 76; TEMP 98; O2SAT 99
--- NOTE | 2017-11-09 15:57 | ED PDOC ---
Arrival/HPI - General Chief Complaint: Hip Pain Time Seen by Provider: 11/09/17 11:03 Historian: Patient - History of Present Illness Narrative History of Present Illness (Text): 11/09/17 11:12 A 62 year old male, whose past medical history includes , presents to the emergency department complaining of right lower back pain for 2 days. Patient states pain radiates to back of upper right leg. Patient reports having seen therapist and was told of having possible inflammation in region. Patient denies any fever, shortness of breath, chest pain, abdominal pain, any urinary symptoms, or any other complaints at this time. Also, patient mentions no known trauma. Notes having seen chiropractor, but was unable to have pain relieved. PMD: Dr. Ramos Time/Duration: < week (2 days) Past Medical History - Provider Review Nursing Documentation Reviewed: Yes - Infectious Disease Hx of Infectious Diseases: None - Tetanus Immunization Tetanus Immunization: Up to Date - Cardiac Hx Congestive Heart Failure: Yes Hx Hypertension: Yes - Pulmonary Hx Respiratory Disorders: No - Neurological Hx Neurological Disorder: No Hx Transient Ischemic Attacks (TIA): (pt denies) - HEENT Hx HEENT Disorder: No (WEARS RX GLASSES) - Renal Hx Renal Disorder: No - Endocrine/Metabolic Hx Diabetes Mellitus Type 2: Yes - Hematological/Oncological Hx Blood Transfusions: No Hx Blood Transfusion Reaction: No - Integumentary Hx Dermatological Disorder: Yes Other/Comment: muultiple red scabs and rash to both feet c/o itch, reds scabs lle from scratching - Musculoskeletal/Rheumatological Hx Falls: No - Gastrointestinal Hx Gastrointestinal Disorders: Yes (obese) Other/Comment: HIATAL HERNIA,pt denies constipation, colonoscopy 11/11/15 dx hemorrhoids diverticulosis - Genitourinary/Gynecological Hx Genitourinary Disorders: No - Psychiatric Hx Emotional Abuse: No Hx Physical Abuse: No Hx Substance Use: No - Surgical History Hx Cardiac Catheterization: Yes Hx Orthopedic Surgery: Yes Other/Comment: LEFT MENISCUS TEAR 1996,POLPS REMOVED from NASAL PASSAGES, pt denies arthoscopic sx r knee, pt stated "I had fluid drained." oral sx to inner r cheek dr brantley removed a cyst 5 yrs ago - Anesthesia Hx Anesthesia Reactions: No Hx Malignant Hyperthermia: No - Suicidal Assessment Feels Threatened In Home Enviroment: No Family/Social History - Physician Review Nursing Documentation Reviewed: Yes Family/Social History: No Known Family HX Smoking Status: Former Smoker Hx Alcohol Use: No Hx Substance Use: No Hx Substance Use Treatment: No Allergies/Home Meds Allergies/Adverse Reactions: Allergies codeine Allergy (Verified 11/09/17 12:19) SWELLING metformin Allergy (Verified 11/09/17 12:19) DIARRHEA Penicillins Allergy (Verified 11/09/17 12:19) SWELLING tetracycline Allergy (Verified 11/09/17 12:19) SWELLING Home Medications: Home Meds Medication Instructions Recorded Confirmed Glycambia 10 mg PO BID 12/11/16 11/09/17 K Phos/Na Phos, Dibasic/Na P 250 mg PO DAILY 06/17/17 11/09/17 [Potassium/Sodium Phosphate] Famotidine [Pepcid] 20 mg PO BID 06/18/17 11/09/17 traMADol [Ultram] 50 mg PO QID PRN 06/18/17 11/09/17 Empagliflozin/Linagliptin 1 tab PO DAILY 06/21/17 11/09/17 [Glyxambi 10 mg-5 mg Tablet] Review of Systems - Physician Review All systems were reviewed & negative as marked: Yes - Review of Systems Constitutional: absent: Fevers, Other (no known trauma) Respiratory: absent: SOB Cardiovascular: absent: Chest Pain Gastrointestinal: absent: Abdominal Pain Genitourinary Male: absent: Dysuria, Frequency, Hematuria, Urinary Output Changes Musculoskeletal: Back Pain (right lower back pain radiating down to back of right upper leg) Physical Exam Vital Signs Reviewed: Yes Vital Signs Temp Pulse Resp BP Pulse Ox 11/09/17 14:32 98.0 F 76 18 99 11/09/17 13:21 69 18 138/86 96 11/09/17 11:03 98.2 F 72 18 141/97 H 96 Temperature: Afebrile Blood Pressure: Normal Pulse: Regular Respiratory Rate: Normal Appearance: Positive for: Well-Appearing Pain Distress: None Mental Status: Positive for: Alert and Oriented X 3 Finger Stick Blood Glucose: 136 - Systems Exam Head: Present: Atraumatic, Normocephalic Pupils: Present: PERRL Extroacular Muscles: Present: EOMI Conjunctiva: Present: Normal Mouth: Present: Moist Mucous Membranes Neck: Present: Normal Range of Motion Respiratory/Chest: Present: Clear to Auscultation, Good Air Exchange. No: Respiratory Distress, Accessory Muscle Use Cardiovascular: Present: Regular Rate and Rhythm, Normal S1, S2. No: Murmurs Abdomen: No: Tenderness, Distention, Peritoneal Signs Back: Present: Normal Inspection Upper Extremity: Present: Normal Inspection. No: Cyanosis, Edema Lower Extremity: Present: Other (positive straight leg raise (right leg)) Neurological: Present: GCS=15, CN II-XII Intact, Speech Normal Skin: Present: Warm, Dry, Normal Color. No: Rashes Psychiatric: Present: Alert, Oriented x 3, Normal Insight, Normal Concentration Medical Decision Making ED Course and Treatment: 11/09/17 11:16 Impression: 62 year old male with right lower back pain radiating down to back of upper right leg. Physical exam shows positive straight leg raise (right leg). Plan: -- Lumbar Spinal X-Ray -- Urinalysis -- POC Routine GLUCOSE -- Fingerstick -- Flexeril -- Anaprox -- Reassess and disposition Progress Notes: 11/09/2017 13:28 Lumbar Spinal X-Ray Two-view spondylotic change. No fracture/dislocation. Dictator: Angus Hauser MD - Lab Interpretations Lab Results: Lab Results 11/09/17 14:19: POC Glucose (mg/dL) 136 H 11/09/17 13:40: Urine Color Yellow, Urine Appearance Clear, Urine pH 6.0, Ur Specific [place] 1.025, Urine Protein 30 H, Urine Glucose (UA) >=1000, Urine Ketones Trace H, Urine Blood Negative, Urine Nitrate Negative, Urine Bilirubin Negative, Urine Urobilinogen 0.2, Ur Leukocyte Esterase Negative, Urine RBC 0 - 2, Urine WBC 0 - 2, Ur Epithelial Cells 0 - 2, Urine Bacteria Neg - RAD Interpretation Radiology Orders: 11/09/17 12:00 LS SPINE AP/LAT [RAD] Stat - Medication Orders Current Medication Orders: Discontinued Medications Cyclobenzaprine HCl (Flexeril) 10 mg PO STAT STA Stop: 11/09/17 11:17 Last Admin: 11/09/17 11:54 Dose: 10 mg Naproxen (Anaprox Ds) 550 mg PO STAT STA Stop: 11/09/17 11:17 Last Admin: 11/09/17 11:53 Dose: 550 mg - Scribe Statement The provider has reviewed the documentation as recorded by the Rhys Knapp Provider Scribe Attestation: All medical record entries made by the Scribe were at my direction and personally dictated by me. I have reviewed the chart and agree that the record accurately reflects my personal performance of the history, physical exam, medical decision making, and the department course for this patient. I have also personally directed, reviewed, and agree with the discharge instructions and disposition. Disposition/Present on Arrival - Present on Arrival History of DVT/PE: No History of Uncontrolled Diabetes: No Urinary Catheter: No History of Decub. Ulcer: No History Surgical Site Infection Following: None - Disposition Diagnosis: Back pain Disposition: HOSPITALIZED Condition: STABLE Discharge Instructions (ExitCare): Sciatica, Low Back Pain in Adults Additional Instructions: please follow up with your doctor. return to er with worsening symptoms or concerns. Prescriptions: Cyclobenzaprine [Cyclobenzaprine HCl] 10 mg PO DAILY PRN #10 tab PRN Reason: Muscle Spasm Referrals: Maninder Clifford MD [Staff Provider] - Follow up with primary Forms: [employer] (Norwegian)
== END 2017-11-09 14:33 | disposition short-term general hospital (02) ==
LOC: ED 10:29
DX: M54.5 Low back pain (principal); I10 Essential (primary) hypertension; E11.9 Type 2 diabetes mellitus without complications; Z87.891 Personal history of nicotine dependence

== ENCOUNTER 2018-02-13 09:39 | Emergency (ER) | payer MEDICARE, BC ==
--- NOTE | 2018-02-13 09:59 | ED PDOC ---
Arrival/HPI - General Time Seen by Provider: 02/13/18 09:58 Historian: Patient - History of Present Illness Narrative History of Present Illness (Text): 02/13/18 09:59 63 y/o male, pmh including htn/chf, allergic to penicillin/tetracycline/ metformin/codeine but not to percocet, c/o rt. knee pain x 2 days with no fall or trauma. Aching pain, associated with mild swelling, stated that he was standing for couple minutes on late wednesday night, turn around and been having rt. knee pain, no numbness or tingling, no night sweat, no numbness or tingling , no palpitation, no rash, no change in vision, no other medical or psychological complaints. Past Medical History - Provider Review Nursing Documentation Reviewed: Yes - Infectious Disease Hx of Infectious Diseases: None - Tetanus Immunization Tetanus Immunization: Up to Date - Cardiac Hx Congestive Heart Failure: Yes Hx Hypertension: Yes - Pulmonary Hx Respiratory Disorders: No - Neurological Hx Neurological Disorder: No Hx Transient Ischemic Attacks (TIA): (pt denies) - HEENT Hx HEENT Disorder: No (WEARS RX GLASSES) - Renal Hx Renal Disorder: No - Endocrine/Metabolic Hx Diabetes Mellitus Type 2: Yes - Hematological/Oncological Hx Blood Transfusions: No Hx Blood Transfusion Reaction: No - Integumentary Hx Dermatological Disorder: Yes Other/Comment: muultiple red scabs and rash to both feet c/o itch, reds scabs lle from scratching - Musculoskeletal/Rheumatological Hx Falls: No - Gastrointestinal Hx Gastrointestinal Disorders: Yes (obese) Other/Comment: HIATAL HERNIA,pt denies constipation, colonoscopy 11/11/15 dx hemorrhoids diverticulosis - Genitourinary/Gynecological Hx Genitourinary Disorders: No - Psychiatric Hx Emotional Abuse: No Hx Physical Abuse: No Hx Substance Use: No - Surgical History Hx Cardiac Catheterization: Yes Hx Orthopedic Surgery: Yes Other/Comment: LEFT MENISCUS TEAR 1996,POLPS REMOVED from NASAL PASSAGES, pt denies arthoscopic sx r knee, pt stated "I had fluid drained." oral sx to inner r cheek dr brantley removed a cyst 5 yrs ago - Anesthesia Hx Anesthesia Reactions: No Hx Malignant Hyperthermia: No - Suicidal Assessment Feels Threatened In Home Enviroment: No Family/Social History - Physician Review Nursing Documentation Reviewed: Yes Family/Social History: Unknown Family HX Smoking Status: Former Smoker Hx Alcohol Use: No Hx Substance Use: No Hx Substance Use Treatment: No Allergies/Home Meds Allergies/Adverse Reactions: Allergies codeine Allergy (Verified 11/09/17 12:19) SWELLING metformin Allergy (Verified 11/09/17 12:19) DIARRHEA Penicillins Allergy (Verified 11/09/17 12:19) SWELLING tetracycline Allergy (Verified 11/09/17 12:19) SWELLING Home Medications: Home Meds Medication Instructions Recorded Confirmed Glycambia 10 mg PO BID 12/11/16 11/09/17 K Phos/Na Phos, Dibasic/Na P 250 mg PO DAILY 06/17/17 11/09/17 [Potassium/Sodium Phosphate] Famotidine [Pepcid] 20 mg PO BID 06/18/17 11/09/17 traMADol [Ultram] 50 mg PO QID PRN 06/18/17 11/09/17 Empagliflozin/Linagliptin 1 tab PO DAILY 06/21/17 11/09/17 [Glyxambi 10 mg-5 mg Tablet] Review of Systems - Review of Systems Constitutional: absent: Fatigue, Fevers Eyes: absent: Vision Changes ENT: absent: Hearing Changes Respiratory: absent: SOB, Cough Cardiovascular: absent: Chest Pain Gastrointestinal: absent: Abdominal Pain, Nausea, Vomiting Musculoskeletal: Arthralgias. absent: Joint Swelling, Myalgias Skin: absent: Rash, Pruritis Neurological: absent: Headache, Dizziness Psychiatric: absent: Anxiety, Depression Physical Exam Vital Signs Temp Pulse Resp BP Pulse Ox 02/13/18 13:23 78 02/13/18 13:11 78 18 132/97 H 97 02/13/18 10:00 98.1 F 81 18 113/76 96 - Systems Exam Head: Present: Atraumatic, Normocephalic Pupils: Present: PERRL Extroacular Muscles: Present: EOMI Conjunctiva: Present: Normal Mouth: Present: Moist Mucous Membranes Neck: Present: Normal Range of Motion Respiratory/Chest: Present: Clear to Auscultation, Good Air Exchange. No: Respiratory Distress, Accessory Muscle Use Cardiovascular: Present: Regular Rate and Rhythm, Normal S1, S2. No: Murmurs Abdomen: No: Tenderness, Distention, Peritoneal Signs Back: Present: Normal Inspection Upper Extremity: Present: Normal Inspection. No: Cyanosis, Edema Lower Extremity: Present: Normal Inspection, Other (Rt. knee: no deformity, mild +ttp and mild swelling on the rt. anterior knee joint region, negative biju and maya signs, no erythematous or cellulitis, FROM without limitation , sensation intact, motor 5/5, +DPPT pulses, capillary refill< 2 seconds, neurovascular intact. ). No: Edema Neurological: Present: GCS=15, CN II-XII Intact, Speech Normal Skin: Present: Warm, Dry, Normal Color. No: Rashes Psychiatric: Present: Alert, Oriented x 3, Normal Insight, Normal Concentration Medical Decision Making ED Course and Treatment: 02/13/18 10:12 -RLE Venuous doppler -Rt. knee xray -Percocet -Observe and reasses 02/13/18 12:45 -RLE Venuous Doppler: as per preliminary report, no acute DVT -Rt. knee xray show no fracture or dislocation but there is degenerative changes. -Pain decreased with the percocet, frank wrap applied with neurovascular intact, cane ordered. -I checked the [facility] report, there is no visible record in the past 1 year. -Discharge home with frank wrap, cane, percocet for pain, follow up with your own pmd and orthopedic within 2 days, return to the ER for any new or worsening signs or symptoms. - RAD Interpretation Radiology Orders: 02/13/18 10:19 KNEE W PATELLA RIGHT 3 VIEW [RAD] Stat DUPLEX LOWER EXTRM VEIN RIGHT [US] Stat Rt. 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 Yes Sleep Is patient sleeping during reassessment? No Presence of Pain Presence of Pain Yes - PA / BEVEL OPERATOR / Resident Statement / has reviewed & agrees with the documentation as recorded. Disposition/Present on Arrival - Present on Arrival Any Indicators Present on Arrival: No History of DVT/PE: No History of Uncontrolled Diabetes: No Urinary Catheter: No History of Decub. Ulcer: No History Surgical Site Infection Following: None - Disposition Have Diagnosis and Disposition been Completed?: Yes Diagnosis: Arthritis Disposition: HOME/ ROUTINE Disposition Time: 12:48 Patient Plan: Discharge Condition: IMPROVED Additional Instructions: -Discharge home with frank wrap, cane, percocet for pain, follow up with your own pmd and orthopedic within 2 days, return to the ER for any new or worsening signs or symptoms. Prescriptions: oxyCODONE/Acetaminophen [Percocet 5/325 mg Tab] 1 tab PO QID #16 tab Referrals: Jarret Jimenez DO [Staff Provider] - Follow up with primary Forms: WORK NOTE
[2018-02-13 10:19] VITALS: RESP 18; TEMP 98.1; BMI 36.5
[2018-02-13] MEDS ORDERED: Oxycodone/Acetaminophen 5/325 mg Tab PO STA (11:40)
[2018-02-13 13:23] VITALS: BP 132/97; PULSE 78; O2SAT 97
--- NOTE | 2018-02-13 15:35 | RAD ---
Date of service: 02/13/2018 PROCEDURE: Right Knee Radiographs. HISTORY: Right knee Pain. No history of recent/ related trauma provided COMPARISON: None. FINDINGS: BONES: No acute fracture. Proliferative hypertrophic changes emanating from the femoral condyle and tibial plateau regions. JOINTS: Mild multi compartment degenerative changes primarily affecting medial compartment. JOINT EFFUSION: Small suprapatellar joint effusion. OTHER FINDINGS: None. IMPRESSION: No acute findings related to/accounting for the clinical presentation.
--- NOTE | 2018-02-14 10:54 | US ---
PROCEDURE: Right lower extremity venous US HISTORY: Leg pain and swelling. Evaluate for DVT. PHYSICIAN(S): Angus Patel M.D. TECHNIQUE: Duplex sonography and color-flow Doppler with graded compression were used to evaluate the deep venous system of the right lower extremity. The exam is somewhat limited by edema FINDINGS: The visualized deep venous system of the right lower extremity is sonographically normal and compressible. Normal waveforms and augmentation are seen. There is no sonographic evidence for deep venous thrombosis in the visualized segments of the right lower extremity. IMPRESSION: 1. No sonographic evidence for deep venous thrombosis in the visualized segments of the right lower extremity.
== END 2018-02-13 13:23 | disposition home or self-care (01) ==
LOC: ED 09:39
DX: M13.861 Other specified arthritis, right knee (principal); I10 Essential (primary) hypertension; E11.9 Type 2 diabetes mellitus without complications; Z87.891 Personal history of nicotine dependence

== ENCOUNTER 2018-04-25 16:29 | Emergency (ER) | payer MEDICARE, BC ==
[2018-04-25 16:30] VITALS: BMI 35.2
[2018-04-25 18:22] VITALS: TEMP 99.4
[2018-04-25] MEDS ORDERED: Lidocaine 5% Patch TD STA (19:42)
--- NOTE | 2018-04-25 19:49 | ED PDOC ---
Arrival/HPI - General Historian: Patient - History of Present Illness Narrative History of Present Illness (Text): 04/25/18 19:49 63 year old male w/ PMH of CHF (on pacemaker), hypertension, chronic back pain, diabetes, presents to the emergency department complaining of 2 day h/o low back pain. States that he f/u with a pain management doctor in [place] Dr. Fraire, he had an epidural 6 days ago and continues to have pain. He was advised that it will take at least 10 days to notice any improvement in pain. He states that he has tried tylenol w/o improvement. He is allergic to codeine and tramadol makes him nauseous so he is unsure of what medicine he can take for pain. He did call his pain management doctor's office today and the director medical writing advised him to go to the ER since the office was closed. Patient denies fevers, chills, headache, dizziness, chest pain, shortness of breath, dyspnea on exertion, cough, abdominal pain, nausea, vomiting, diarrhea, urinary/bowel incontinence, numbness, weakness or any other complaint. PMD: Dr. Ramos <Lina Haynes PA-C - Last Filed: 04/25/18 21:47> <Christian Maldonado - Last Filed: 04/25/18 22:10> - General Chief Complaint: Back Pain Time Seen by Provider: 04/25/18 19:23 Past Medical History - Infectious Disease Hx of Infectious Diseases: None - Tetanus Immunization Tetanus Immunization: Up to Date - Cardiac Hx Congestive Heart Failure: Yes Hx Hypertension: Yes - Pulmonary Hx Respiratory Disorders: No - Neurological Hx Neurological Disorder: No Hx Transient Ischemic Attacks (TIA): (pt denies) - HEENT Hx HEENT Disorder: No (WEARS RX GLASSES) - Renal Hx Renal Disorder: No - Endocrine/Metabolic Hx Diabetes Mellitus Type 2: Yes - Hematological/Oncological Hx Blood Transfusions: No Hx Blood Transfusion Reaction: No - Integumentary Hx Dermatological Disorder: Yes - Musculoskeletal/Rheumatological Hx Falls: No - Gastrointestinal Hx Gastrointestinal Disorders: Yes (obese) Other/Comment: HIATAL HERNIA,pt denies constipation, colonoscopy 11/11/15 dx hemorrhoids diverticulosis - Genitourinary/Gynecological Hx Genitourinary Disorders: No - Psychiatric Hx Emotional Abuse: No Hx Physical Abuse: No Hx Substance Use: No - Surgical History Hx Cardiac Catheterization: Yes Hx Orthopedic Surgery: Yes Other/Comment: LEFT MENISCUS TEAR 1996,POLPS REMOVED from NASAL PASSAGES, pt denies arthoscopic sx r knee, pt stated "I had fluid drained." oral sx to inner r cheek dr brantley removed a cyst 5 yrs ago - Anesthesia Hx Anesthesia: No Hx Anesthesia Reactions: No Hx Malignant Hyperthermia: No - Suicidal Assessment Feels Threatened In Home Enviroment: No <Lina Haynes PA-C - Last Filed: 04/25/18 21:47> Family/Social History Family/Social History: Unknown Family HX Smoking Status: Former Smoker Hx Alcohol Use: Yes Hx Substance Use: No Hx Substance Use Treatment: No <Lina Haynes PA-C - Last Filed: 04/25/18 21:47> Allergies/Home Meds <Lina Haynes PA-C - Last Filed: 04/25/18 21:47> <Christian Maldonado - Last Filed: 04/25/18 22:10> Allergies/Adverse Reactions: Allergies codeine Allergy (Verified 04/25/18 18:22) SWELLING metformin Allergy (Verified 04/25/18 18:22) DIARRHEA Penicillins Allergy (Verified 04/25/18 18:22) SWELLING tetracycline Allergy (Verified 04/25/18 18:22) SWELLING Home Medications: Home Meds Medication Instructions Recorded Confirmed Glycambia 10 mg PO BID 12/11/16 04/09/18 K Phos/Na Phos, Dibasic/Na P 250 mg PO DAILY 06/17/17 04/09/18 [Potassium/Sodium Phosphate] Famotidine [Pepcid] 20 mg PO BID 06/18/17 04/09/18 Empagliflozin/Linagliptin 1 tab PO DAILY 06/21/17 04/09/18 [Glyxambi 10 mg-5 mg Tablet] Review of Systems - Review of Systems Constitutional: absent: Fatigue, Fevers Respiratory: absent: SOB, Cough Cardiovascular: absent: Chest Pain, Palpitations Gastrointestinal: Constipation. absent: Abdominal Pain, Diarrhea, Vomiting Genitourinary Male: absent: Dysuria, Frequency, Hematuria, Urinary Output Changes Musculoskeletal: Arthralgias, Back Pain. absent: Neck Pain, Joint Swelling Skin: absent: Rash, Pruritis, Skin Lesions Neurological: absent: Headache, Dizziness <Lina Haynes PA-C - Last Filed: 04/25/18 21:47> Physical Exam Vital Signs Temp Pulse Resp BP Pulse Ox 04/25/18 18:18 99.4 F 88 18 131/90 99 Temperature: Afebrile Blood Pressure: Normal Pulse: Regular Respiratory Rate: Normal Appearance: Positive for: Well-Appearing, Non-Toxic, Comfortable Pain Distress: None Mental Status: Positive for: Alert and Oriented X 3 - Systems Exam Head: Present: Atraumatic, Normocephalic Pupils: Present: PERRL Extroacular Muscles: Present: EOMI Conjunctiva: Present: Normal Mouth: Present: Moist Mucous Membranes Neck: Present: Normal Range of Motion Respiratory/Chest: Present: Clear to Auscultation, Good Air Exchange. No: Respiratory Distress, Accessory Muscle Use Cardiovascular: Present: Regular Rate and Rhythm, Normal S1, S2. No: Murmurs Abdomen: No: Tenderness, Distention, Peritoneal Signs, Mass/Organomegaly Rectal: Present: Normal Rectal Tone (Male RN Vin was present during the exam) Back: Present: Normal Inspection, Midline Tenderness (+midline tenderness to L4- L5), Paraspinal Tenderness (+L paralumbar tenderness). No: CVA Tenderness, Pain with Leg Raise Upper Extremity: Present: Normal Inspection. No: Cyanosis, Edema Lower Extremity: Present: Normal Inspection. No: Edema Neurological: Present: GCS=15, CN II-XII Intact, Speech Normal, Motor Func Grossly Intact, Normal Sensory Function, Gait Normal Skin: Present: Warm, Dry, Normal Color. No: Rashes Psychiatric: Present: Alert, Oriented x 3, Normal Insight, Normal Concentration <Lina Haynes PA-C - Last Filed: 04/25/18 21:47> Vital Signs Temp Pulse Resp BP Pulse Ox 04/25/18 18:18 99.4 F 88 18 131/90 99 <Christian Maldonado - Last Filed: 04/25/18 22:10> Medical Decision Making ED Course and Treatment: 04/25/18 19:46 Plan : - toradol IM - flexeril PO - lidoderm patch - Medication Orders Current Medication Orders: Discontinued Medications Cyclobenzaprine HCl (Flexeril) 10 mg PO STAT STA Stop: 04/25/18 19:43 Ketorolac Tromethamine (Toradol) 60 mg IM STAT STA Stop: 04/25/18 19:43 Lidocaine (Lidoderm) 1 ea TD STAT STA Stop: 04/25/18 19:43 <Lina Haynes PA-C - Last Filed: 04/25/18 21:47> - Medication Orders Current Medication Orders: Discontinued Medications Cyclobenzaprine HCl (Flexeril) 10 mg PO STAT STA Stop: 04/25/18 19:43 Last Admin: 04/25/18 20:22 Dose: 10 mg Ketorolac Tromethamine (Toradol) 60 mg IM STAT STA Stop: 04/25/18 19:43 Last Admin: 04/25/18 20:22 Dose: 60 mg MAR Pain Assessment Document 04/25/18 20:22 DAMIEN (Rec: 04/25/18 20:23 [place] [id number]) Pain Reassessment Is this a pain reassessment? Yes Presence of Pain Presence of Pain Yes Pain Scale Used Protocol: PSCALES Pain Scale Used Numeric Location Upper or Lower Lower Pain Location Body Site Back Description Description Sharp Intensity of Pain at present 8 IM Administration Charges Document 04/25/18 20:22 DAMIEN (Rec: 04/25/18 20:23 [place] [id number]) Injection Site MAR Injection Site Left Deltoid Charges for Administration # of IM Administrations 1 Lidocaine (Lidoderm) 1 ea TD STAT STA Stop: 04/25/18 19:43 Last Admin: 04/25/18 20:22 Dose: 1 ea MAR Transdermal Patch Site Document 04/25/18 20:22 DAMIEN (Rec: 04/25/18 20:22 [place] [id number]) Transdermal Patch Site Transdermal Patch Site Left Lower Back <Christian Maldonado - Last Filed: 04/25/18 22:10> - PA / JUDICIAL REGISTRAR / Resident Statement RIO has reviewed & agrees with the documentation as recorded. <Lina Haynes PA-C - Last Filed: 04/25/18 21:47> - PA / JUDICIAL REGISTRAR / Resident Statement RIO has reviewed & agrees with the documentation as recorded. RIO has examined the patient and agrees with the treatment plan. <Christian Maldonado - Last Filed: 04/25/18 22:10> Disposition/Present on Arrival - Present on Arrival Any Indicators Present on Arrival: No History of DVT/PE: No History of Uncontrolled Diabetes: No Urinary Catheter: No History of Decub. Ulcer: No History Surgical Site Infection Following: None - Disposition Have Diagnosis and Disposition been Completed?: Yes Disposition Time: 21:45 Patient Plan: Discharge <Lina Haynes PA-C - Last Filed: 04/25/18 21:47> <Christian Maldonado - Last Filed: 04/25/18 22:10> - Disposition Diagnosis: Low back pain Disposition: HOME/ ROUTINE Patient Problems: Current Active Problems Problem Status Onset Low back pain Acute Condition: STABLE Discharge Instructions (ExitCare): Low Back Pain (DC) Additional Instructions: Thank you for letting us take care of you today. You were treated for low back pain. The emergency medical care you received today was directed at your acute symptoms. If you were prescribed any medication, please fill it and take as directed. It may take several days for your symptoms to resolve. Return to the Emergency Department if your symptoms worsen, do not improve, or if you have any other problems. Please contact your doctor in 2 days for re-evaluation and follow up. Bring any paperwork you were given at discharge with you along with any medications you are taking to your follow up visit. Our treatment cannot replace ongoing medical care by a primary care provider (PCP) outside of the emergency department. [facility] your care today. Prescriptions: Cyclobenzaprine [Cyclobenzaprine HCl] 10 mg PO TID PRN #15 tab PRN Reason: Muscle Spasm Lidocaine 5% [Lidoderm] 1 ea TD Q12H PRN #20 patch PRN Reason: Pain, Moderate (4-7) Ondansetron ODT [Zofran ODT] 4 mg PO DAILY PRN #20 odt PRN Reason: Nausea/Vomiting traMADol [Ultram] 50 mg PO TID PRN #15 tab PRN Reason: Pain, Moderate (4-7) Forms: [employer] (Spanish), WORK NOTE
[2018-04-25 22:25] VITALS: BP 127/85; PULSE 82; RESP 17; O2SAT 100
== END 2018-04-25 22:12 | disposition home or self-care (01) ==
LOC: ED 16:29
DX: M54.5 Low back pain (principal); E11.9 Type 2 diabetes mellitus without complications; I50.9 Heart failure, unspecified; I10 Essential (primary) hypertension; Z87.891 Personal history of nicotine dependence; Z95.0 Presence of cardiac pacemaker
CPT/HCPCS: 96372; 99282; J1885

== ENCOUNTER 2018-06-17 00:10 | Emergency (ER) | payer MEDICARE, BC ==
[2018-06-17 00:18] VITALS: BMI 37.5
[2018-06-17 00:40] VITALS: RESP 18; TEMP 98.1
--- NOTE | 2018-06-17 00:41 | ED PDOC ---
Arrival/HPI - General Historian: Patient - History of Present Illness Narrative History of Present Illness (Text): 06/17/18 00:31 63 y o male with past medical hx of CHF, pacemaker (placed in 2012), HTN, Atrial fibrillation (On Xarelto), chronic back pain, morbid obesity, and DM2, who presents [facility] c/o L-sided posterior rib pain s/p fall. Pt states he was at [employer] this evening and drank 7-8 Martinis. States he tripped down several stairs at home after getting home from the [place] party and fell on his left mid-back. Denies hitting head or loss of consciousness. Does not remember what time he fell this evening. Was unable to get up on own after fall, called for help, and his neighbor downstairs called 911. Describes pain as sharp and achy, rates it 7/10 currently without radiation to surrounding structures. Denies headache, dizziness, chest pain, sob, n/v/d/c, abd pain, urinary complaints, bowel/bladder incontinence, or other symptoms currently. Past medical history: CHF, pacemaker (placed in 2012), HTN, Atrial fibrillation (On Xarelto), chronic back pain, morbid obesity, and DM2 PSurgHx: Pacemaker placement, L knee ligament tear w/ repair Allergies: PCN (rash), Tetracycline (rash), codeine (rash), Metformin (diarrhea), Tunafish (anaphylaxis) Meds: Entresto, Glipizide, Coreg, Eliquis Fam hx: denies Soc hx: denies smoking or illicit drug use; admits to social EtOH use but states he drank 7-8 Martinis tonight at [employer] PMD: Dr. Ramos <Robel Bob - Last Filed: 06/17/18 02:40> <Tanmay Ann - Last Filed: 06/17/18 04:20> - General Chief Complaint: Back Pain Time Seen by Provider: 06/17/18 00:17 Past Medical History - Infectious Disease Hx of Infectious Diseases: None - Tetanus Immunization Tetanus Immunization: Up to Date - Cardiac Hx Congestive Heart Failure: Yes Hx Hypertension: Yes - Pulmonary Hx Respiratory Disorders: No - Neurological Hx Neurological Disorder: No Hx Transient Ischemic Attacks (TIA): (pt denies) - HEENT Hx HEENT Disorder: No (WEARS RX GLASSES) - Renal Hx Renal Disorder: No - Endocrine/Metabolic Hx Diabetes Mellitus Type 2: Yes - Hematological/Oncological Hx Blood Transfusions: No Hx Blood Transfusion Reaction: No - Integumentary Hx Dermatological Disorder: Yes - Musculoskeletal/Rheumatological Hx Falls: No - Gastrointestinal Hx Gastrointestinal Disorders: Yes (obese) Other/Comment: HIATAL HERNIA,pt denies constipation, colonoscopy 11/11/15 dx hemorrhoids diverticulosis - Genitourinary/Gynecological Hx Genitourinary Disorders: No - Psychiatric Hx Emotional Abuse: No Hx Physical Abuse: No Hx Substance Use: No - Surgical History Hx Cardiac Catheterization: Yes Hx Orthopedic Surgery: Yes Other/Comment: LEFT MENISCUS TEAR 1996,POLPS REMOVED from NASAL PASSAGES, pt denies arthoscopic sx r knee, pt stated "I had fluid drained." oral sx to inner r cheek dr brantley removed a cyst 5 yrs ago - Anesthesia Hx Anesthesia: No Hx Anesthesia Reactions: No Hx Malignant Hyperthermia: No - Suicidal Assessment Feels Threatened In Home Enviroment: No <Robel Bob - Last Filed: 06/17/18 02:40> Family/Social History Family/Social History: No Known Family HX Smoking Status: Former Smoker Hx Alcohol Use: Yes Hx Substance Use: No Hx Substance Use Treatment: No <Robel Bob - Last Filed: 06/17/18 02:40> Allergies/Home Meds <Robel Bob - Last Filed: 06/17/18 02:40> <Tanmay Ann - Last Filed: 06/17/18 04:20> Allergies/Adverse Reactions: Allergies codeine Allergy (Verified 04/25/18 18:22) SWELLING metformin Allergy (Verified 04/25/18 18:22) DIARRHEA Penicillins Allergy (Verified 04/25/18 18:22) SWELLING tetracycline Allergy (Verified 04/25/18 18:22) SWELLING Home Medications: Home Meds Medication Instructions Recorded Confirmed Glycambia 10 mg PO BID 12/11/16 04/09/18 RX: K Phos/Na Phos, Dibasic/Na P 250 mg PO DAILY 06/17/17 04/09/18 [Potassium/Sodium Phosphate] RX: Famotidine [Pepcid] 20 mg PO BID 06/18/17 04/09/18 RX: Empagliflozin/Linagliptin 1 tab PO DAILY 06/21/17 04/09/18 [Glyxambi 10 mg-5 mg Tablet] Review of Systems - Review of Systems Constitutional: Normal Eyes: absent: Vision Changes Respiratory: absent: SOB, Cough, Wheezing Cardiovascular: absent: Chest Pain, Palpitations, Calf Pain, Syncope Gastrointestinal: absent: Abdominal Pain, Stool Changes, Constipation, Diarrhea, Nausea, Hematochezia, Hematemesis Genitourinary Male: absent: Dysuria, Frequency, Hematuria Skin: Normal Neurological: absent: Headache, Dizziness, Focal Weakness, Speech Changes <Robel Bob - Last Filed: 06/17/18 02:40> Physical Exam Temperature: Afebrile Blood Pressure: Hypertensive Pulse: Regular Respiratory Rate: Normal Appearance: Positive for: Non-Toxic, Uncomfortable Pain Distress: Moderate Mental Status: Positive for: Alert and Oriented X 3 - Systems Exam Head: Present: Atraumatic, Normocephalic Pupils: Present: PERRL Extroacular Muscles: Present: EOMI Conjunctiva: Present: Normal Mouth: Present: Moist Mucous Membranes Neck: Present: Normal Range of Motion. No: MIDLINE TENDERNESS, JVD, Lymphadenopathy Respiratory/Chest: Present: Clear to Auscultation, Good Air Exchange. No: Respiratory Distress, Accessory Muscle Use, Wheezes, Rales, Rhonchi Cardiovascular: Present: Regular Rate and Rhythm, Normal S1, S2. No: Murmurs, Rub, Gallop Abdomen: Present: Normal Bowel Sounds. No: Tenderness, Distention, Rebound, Mass/Organomegaly Back: Present: Other (Tenderness to palpation in lateral posterior ribs at area of T10-T12, no midline tenderness at spinal processes, no gross deformities or asymmetry appreciated; no contusion noted) Upper Extremity: Present: Normal Inspection, Normal ROM, NORMAL PULSES, Neurovascularly Intact, Capillary Refill < 2s, Norm 2-Pt Discrimination. No: Cyanosis, Edema, Temperature Abnormalties Lower Extremity: Present: Normal Inspection, NORMAL PULSES, Neurovascularly Intact, Capillary Refill < 2 s. No: Edema, Tenderness Neurological: Present: GCS=15, CN II-XII Intact, Speech Normal Skin: Present: Warm, Dry, Normal Color. No: Rashes Psychiatric: Present: Alert, Oriented x 3 <Robel Bob - Last Filed: 06/17/18 02:40> Vital Signs Temp Pulse Resp BP Pulse Ox 06/17/18 00:15 98.1 F 81 18 153/100 H 95 <SethTanmay Sierra - Last Filed: 06/17/18 04:20> Medical Decision Making ED Course and Treatment: 06/17/18 00:45 Pt presents s/p trauma with L-sided posterior rib pain. Ordered Toradol x1. Pending CT chest. Will continue to monitor. 06/17/18 02:29 Reassessed pt, improved with pain s/p toradol injection. Reviewed CT chest results, no rib fractures noted. Will send home pt on ibuprofen prn and pepcid. Can follow up with Dr. Ramos in office within 2-3 days of hospital discharge. All questions and concerns addressed with pt and he is agreeable to plan. - RAD Interpretation Radiology Orders: 06/17/18 00:29 CHEST W/CONTRAST [CT] Stat - Medication Orders Current Medication Orders: Ketorolac Tromethamine (Toradol) 30 mg IVP STAT STA Stop: 06/17/18 00:29 <Robel Bob - Last Filed: 06/17/18 02:40> ED Course and Treatment: 06/17/18 02:12 CT Chest without Intravenous Contrast. CLINICAL HISTORY: L posterior rib pain s/p fall TECHNIQUE: Axial computed tomography images of the chest without intravenous contrast. 1083.47 mGy-cm CONTRAST: Without COMPARISON: None provided. FINDINGS: LUNGS: The lungs are clear. No pulmonary mass. PLEURAL SPACES: No evidence of pneumothorax. No pleural effusion. HEART: No cardiomegaly. No significant pericardial effusion. LYMPH NODES: No lymphadenopathy is evident. BONES: No rib fracture is seen. UPPER ABDOMEN: The upper abdominal solid organs are unremarkable. MISCELLANEOUS: Multiple bilateral cacified granulomas. Dual-lead pacemaker is noted in the left chest wall. No acute pathology. IMPRESSION: 1. Multiple bilateral cacified granulomas. 2. No rib fracture is seen. 3. No acute pathology. Seen and examined with resident. 63 y/o M p/w thoracic pain after fall. On exam, tenderness over rib without deformity or crepitus. - RAD Interpretation Radiology Orders: 06/17/18 00:29 CHEST W/O CONTRAST [CT] Stat - Medication Orders Current Medication Orders: Discontinued Medications Ketorolac Tromethamine (Toradol) 30 mg IVP STAT STA Stop: 06/17/18 00:29 Last Admin: 06/17/18 00:43 Dose: 30 mg MAR Pain Assessment Document 06/17/18 00:43 JOL (Rec: 06/17/18 00:43 [id number] Pain Reassessment Is this a pain reassessment? No Sleep Is patient sleeping during reassessment? No Presence of Pain Presence of Pain Yes Pain Scale Used Protocol: PSCALES Pain Scale Used Numeric Location Pain Location Body Site Back Description Intensity of Pain at present 6 IVP Administration Document 06/17/18 00:43 JOL (Rec: 06/17/18 00:43 [id number]) Charges for Administration # of IVP Administrations 1 <Tanmay Ann - Last Filed: 06/17/18 04:20> Disposition/Present on Arrival - Present on Arrival Any Indicators Present on Arrival: No History of DVT/PE: No History of Uncontrolled Diabetes: No Urinary Catheter: No History of Decub. Ulcer: No History Surgical Site Infection Following: None - Disposition Have Diagnosis and Disposition been Completed?: Yes Disposition Time: 02:32 Patient Plan: Discharge <LisbethRobel - Last Filed: 06/17/18 02:40> <Tanmay Ann - Last Filed: 06/17/18 04:20> - Disposition Diagnosis: Rib pain on left side, Status post fall Disposition: HOME/ ROUTINE Patient Problems: Current Active Problems Problem Status Onset Rib pain on left side Acute Status post fall Acute Condition: IMPROVED Discharge Instructions (ExitCare): Bruised Rib (DC) Print Language: AMHARIC Additional Instructions: Please follow up with your primary care doctor (Dr. Ramos) within 2-3 days of hospital discharge. Please take Motrin and Pepcid as prescribed. Avoid heavy lifting until symptoms improve. Should symptoms recur or worsen, please call your primary care physician or report to your nearest emergency department. Prescriptions: Famotidine [Pepcid] 1 tab PO BID #14 tab Ibuprofen [Motrin] 600 mg PO Q6 #25 tab Referrals: Tye Ramos MD [Family Provider] - Follow up with primary Forms: [employer] (Korean)
[2018-06-17 06:13] VITALS: BP 128/72; PULSE 77; O2SAT 99
--- NOTE | 2018-06-17 09:40 | CT ---
Date of service: 06/17/2018 PROCEDURE: CT Chest without contrast HISTORY: L posterior rib pain s/p fall COMPARISON: None available. TECHNIQUE: Contiguous axial images were obtained through the chest without intravenous contrast enhancement. Sagittal and coronal reconstructions were performed. Radiation dose: Total exam DLP = 1083.47 mGy-cm. This CT exam was performed using one or more of the following dose reduction techniques: Automated exposure control, adjustment of the mA and/or kV according to patient size, and/or use of iterative reconstruction technique. FINDINGS: LUNGS: Bilateral calcified granulomata. Pacemaker and leads in place. MEDIASTINUM: Unremarkable thoracic aorta. No aneurysm. Normal sized heart. Main pulmonary artery unremarkable. No vascular congestion. No lymphadenopathy. No aortic atherosclerotic calcification. PLEURA: No pleural fluid. No pneumothorax. BONES: No fracture. No destructive lesion. UPPER ABDOMEN: Grossly unremarkable. OTHER FINDINGS: None. IMPRESSION: No rib fracture.
== END 2018-06-17 06:10 | disposition home or self-care (01) ==
LOC: ED 00:10
DX: R07.81 Pleurodynia (principal); E66.01 Morbid (severe) obesity due to excess calories; I10 Essential (primary) hypertension; I48.91 Unspecified atrial fibrillation; Z79.01 Long term (current) use of anticoagulants; I50.9 Heart failure, unspecified; Z95.0 Presence of cardiac pacemaker; E11.9 Type 2 diabetes mellitus without complications
CPT/HCPCS: 71250; 96374; 99284; J1885

== ENCOUNTER 2018-06-23 07:59 | Emergency (ER) | payer MEDICARE, BC ==
[2018-06-23 08:10] VITALS: BMI 36.9
[2018-06-23] MEDS ORDERED: Magnesium Citrate Oral SOL (300 ml) PO ONE (08:34)
[2018-06-23] MEDS ORDERED: Lidocaine 5% Patch TD ONE (08:35)
--- NOTE | 2018-06-23 08:42 | ED PDOC ---
Arrival/HPI - General Chief Complaint: Back Pain Historian: Patient - History of Present Illness Narrative History of Present Illness (Text): 06/23/18 08:35 63 y/o M w/ PMhx of CHF, pacemaker (placed in 2012), HTN, Atrial fibrillation (On Eliquis), CAD s/p cath 07/2017, chronic back pain, and NIDDM, presents to the Emergency department with complaints of left buttocks discomfort since past week. Patient informs trip and fall 1 week ago, when he was evaluated in the ED and was discharged home after negative CT chest findings. Patient reports experiencing pain to his left buttock since the fall, mildly improved after taking Tylenol at home. Additionally, patient informs lack of bowel movement since Wednesday and has been only passing gas with every urgency for bowel movement. Patient denies taking any laxatives for the constipation and denies si milar symptoms in the past. Patient denies any other associated somatic complaints. Patient denies any fevers, chills, headache, dizziness, chest pain, shortness of breath, cough, abdominal pain, nausea, vomiting, back pain, neck pain, or any other complaints. Patient denies any new trauma or injury since the fall. PMD: Dr. Ramos Time/Duration: 1 week Symptom Onset: Gradual Symptom Course: Unchanged Quality: Aching Activities at Onset: Light Context: Home Past Medical History - Provider Review Nursing Documentation Reviewed: Yes - Infectious Disease Hx of Infectious Diseases: None - Tetanus Immunization Tetanus Immunization: Up to Date - Cardiac Hx Congestive Heart Failure: Yes Hx Hypertension: Yes - Pulmonary Hx Respiratory Disorders: No - Neurological Hx Neurological Disorder: No Hx Transient Ischemic Attacks (TIA): (pt denies) - HEENT Hx HEENT Disorder: No (WEARS RX GLASSES) - Renal Hx Renal Disorder: No - Endocrine/Metabolic Hx Diabetes Mellitus Type 2: Yes - Hematological/Oncological Hx Blood Transfusions: No Hx Blood Transfusion Reaction: No - Integumentary Hx Dermatological Disorder: Yes - Musculoskeletal/Rheumatological Hx Falls: No - Gastrointestinal Hx Gastrointestinal Disorders: Yes (obese) Other/Comment: HIATAL HERNIA,pt denies constipation, colonoscopy 11/11/15 dx hemorrhoids diverticulosis - Genitourinary/Gynecological Hx Genitourinary Disorders: No - Psychiatric Hx Emotional Abuse: No Hx Physical Abuse: No Hx Substance Use: No - Surgical History Hx Cardiac Catheterization: Yes Hx Orthopedic Surgery: Yes Other/Comment: LEFT MENISCUS TEAR 1996,POLPS REMOVED from NASAL PASSAGES, pt denies arthoscopic sx r knee, pt stated "I had fluid drained." oral sx to inner r cheek dr brantley removed a cyst 5 yrs ago - Anesthesia Hx Anesthesia: No Hx Anesthesia Reactions: No Hx Malignant Hyperthermia: No - Suicidal Assessment Feels Threatened In Home Enviroment: No Family/Social History - Physician Review Nursing Documentation Reviewed: Yes Family/Social History: Unknown Family HX Smoking Status: Former Smoker Hx Alcohol Use: Yes Hx Substance Use: No Hx Substance Use Treatment: No Allergies/Home Meds Allergies/Adverse Reactions: Allergies codeine Allergy (Verified 06/23/18 08:11) SWELLING metformin Allergy (Verified 06/23/18 08:11) DIARRHEA Penicillins Allergy (Verified 06/23/18 08:11) SWELLING tetracycline Allergy (Verified 06/23/18 08:11) SWELLING Home Medications: Home Meds Medication Instructions Recorded Confirmed Glycambia 10 mg PO BID 12/11/16 04/09/18 RX: K Phos/Na Phos, Dibasic/Na P 250 mg PO DAILY 06/17/17 04/09/18 [Potassium/Sodium Phosphate] RX: Famotidine [Pepcid] 20 mg PO BID 06/18/17 04/09/18 RX: Empagliflozin/Linagliptin 1 tab PO DAILY 06/21/17 04/09/18 [Glyxambi 10 mg-5 mg Tablet] Review of Systems - Physician Review All systems were reviewed & negative as marked: Yes - Review of Systems Constitutional: absent: Fevers Respiratory: absent: SOB, Cough Cardiovascular: absent: Chest Pain, CHRISTY Gastrointestinal: Constipation. absent: Abdominal Pain, Diarrhea, Nausea, Vomiting, Appetite Changes Genitourinary Male: absent: Dysuria, Urinary Output Changes Musculoskeletal: Other (left buttocks pain). absent: Back Pain, Neck Pain Skin: absent: Rash Neurological: absent: Headache, Dizziness Physical Exam Vital Signs Reviewed: Yes Temperature: Afebrile Blood Pressure: Normal Appearance: Positive for: Well-Appearing, Non-Toxic, Comfortable Pain Distress: None Mental Status: Positive for: Alert and Oriented X 3 - Systems Exam Head: Present: Atraumatic, Normocephalic Pupils: Present: PERRL Extroacular Muscles: Present: EOMI Conjunctiva: Present: Normal Respiratory/Chest: Present: Clear to Auscultation, Good Air Exchange. No: Respiratory Distress, Accessory Muscle Use, Tachypneic Cardiovascular: Present: Regular Rate and Rhythm, Normal S1, S2. No: Murmurs, Tachycardic Abdomen: Present: Distention. No: Tenderness, Peritoneal Signs Rectal: Present: Hemorrhoids (external non-thrombosed hemorrhoids noted. Preserved anal wink. Pain with insertion of finger. Mild erythema noted to left buttock with tenderness to palpation. RN and scribe present as Chaperones.) Back: Present: Normal Inspection. No: CVA Tenderness, Paraspinal Tenderness Upper Extremity: Present: Normal Inspection. No: Cyanosis, Edema Lower Extremity: Present: Normal Inspection. No: Edema Neurological: Present: GCS=15, CN II-XII Intact, Speech Normal Skin: Present: Warm, Dry, Normal Color. No: Rashes Psychiatric: Present: Alert, Oriented x 3, Normal Insight, Normal Concentration Medical Decision Making ED Course and Treatment: 06/23/18 08:35 Impression: 63 y/o M presents to the ED complaining of left buttocks pain and constipation since fall 1 week ago. Differential Diagnosis included but are not limited to: -- Constipation -- Sacral bone fracture -- Cauda equina syndrome (less likely) Plan: -- Magnesium Citrate -- Lidoderm -- Toradol -- Valium -- X-ray of sacrum and coccyx -- Reassess and disposition Prior Visits: Notes and results from previous visits were reviewed. Progress Notes: 06/23/18 10:15 Patient reassessed and reports improvement in pain. XR of coccyx show no acute fractures. He is advised to follow up in clinic. Scripts provided. He is stable for discharge. - RAD Interpretation Narrative RAD Interpretations (Text): 06/23/18 10:45 X-ray of sacral and coccyx reviewed by radiologist, shows: IMPRESSION: No acute fracture or subluxation appreciated at the sacrum or coccyx with congenital or possible posttraumatic contour abnormality identified at the sacrococcygeal junction and coccyx as discussed above. Degenerative changes as discussed above at the bilateral sacroiliac joints. Kiln Stacker: Radiologist - Carolaibe Statement The provider has reviewed the documentation as recorded by the Carolaibdaniel Miller. All medical record entries made by the Rhys were at my direction and person ally dictated by me. I have reviewed the chart and agree that the record accurately reflects my personal performance of the history, physical exam, medical decision making, and the department course for this patient. I have also personally directed, reviewed, and agree with the discharge instructions and disposition. Disposition/Present on Arrival - Present on Arrival Any Indicators Present on Arrival: No History of DVT/PE: No History of Uncontrolled Diabetes: No Urinary Catheter: No History of Decub. Ulcer: No History Surgical Site Infection Following: None - Disposition Have Diagnosis and Disposition been Completed?: Yes Diagnosis: Sacral contusion, Buttock pain Disposition: HOME/ ROUTINE Disposition Time: 10:53 Patient Plan: Discharge Condition: IMPROVED Discharge Instructions (ExitCare): Muscle and Bone Pain (DC), Contusion (DC), Coccyx Injury (DC) Print Language: GREEK Additional Instructions: All medical record entries made by the Scribe were at my direction and personally dictated by me. I have reviewed the chart and agree that the record accurately reflects my personal performance of the history, physical exam, medical decision making, and the department course for this patient. I have also personally directed, reviewed, and agree with the discharge instructions and disposition. Please take medication as prescribed. Please see your PCP in 1-2 days Prescriptions: Cyclobenzaprine [Flexeril] 5 mg PO QPM #4 tab oxyCODONE/Acetaminophen [Percocet 5/325 mg Tab] 1 ea PO PRN PRN #4 tab PRN Reason: Pain, Severe (8-10) Referrals: Kimberley Dia MD [Medical Doctor] - Follow up with primary Forms: [employer] (Mohawk)
--- NOTE | 2018-06-23 10:41 | RAD ---
Date of service: 06/23/2018 PROCEDURE: Radiographs of the Sacrum and Coccyx HISTORY: s/p fall w/ pain to tailbone COMPARISON: Abdomen pelvis CT without contrast 04/10/2018. TECHNIQUE: Frontal and lateral views of the sacrum and coccyx FINDINGS: BONES: The contour of the inferior sacrococcygeal junction and coccyx is irregular but stable in the interval. The inferior margin of the sacrum slightly angles neutral to posterior with the coccyx angling anteriorly. No cortical disruption appreciated in the interval. The pattern is unchanged in the interval overall. No destructive bony lesion appreciable. SACROILIAC JOINTS: Moderate to severe bilateral sacroiliac joint degenerative changes are identified as well as the incidentally captured right hip joint. OTHER FINDINGS: None. IMPRESSION: No acute fracture or subluxation appreciated at the sacrum or coccyx with congenital or possible posttraumatic contour abnormality identified at the sacrococcygeal junction and coccyx as discussed above. Degenerative changes as discussed above at the bilateral sacroiliac joints.
[2018-06-23 11:17] VITALS: BP 164/89; PULSE 80; RESP 14; TEMP 97.7; O2SAT 96
== END 2018-06-23 11:17 | disposition home or self-care (01) ==
LOC: ED 07:59
DX: S30.0XXD Contusion of lower back and pelvis, subsequent encounter (principal); W01.0XXD Fall on same level from slipping, tripping and stumbling without subsequent striking against object, subsequent encounter
CPT/HCPCS: 72220; 96372; 99282; J1885

== ENCOUNTER 2018-08-14 15:57 | Emergency (ER) | payer MEDICARE, BC ==
[2018-08-14 15:57] VITALS: BMI 36.9
[2018-08-14] MEDS ORDERED: Albuterol 0.083% Inhal Sol (2.5 mg/3 mL) UD INH STA (16:41)
[2018-08-14] MEDS ORDERED: guaiFENesin DM 200 mg-20 mg/10 ml UD PO STA (16:43)
--- NOTE | 2018-08-14 16:56 | ED PDOC ---
Arrival/HPI - General Chief Complaint: Cough, Cold, Congestion Time Seen by Provider: 08/14/18 16:22 Historian: Patient - History of Present Illness Narrative History of Present Illness (Text): 08/14/18 16:44 63yo male with pmhx of hypertension, diabetes and CAD who present with complaint of nonproductive cough,chest congestion x 3days. Notes that he started having chest pain with cough today. Took Benadryl yesterday without relieve. Denies fever, chills, sore throat, nausea, vomiting, diaphoresis, LE edema, calf pain, any other complaint. Past Medical History - Provider Review Nursing Documentation Reviewed: Yes - Infectious Disease Hx of Infectious Diseases: None - Tetanus Immunization Tetanus Immunization: Up to Date - Cardiac Hx Congestive Heart Failure: Yes Hx Hypertension: Yes - Pulmonary Hx Respiratory Disorders: No - Neurological Hx Neurological Disorder: No Hx Transient Ischemic Attacks (TIA): (pt denies) - HEENT Hx HEENT Disorder: No (WEARS RX GLASSES) - Renal Hx Renal Disorder: No - Endocrine/Metabolic Hx Diabetes Mellitus Type 2: Yes - Hematological/Oncological Hx Blood Transfusions: No Hx Blood Transfusion Reaction: No - Integumentary Hx Dermatological Disorder: Yes - Musculoskeletal/Rheumatological Hx Falls: No - Gastrointestinal Hx Gastrointestinal Disorders: Yes (obese) Other/Comment: HIATAL HERNIA,pt denies constipation, colonoscopy 11/11/15 dx hemorrhoids diverticulosis - Genitourinary/Gynecological Hx Genitourinary Disorders: No - Psychiatric Hx Emotional Abuse: No Hx Physical Abuse: No Hx Substance Use: No - Surgical History Hx Cardiac Catheterization: Yes Hx Orthopedic Surgery: Yes Other/Comment: LEFT MENISCUS TEAR 1996,POLPS REMOVED from NASAL PASSAGES, pt denies arthoscopic sx r knee, pt stated "I had fluid drained." oral sx to inner r cheek dr brantley removed a cyst 5 yrs ago - Anesthesia Hx Anesthesia: No Hx Anesthesia Reactions: No Hx Malignant Hyperthermia: No - Suicidal Assessment Feels Threatened In Home Enviroment: No Family/Social History - Physician Review Nursing Documentation Reviewed: Yes Family/Social History: Unknown Family HX Smoking Status: Former Smoker Hx Alcohol Use: Yes Hx Substance Use: No Hx Substance Use Treatment: No Allergies/Home Meds Allergies/Adverse Reactions: Allergies codeine Allergy (Verified 06/23/18 08:11) SWELLING metformin Allergy (Verified 06/23/18 08:11) DIARRHEA Penicillins Allergy (Verified 06/23/18 08:11) SWELLING tetracycline Allergy (Verified 06/23/18 08:11) SWELLING Home Medications: Home Meds Medication Instructions Recorded Confirmed Glycambia 10 mg PO BID 12/11/16 04/09/18 K Phos/Na Phos, Dibasic/Na P 250 mg PO DAILY 06/17/17 04/09/18 [Potassium/Sodium Phosphate] Famotidine [Pepcid] 20 mg PO BID 06/18/17 04/09/18 Empagliflozin/Linagliptin 1 tab PO DAILY 06/21/17 04/09/18 [Glyxambi 10 mg-5 mg Tablet] Review of Systems - Physician Review All systems were reviewed & negative as marked: Yes - Review of Systems Constitutional: Normal Eyes: Normal ENT: Normal Respiratory: Cough. absent: SOB, Sputum, Wheezing Cardiovascular: Normal Gastrointestinal: Normal Genitourinary Male: Normal Musculoskeletal: Normal Skin: Normal Neurological: Normal Endocrine: Normal Hemo/Lymphatic: Normal Psychiatric: Normal Physical Exam Vital Signs Reviewed: Yes Temperature: Afebrile Blood Pressure: Normal Pulse: Regular Respiratory Rate: Normal Appearance: Positive for: Well-Appearing, Non-Toxic, Comfortable Pain Distress: None Mental Status: Positive for: Alert and Oriented X 3 - Systems Exam Head: Present: Atraumatic, Normocephalic Pupils: Present: PERRL Extroacular Muscles: Present: EOMI Conjunctiva: Present: Normal Mouth: Present: Moist Mucous Membranes Neck: Present: Normal Range of Motion Respiratory/Chest: Present: Clear to Auscultation, Good Air Exchange. No: Respiratory Distress, Accessory Muscle Use, Wheezes, Decreased Breath Sounds, Rales, Retracting, Rhonchi, Tachypneic, Tender to Palpation Cardiovascular: Present: Regular Rate and Rhythm, Normal S1, S2. No: Murmurs Abdomen: No: Tenderness, Distention, Peritoneal Signs Back: Present: Normal Inspection Upper Extremity: Present: Normal Inspection. No: Cyanosis, Edema Lower Extremity: Present: Normal Inspection. No: Edema Neurological: Present: GCS=15, CN II-XII Intact, Speech Normal Skin: Present: Warm, Dry, Normal Color. No: Rashes Psychiatric: Present: Alert, Oriented x 3, Normal Insight, Normal Concentration Medical Decision Making ED Course and Treatment: 08/14/18 19:23 PT in ED for stated history. He was hemodynamically stable. Not hypoxic. his lung was CTA b/l Chest xray - NAD PT was treated with Zpack, antitussive and albuterol, for viral URI Rapid flu was negative - RAD Interpretation Radiology Orders: 08/14/18 16:41 CHEST TWO VIEWS (PA/LAT) [RAD] Stat - Medication Orders Current Medication Orders: Discontinued Medications Albuterol Sulfate (Albuterol 0.083% Inhal Ashwini (2.5 Mg/3 Ml) Ud) 2.5 mg INH STAT STA Stop: 08/14/18 16:42 Disposition/Present on Arrival - Present on Arrival Any Indicators Present on Arrival: No History of DVT/PE: No History of Uncontrolled Diabetes: No Urinary Catheter: No History of Decub. Ulcer: No History Surgical Site Infection Following: None - Disposition Have Diagnosis and Disposition been Completed?: Yes Diagnosis: URI with cough and congestion Disposition: HOME/ ROUTINE Disposition Time: 18:50 Patient Plan: Discharge Patient Problems: Current Active Problems Problem Status Onset URI with cough and congestion Acute Condition: STABLE Discharge Instructions (ExitCare): Viral Upper Respiratory Infection, Adult (DC) Additional Instructions: Follow up with your Doctor Return to ED for any new or worsening symptoms Prescriptions: Albuterol HFA [Ventolin HFA 90 mcg/actuation (8 g)] 2 puff IH [id number] #1 puff Azithromycin [Zithromax] 250 mg PO DAILY #4 tab Promethazine [Phenergan Syrup] 6.25 mg PO Q6 #100 dose Referrals: Tye Ramos MD [Primary Care Provider] - Follow up with primary Forms: [employer] (Romanian)
[2018-08-14 17:17] VITALS: RESP 18
[2018-08-14 19:03] VITALS: BP 148/99; PULSE 82; TEMP 98.9; O2SAT 98
--- NOTE | 2018-08-15 08:03 | RAD ---
Date of service: 08/14/2018 HISTORY: Cough. COMPARISON: Comparison made with chest radiograph dated 04/09/2018 TECHNIQUE: Chest PA and lateral FINDINGS: Limited motion degraded study. LUNGS: Bibasilar atelectasis. No change small nodular density right upper lung field. PLEURA: No significant pleural effusion identified. No pneumothorax apparent. CARDIOVASCULAR: Heart remains enlarged. No change multi lead pacemaker/defibrillator. There may be some minimal aortic atherosclerotic calcification present. Normal cardiac size. No pulmonary vascular congestion. OSSEOUS STRUCTURES: No significant abnormalities. VISUALIZED UPPER ABDOMEN: Normal. OTHER FINDINGS: None. IMPRESSION: Limited motion degraded study. Suspect bibasilar atelectasis.
== END 2018-08-14 19:36 | disposition home or self-care (01) ==
LOC: ED 15:57
DX: J06.9 Acute upper respiratory infection, unspecified (principal); R05 Cough; R09.89 Other specified symptoms and signs involving the circulatory and respiratory systems; E11.9 Type 2 diabetes mellitus without complications; I25.10 Atherosclerotic heart disease of native coronary artery without angina pectoris; I10 Essential (primary) hypertension; I50.9 Heart failure, unspecified; Z87.891 Personal history of nicotine dependence

== ENCOUNTER 2018-09-13 13:48 | Inpatient (IN) | payer MEDICARE, BC ==
--- NOTE | 2018-09-13 14:16 | ED PDOC ---
Arrival/HPI - General Chief Complaint: Chest Pain Time Seen by Provider: 09/13/18 13:56 - History of Present Illness Narrative History of Present Illness (Text): 63 yr old male w/ hx of AICD, afib on Eliquis, Hypertension, Hypercholesterolemia, CHF p/w shortness of breath and chest pain. Pt notes shortness of breath x3 days associated with orthopnea and PND. He also notes leg swelling, feeling like his pervious CHF exacerbation. He notes chest pain started this morning at 2am, throbbing, L sided, without radiation. No fall or trauma. He notes a mild fever and a non-productive cough. No neck stiffness. No headache. No abdominal pain or GI complaints. He also notes mild nausea without vomiting. No rashes. He notes calling his Cards today: Dr. Rock and being sent in for "low K in previous labs, 3.0" as well as shortness of breath Cards: Dr. Rock PMD: Dr. Ramos 09/13/18 14:16 Past Medical History - Infectious Disease Hx of Infectious Diseases: None - Tetanus Immunization Tetanus Immunization: Up to Date - Cardiac Hx Congestive Heart Failure: Yes Hx Hypertension: Yes - Pulmonary Hx Respiratory Disorders: No - Neurological Hx Neurological Disorder: No Hx Transient Ischemic Attacks (TIA): (pt denies) - HEENT Hx HEENT Disorder: No (WEARS RX GLASSES) - Renal Hx Renal Disorder: No - Endocrine/Metabolic Hx Diabetes Mellitus Type 2: Yes - Hematological/Oncological Hx Blood Transfusions: No Hx Blood Transfusion Reaction: No - Integumentary Hx Dermatological Disorder: Yes - Musculoskeletal/Rheumatological Hx Falls: No - Gastrointestinal Hx Gastrointestinal Disorders: Yes (obese) Other/Comment: HIATAL HERNIA,pt denies constipation, colonoscopy 11/11/15 dx hemorrhoids diverticulosis - Genitourinary/Gynecological Hx Genitourinary Disorders: No - Psychiatric Hx Emotional Abuse: No Hx Physical Abuse: No Hx Substance Use: No - Surgical History Hx Cardiac Catheterization: Yes Hx Orthopedic Surgery: Yes Other/Comment: LEFT MENISCUS TEAR 1996,POLPS REMOVED from NASAL PASSAGES, pt denies arthoscopic sx r knee, pt stated "I had fluid drained." oral sx to inner r cheek dr brantley removed a cyst 5 yrs ago - Anesthesia Hx Anesthesia: No Hx Anesthesia Reactions: No Hx Malignant Hyperthermia: No - Suicidal Assessment Feels Threatened In Home Enviroment: No Family/Social History Family/Social History: Unknown Family HX Smoking Status: Former Smoker Hx Alcohol Use: Yes Hx Substance Use: No Hx Substance Use Treatment: No Allergies/Home Meds Allergies/Adverse Reactions: Allergies codeine Allergy (Verified 06/23/18 08:11) SWELLING metformin Allergy (Verified 06/23/18 08:11) DIARRHEA Penicillins Allergy (Verified 06/23/18 08:11) SWELLING tetracycline Allergy (Verified 06/23/18 08:11) SWELLING Home Medications: Home Meds Medication Instructions Recorded Confirmed Empagliflozin/Linagliptin 1 tab PO DAILY 06/21/17 09/13/18 [Glyxambi 10 mg-5 mg Tablet] Review of Systems - Review of Systems Constitutional: absent: Fatigue, Weight Change, Fevers Eyes: absent: Vision Changes, Photophobia ENT: absent: Hearing Changes, Tinnitus, TMJ Pain Respiratory: SOB, Cough. absent: Sputum, Wheezing Cardiovascular: Chest Pain, Edema, CHRISTY, Orthopnea. absent: Palpitations, Calf Pain, Syncope, Other Gastrointestinal: Nausea. absent: Abdominal Pain, Stool Changes, Constipation, Vomiting, Appetite Changes, Anorexia, Food Intolerance Genitourinary Male: absent: Dysuria, Frequency, Hematuria Musculoskeletal: absent: Arthralgias, Back Pain Skin: absent: Rash, Pruritis Neurological: absent: Headache, Dizziness Endocrine: absent: Diaphoresis, Polyuria Hemo/Lymphatic: absent: Adenopathy Physical Exam Vital Signs Temp Pulse Resp BP Pulse Ox 09/13/18 14:08 98.4 F 86 18 156/119 H 95 Temperature: Afebrile Blood Pressure: Normal Pulse: Regular Respiratory Rate: Normal Appearance: Positive for: Well-Appearing, Non-Toxic Pain Distress: None Mental Status: Positive for: Alert and Oriented X 3 - Systems Exam Head: Present: Atraumatic, Normocephalic Pupils: Present: PERRL Extroacular Muscles: Present: EOMI Conjunctiva: Present: Normal Mouth: Present: Moist Mucous Membranes Pharnyx: Present: Normal. No: ERYTHEMA, EXUDATE, TONSILS ENLARGED, Peritonsilar Swelling, Uvular Deviation Neck: Present: Normal Range of Motion. No: Meningeal Signs, MIDLINE TENDERNESS Respiratory/Chest: Present: Clear to Auscultation, Good Air Exchange. No: Respiratory Distress, Accessory Muscle Use, Wheezes, Decreased Breath Sounds Cardiovascular: Present: Regular Rate and Rhythm, Normal S1, S2. No: Murmurs Abdomen: Present: Normal Bowel Sounds. No: Tenderness, Distention, Peritoneal Signs, Rebound, Guarding, McBurney's Point Tender Back: Present: Normal Inspection. No: CVA Tenderness, Midline Tenderness Upper Extremity: Present: Normal Inspection, Normal ROM, NORMAL PULSES. No: Cyanosis, Edema Lower Extremity: Present: Normal Inspection, Edema (1+ pitting b/l), NORMAL PULSES Neurological: Present: GCS=15, CN II-XII Intact, Speech Normal Skin: Present: Warm, Dry. No: Rashes Medical Decision Making ED Course and Treatment: 63 yr old male w/ hx of CHF, Hypertension, Hypercholesterolemia, Afib w/ AICD and on eliquis p/w chest pain, shortness of breath. Orthopnea and PND w/ b/l LE edema suspicious for CHF exacerbation. Lungs CTA b/l however. Chest pain likely moderate chest pain HEART score. Will likely require admission for serial trops and eval for CHF exacerbation. Low pretest wells, pending dimer. Pt in NAD speaking in full sentences. Pending imaging and labs. 09/13/18 14:27 EKG 86, nsr, no stemi 09/13/18 16:15 XRay unremarkable BNP elevated lasics 40mg given, pt notes he took his AM Dose of 40mg ASA given, pt notes he did not take his ASA this AM. Troponin unremarkable no active signs of fluid overload in lungs. cta b/l Dimer elevated: Pending CTPE Pt in NAD, appreciate consult w/ Dr. Rosy Mercado: to admit to her service. Pt agreeable to plan. - RAD Interpretation Radiology Orders: 09/13/18 14:12 CHEST TWO VIEWS (PA/LAT) [RAD] Stat Recovery Assistant: Radiologist Disposition/Present on Arrival - Present on Arrival Any Indicators Present on Arrival: No History of DVT/PE: No History of Uncontrolled Diabetes: No Urinary Catheter: No History of Decub. Ulcer: No History Surgical Site Infection Following: None - Disposition Have Diagnosis and Disposition been Completed?: Yes Diagnosis: CHF exacerbation, Chest pain Disposition: HOSPITALIZED Disposition Time: 16:14 Patient Problems: Current Active Problems Problem Status Onset Chest pain Acute CHF exacerbation Acute Condition: STABLE Discharge Instructions (ExitCare): Heart Failure (ED), Chest Pain (ED) Referrals: Tye Ramos MD [Primary Care Provider] - Follow up with primary Forms: [employer] ([employer] (Portuguese)
[2018-09-13] MEDS ORDERED: Albuterol-Ipratrop 3 mg / 0.5 (3 ml) UD IH STA (14:17)
[2018-09-13 14:52] LABS: BASO # 0.01 K/mm3 (0.0-2.0); BASO % 0.1 % (0.0-3.0); EOS # 0.1 (0.0-0.7); EOS % 1.5 % (1.5-5.0); HEMOGLOBIN 14.6 g/dL (14.0-18.0); LYMPH # 2.1 (1.2-3.4); LYMPH % 23.2 % (22.0-35.0); MEAN CELL VOLUME 89.7 fl (80.0-105.0); MEAN CORPUSCULAR HEMOGLOBIN 28.9 pg (25.0-35.0); MEAN CORPUSCULAR HGB CONC 32.2 g/dl (31.0-37.0); MEAN PLATELET VOLUME 10.5 fl (7.0-11.0); MONO # 0.7 (0.1-0.6); MONO % 7.9 % (1.0-6.0); RBC 5.06 10^6/uL (3.5-6.1)
[2018-09-13 14:57] LABS: ALB/GLOB RATIO 1.3 (1.1-1.8); ALBUMIN 4.2 g/dL (3.0-4.8); ALT/SGPT 12 U/L (7-56); AST/SGOT 26 U/L (17-59); BLOOD UREA NITROGEN 30 mg/dL (7-21); CALCIUM 10.6 mg/dL (8.4-10.5); GFR NON-AFRICAN AMERICAN > 60
[2018-09-13 15:08] LABS: B-TYPE NATRIURETIC PEPTIDE 8000 pg/mL (0-450); TROPONIN I 0.05 ng/mL
[2018-09-13 15:09] LABS: INR 1.26; PARTIAL THROMBOPLASTIN TIME 28.5 Seconds (26.9-38.3)
--- NOTE | 2018-09-13 15:58 | RAD ---
Date of service: 09/13/2018 HISTORY: Shortness of breath COMPARISON: 08/14/2018. TECHNIQUE: Chest PA and lateral FINDINGS: LINES AND TUBES: None. LUNG AND PLEURA: The lungs are well inflated. There is mild pulmonary venous congestion no pleural effusion or pneumothorax. HEART AND MEDIASTINUM: Persistent moderate cardiomegaly. There is stable position of left-sided AICD. No aortic atherosclerotic calcifications present. The hilar and mediastinal contours are within normal limits. SKELETAL STRUCTURES: The bony structures are within normal limits for the patient's age. VISUALIZED UPPER ABDOMEN: Normal. OTHER FINDINGS: None. IMPRESSION: No active pulmonary disease.
--- NOTE | 2018-09-13 17:04 | CP.PCM.HP ---
<Taco Ellis - Last Filed: 09/13/18 17:39> History of Present Illness - History of Present Illness History of Present Illness: 63 yr old male w/ hx of AICD, afib on Eliquis, Hypertension, Hypercho lesterolemia, CHF presents with chest pain along with SOB for 3 days duration. Patient states the past 3 or 4 days he has increased SOB when ambulating and admits to some orthopnea. He says he uses 4 pillows to elevate his head at night. Patient also states around 2 am today while he was sleeping he started feeling sharp chest pain, non radiating, reproducible on palpation that is constant. In addition, patient states he has a non productive cough which also began several days ago. Patient states the episode feels like his previous CHF exacerbation and states his lower extremity swelling has been stable. Patient denies sick contacts, fever, chills, nausea, vomiting, abdominal pain, diarrhea, constipation, change in urinary frequency or any other complaints at this time. PMH: Dr. Ramos PSH: Left knee meniscus repair, removal of polyp in left nares Social: denies current tobacco use, alcohol on occasion, and denies illicit drug use Allergies: metformin, PCN, Tetracyclines Medications: Eliquis, coreg, lasix, Entreso, [place] Family Hx: non contributory Present on Admission - Present on Admission Any Indicators Present on Admission: No Review of Systems - Constitutional Constitutional: absent: Chills, Excessive Sweating, Headache, Night Sweats - EENT Eyes: absent: Change in Vision Nose/Mouth/Throat: absent: Nasal Congestion, Nasal Discharge - Cardiovascular Cardiovascular: Chest Pain, Chest Pain at Rest, Chest Pain with Activity, Dysp drea, Dyspnea on Exertion, Edema, Orthopnea, Pedal Edema. absent: Irregular Heart Rhythm, Pain Radiating to Arm/Neck/Jaw, Radiating Pain, Rapid Heart Rate, Slow Heart Rate - Respiratory Respiratory: Cough, Dyspnea, Dyspnea on Exertion. absent: Hemoptysis, Wheezing, Excessive Mucous Production - Gastrointestinal Gastrointestinal: absent: Abdominal Pain, Vomiting - Genitourinary Genitourinary: absent: Difficulty Urinating - Musculoskeletal Musculoskeletal: absent: Muscle Weakness, Tingling - Neurological Neurological: absent: Tingling, Weakness Past Patient History - Infectious Disease Hx of Infectious Diseases: None - Tetanus Immunizations Tetanus Immunization: Up to Date - Past Social History Smoking Status: Former Smoker - CARDIAC Hx Congestive Heart Failure: Yes Hx Hypertension: Yes - PULMONARY Hx Respiratory Disorders: No - NEUROLOGICAL Hx Neurological Disorder: No Hx Transient Ischemic Attacks (TIA): (pt denies) - HEENT Hx HEENT Problems: No (WEARS RX GLASSES) - RENAL Hx Chronic Kidney Disease: No - ENDOCRINE/METABOLIC Hx Diabetes Mellitus Type 2: Yes - HEMATOLOGICAL/ONCOLOGICAL Hx Blood Transfusions: No Hx Blood Transfusion Reaction: No - INTEGUMENTARY Hx Dermatological Problems: Yes - MUSCULOSKELETAL/RHEUMATOLOGICAL Hx Falls: No - GASTROINTESTINAL Hx Gastrointestinal Disorders: Yes (obese) Other/Comment: HIATAL HERNIA,pt denies constipation, colonoscopy 11/11/15 dx hemorrhoids diverticulosis - GENITOURINARY/GYNECOLOGICAL Hx Genitourinary Disorders: No - PSYCHIATRIC Hx Emotional Abuse: No Hx Physical Abuse: No Hx Substance Use: No - SURGICAL HISTORY Hx Cardiac Catheterization: Yes Hx Orthopedic Surgery: Yes Other/Comment: LEFT MENISCUS TEAR 1996,POLPS REMOVED from NASAL PASSAGES, pt denies arthoscopic sx r knee, pt stated "I had fluid drained." oral sx to inner r cheek dr brantley removed a cyst 5 yrs ago - ANESTHESIA Hx Anesthesia: No Hx Anesthesia Reactions: No Hx Malignant Hyperthermia: No Meds Allergies/Adverse Reactions: Allergies Allergy/AdvReac Type Severity Reaction Status Date / Time codeine Allergy SWELLING Verified 09/13/18 17:35 metformin Allergy DIARRHEA Verified 09/13/18 17:35 Penicillins Allergy SWELLING Verified 09/13/18 17:35 tetracycline Allergy SWELLING Verified 09/13/18 17:35 Physical Exam - Constitutional Appears: Non-toxic, No Acute Distress Additional comments: obese - Head Exam Head Exam: ATRAUMATIC, NORMAL INSPECTION, NORMOCEPHALIC - Eye Exam Eye Exam: Normal appearance - ENT Exam ENT Exam: Mucous Membranes Moist - Respiratory Exam Respiratory Exam: Clear to Auscultation Bilateral, NORMAL BREATHING PATTERN - Cardiovascular Exam Cardiovascular Exam: REGULAR RHYTHM, +S1, +S2. absent: Bradycardia, Tachycardia, Irregular Rhythm, Systolic Murmur - GI/Abdominal Exam GI & Abdominal Exam: Normal Bowel Sounds, Soft. absent: Tenderness - Extremities Exam Extremities exam: Positive for: pedal edema, pedal pulses present. Negative for: calf tenderness, tenderness - Neurological Exam Neurological exam: Alert, CN II-XII Intact, Oriented x3 Results - Vital Signs Recent Vital Signs: Last Vital Signs Temp 98.4 F 09/13/18 14:08 Pulse 84 09/13/18 16:29 Resp 18 09/13/18 16:29 BP 156/96 H 09/13/18 16:29 Pulse Ox 97 09/13/18 16:29 - Labs Result Diagrams: 09/13/18 14:40 09/13/18 14:40 Labs: Laboratory Results - last 24 hr 09/13/18 09/13/18 09/13/18 14:40 14:40 14:40 WBC 9.0 RBC 5.06 Hgb 14.6 Hct 45.4 MCV 89.7 MCH 28.9 MCHC 32.2 RDW 15.0 H Plt Count 197 MPV 10.5 Neut % (Auto) 67.3 Lymph % (Auto) 23.2 Carbon % (Auto) 7.9 H Eos % (Auto) 1.5 Baso % (Auto) 0.1 Lymph # (Auto) 2.1 Carbon # (Auto) 0.7 H Eos # (Auto) 0.1 Baso # (Auto) 0.01 Absolute Neuts (auto) 6.02 PT 14.0 H INR 1.26 APTT 28.5 D-Dimer, Quantitative 1602 H Sodium 141 Potassium 3.8 Chloride 104 Carbon Dioxide 28 Anion Gap 13 BUN 30 H Creatinine 0.9 Est GFR ( Amer) > 60 Est GFR (Non-Af Amer) > 60 Random Glucose 203 H Calcium 10.6 H Magnesium 1.7 Total Bilirubin 0.8 AST 26 ALT 12 Alkaline Phosphatase 74 Troponin I 0.05 D NT-Pro-B Natriuret Pep 8000 H Total Protein 7.4 Albumin 4.2 Globulin 3.2 Albumin/Globulin Ratio 1.3 Blood Type Blood Type Confirm Antibody Screen BBK History Checked 09/13/18 09/13/18 15:15 15:53 WBC RBC Hgb Hct MCV MCH MCHC RDW Plt Count MPV Neut % (Auto) Lymph % (Auto) Carbon % (Auto) Eos % (Auto) Baso % (Auto) Lymph # (Auto) Carbon # (Auto) Eos # (Auto) Baso # (Auto) Absolute Neuts (auto) PT INR APTT D-Dimer, Quantitative Sodium Potassium Chloride Carbon Dioxide Anion Gap BUN Creatinine Est GFR ( Amer) Est GFR (Non-Af Amer) Random Glucose Calcium Magnesium Total Bilirubin AST ALT Alkaline Phosphatase Troponin I NT-Pro-B Natriuret Pep Total Protein Albumin Globulin Albumin/Globulin Ratio Blood Type B NEGATIVE Blood Type Confirm B NEGATIVE Antibody Screen Negative BBK History Checked No verified bt Assessment & Plan - Assessment and Plan (Free Text) Assessment: 63 yr old male w/ hx of AICD, afib on Eliquis, Hypertension, Hypercholesterolemia, CHF presents with chest pain along with SOB for 3 days duration. Plan: 1. SOB with cough likely secondary to CHF exacerbation -BNP elevated 8000 -Lasix 40 IV BID -duonebs PRN -Strict Input and output -daily weights -continue home entresto -echo pending -cardiology consulted, [place], follow recs 2. Chest Pain rule out ACS -unlikely ACS -patient admits to reproduction of pain on palpation of chest -EKG shows normal sinus rhythm, paced -initial troponin .05 -troponin x2 additional Q6H -Cardiology consulted -Aspirin -D dimer elevated -CT Angio pending will follow up -therapeutic dose Lovenox given ([id number]) for elevated DDimer -lipid panel pending -TSH, Free T4 Pending 3. Afib (chronic) -continue home eliquis -continue to monitor -AICD 4. HTN -continue home meds 5. DM -hold oral hypoglycemics -ISS Medium with ACHS -Hemoglobin A1C pending DVT: Lovenox [id number] GI: Protonix Diet: Heart Healthy with Low Sodium <Manish Quintana - Last Filed: 09/13/18 19:52> Results - Vital Signs Recent Vital Signs: Last Vital Signs Temp 98.4 F 09/13/18 14:08 Pulse 87 09/13/18 18:09 Resp 18 09/13/18 18:09 BP 155/80 H 09/13/18 18:09 Pulse Ox 97 09/13/18 18:09 - Labs Result Diagrams: 09/13/18 14:40 09/13/18 14:40 Labs: Laboratory Results - last 24 hr 09/13/18 09/13/18 09/13/18 14:40 14:40 14:40 WBC 9.0 RBC 5.06 Hgb 14.6 Hct 45.4 MCV 89.7 MCH 28.9 MCHC 32.2 RDW 15.0 H Plt Count 197 MPV 10.5 Neut % (Auto) 67.3 Lymph % (Auto) 23.2 Carbon % (Auto) 7.9 H Eos % (Auto) 1.5 Baso % (Auto) 0.1 Lymph # (Auto) 2.1 Carbon # (Auto) 0.7 H Eos # (Auto) 0.1 Baso # (Auto) 0.01 Absolute Neuts (auto) 6.02 PT 14.0 H INR 1.26 APTT 28.5 D-Dimer, Quantitative 1602 H Sodium 141 Potassium 3.8 Chloride 104 Carbon Dioxide 28 Anion Gap 13 BUN 30 H Creatinine 0.9 Est GFR ( Amer) > 60 Est GFR (Non-Af Amer) > 60 Random Glucose 203 H Calcium 10.6 H Magnesium 1.7 Total Bilirubin 0.8 AST 26 ALT 12 Alkaline Phosphatase 74 Troponin I 0.05 D NT-Pro-B Natriuret Pep 8000 H Total Protein 7.4 Albumin 4.2 Globulin 3.2 Albumin/Globulin Ratio 1.3 Triglycerides Cholesterol LDL Cholesterol Direct HDL Cholesterol Free T4 TSH 3rd Generation Blood Type Blood Type Confirm Antibody Screen BBK History Checked 09/13/18 09/13/18 09/13/18 14:40 14:40 15:15 WBC RBC Hgb Hct MCV MCH MCHC RDW Plt Count MPV Neut % (Auto) Lymph % (Auto) Carbon % (Auto) Eos % (Auto) Baso % (Auto) Lymph # (Auto) Carbon # (Auto) Eos # (Auto) Baso # (Auto) Absolute Neuts (auto) PT INR APTT D-Dimer, Quantitative Sodium Potassium Chloride Carbon Dioxide Anion Gap BUN Creatinine Est GFR ( Amer) Est GFR (Non-Af Amer) Random Glucose Calcium Magnesium Total Bilirubin AST ALT Alkaline Phosphatase Troponin I NT-Pro-B Natriuret Pep Total Protein Albumin Globulin Albumin/Globulin Ratio Triglycerides 175 H Cholesterol 173 LDL Cholesterol Direct 126 HDL Cholesterol 24 L Free T4 1.08 TSH 3rd Generation 6.22 H Blood Type B NEGATIVE Blood Type Confirm Antibody Screen Negative BBK History Checked No verified bt 09/13/18 15:53 WBC RBC Hgb Hct MCV MCH MCHC RDW Plt Count MPV Neut % (Auto) Lymph % (Auto) Carbon % (Auto) Eos % (Auto) Baso % (Auto) Lymph # (Auto) Carbon # (Auto) Eos # (Auto) Baso # (Auto) Absolute Neuts (auto) PT INR APTT D-Dimer, Quantitative Sodium Potassium Chloride Carbon Dioxide Anion Gap BUN Creatinine Est GFR ( Amer) Est GFR (Non-Af Amer) Random Glucose Calcium Magnesium Total Bilirubin AST ALT Alkaline Phosphatase Troponin I NT-Pro-B Natriuret Pep Total Protein Albumin Globulin Albumin/Globulin Ratio Triglycerides Cholesterol LDL Cholesterol Direct HDL Cholesterol Free T4 TSH 3rd Generation Blood Type Blood Type Confirm B NEGATIVE Antibody Screen BBK History Checked Attending/Attestation - Attestation I have personally seen and examined this patient.: Yes I have fully participated in the care of the patient.: Yes I have reviewed all pertinent clinical information: Yes
[2018-09-13] MEDS ORDERED: Dextrose 50% SYRINGE Inj (50 ml) IV PRN (17:10)
[2018-09-13] MEDS ORDERED: Enoxaparin 120 mg Syringe SC SCH (17:15)
--- NOTE | 2018-09-13 17:18 | CT ---
Date of service: 09/13/2018 PROCEDURE: CT Chest with contrast (Pulmonary Angiogram) HISTORY: elevated dimer, sob COMPARISON: 06/17/2018. CT thorax. TECHNIQUE: Axial computed tomography images were obtained of the chest in the pulmonary arterial phase of enhancement. Coronal and sagittal reformatted images were created and reviewed. Intravenous contrast dose: 150 cc Omnipaque 350. Mean Hounsfield value in the main pulmonary artery: 349.92 Radiation dose: Total exam DLP = 507.85 mGy-cm. This CT exam was performed using one or more of the following dose reduction techniques: Automated exposure control, adjustment of the mA and/or kV according to patient size, and/or use of iterative reconstruction technique. FINDINGS: PULMONARY ARTERIES: Unremarkable. No pulmonary embolism. AORTA: Aneurysmal dilatation of the ascending aorta with maximum diameter 5.2 cm. Tortuous non aneurysmal descending aorta. No arch abnormalities other than ectatic vessels. No atherosclerotic calcification or mural plaque present. LUNGS: Unremarkable. No nodule, mass or pulmonary consolidation. Incidental finding(s): Calcified granuloma 5 mm left upper lobe. PLEURAL SPACES: Unremarkable. No effusion or pneumothorax. HEART: Cardiomegaly. No evidence of acute, significant cardiovascular disease. Position/ configuration of pacemaker Satisfactory. Focal pericardial thickening in any usual location/distribution lateral to the left lateral ventricle. This finding was apparent on the prior CT of thorax. This is also present on a prior CT of the abdomen pelvis including lower thorax 01/24/2016. LYMPH NODES: Innumerable mediastinal and hilar lymph nodes the preponderance are 1 cm or less. No change. BONES, CHEST WALL: Unremarkable. No fracture or destructive lesion Scoliosis, secondary degenerative change at multiple levels. OTHER FINDINGS: Unremarkable. IMPRESSION: Unremarkable CT pulmonary angiogram. No pulmonary embolus. Additional benign and/or incidental findings described above.
[2018-09-13 17:43] LABS: HDL CHOLESTEROL 24 mg/dL (29-60)
--- NOTE | 2018-09-13 17:51 | CARD ---
APPROVED REPORT Date of service: 09/13/2018 EKG Measurement Heart [id number] <Conclusion> Electronic ventricular pacemaker
[2018-09-13 17:54] LABS: LDL CHOLESTEROL 126 mg/dL (0-129)
[2018-09-13] MEDS: SACUBITRIL 24mg/VALSARTAN 26mg tab PO SCH (17:57)
[2018-09-13 18:00] LABS: FREE T4 1.08 ng/dL (0.78-2.19)
[2018-09-13 20:43] VITALS: BMI 38.6
[2018-09-13] MEDS ORDERED: Pneumococcal 23-Valent Vaccine IM ONE (20:43)
[2018-09-13] MEDS ORDERED: Influenza Vaccine 60 mcg/0.5 mL SYR (4YR UP) IM ONE (20:43)
[2018-09-13] MEDS: Insulin Lispro (humaLOG) MEDIUM Coverage SC SCH (21:47)
[2018-09-14] MEDS: guaiFENesin 100 mg/5 ml Syrup UD PO PRN ×2 (04:15→10:37)
[2018-09-14 07:13] LABS: BASO # 0.02 K/mm3 (0.0-2.0); BASO % 0.3 % (0.0-3.0); EOS # 0.2 (0.0-0.7); EOS % 2.6 % (1.5-5.0); HEMOGLOBIN 14.6 g/dL (14.0-18.0); LYMPH # 2.3 (1.2-3.4); LYMPH % 30.5 % (22.0-35.0); MEAN CELL VOLUME 89.9 fl (80.0-105.0); MEAN CORPUSCULAR HGB CONC 32.2 g/dl (31.0-37.0); MEAN PLATELET VOLUME 11.2 fl (7.0-11.0); MONO # 0.6 (0.1-0.6); MONO % 8.6 % (1.0-6.0); RBC 5.04 10^6/uL (3.5-6.1); WHITE BLOOD COUNT 7.5 10^3/uL (4.5-11.0)
--- NOTE | 2018-09-14 07:13 | CP.PCM.PN ---
<Jm Gutierres - Last Filed: 09/14/18 15:46> Subjective - Date & Time of Evaluation Date of Evaluation: 09/14/18 Time of Evaluation: 07:12 - Subjective Subjective: PGY-1 Medicine progress note for Dr. Norman Patient seen and examined at bedside. No acute events overnight. Patient states that his shortness of breath is improving. He is still complaining of reproducible chest pain in the anterior ribs. He denies fevers, chills, headaches, chest pain, abdominal pain, nausea, vomiting, or any other complaints. Objective - Vital Signs/Intake and Output Vital Signs (last 24 hours): Temp Pulse Resp BP Pulse Ox 97.8 F 71 20 148/101 H 98 09/14/18 05:55 09/14/18 05:55 09/14/18 05:55 09/14/18 05:55 09/14/18 05:55 Intake and Output: 09/14/18 09/14/18 06:59 18:59 Intake Total 1300 Output Total 1253 Balance 47 - Medications Medications: Current Medications Albuterol/Ipratropium (Duoneb 3 Mg/0.5 Mg (3 Ml) Ud) 3 ml IH Q2H PRN PRN Reason: Shortness of Breath Apixaban (Eliquis) 5 mg PO BID [facility]; Protocol Last Admin: 09/13/18 17:57 Dose: 5 mg Aspirin (Aspirin Chewable) 81 mg PO DAILY [facility] Carvedilol (Coreg) 12.5 mg PO BID [facility] Last Admin: 09/13/18 17:57 Dose: 12.5 mg Dextrose (Dextrose 50% Inj) 0 ml IV STAT PRN; Protocol PRN Reason: Hypoglycemia Protocol Furosemide (Lasix) 40 mg IVP 0600,1800 [facility] Last Admin: 09/14/18 05:42 Dose: 40 mg Guaifenesin (Robitussin) 100 mg PO Q4H PRN PRN Reason: Cough Last Admin: 09/14/18 04:15 Dose: 100 mg Dextrose (Dextrose 5% In Water 1000 Ml) 1,000 mls @ 0 mls/hr IV .Q0M PRN; Protocol PRN Reason: Hypoglycemia Protocol Insulin Human Lispro (Humalog Med) 0 units SC ACHS [facility]; Protocol Last Admin: 09/13/18 21:47 Dose: Not Given Pantoprazole Sodium (Protonix Inj) 40 mg IVP DAILY [facility] Sacubitril/Valsartan (Entresto 24 Mg-26 Mg Tablet) 1 each PO BID KATE Last Admin: 09/13/18 17:57 Dose: 1 each - Labs Labs: 09/13/18 14:40 09/13/18 14:40 PT 14.0 SECONDS (9.4-12.5) H 09/13/18 14:40 INR 1.26 09/13/18 14:40 APTT 28.5 Seconds (26.9-38.3) 09/13/18 14:40 - Constitutional Appears: Well, Non-toxic, No Acute Distress - Head Exam Head Exam: ATRAUMATIC, NORMAL INSPECTION - Eye Exam Eye Exam: EOMI, Normal appearance Pupil Exam: NORMAL ACCOMODATION, PERRL - ENT Exam ENT Exam: Mucous Membranes Moist - Neck Exam Neck Exam: Full ROM - Respiratory Exam Respiratory Exam: Clear to Ausculation Bilateral. absent: Rales, Rhonchi, Wheezes, Respiratory Distress - Cardiovascular Exam Cardiovascular Exam: REGULAR RHYTHM, +S1, +S2. absent: Gallop, Rubs, Murmur - GI/Abdominal Exam GI & Abdominal Exam: Soft, Normal Bowel Sounds. absent: Tenderness Additional comments: Patient is obese. - Extremities Exam Extremities Exam: Normal Inspection. absent: Calf Tenderness, Pedal Edema, Tenderness - Back Exam Back Exam: absent: paraspinal tenderness, vertebral tenderness Additional comments: Left lower cloth printing back tender to palpation. - Neurological Exam Neurological Exam: Alert, Awake, CN II-XII Intact, Oriented x3 - Psychiatric Exam Psychiatric exam: Normal Affect, Normal Mood - Skin Skin Exam: Dry, Intact, Normal Color, Warm Assessment and Plan - Assessment and Plan (Free Text) Assessment: Patient is a 63 year old male with a past medical history of AICD, afib on Eliquis, Hypertension, Hypercholesterolemia, and CHF admitted for CHF exacerbation. Plan: CHF exacerbation - Lasix 40 IV BID - Duonebs Q2 PRN - Coreg 12.5mg PO BID - CXR: no active pulmonary disease - Strict Input and output - Measure daily weights - Last Cardiac cath (08/09/17): LV hypokinesis. LVEF: 30-35%. - Cardiology consulted, Dr. Clifton - Plan for cardiac cath tomorrow in the morning - NPO after midnight - Hold anticoagulation Reproducible chest pain - Likely musculoskeletal, rule out ACS - EKG shows normal sinus rhythm, paced - Troponin: 0.05 X 3 - Cardiology consulted - Hold Aspirin - D dimer elevated - Chest CTA: No evidence of PE - Therapeutic dose Lovenox given (110mg Q12) for elevated D-dimer - Lipid panel: Trig 175, Chol 173, LDL 126, HDL 24 Subclinical hypothyroidism - TSH: 6.22 - Free T4: 1.08 - Instructed patient to repeat TSH in 6 weeks Chronic low back pain - Flexeril 10mg PO Q12 PRN Hx of atrial fibrillation - Hold Eliquis - Coreg 12.5mg PO BID - AICD - Continue to monitor Hx of CAD - Hold Aspirin - Coreg 12.5mg PO BID HTN - Continue home Entresto - Coreg 12.5mg PO BID DM - ISS Medium dose - Accuchecks ACHS - Hemoglobin A1C: 7.7 Prophylaxis: DVT: Anticogulation held for Cardiac cath GI: Protonix Patient seen and case discussed with attending, Dr. Ester Gutierres, PGY-1 <Dony Norman - Last Filed: 09/19/18 15:03> Objective - Vital Signs/Intake and Output Vital Signs (last 24 hours): Temp Pulse Resp BP Pulse Ox 98.1 F 75 18 139/96 H 98 09/19/18 08:45 09/19/18 10:30 09/19/18 08:45 09/19/18 10:31 09/19/18 08:45 Intake and Output: 09/19/18 09/19/18 06:59 18:59 Intake Total 1320 Output Total 1700 Balance -380 - Medications Medications: Current Medications Albuterol/Ipratropium (Duoneb 3 Mg/0.5 Mg (3 Ml) Ud) 3 ml IH Q2H PRN PRN Reason: Shortness of Breath Last Admin: 09/19/18 14:33 Dose: 3 ml Apixaban (Eliquis) 5 mg PO BID [facility]; Protocol Last Admin: 09/19/18 10:31 Dose: 5 mg Aspirin (Aspirin Chewable) 81 mg PO DAILY [facility] Last Admin: 09/14/18 10:17 Dose: 81 mg Benzonatate (Tessalon Perles) 100 mg PO TID [facility] Last Admin: 03/04/19 10:33 Dose: 100 mg Carvedilol (Coreg) 12.5 mg PO BID KATE Last Admin: 09/19/18 10:30 Dose: 12.5 mg Cyclobenzaprine HCl (Flexeril) 10 mg PO BID PRN PRN Reason: Muscle spasm Last Admin: 09/18/18 21:10 Dose: 10 mg Dextrose (Dextrose 50% Inj) 0 ml IV STAT PRN; Protocol PRN Reason: Hypoglycemia Protocol Furosemide (Lasix) 40 mg PO BID KATE Last Admin: 09/19/18 10:31 Dose: 40 mg Gabapentin (Neurontin) 100 mg PO TID KATE; Protocol Last Admin: 09/19/18 10:33 Dose: 100 mg Guaifenesin (Robitussin) 100 mg PO Q4H PRN PRN Reason: Cough Last Admin: 09/19/18 01:05 Dose: 100 mg Dextrose (Dextrose 5% In Water 1000 Ml) 1,000 mls @ 0 mls/hr IV .Q0M PRN; Bela col PRN Reason: Hypoglycemia Protocol Insulin Human Lispro (Humalog Med) 0 units SC ACHS KATE; Protocol Last Admin: 09/19/18 12:43 Dose: 3 unit Lidocaine (Lidoderm) 1 ea TD DAILY [facility] Last Admin: 09/19/18 10:32 Dose: 1 ea Pantoprazole Sodium (Protonix Ec Tab) 40 mg PO ACB KATE Last Admin: 09/19/18 06:40 Dose: 40 mg Sacubitril/Valsartan (Entresto 24 Mg-26 Mg Tablet) 1 each PO BID KATE Last Admin: 09/19/18 10:31 Dose: 1 each - Labs Labs: 09/19/18 07:00 09/19/18 07:00 PT 14.0 SECONDS (9.4-12.5) H 09/13/18 14:40 INR 1.26 09/13/18 14:40 APTT 28.5 Seconds (26.9-38.3) 09/13/18 14:40 Attending/Attestation - Attestation I have personally seen and examined this patient.: Yes I have fully participated in the care of the patient.: Yes I have reviewed all pertinent clinical information, including history, physical exam and plan: Yes Notes (Text): 09/19/18 15:02 Medical record note made by the resident after discussion with my direction and input after the patient was personally seen and examined by me. I have reviewed the chart and agree that the record accurately reflects by personal performance of the history, physical exam, data review, and medical decision-making, in the course for the patient. I have also personally directed the plan of care. 63 yr old male w/ hx of CHF s/p AICD, afib on Eliquis, Hypertension, Hypercholesterolemia, CHF presents with chest pain along with SOB for 3 days duration. CXR shows vascular congestion. BNP elevated as well as D-didmer. CT a ngio showed no PE. Pt started on Lasix 40 BID. Patient is scheduled for Cardiac cath tomorrow by . 09/19/18 15:03
[2018-09-14 07:44] LABS: ALB/GLOB RATIO 1.3 (1.1-1.8); ALBUMIN 3.9 g/dL (3.0-4.8); ALT/SGPT 14 U/L (7-56); AST/SGOT 19 U/L (17-59); BLOOD UREA NITROGEN 30 mg/dL (7-21); CALCIUM 9.7 mg/dL (8.4-10.5); GFR NON-AFRICAN AMERICAN > 60
--- NOTE | 2018-09-14 09:42 | CON ---
DATE OF CONSULTATION: 09/14/2018 CARDIOLOGY CONSULTATION HISTORY: The patient is a 63-year-old male, who presents with angina. PAST MEDICAL HISTORY: The patient's past medical history includes chronic atrial fibrillation treated with a pacemaker as well as with anticoagulation. In addition, the patient suffers from documented coronary artery disease as well as ischemic dilated cardiomyopathy, in which he has been treated with Entresto. He denies shortness of breath. SOCIAL HISTORY: The patient does not smoke. REVIEW OF SYSTEMS: Included symptoms as above. The patient is currently chest pain free. PHYSICAL EXAMINATION: GENERAL: The patient is an obese male, in no acute distress. VITAL SIGNS: Blood pressure 148/101, heart rate is in the 70s. NECK: Negative JVD. LUNGS: Without rales. CARDIAC: Heart rate S1, S2. EXTREMITIES: Without edema. EKG has a paced rhythm. LABORATORY DATA: Troponins are indeterminate at 0.05, glucose is 213. BUN and creatinine are unremarkable. Hemoglobin is normal. IMPRESSION: 1. Unstable angina. 2. Non-ST elevation myocardial infarction. 3. Coronary artery disease. 4. Cardiomyopathy. 5. Atrial fibrillation. PLAN: Given these findings, the patient has a high probability for new coronary lesion. We will prepare for catheterization tomorrow. I have discussed with the patient in detail. We will DC the anticoagulation. We will start the patient on Plavix. Angus Clifton MD
[2018-09-14] MEDS ORDERED: LINAGLIPTIN PO SCH (10:00)
[2018-09-14] MEDS ORDERED: EMPAGLIFLOZIN PO SCH (10:00)
[2018-09-14] MEDS: SACUBITRIL 24mg/VALSARTAN 26mg tab PO SCH ×2 (10:17→18:02)
[2018-09-14] MEDS: Insulin Lispro (humaLOG) MEDIUM Coverage SC SCH ×4 (14:06→21:37)
[2018-09-15 07:17] LABS: ALB/GLOB RATIO 1.2 (1.1-1.8); ALBUMIN 3.6 g/dL (3.0-4.8); ALT/SGPT 16 U/L (7-56); AST/SGOT 17 U/L (17-59); BLOOD UREA NITROGEN 28 mg/dL (7-21); CALCIUM 8.9 mg/dL (8.4-10.5); GFR NON-AFRICAN AMERICAN > 60
[2018-09-15 08:01] LABS: BASO # 0.01 K/mm3 (0.0-2.0); BASO % 0.1 % (0.0-3.0); EOS # 0.3 (0.0-0.7); EOS % 3.3 % (1.5-5.0); HEMOGLOBIN 14.9 g/dL (14.0-18.0); LYMPH % 26.3 % (22.0-35.0); MEAN CELL VOLUME 88.7 fl (80.0-105.0); MEAN CORPUSCULAR HGB CONC 32.7 g/dl (31.0-37.0); MEAN PLATELET VOLUME 10.6 fl (7.0-11.0); MONO # 0.9 (0.1-0.6); MONO % 11.9 % (1.0-6.0); RBC 5.13 10^6/uL (3.5-6.1); RED CELL DISTRIBUTION WIDTH 14.8 % (11.5-14.5); WHITE BLOOD COUNT 7.7 10^3/uL (4.5-11.0)
[2018-09-15] MEDS: Insulin Lispro (humaLOG) MEDIUM Coverage SC SCH ×4 (08:05→21:22)
[2018-09-15] MEDS: SACUBITRIL 24mg/VALSARTAN 26mg tab PO SCH ×2 (10:55→18:00)
[2018-09-15] MEDS: Pantoprazole 40 mg EC Tab PO SCH (10:55)
[2018-09-15 11:29] LABS: URINE BILIRUBIN NEGATIVE (NEGATIVE); URINE BLOOD NEGATIVE (NEGATIVE); URINE GLUCOSE (UA) NEGATIVE (NEGATIVE); URINE LEUKOCYTE ESTERASE NEGATIVE Leu/uL (NEGATIVE); URINE PROTEIN NEGATIVE mg/dL (<30 mg/dL); URINE UROBILINOGEN 0.2 E.U./dL (<1 E.U./dL)
[2018-09-15 11:37] LABS: URINE APPEARANCE CLEAR (CLEAR); URINE COLOR YELLOW (YELLOW)
--- NOTE | 2018-09-15 13:21 | PN ---
DATE: 09/15/2018 CARDIOLOGY FOLLOWUP SUBJECTIVE: The patient's cardiac catheterization was canceled today due to equipment issues in the medical laboratory technical officer. PHYSICAL EXAMINATION VITAL SIGNS: Blood pressure is 128/99, heart rate is in the 70s. NECK: Negative JVD. LUNGS: Without rales. HEART: Reveals S1 and S2. EXTREMITIES: Without edema. LABORATORY DATA: Hemoglobin is 14.9. Chemistries are unremarkable other than a glucose of 152. IMPRESSION 1. Unstable angina. 2. Coronary artery disease. 3. Diabetes mellitus. 4. Hypercholesterolemia. 5. Obesity. PLAN: Given these findings, we will reschedule the catheterization first thing in the morning. I have discussed this with the patient and family in detail. Angus Clifton MD
--- NOTE | 2018-09-15 16:50 | CP.PCM.PN ---
<Alondra Herzog - Last Filed: 09/15/18 16:46> Subjective - Date & Time of Evaluation Date of Evaluation: 09/15/18 Time of Evaluation: 16:46 - Subjective Subjective: Alondra Herzog, PGY-1, Internal Medicine Progress Note for Dr. Gallego Patient seen and evaluated at bedside. Patient had no acute overnight events. Patient reported new CVA tenderness radiating to the groin. Today, patient did not report headache, fever, chest pain, heart palpitations, shortness of breath, nausea, vomiting, constipation, diarrhea, dysuria, hematuria. 12-point ROS was unremarkable except for what was mentioned above. Objective - Vital Signs/Intake and Output Vital Signs (last 24 hours): Temp Pulse Resp BP Pulse Ox 98.0 F 82 19 117/84 98 09/15/18 12:00 09/15/18 12:00 09/15/18 12:00 09/15/18 12:00 09/15/18 06:00 Intake and Output: 09/15/18 09/15/18 06:59 18:59 Intake Total 2440 Output Total 3550 Balance -1110 - Medications Medications: Current Medications Albuterol/Ipratropium (Duoneb 3 Mg/0.5 Mg (3 Ml) Ud) 3 ml IH Q2H PRN PRN Reason: Shortness of Breath Aspirin (Aspirin Chewable) 81 mg PO DAILY [facility] Last Admin: 09/14/18 10:17 Dose: 81 mg Carvedilol (Coreg) 12.5 mg PO BID [facility] Last Admin: 09/15/18 10:55 Dose: 12.5 mg Cyclobenzaprine HCl (Flexeril) 10 mg PO BID PRN PRN Reason: Muscle spasm Last Admin: 09/14/18 18:11 Dose: 10 mg Dextrose (Dextrose 50% Inj) 0 ml IV STAT PRN; Protocol PRN Reason: Hypoglycemia Protocol Furosemide (Lasix) 40 mg IVP 0600,1800 [facility] Last Admin: 09/15/18 06:57 Dose: 40 mg Guaifenesin (Robitussin) 100 mg PO Q4H PRN PRN Reason: Cough Last Admin: 09/14/18 10:37 Dose: 100 mg Dextrose (Dextrose 5% In Water 1000 Ml) 1,000 mls @ 0 mls/hr IV .Q0M PRN; Protocol PRN Reason: Hypoglycemia Protocol Insulin Human Lispro (Humalog Med) 0 units SC ACHS [facility]; Protocol Last Admin: 09/15/18 14:23 Dose: Not Given Pantoprazole Sodium (Protonix Ec Tab) 40 mg PO ACB [facility] Last Admin: 09/15/18 10:55 Dose: 40 mg Sacubitril/Valsartan (Entresto 24 Mg-26 Mg Tablet) 1 each PO BID [facility] Last Admin: 09/15/18 10:55 Dose: 1 each - Labs Labs: 09/15/18 06:20 09/15/18 06:20 PT 14.0 SECONDS (9.4-12.5) H 09/13/18 14:40 INR 1.26 09/13/18 14:40 APTT 28.5 Seconds (26.9-38.3) 09/13/18 14:40 - Constitutional Appears: Well, Non-toxic, No Acute Distress - Head Exam Head Exam: ATRAUMATIC, NORMAL INSPECTION, NORMOCEPHALIC - Eye Exam Eye Exam: EOMI, PERRL - ENT Exam ENT Exam: Mucous Membranes Moist - Respiratory Exam Respiratory Exam: Clear to Ausculation Bilateral, NORMAL BREATHING PATTERN - Cardiovascular Exam Cardiovascular Exam: REGULAR RHYTHM, RRR - GI/Abdominal Exam GI & Abdominal Exam: Soft, Normal Bowel Sounds. absent: Tenderness - Extremities Exam Extremities Exam: Full ROM - Back Exam Back Exam: CVA tenderness (L), CVA tenderness (R) - Neurological Exam Neurological Exam: Alert, Awake, CN II-XII Intact, Oriented x3 - Psychiatric Exam Psychiatric exam: Normal Affect, Normal Mood Assessment and Plan - Assessment and Plan (Free Text) Assessment: 63 year old male with past medical history of atrial fibrillation of eliquis, hypertension, hyperlipidemia, congestive heart failure presented for chest pain and shortness of breath. Patient was admitted for ACS rule out and management of CHF. In addition, patient was evaluated to rule out nephrolithasis. Plan: Rule out ACS -EKG: paced by pacemaker with heart rate of 86 -Troponinx3 was negative -Patient was unable to have cardiac catheterization due to technical issues. Will continue to hold anticoagulation -Continue with coreg 12.5 BID, entresto 1 tab BID Hypertension -Continue coreg BID and entresto 1 tab BID Systolic CHF with AICD -Echocardiogram 08/09/17: LVEF of 28% -Continue with coreg 12.5 BID, entresto 1 tab BID, and lasix 40 mg BID Chronic back pain with rule out of nephrolithasis -Urinanalysis showed no leukocyte esterase, no nitrates, and no blood. Unlikely pyelonephritis or nephrolithiasis -Continue with flexeril 10 mg BID PRN Diabetes mellitus type II -HgbA1c: 7.7 -Continue with med SSI Subclinical hypothyroidism -TSH was 6.22 and T4 was 1.08 -Patient is asymptomatic and as a result no management is needed at this time -Continue to monitor. GI prophylaxis: protonix 40 mg ACB DVT prophylaxis: SCD <Reynaldo Gallego A - Last Filed: 09/15/18 17:18> Objective - Vital Signs/Intake and Output Vital Signs (last 24 hours): Temp Pulse Resp BP Pulse Ox 98.0 F 82 19 117/84 98 09/15/18 12:00 09/15/18 12:00 09/15/18 12:00 09/15/18 12:00 09/15/18 06:00 Intake and Output: 09/15/18 09/15/18 06:59 18:59 Intake Total 2440 Output Total 3550 Balance -1110 - Medications Medications: Current Medications Albuterol/Ipratropium (Duoneb 3 Mg/0.5 Mg (3 Ml) Ud) 3 ml IH Q2H PRN PRN Reason: Shortness of Breath Aspirin (Aspirin Chewable) 81 mg PO DAILY [facility] Last Admin: 09/14/18 10:17 Dose: 81 mg Carvedilol (Coreg) 12.5 mg PO BID [facility] Last Admin: 09/15/18 10:55 Dose: 12.5 mg Cyclobenzaprine HCl (Flexeril) 10 mg PO BID PRN PRN Reason: Muscle spasm Last Admin: 09/14/18 18:11 Dose: 10 mg Dextrose (Dextrose 50% Inj) 0 ml IV STAT PRN; Protocol PRN Reason: Hypoglycemia Protocol Furosemide (Lasix) 40 mg IVP 0600,1800 [facility] Last Admin: 09/15/18 06:57 Dose: 40 mg Guaifenesin (Robitussin) 100 mg PO Q4H PRN PRN Reason: Cough Last Admin: 09/14/18 10:37 Dose: 100 mg Dextrose (Dextrose 5% In Water 1000 Ml) 1,000 mls @ 0 mls/hr IV .Q0M PRN; Protocol PRN Reason: Hypoglycemia Protocol Insulin Human Lispro (Humalog Med) 0 units SC ACHS [facility]; Protocol Last Admin: 09/15/18 14:23 Dose: Not Given Pantoprazole Sodium (Protonix Ec Tab) 40 mg PO ACB [facility] Last Admin: 09/15/18 10:55 Dose: 40 mg Sacubitril/Valsartan (Entresto 24 Mg-26 Mg Tablet) 1 each PO BID [facility] Last Admin: 09/15/18 10:55 Dose: 1 each - Labs Labs: 09/15/18 06:20 09/15/18 06:20 PT 14.0 SECONDS (9.4-12.5) H 09/13/18 14:40 INR 1.26 09/13/18 14:40 APTT 28.5 Seconds (26.9-38.3) 09/13/18 14:40 Attending/Attestation - Attestation I have personally seen and examined this patient.: Yes I have fully participated in the care of the patient.: Yes I have reviewed all pertinent clinical information, including history, physical exam and plan: Yes Notes (Text): 09/15/18 17:08 63 year old male with past medical history of afib on eliquis, hypertension, and cardiomyopathy who presented with complaint of chest pain and shortness of breath. She is on iv lasix, coreg and entresto. Cardiology is following and planning for cardiac cath tomorrow; unable to due today due to technical issues in clinical laboratory aide. Reynaldo Gallego MD Hospitalist.
[2018-09-16] MEDS: Albuterol-Ipratrop 3 mg / 0.5 (3 ml) UD IH PRN ×4 (05:35→17:44)
[2018-09-16 07:26] LABS: BASO # 0.03 K/mm3 (0.0-2.0); BASO % 0.4 % (0.0-3.0); EOS # 0.3 (0.0-0.7); EOS % 3.6 % (1.5-5.0); LYMPH # 2.3 (1.2-3.4); LYMPH % 29.1 % (22.0-35.0); MEAN CELL VOLUME 90.3 fl (80.0-105.0); MEAN CORPUSCULAR HEMOGLOBIN 28.6 pg (25.0-35.0); MEAN CORPUSCULAR HGB CONC 31.7 g/dl (31.0-37.0); MEAN PLATELET VOLUME 10.6 fl (7.0-11.0); MONO # 0.8 (0.1-0.6); MONO % 10.4 % (1.0-6.0); RBC 5.24 10^6/uL (3.5-6.1)
--- NOTE | 2018-09-16 07:42 | CP.PCM.PN ---
<Jm Gutierres - Last Filed: 09/16/18 17:33> Subjective - Date & Time of Evaluation Date of Evaluation: 09/16/18 Time of Evaluation: 07:42 - Subjective Subjective: PGY-1 Medicine progress note for Dr. Gallego Patient seen and examined at bedside. No acute events overnight. Patient states that his shortness of breath is improving. He had a cardiac cath today. No pain at site of cardiac cath. He ate a sandwich and no complains of nausea or vomiting. He denies fevers, chills, headaches, chest pain, abdominal pain, or any other complaints. Objective - Vital Signs/Intake and Output Vital Signs (last 24 hours): Temp Pulse Resp BP Pulse Ox 97.7 F 82 20 133/93 H 100 09/16/18 05:57 09/16/18 05:57 09/16/18 05:57 09/16/18 05:57 09/16/18 05:57 Intake and Output: 09/16/18 09/16/18 06:59 18:59 Intake Total 3070 Output Total 2770 Balance 300 - Medications Medications: Current Medications Albuterol/Ipratropium (Duoneb 3 Mg/0.5 Mg (3 Ml) Ud) 3 ml IH Q2H PRN PRN Reason: Shortness of Breath Last Admin: 09/16/18 05:35 Dose: 3 ml Aspirin (Aspirin Chewable) 81 mg PO DAILY [facility] Last Admin: 09/14/18 10:17 Dose: 81 mg Carvedilol (Coreg) 12.5 mg PO BID [facility] Last Admin: 09/15/18 18:00 Dose: 12.5 mg Cyclobenzaprine HCl (Flexeril) 10 mg PO BID PRN PRN Reason: Muscle spasm Last Admin: 09/15/18 18:00 Dose: 10 mg Dextrose (Dextrose 50% Inj) 0 ml IV STAT PRN; Protocol PRN Reason: Hypoglycemia Protocol Furosemide (Lasix) 40 mg IVP 0600,1800 [facility] Last Admin: 09/16/18 05:18 Dose: 40 mg Guaifenesin (Robitussin) 100 mg PO Q4H PRN PRN Reason: Cough Last Admin: 09/14/18 10:37 Dose: 100 mg Dextrose (Dextrose 5% In Water 1000 Ml) 1,000 mls @ 0 mls/hr IV .Q0M PRN; Protocol PRN Reason: Hypoglycemia Protocol Insulin Human Lispro (Humalog Med) 0 units SC ACHS [facility]; Protocol Last Admin: 09/15/18 21:22 Dose: Not Given Pantoprazole Sodium (Protonix Ec Tab) 40 mg PO ACB [facility] Last Admin: 09/15/18 10:55 Dose: 40 mg Sacubitril/Valsartan (Entresto 24 Mg-26 Mg Tablet) 1 each PO BID [facility] Last Admin: 09/15/18 18:00 Dose: 1 each - Labs Labs: 09/16/18 07:00 09/15/18 06:20 PT 14.0 SECONDS (9.4-12.5) H 09/13/18 14:40 INR 1.26 09/13/18 14:40 APTT 28.5 Seconds (26.9-38.3) 09/13/18 14:40 - Additional Findings Additional findings: - Constitutional Appears: Well, Non-toxic, No Acute Distress - Head Exam Head Exam: ATRAUMATIC, NORMAL INSPECTION - Eye Exam Eye Exam: EOMI, Normal appearance Pupil Exam: NORMAL ACCOMODATION, PERRL - ENT Exam ENT Exam: Mucous Membranes Moist - Neck Exam Neck Exam: Full ROM - Respiratory Exam Respiratory Exam: Clear to Ausculation Bilateral. absent: Rales, Rhonchi, Wheezes, Respiratory Distress - Cardiovascular Exam Cardiovascular Exam: REGULAR RHYTHM, +S1, +S2. absent: Gallop, Rubs, Murmur - GI/Abdominal Exam GI & Abdominal Exam: Soft, Normal Bowel Sounds. absent: Tenderness Additional comments: Patient is obese. - Extremities Exam Extremities Exam: Normal Inspection. absent: Calf Tenderness, Pedal Edema, Tenderness - Back Exam Back Exam: absent: paraspinal tenderness, vertebral tenderness Additional comments: Left lower back tender paper machine to palpation. - Neurological Exam Neurological Exam: Alert, Awake, CN II-XII Intact, Oriented x3 - Psychiatric Exam Psychiatric exam: Normal Affect, Normal Mood - Skin Skin Exam: Dry, Intact, Normal Color, Warm Cardiac cath site on right groin, dressing C/D/I Assessment and Plan - Assessment and Plan (Free Text) Assessment: Patient is a 63 year old male with a past medical history of AICD, afib on Eliquis, Hypertension, Hypercholesterolemia, and CHF admitted for CHF exacerbation. Cardiac cath was done by Dr. Clifton today. Plan: CHF exacerbation - Cardiac cath (09/16): Dilated and severely hypokinetic LV, LVEF 20-25%. Atherosclerosis with multiple 50% lesions throughout the course of the LAD. C ontinue medical therapy, afterload reduction and a cardiac risk reduction program. - Lasix 40 IV BID - Duonebs Q2 PRN - Coreg 12.5mg PO BID - CXR: no active pulmonary disease - Strict Input and output - Measure daily weights - Last Cardiac cath (08/09/17): LV hypokinesis. LVEF: 30-35%. - Cardiology consulted, Dr. Clifton - Will ask Dr. Clifton when anticoagulation can be started Reproducible chest pain - Likely musculoskeletal, rule out ACS - EKG shows normal sinus rhythm, paced - Troponin: 0.05 X 3 - Cardiology consulted - Hold Aspirin - D dimer elevated - Chest CTA: No evidence of PE - Therapeutic dose Lovenox given (110mg Q12) for elevated D-dimer - Lipid panel: Trig 175, Chol 173, LDL 126, HDL 24 Chronic low back pain - Flexeril 10mg PO Q12 PRN Hx of atrial fibrillation - Hold Eliquis for cardiac cath - Coreg 12.5mg PO BID - AICD - Continue to monitor Hx of CAD - Hold Aspirin - Coreg 12.5mg PO BID HTN - Continue home Entresto - Coreg 12.5mg PO BID DM - ISS Medium dose - Accuchecks ACHS - Hemoglobin A1C: 7.7 Subclinical hypothyroidism - TSH: 6.22 - Free T4: 1.08 - Instructed patient to repeat TSH in 6 weeks Prophylaxis: DVT: Anticogulation held for Cardiac cath GI: Protonix Patient seen and case discussed with attending, Dr. Julián Gutierres, PGY-1 <Reynaldo Gallego - Last Filed: 09/16/18 18:15> Objective - Vital Signs/Intake and Output Vital Signs (last 24 hours): Temp Pulse Resp BP Pulse Ox 98.8 F 77 24 154/101 H 100 09/16/18 12:50 09/16/18 17:48 09/16/18 16:35 09/16/18 17:48 09/16/18 05:57 Intake and Output: 09/16/18 09/16/18 06:59 18:59 Intake Total 3070 0 Output Total 2770 600 Balance 300 -600 - Medications Medications: Current Medications Albuterol/Ipratropium (Duoneb 3 Mg/0.5 Mg (3 Ml) Ud) 3 ml IH Q2H PRN PRN Reason: Shortness of Breath Last Admin: 09/16/18 17:44 Dose: 3 ml Aspirin (Aspirin Chewable) 81 mg PO DAILY [facility] Last Admin: 09/14/18 10:17 Dose: 81 mg Carvedilol (Coreg) 12.5 mg PO BID [facility] Last Admin: 09/16/18 17:48 Dose: 12.5 mg Cyclobenzaprine HCl (Flexeril) 10 mg PO BID PRN PRN Reason: Muscle spasm Last Admin: 09/15/18 18:00 Dose: 10 mg Dextrose (Dextrose 50% Inj) 0 ml IV STAT PRN; Protocol PRN Reason: Hypoglycemia Protocol Furosemide (Lasix) 40 mg IVP 0600,1800 [facility] Last Admin: 09/16/18 17:47 Dose: 40 mg Guaifenesin (Robitussin) 100 mg PO Q4H PRN PRN Reason: Cough Last Admin: 09/16/18 17:47 Dose: 100 mg Dextrose (Dextrose 5% In Water 1000 Ml) 1,000 mls @ 0 mls/hr IV .Q0M PRN; Pro tocol PRN Reason: Hypoglycemia Protocol Insulin Human Lispro (Humalog Med) 0 units SC ACHS [facility]; Protocol Last Admin: 09/16/18 17:48 Dose: 1 unit Lidocaine (Lidoderm) 1 ea TD DAILY [facility] Last Admin: 09/16/18 12:50 Dose: 1 ea Pantoprazole Sodium (Protonix Ec Tab) 40 mg PO ACB [facility] Last Admin: 09/16/18 13:47 Dose: 40 mg Sacubitril/Valsartan (Entresto 24 Mg-26 Mg Tablet) 1 each PO BID [facility] Last Admin: 09/16/18 17:47 Dose: 1 each - Labs Labs: 09/16/18 07:00 09/16/18 07:00 PT 14.0 SECONDS (9.4-12.5) H 09/13/18 14:40 INR 1.26 09/13/18 14:40 APTT 28.5 Seconds (26.9-38.3) 09/13/18 14:40 Attending/Attestation - Attestation I have personally seen and examined this patient.: Yes I have fully participated in the care of the patient.: Yes I have reviewed all pertinent clinical information, including history, physical exam and plan: Yes Notes (Text): 09/16/18 18:12 63 year old male with past medical history of afib on eliquis, hypertension, and cardiomyopathy who presented with complaint of chest pain and shortness of breath. He is on iv lasix, aspirin, coreg and entresto. Patient is s/p cardiac cath today as above. Will follow up with cardiology recommendations. PT evaluation is pending. Reynaldo Gallego MD Hospitalist.
[2018-09-16 07:52] LABS: ALB/GLOB RATIO 1.2 (1.1-1.8); ALBUMIN 3.7 g/dL (3.0-4.8); ALT/SGPT 10 U/L (7-56); AST/SGOT 15 U/L (17-59); BLOOD UREA NITROGEN 27 mg/dL (7-21); CALCIUM 8.7 mg/dL (8.4-10.5); GFR NON-AFRICAN AMERICAN > 60
[2018-09-16] MEDS ORDERED: Lidocaine PF 2% (5 ml) Inj (For Cardiac Arrhy) ONE (11:25)
[2018-09-16] MEDS ORDERED: Iodixanol 320 MG/ML 200 ML BOTTLE IV ONE (11:25)
[2018-09-16] MEDS ORDERED: Midazolam 2 MG/2 ML VIAL ONE (11:57)
[2018-09-16] MEDS ORDERED: Sodium Chloride 0.9% 1,000 ML IV SCH (12:30)
[2018-09-16] MEDS: Pantoprazole 40 mg EC Tab PO SCH ×2 (12:39→13:47)
[2018-09-16] MEDS: Insulin Lispro (humaLOG) MEDIUM Coverage SC SCH ×4 (12:39→22:00)
[2018-09-16] MEDS: Potassium Chloride 20 mEq ER Tab PO ONE ×2 (12:39→13:47)
[2018-09-16] MEDS: SACUBITRIL 24mg/VALSARTAN 26mg tab PO SCH ×2 (12:39→17:47)
[2018-09-16] MEDS: Lidocaine 5% Patch TD SCH (12:50)
--- NOTE | 2018-09-16 13:27 | CP.PCM.PCO ---
Physician Communication Note - Physician Communication Note Physician Communication Note: s/p cath groin management await cardiology recommendations
--- NOTE | 2018-09-16 13:39 | CARDCATH ---
PROCEDURE DATE: 09/16/2018 HISTORY: The patient is a 63-year-old male with a dilated cardiomyopathy and CAD in the past, who presents with recurrence of chest pain. Because of these ongoing symptoms including symptoms at rest, cardiac catheterization was recommended. PROCEDURES: Left heart catheterization with coronary arteriography and left ventriculogram. The right femoral artery was cannulated with a 6-[place] sheath. There were no complications. I performed moderate sedation which included the presence of an independent trained observer that assisted in monitoring the patient's level of consciousness and physiologic status. After administration of Versed and fentanyl, my intraservice time was 30 minutes. The findings on catheterization revealed a left ventricle that was globally dilated and diffusely hypokinetic with an EF between 20% and 25%. His coronary anatomy revealed a right dominant circulation. The RCA was a large vessel, markedly tortuous, but was free of significant disease. The left main artery was unremarkable. The LAD revealed diffuse atherosclerosis with multiple 50% lesion throughout its course. Diagonal vessels revealed intimal irregularities. The circumflex system and obtuse marginal branch revealed diffuse atherosclerosis without critical lesions. Angio-Seal was used to close the femoral artery site. The patient tolerated the procedure well. In summary, the procedure revealed dilated and severely hypokinetic LV with an EF of 20-25%. His coronary anatomy revealed diffuse atherosclerosis in the coronary tree with multiple 50% lesions throughout the course of the LAD. Given these findings, the patient's treatment will be continued medical therapy. Afterload reduction and a cardiac risk reduction program would be appropriate. Angus Clifton MD
[2018-09-16] MEDS: guaiFENesin 100 mg/5 ml Syrup UD PO PRN (17:47)
[2018-09-17] MEDS: guaiFENesin 100 mg/5 ml Syrup UD PO PRN (05:14)
[2018-09-17] MEDS: Insulin Lispro (humaLOG) MEDIUM Coverage SC SCH ×4 (08:04→22:24)
[2018-09-17 08:20] LABS: BASO # 0.01 K/mm3 (0.0-2.0); BASO % 0.1 % (0.0-3.0); EOS # 0.2 (0.0-0.7); EOS % 2.7 % (1.5-5.0); HEMOGLOBIN 14.7 g/dL (14.0-18.0); LYMPH % 24.3 % (22.0-35.0); MEAN CELL VOLUME 90.5 fl (80.0-105.0); MEAN CORPUSCULAR HEMOGLOBIN 28.6 pg (25.0-35.0); MEAN CORPUSCULAR HGB CONC 31.6 g/dl (31.0-37.0); MEAN PLATELET VOLUME 10.5 fl (7.0-11.0); MONO # 0.8 (0.1-0.6); MONO % 9.4 % (1.0-6.0); RBC 5.14 10^6/uL (3.5-6.1); WHITE BLOOD COUNT 8.1 10^3/uL (4.5-11.0)
[2018-09-17] MEDS: Pantoprazole 40 mg EC Tab PO SCH (08:26)
[2018-09-17 08:28] LABS: ALB/GLOB RATIO 1.2 (1.1-1.8); ALBUMIN 3.8 g/dL (3.0-4.8); ALT/SGPT 10 U/L (7-56); AST/SGOT 14 U/L (17-59); BLOOD UREA NITROGEN 26 mg/dL (7-21); CALCIUM 8.3 mg/dL (8.4-10.5); GFR NON-AFRICAN AMERICAN > 60
[2018-09-17] MEDS: Lidocaine 5% Patch TD SCH (09:41)
[2018-09-17] MEDS: SACUBITRIL 24mg/VALSARTAN 26mg tab PO SCH ×2 (09:41→18:02)
--- NOTE | 2018-09-17 12:44 | PN ---
DATE: 09/17/2018 CARDIOLOGY FOLLOWUP SUBJECTIVE: The patient is without chest pain. He is complaining of chronic lower back pain. PHYSICAL EXAMINATION VITAL SIGNS: Blood pressure 120/87 and heart rate is in the 70s. NECK: Negative JVD. Lungs: Without rales. HEART: Reveals S1 and S2. EXTREMITIES: The right groin site is stable. LABORATORY DATA: BUN and creatinine are unremarkable. Glucose is 166. Hemoglobin is 14.7. ASSESSMENT: 1. Stable post cardiac catheterization. 2. Dilated cardiomyopathy. 3. Nonobstructive coronary artery disease. 4. Diabetes mellitus. 5. Obesity. Given these findings, I have discussed with the patient as well as family about the need for the patient to lose weight and undergo cardiac risk reduction program. From a cardiac perspective, the patient can be discharged. We will discontinue telemetry today. Angus Clifton MD
[2018-09-17] MEDS: Albuterol-Ipratrop 3 mg / 0.5 (3 ml) UD IH PRN ×2 (13:02→21:00)
--- NOTE | 2018-09-17 13:33 | CP.PCM.PN ---
<Alondra Herzog - Last Filed: 09/17/18 13:23> Subjective - Date & Time of Evaluation Date of Evaluation: 09/17/18 Time of Evaluation: 13:24 - Subjective Subjective: Alondra Herzog, PGY-1, Internal Medicine Progress Note for Dr. Gallego Patient seen and evaluated at bedside. Patient had no acute overnight events. Patient still complains of back pain, but denies any other symptoms including chest pain, shortness of breath, nausea, vomiting, constipation, diarrhea, dysuria, hematuria. Patient walked with PT today but was only able to ambulate to the bathroom. 12-point ROS was unremarkable except for what was mentioned above. Objective - Vital Signs/Intake and Output Vital Signs (last 24 hours): Temp Pulse Resp BP Pulse Ox 98.1 F 77 18 120/87 98 09/17/18 05:27 09/17/18 09:41 09/17/18 08:00 09/17/18 09:41 09/17/18 08:00 Intake and Output: 09/17/18 09/17/18 06:59 18:59 Intake Total 1688 Output Total 1800 Balance -112 - Medications Medications: Current Medications Albuterol/Ipratropium (Duoneb 3 Mg/0.5 Mg (3 Ml) Ud) 3 ml IH Q2H PRN PRN Reason: Shortness of Breath Last Admin: 09/17/18 13:02 Dose: 3 ml Aspirin (Aspirin Chewable) 81 mg PO DAILY [facility] Last Admin: 09/14/18 10:17 Dose: 81 mg Carvedilol (Coreg) 12.5 mg PO BID [facility] Last Admin: 09/17/18 09:41 Dose: 12.5 mg Cyclobenzaprine HCl (Flexeril) 10 mg PO BID PRN PRN Reason: Muscle spasm Last Admin: 09/17/18 05:14 Dose: 10 mg Dextrose (Dextrose 50% Inj) 0 ml IV STAT PRN; Protocol PRN Reason: Hypoglycemia Protocol Furosemide (Lasix) 40 mg IVP 0600,1800 [facility] Last Admin: 09/17/18 08:26 Dose: 40 mg Guaifenesin (Robitussin) 100 mg PO Q4H PRN PRN Reason: Cough Last Admin: 09/17/18 05:14 Dose: 100 mg Dextrose (Dextrose 5% In Water 1000 Ml) 1,000 mls @ 0 mls/hr IV .Q0M PRN; Protocol PRN Reason: Hypoglycemia Protocol Insulin Human Lispro (Humalog Med) 0 units SC ACHS [facility]; Protocol Last Admin: 09/17/18 12:16 Dose: 1 unit Lidocaine (Lidoderm) 1 ea TD DAILY [facility] Last Admin: 09/17/18 09:41 Dose: 1 ea Pantoprazole Sodium (Protonix Ec Tab) 40 mg PO ACB [facility] Last Admin: 09/17/18 08:26 Dose: 40 mg Sacubitril/Valsartan (Entresto 24 Mg-26 Mg Tablet) 1 each PO BID [facility] Last Admin: 09/17/18 09:41 Dose: 1 each - Labs Labs: 09/17/18 06:40 09/17/18 06:40 PT 14.0 SECONDS (9.4-12.5) H 09/13/18 14:40 INR 1.26 09/13/18 14:40 APTT 28.5 Seconds (26.9-38.3) 09/13/18 14:40 - Constitutional Appears: Well, Non-toxic, No Acute Distress - Head Exam Head Exam: ATRAUMATIC, NORMAL INSPECTION, NORMOCEPHALIC - Eye Exam Eye Exam: EOMI, PERRL - ENT Exam ENT Exam: Mucous Membranes Moist - Respiratory Exam Respiratory Exam: Clear to Ausculation Bilateral, NORMAL BREATHING PATTERN - Cardiovascular Exam Cardiovascular Exam: REGULAR RHYTHM, RRR - GI/Abdominal Exam GI & Abdominal Exam: Soft, Normal Bowel Sounds. absent: Tenderness - Extremities Exam Extremities Exam: Full ROM - Back Exam Back Exam: CVA tenderness (L), CVA tenderness (R) - Neurological Exam Neurological Exam: Alert, Awake, CN II-XII Intact, Oriented x3 - Psychiatric Exam Psychiatric exam: Normal Affect, Normal Mood Assessment and Plan - Assessment and Plan (Free Text) Assessment: 63 year old male with past medical history of atrial fibrillation of eliquis, hypertension, hyperlipidemia, congestive heart failure presented for chest pain and shortness of breath. Patient was admitted for ACS rule out and management of CHF. Plan: Rule out ACS -EKG 09/13: paced by pacemaker appropriately with heart rate of 86 -Troponinx3 was negative -Cardiac catheterization on 09/16 showed LVEF of 20-25% and LAD stenosed to 50%. There were no critical lesions. -As per Cardiology, continue with medical management. -Continue with aspirin 81 mg daily, coreg 12.5 BID, entresto 1 tab BID. Patient will not be started on lipitor due to past unknown reaction to lipitor. Hypertension -Continue coreg BID and entresto 1 tab BID Systolic CHF with AICD -Cardiac catheterization on 09/16 showed LVEF of 20-25% and LAD stenosed to 50%. There were no critical lesions. -Continue with coreg 12.5 BID, entresto 1 tab BID, and lasix 40 mg BID Atrial fibrillation -Restarted eliquis 5 mg BID Chronic back pain with rule out of nephrolithasis -Urinanalysis showed no leukocyte esterase, no nitrates, and no blood. Unlikely pyelonephritis or nephrolithiasis -Continue with flexeril 10 mg BID PRN and lidoderm patch Diabetes mellitus type II -POC glucose has been under 200 throughout this admission. -HgbA1c: 7.7 -Continue with med SSI Subclinical hypothyroidism -TSH was 6.22 and T4 was 1.08 -Patient is asymptomatic and as a result no management is needed at this time -Continue to monitor. Disposition: Patient is medically stable for discharge. Due to patient's deconditioning, patient will be evaluated for TCU for reconditioning as per PT. GI prophylaxis: protonix 40 mg ACB DVT prophylaxis: Eliquis 2.5 mg BID Patient plan discussed with Dr. Gallego. <Reynaldo Gallego - Last Filed: 09/17/18 13:54> Objective - Vital Signs/Intake and Output Vital Signs (last 24 hours): Temp Pulse Resp BP Pulse Ox 98.5 F 75 18 148/88 98 09/17/18 13:32 09/17/18 13:32 09/17/18 13:32 09/17/18 13:32 09/17/18 08:00 Intake and Output: 09/17/18 09/17/18 06:59 18:59 Intake Total 1688 Output Total 1800 Balance -112 - Medications Medications: Current Medications Albuterol/Ipratropium (Duoneb 3 Mg/0.5 Mg (3 Ml) Ud) 3 ml IH Q2H PRN PRN Reason: Shortness of Breath Last Admin: 09/17/18 13:02 Dose: 3 ml Apixaban (Eliquis) 5 mg PO BID [facility]; Protocol Aspirin (Aspirin Chewable) 81 mg PO DAILY [facility] Last Admin: 09/14/18 10:17 Dose: 81 mg Carvedilol (Coreg) 12.5 mg PO BID [facility] Last Admin: 09/17/18 09:41 Dose: 12.5 mg Cyclobenzaprine HCl (Flexeril) 10 mg PO BID PRN PRN Reason: Muscle spasm Last Admin: 09/17/18 05:14 Dose: 10 mg Dextrose (Dextrose 50% Inj) 0 ml IV STAT PRN; Protocol PRN Reason: Hypoglycemia Protocol Furosemide (Lasix) 40 mg IVP 0600,1800 [facility] Last Admin: 09/17/18 08:26 Dose: 40 mg Guaifenesin (Robitussin) 100 mg PO Q4H PRN PRN Reason: Cough Last Admin: 09/17/18 05:14 Dose: 100 mg Dextrose (Dextrose 5% In Water 1000 Ml) 1,000 mls @ 0 mls/hr IV .Q0M PRN; Protocol PRN Reason: Hypoglycemia Protocol Insulin Human Lispro (Humalog Med) 0 units SC ACHS [facility]; Protocol Last Admin: 09/17/18 12:16 Dose: 1 unit Lidocaine (Lidoderm) 1 ea TD DAILY [facility] Last Admin: 09/17/18 09:41 Dose: 1 ea Pantoprazole Sodium (Protonix Ec Tab) 40 mg PO ACB [facility] Last Admin: 09/17/18 08:26 Dose: 40 mg Sacubitril/Valsartan (Entresto 24 Mg-26 Mg Tablet) 1 each PO BID [facility] Last Admin: 09/17/18 09:41 Dose: 1 each - Labs Labs: 09/17/18 06:40 09/17/18 06:40 PT 14.0 SECONDS (9.4-12.5) H 09/13/18 14:40 INR 1.26 09/13/18 14:40 APTT 28.5 Seconds (26.9-38.3) 09/13/18 14:40 Attending/Attestation - Attestation I have personally seen and examined this patient.: Yes I have fully participated in the care of the patient.: Yes I have reviewed all pertinent clinical information, including history, physical exam and plan: Yes Notes (Text): 09/17/18 13:53 63 year old male with past medical history of afib on eliquis, hypertension, and cardiomyopathy who presented with complaint of chest pain and shortness of breath. He is on iv lasix, aspirin, coreg and entresto. Patient is s/p cardiac cath yesterday as above. Will switch lasix to po and resume eliquis. Patient complains of chronic back pain and unsteady gait. He lives alone. PT evaluation was appreciated today who recommends TCU. TCU evaluation is requested. Reynaldo Gallego MD Hospitalist.
[2018-09-18] MEDS: Albuterol-Ipratrop 3 mg / 0.5 (3 ml) UD IH PRN ×2 (07:40→16:16)
[2018-09-18] MEDS: Pantoprazole 40 mg EC Tab PO SCH (08:15)
[2018-09-18 08:24] LABS: BASO # 0.01 K/mm3 (0.0-2.0); BASO % 0.1 % (0.0-3.0); EOS # 0.2 (0.0-0.7); EOS % 2.4 % (1.5-5.0); LYMPH # 1.8 (1.2-3.4); LYMPH % 23.8 % (22.0-35.0); MEAN CELL VOLUME 89.6 fl (80.0-105.0); MEAN CORPUSCULAR HEMOGLOBIN 28.8 pg (25.0-35.0); MEAN CORPUSCULAR HGB CONC 32.1 g/dl (31.0-37.0); MEAN PLATELET VOLUME 10.4 fl (7.0-11.0); MONO # 0.8 (0.1-0.6); MONO % 11.4 % (1.0-6.0); RBC 5.21 10^6/uL (3.5-6.1); RED CELL DISTRIBUTION WIDTH 15.1 % (11.5-14.5); WHITE BLOOD COUNT 7.4 10^3/uL (4.5-11.0)
[2018-09-18 09:03] LABS: ALB/GLOB RATIO 1.2 (1.1-1.8); ALT/SGPT 14 U/L (7-56); AST/SGOT 19 U/L (17-59); BLOOD UREA NITROGEN 25 mg/dL (7-21); CALCIUM 8.3 mg/dL (8.4-10.5); GFR NON-AFRICAN AMERICAN > 60
--- NOTE | 2018-09-18 09:45 | CP.PCM.PN ---
<Taco Ellis - Last Filed: 09/18/18 12:21> Subjective - Date & Time of Evaluation Date of Evaluation: 09/18/18 Time of Evaluation: 06:00 - Subjective Subjective: Patient seen and evaluated bedside in AM. No acute issues overnight. Patient still complaining of back pain. Denies chest pain, SOB, fever, chills, or any other complaints at this time. Objective - Vital Signs/Intake and Output Vital Signs (last 24 hours): Temp Pulse Resp BP Pulse Ox 97.6 F 75 20 132/90 94 L 09/18/18 05:55 09/18/18 05:55 09/18/18 05:55 09/18/18 05:55 09/18/18 05:55 Intake and Output: 09/18/18 09/18/18 06:59 18:59 Intake Total 120 Output Total 850 Balance -730 - Medications Medications: Current Medications Albuterol/Ipratropium (Duoneb 3 Mg/0.5 Mg (3 Ml) Ud) 3 ml IH Q2H PRN PRN Reason: Shortness of Breath Last Admin: 09/18/18 07:40 Dose: 3 ml Apixaban (Eliquis) 5 mg PO BID [facility]; Protocol Last Admin: 09/17/18 18:02 Dose: 5 mg Aspirin (Aspirin Chewable) 81 mg PO DAILY [facility] Last Admin: 09/14/18 10:17 Dose: 81 mg Benzonatate (Tessalon Perles) 100 mg PO TID [facility] Carvedilol (Coreg) 12.5 mg PO BID [facility] Last Admin: 09/17/18 18:02 Dose: 12.5 mg Cyclobenzaprine HCl (Flexeril) 10 mg PO BID PRN PRN Reason: Muscle spasm Last Admin: 09/17/18 05:14 Dose: 10 mg Dextrose (Dextrose 50% Inj) 0 ml IV STAT PRN; Protocol PRN Reason: Hypoglycemia Protocol Furosemide (Lasix) 40 mg PO BID [facility] Last Admin: 09/17/18 18:02 Dose: 40 mg Guaifenesin (Robitussin) 100 mg PO Q4H PRN PRN Reason: Cough Last Admin: 09/17/18 05:14 Dose: 100 mg Dextrose (Dextrose 5% In Water 1000 Ml) 1,000 mls @ 0 mls/hr IV .Q0M PRN; Protocol PRN Reason: Hypoglycemia Protocol Insulin Human Lispro (Humalog Med) 0 units SC ACHS [facility]; Protocol Last Admin: 09/17/18 22:24 Dose: Not Given Lidocaine (Lidoderm) 1 ea TD DAILY [facility] Last Admin: 09/17/18 09:41 Dose: 1 ea Pantoprazole Sodium (Protonix Ec Tab) 40 mg PO ACB [facility] Last Admin: 09/18/18 08:15 Dose: 40 mg Sacubitril/Valsartan (Entresto 24 Mg-26 Mg Tablet) 1 each PO BID [facility] Last Admin: 09/17/18 18:02 Dose: 1 each - Labs Labs: 09/18/18 07:00 09/18/18 07:00 PT 14.0 SECONDS (9.4-12.5) H 09/13/18 14:40 INR 1.26 09/13/18 14:40 APTT 28.5 Seconds (26.9-38.3) 09/13/18 14:40 - Constitutional Appears: Non-toxic, No Acute Distress - Eye Exam Eye Exam: Normal appearance - ENT Exam ENT Exam: Mucous Membranes Moist - Respiratory Exam Respiratory Exam: Clear to Ausculation Bilateral, NORMAL BREATHING PATTERN - Cardiovascular Exam Cardiovascular Exam: REGULAR RHYTHM, +S1, +S2 - GI/Abdominal Exam GI & Abdominal Exam: Soft. absent: Tenderness - Extremities Exam Extremities Exam: absent: Pedal Edema - Back Exam Back Exam: NORMAL INSPECTION - Neurological Exam Neurological Exam: Alert, Awake, Oriented x3 Assessment and Plan - Assessment and Plan (Free Text) Assessment: 63 year old male with past medical history of atrial fibrillation of eliquis, hypertension, hyperlipidemia, congestive heart failure presented for chest pain and shortness of breath. Patient was admitted for ACS rule out and management of CHF. Plan: Rule out ACS -EKG 09/13: paced by pacemaker appropriately with heart rate of 86 -Troponinx3 was negative -Cardiac catheterization on 09/16 showed LVEF of 20-25% and LAD stenosed to 50%. There were no critical lesions. -As per Cardiology, continue with medical management. -Continue with aspirin 81 mg daily, coreg 12.5 BID, entresto 1 tab BID. Patient will not be started on lipitor due to past unknown reaction to lipitor. Hypertension -Continue coreg BID and entresto 1 tab BID Systolic CHF with AICD -Cardiac catheterization on 09/16 showed LVEF of 20-25% and LAD stenosed to 50%. There were no critical lesions. -Continue with coreg 12.5 BID, entresto 1 tab BID, and lasix 40 mg BID Atrial fibrillation -eliquis 5 mg BID Chronic back pain with rule out of nephrolithasis -UA showed no leukocyte esterase, no nitrates, and no blood. Unlikely pyelonephritis or nephrolithiasis -Continue with flexeril 10 mg BID PRN and lidoderm patch Diabetes mellitus type II -HgbA1c: 7.7 -Continue with med SSI Subclinical hypothyroidism -TSH was 6.22 and T4 was 1.08 -Patient is asymptomatic and as a result no management is needed at this time -Continue to monitor Disposition: Pending TCU evaluation GI prophylaxis: protonix 40 mg ACB DVT prophylaxis: Eliquis 5mg BID <Reynaldo Gallego - Last Filed: 09/18/18 13:04> Objective - Vital Signs/Intake and Output Vital Signs (last 24 hours): Temp Pulse Resp BP Pulse Ox 97.6 F 75 20 135/81 94 L 09/18/18 05:55 09/18/18 05:55 09/18/18 05:55 09/18/18 10:53 09/18/18 05:55 Intake and Output: 09/18/18 09/18/18 06:59 18:59 Intake Total 120 Output Total 850 Balance -730 - Medications Medications: Current Medications Albuterol/Ipratropium (Duoneb 3 Mg/0.5 Mg (3 Ml) Ud) 3 ml IH Q2H PRN PRN Reason: Shortness of Breath Last Admin: 09/18/18 07:40 Dose: 3 ml Apixaban (Eliquis) 5 mg PO BID [facility]; Protocol Last Admin: 09/18/18 10:53 Dose: 5 mg Aspirin (Aspirin Chewable) 81 mg PO DAILY [facility] Last Admin: 09/14/18 10:17 Dose: 81 mg Benzonatate (Tessalon Perles) 100 mg PO TID [facility] Last Admin: 09/18/18 10:54 Dose: 100 mg Carvedilol (Coreg) 12.5 mg PO BID [facility] Last Admin: 09/18/18 10:53 Dose: 12.5 mg Cyclobenzaprine HCl (Flexeril) 10 mg PO BID PRN PRN Reason: Muscle spasm Last Admin: 09/18/18 11:06 Dose: 10 mg Dextrose (Dextrose 50% Inj) 0 ml IV STAT PRN; Protocol PRN Reason: Hypoglycemia Protocol Furosemide (Lasix) 40 mg PO BID [facility] Last Admin: 09/18/18 10:53 Dose: 40 mg Guaifenesin (Robitussin) 100 mg PO Q4H PRN PRN Reason: Cough Last Admin: 09/17/18 05:14 Dose: 100 mg Dextrose (Dextrose 5% In Water 1000 Ml) 1,000 mls @ 0 mls/hr IV .Q0M PRN; Bela col PRN Reason: Hypoglycemia Protocol Insulin Human Lispro (Humalog Med) 0 units SC ACHS [facility]; Protocol Last Admin: 09/18/18 12:43 Dose: Not Given Lidocaine (Lidoderm) 1 ea TD DAILY [facility] Last Admin: 09/18/18 10:53 Dose: 1 ea Pantoprazole Sodium (Protonix Ec Tab) 40 mg PO ACB [facility] Last Admin: 09/18/18 08:15 Dose: 40 mg Sacubitril/Valsartan (Entresto 24 Mg-26 Mg Tablet) 1 each PO BID [facility] Last Admin: 09/18/18 10:53 Dose: 1 each - Labs Labs: 09/18/18 07:00 09/18/18 07:00 PT 14.0 SECONDS (9.4-12.5) H 09/13/18 14:40 INR 1.26 09/13/18 14:40 APTT 28.5 Seconds (26.9-38.3) 09/13/18 14:40 Attending/Attestation - Attestation I have personally seen and examined this patient.: Yes I have fully participated in the care of the patient.: Yes I have reviewed all pertinent clinical information, including history, physical exam and plan: Yes Notes (Text): 09/18/18 13:03 63 year old male with past medical history of afib on eliquis, hypertension, and cardiomyopathy who presented with complaint of chest pain and shortness of breath. He is on lasix, aspirin, coreg, eliquis and entresto. Patient is s/p cardiac cath on Wednesday. He is on flexeril and lidoderm patch for chronic back pain. Can resume home medication gabapentin. PT is following and recommended TCU. Reynaldo Gallego MD Hospitalist.
[2018-09-18] MEDS: SACUBITRIL 24mg/VALSARTAN 26mg tab PO SCH ×2 (10:53→17:33)
[2018-09-18] MEDS: Lidocaine 5% Patch TD SCH (10:53)
[2018-09-18] MEDS: Insulin Lispro (humaLOG) MEDIUM Coverage SC SCH ×3 (12:43→21:17)
--- NOTE | 2018-09-18 13:22 | PN ---
DATE: 09/18/2018 CARDIOLOGY FOLLOWUP SUBJECTIVE: The patient was transferred to the third floor today without symptoms. PHYSICAL EXAMINATION: VITAL SIGNS: Blood pressure 132/90 and heart rates in the 70s. NECK: Negative JVD. LUNGS: Without rales. HEART: Reveals S1 and S2. EXTREMITIES: Without edema. LABORATORY DATA: Hemoglobin is unchanged. BUN and creatinine are unremarkable. Glucose 153. IMPRESSION: 1. Cardiomyopathy. 2. Obesity. 3. Diabetes mellitus. 4. Nonobstructive coronary artery disease. Given these findings, the patient is referred to the TCU for extensive physical therapy. Angus Clifton MD
[2018-09-19] MEDS: guaiFENesin 100 mg/5 ml Syrup UD PO PRN (01:05)
[2018-09-19 04:03] LABS: URINE BILIRUBIN NEGATIVE (NEGATIVE); URINE BLOOD NEGATIVE (NEGATIVE); URINE COLOR YELLOW (YELLOW); URINE GLUCOSE (UA) 100 mg/dL (NEGATIVE); URINE LEUKOCYTE ESTERASE NEGATIVE Leu/uL (NEGATIVE); URINE PROTEIN NEGATIVE mg/dL (<30 mg/dL); URINE UROBILINOGEN 0.2 E.U./dL (<1 E.U./dL)
[2018-09-19 04:04] LABS: URINE APPEARANCE CLEAR (CLEAR)
[2018-09-19] MEDS: Pantoprazole 40 mg EC Tab PO SCH (06:40)
[2018-09-19 07:21] LABS: BASO # 0.03 K/mm3 (0.0-2.0); BASO % 0.4 % (0.0-3.0); EOS # 0.1 (0.0-0.7); EOS % 1.8 % (1.5-5.0); HEMOGLOBIN 14.3 g/dL (14.0-18.0); LYMPH # 2.2 (1.2-3.4); LYMPH % 30.3 % (22.0-35.0); MEAN CELL VOLUME 89.6 fl (80.0-105.0); MEAN CORPUSCULAR HEMOGLOBIN 28.7 pg (25.0-35.0); MEAN CORPUSCULAR HGB CONC 32.1 g/dl (31.0-37.0); MEAN PLATELET VOLUME 10.6 fl (7.0-11.0); MONO # 0.7 (0.1-0.6); MONO % 9.4 % (1.0-6.0); RBC 4.98 10^6/uL (3.5-6.1); WHITE BLOOD COUNT 7.1 10^3/uL (4.5-11.0)
[2018-09-19 08:03] LABS: ALB/GLOB RATIO 1.2 (1.1-1.8); ALBUMIN 3.8 g/dL (3.0-4.8); ALT/SGPT 9 U/L (7-56); AST/SGOT 20 U/L (17-59); BLOOD UREA NITROGEN 27 mg/dL (7-21); CALCIUM 8.2 mg/dL (8.4-10.5); GFR NON-AFRICAN AMERICAN > 60
[2018-09-19 08:45] VITALS: RESP 18; TEMP 98.1; O2SAT 98
[2018-09-19] MEDS: SACUBITRIL 24mg/VALSARTAN 26mg tab PO SCH ×2 (10:31→18:06)
[2018-09-19] MEDS: Lidocaine 5% Patch TD SCH (10:32)
[2018-09-19] MEDS: Insulin Lispro (humaLOG) MEDIUM Coverage SC SCH ×2 (12:43→18:02)
--- NOTE | 2018-09-19 13:30 | CP.PCM.PCO ---
Physician Communication Note - Physician Communication Note Physician Communication Note: Patient accepted to TCU primary team aware
--- NOTE | 2018-09-19 14:03 | CP.PCM.DIS ---
<BhavikSameeraJm - Last Filed: 09/19/18 16:24> Provider - Provider Date of Admission: 09/13/18 16:17 Attending physician: Reynaldo Gallego MD Primary care physician: Tye Ramos MD Consults: 09/13/18 18:02 Physician Consult Routine Comment: Consulting Provider: Angus Clifton Consulting Physician: Angus Clifton Reason for Consult: CHF 09/13/18 20:43 Inpatient [facility] Core Measures Referral Routine Comment: CHF Physician Instructions: Reason For Exam: EVALUATION Transition In Care/Readmission Reduction Routine Comment: Physician Instructions: Reason For Exam: EVALUATION 09/13/18 20:47 Social Work Referral Routine Comment: DISCHARGE PLANNING Physician Instructions: Reason For Exam: EVALUATION 09/17/18 12:49 TCU [Evaluation for TRCU] Routine Comment: Physician Instructions: Reason For Exam: For reconditioning with physical therapy Time Spent in preparation of Discharge (in minutes): 45 Diagnosis - Discharge Diagnosis (1) Shortness of breath Status: Resolved (2) CHF exacerbation Status: Chronic (3) Chest pain Status: Resolved (4) Back pain Status: Chronic Hospital Course - Lab Results Lab Results: Most Recent Lab Values WBC 7.1 10^3/uL (4.5-11.0) 09/19/18 07:00 RBC 4.98 10^6/uL (3.5-6.1) 09/19/18 07:00 Hgb 14.3 g/dL (14.0-18.0) 09/19/18 07:00 Hct 44.6 % (42.0-52.0) 09/19/18 07:00 MCV 89.6 fl (80.0-105.0) 09/19/18 07:00 MCH 28.7 pg (25.0-35.0) 09/19/18 07:00 MCHC 32.1 g/dl (31.0-37.0) 09/19/18 07:00 RDW 15.0 % (11.5-14.5) H 09/19/18 07:00 Plt Count 211 10^3/uL (120.0-450.0) 09/19/18 07:00 MPV 10.6 fl (7.0-11.0) 09/19/18 07:00 Neut % (Auto) 58.1 % (50.0-68.0) 09/19/18 07:00 Lymph % (Auto) 30.3 % (22.0-35.0) 09/19/18 07:00 Alfalfa % (Auto) 9.4 % (1.0-6.0) H 09/19/18 07:00 Eos % (Auto) 1.8 % (1.5-5.0) 09/19/18 07:00 Baso % (Auto) 0.4 % (0.0-3.0) 09/19/18 07:00 Lymph # (Auto) 2.2 (1.2-3.4) 09/19/18 07:00 Alfalfa # (Auto) 0.7 (0.1-0.6) H 09/19/18 07:00 Eos # (Auto) 0.1 (0.0-0.7) 09/19/18 07:00 Baso # (Auto) 0.03 K/mm3 (0.0-2.0) 09/19/18 07:00 Absolute Neuts (auto) 4.15 (1.4-6.5) 09/19/18 07:00 PT 14.0 SECONDS (9.4-12.5) H 09/13/18 14:40 INR 1.26 09/13/18 14:40 APTT 28.5 Seconds (26.9-38.3) 09/13/18 14:40 D-Dimer, Quantitative 1602 ng/mlDDU (0-243) H 09/13/18 14:40 Sodium 135 mmol/L (132-148) 09/19/18 07:00 Potassium 3.8 mmol/L (3.6-5.0) 09/19/18 07:00 Chloride 98 mmol/L (98-107) 09/19/18 07:00 Carbon Dioxide 30 mmol/L (21-33) 09/19/18 07:00 Anion Gap 11 (10-20) 09/19/18 07:00 BUN 27 mg/dL (7-21) H 09/19/18 07:00 Creatinine 1.0 mg/dl (0.8-1.5) 09/19/18 07:00 Est GFR ( Amer) > 60 09/19/18 07:00 Est GFR (Non-Af Amer) > 60 09/19/18 07:00 POC Glucose (mg/dL) 211 mg/dL (65-110) H 09/19/18 11:15 Random Glucose 155 mg/dL (70-110) H 09/19/18 07:00 Hemoglobin A1c 7.7 % (4.2-6.5) H 09/13/18 14:40 Calcium 8.2 mg/dL (8.4-10.5) L 09/19/18 07:00 Magnesium 1.7 mg/dL (1.7-2.2) 09/13/18 14:40 Total Bilirubin 0.6 mg/dL (0.2-1.3) 09/19/18 07:00 AST 20 U/L (17-59) 09/19/18 07:00 ALT 9 U/L (7-56) 09/19/18 07:00 Alkaline Phosphatase 58 U/L (38-126) 09/19/18 07:00 Troponin I 0.05 ng/mL 09/14/18 02:20 NT-Pro-B Natriuret Pep 8000 pg/mL (0-450) H 09/13/18 14:40 Total Protein 6.9 g/dL (5.8-8.3) 09/19/18 07:00 Albumin 3.8 g/dL (3.0-4.8) 09/19/18 07:00 Globulin 3.1 gm/dL 09/19/18 07:00 Albumin/Globulin Ratio 1.2 (1.1-1.8) 09/19/18 07:00 Triglycerides 175 mg/dL (35-160) H 09/13/18 14:40 Cholesterol 173 mg/dL (130-200) 09/13/18 14:40 LDL Cholesterol Direct 126 mg/dL (0-129) 09/13/18 14:40 HDL Cholesterol 24 mg/dL (29-60) L 09/13/18 14:40 Free T4 1.08 ng/dL (0.78-2.19) 09/13/18 14:40 TSH 3rd Generation 6.22 mIU/mL (0.46-4.68) H 09/13/18 14:40 Urine Color Yellow (YELLOW) 09/19/18 03:40 Urine Appearance Clear (CLEAR) 09/19/18 03:40 Urine pH 6.0 (4.7-8.0) 09/19/18 03:40 Ur Specific Brady 1.015 (1.005-1.035) 09/19/18 03:40 Urine Protein Negative mg/dL (<30 mg/dL) 09/19/18 03:40 Urine Glucose (UA) 100 mg/dL (NEGATIVE) H 09/19/18 03:40 Urine Ketones Negative mg/dL (NEGATIVE) 09/19/18 03:40 Urine Blood Negative (NEGATIVE) 09/19/18 03:40 Urine Nitrate Negative (NEGATIVE) 09/19/18 03:40 Urine Bilirubin Negative (NEGATIVE) 09/19/18 03:40 Urine Urobilinogen 0.2 E.U./dL (<1 E.U./dL) 09/19/18 03:40 Ur Leukocyte Esterase Negative Jayleen/uL (NEGATIVE) 09/19/18 03:40 Blood Type B NEGATIVE 09/13/18 15:15 Blood Type Confirm B NEGATIVE 09/13/18 15:53 Antibody Screen Negative 09/13/18 15:15 BBK History Checked No verified bt 09/13/18 15:15 - Hospital Course Hospital Course: 63 yr old male w/ hx of AICD, afib on Eliquis, Hypertension, Hypercholesterolemia, CHF presents with chest pain along with SOB for 3 days duration. Patient states the past 3 or 4 days he has increased SOB when ambulating and admits to some orthopnea. He says he uses 4 pillows to elevate his head at night. Patient also states around 2 am today while he was sleeping he started feeling sharp chest pain, non radiating, reproducible on palpation that is constant. Over the course of his hospital stay, chest xray showed no active pulmonary disease. EKG shows normal sinus rhythm, paced. Chest CTA showed no evidence of PE. Cardiology, Dr. Clifton was consulted and did cardiac cath on 09/18 which showed Dilated and severely hypokinetic LV, LVEF 20-25%. Atherosclerosis with multiple 50% lesions throughout the course of the LAD. Continue medical therapy, afterload reduction and a cardiac risk reduction program. He recommends that patient continues medical management. Patient was started on Aspirin and Lipitor. Physical therapy evaluated the patient and recommended that he goes to TCU. 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 He was instructed to resume home medications and start Aspirin and Lipitor. He was instructed to eat a heart healthy dieat and exercise regularly. He was also instructed to return to the ED for worsening or newly concerning symptoms. Patient is medically stable for discharge to TCU. Discharge Exam - Head Exam Head Exam: ATRAUMATIC, NORMAL INSPECTION, NORMOCEPHALIC - Additional Findings Additional findings: - Constitutional Appears: Well, Non-toxic, No Acute Distress - Head Exam Head Exam: ATRAUMATIC, NORMAL INSPECTION - Eye Exam Eye Exam: EOMI, Normal appearance Pupil Exam: NORMAL ACCOMODATION, PERRL - ENT Exam ENT Exam: Mucous Membranes Moist - Neck Exam Neck Exam: Full ROM - Respiratory Exam Respiratory Exam: Clear to Ausculation Bilateral. absent: Rales, Rhonchi, Wheezes, Respiratory Distress - Cardiovascular Exam Cardiovascular Exam: REGULAR RHYTHM, +S1, +S2. absent: Gallop, Rubs, Murmur - GI/Abdominal Exam GI & Abdominal Exam: Soft, Normal Bowel Sounds. absent: Tenderness Additional comments: Patient is obese. - Extremities Exam Extremities Exam: Normal Inspection. absent: Calf Tenderness, Pedal Edema, Tenderness - Back Exam Back Exam: absent: paraspinal tenderness, vertebral tenderness Additional comments: Left lower back seam stitcher to palpation. - Neurological Exam Neurological Exam: Alert, Awake, CN II-XII Intact, Oriented x3 - Psychiatric Exam Psychiatric exam: Normal Affect, Normal Mood - Skin Skin Exam: Dry, Intact, Normal Color, Warm Discharge Plan - Discharge Medications Prescriptions: Aspirin [Aspirin Chewable] 81 mg PO DAILY 14 Days #14 chew Atorvastatin [Lipitor] 20 mg PO DAILY 14 Days #14 tab - Follow Up Plan Condition: STABLE Disposition: REHAB FACILITY/REHAB UNIT Instructions: Heart Failure (GEN) Additional Instructions: 1. Follow up with your primary care doctor (Dr. Ramos), repeat TSH in 6 weeks. 2. Follow up with Cardiology, Dr. Clifton in 1-2 weeks after discharge. 3. Please take all home medications as prescribed. Please take new aspirin 81 mg daily and Lipitor 20mg daily. 4. Please return to the emergency department if you have any new or concerning symptoms. Referrals: Tye Ramos MD [Primary Care Provider] - Angus Clifton MD [Staff Provider] - <Dony Norman - Last Filed: 09/19/18 16:59> Provider - Provider Date of Admission: 09/13/18 16:17 Attending physician: Reynaldo Gallego MD Primary care physician: Tye Ramos MD Consults: 09/13/18 18:02 Physician Consult Routine Comment: Consulting Provider: Angus Clifton Consulting Physician: Angus Clifton Reason for Consult: CHF 09/13/18 20:43 Inpatient [facility] Core Measures Referral Routine Comment: CHF Physician Instructions: Reason For Exam: EVALUATION Transition In Care/Readmission Reduction Routine Comment: Physician Instructions: Reason For Exam: EVALUATION 09/13/18 20:47 Social Work Referral Routine Comment: DISCHARGE PLANNING Physician Instructions: Reason For Exam: EVALUATION 09/17/18 12:49 TCU [Evaluation for TRCU] Routine Comment: Physician Instructions: Reason For Exam: For reconditioning with physical therapy Hospital Course - Lab Results Lab Results: Most Recent Lab Values WBC 7.1 10^3/uL (4.5-11.0) 09/19/18 07:00 RBC 4.98 10^6/uL (3.5-6.1) 09/19/18 07:00 Hgb 14.3 g/dL (14.0-18.0) 09/19/18 07:00 Hct 44.6 % (42.0-52.0) 09/19/18 07:00 MCV 89.6 fl (80.0-105.0) 09/19/18 07:00 MCH 28.7 pg (25.0-35.0) 09/19/18 07:00 MCHC 32.1 g/dl (31.0-37.0) 09/19/18 07:00 RDW 15.0 % (11.5-14.5) H 09/19/18 07:00 Plt Count 211 10^3/uL (120.0-450.0) 09/19/18 07:00 MPV 10.6 fl (7.0-11.0) 09/19/18 07:00 Neut % (Auto) 58.1 % (50.0-68.0) 09/19/18 07:00 Lymph % (Auto) 30.3 % (22.0-35.0) 09/19/18 07:00 Alfalfa % (Auto) 9.4 % (1.0-6.0) H 09/19/18 07:00 Eos % (Auto) 1.8 % (1.5-5.0) 09/19/18 07:00 Baso % (Auto) 0.4 % (0.0-3.0) 09/19/18 07:00 Lymph # (Auto) 2.2 (1.2-3.4) 09/19/18 07:00 Alfalfa # (Auto) 0.7 (0.1-0.6) H 09/19/18 07:00 Eos # (Auto) 0.1 (0.0-0.7) 09/19/18 07:00 Baso # (Auto) 0.03 K/mm3 (0.0-2.0) 09/19/18 07:00 Absolute Neuts (auto) 4.15 (1.4-6.5) 09/19/18 07:00 PT 14.0 SECONDS (9.4-12.5) H 09/13/18 14:40 INR 1.26 09/13/18 14:40 APTT 28.5 Seconds (26.9-38.3) 09/13/18 14:40 D-Dimer, Quantitative 1602 ng/mlDDU (0-243) H 09/13/18 14:40 Sodium 135 mmol/L (132-148) 09/19/18 07:00 Potassium 3.8 mmol/L (3.6-5.0) 09/19/18 07:00 Chloride 98 mmol/L (98-107) 09/19/18 07:00 Carbon Dioxide 30 mmol/L (21-33) 09/19/18 07:00 Anion Gap 11 (10-20) 09/19/18 07:00 BUN 27 mg/dL (7-21) H 09/19/18 07:00 Creatinine 1.0 mg/dl (0.8-1.5) 09/19/18 07:00 Est GFR ( Amer) > 60 09/19/18 07:00 Est GFR (Non-Af Amer) > 60 09/19/18 07:00 POC Glucose (mg/dL) 104 mg/dL (65-110) 09/19/18 16:20 Random Glucose 155 mg/dL (70-110) H 09/19/18 07:00 Hemoglobin A1c 7.7 % (4.2-6.5) H 09/13/18 14:40 Calcium 8.2 mg/dL (8.4-10.5) L 09/19/18 07:00 Magnesium 1.7 mg/dL (1.7-2.2) 09/13/18 14:40 Total Bilirubin 0.6 mg/dL (0.2-1.3) 09/19/18 07:00 AST 20 U/L (17-59) 09/19/18 07:00 ALT 9 U/L (7-56) 09/19/18 07:00 Alkaline Phosphatase 58 U/L (38-126) 09/19/18 07:00 Troponin I 0.05 ng/mL 09/14/18 02:20 NT-Pro-B Natriuret Pep 8000 pg/mL (0-450) H 09/13/18 14:40 Total Protein 6.9 g/dL (5.8-8.3) 09/19/18 07:00 Albumin 3.8 g/dL (3.0-4.8) 09/19/18 07:00 Globulin 3.1 gm/dL 09/19/18 07:00 Albumin/Globulin Ratio 1.2 (1.1-1.8) 09/19/18 07:00 Triglycerides 175 mg/dL (35-160) H 09/13/18 14:40 Cholesterol 173 mg/dL (130-200) 09/13/18 14:40 LDL Cholesterol Direct 126 mg/dL (0-129) 09/13/18 14:40 HDL Cholesterol 24 mg/dL (29-60) L 09/13/18 14:40 Free T4 1.08 ng/dL (0.78-2.19) 09/13/18 14:40 TSH 3rd Generation 6.22 mIU/mL (0.46-4.68) H 09/13/18 14:40 Urine Color Yellow (YELLOW) 09/19/18 03:40 Urine Appearance Clear (CLEAR) 09/19/18 03:40 Urine pH 6.0 (4.7-8.0) 09/19/18 03:40 Ur Specific Brady 1.015 (1.005-1.035) 09/19/18 03:40 Urine Protein Negative mg/dL (<30 mg/dL) 09/19/18 03:40 Urine Glucose (UA) 100 mg/dL (NEGATIVE) H 09/19/18 03:40 Urine Ketones Negative mg/dL (NEGATIVE) 09/19/18 03:40 Urine Blood Negative (NEGATIVE) 09/19/18 03:40 Urine Nitrate Negative (NEGATIVE) 09/19/18 03:40 Urine Bilirubin Negative (NEGATIVE) 09/19/18 03:40 Urine Urobilinogen 0.2 E.U./dL (<1 E.U./dL) 09/19/18 03:40 Ur Leukocyte Esterase Negative Jayleen/uL (NEGATIVE) 09/19/18 03:40 Blood Type B NEGATIVE 09/13/18 15:15 Blood Type Confirm B NEGATIVE 09/13/18 15:53 Antibody Screen Negative 09/13/18 15:15 BBK History Checked No verified bt 09/13/18 15:15 Attending/Attestation - Attestation I have personally seen and examined this patient.: Yes I have fully participated in the care of the patient.: Yes I have reviewed all pertinent clinical information, including history, physical exam and plan: Yes Notes (Text): 09/19/18 16:55 Medical record note made by the resident after discussion with my direction and input after the patient was personally seen and examined by me. I have reviewed the chart and agree that the record accurately reflects by personal performance of the history, physical exam, data review, and medical decision-making, in the course for the patient. I have also personally directed the plan of care. 63 yr old male with PMH of Obesity of CHF with systolic dysfunction, s/p AICD, afib on Eliquis, Hypertension, Hypercholesterolemia, presents with chest pain along with SOB for 3 days duration. CXR shows vascular congestion. BNP was elevated .Patient was treated with IV lasix. D-didmer. CT angio showed no PE. Patient underwent cardiac cath , no intervention was done.Patient dyspnea has improved. He was evaluated by PT and TCU is recommended.He will be discharged to TCU for rehabilitation. Management plan was discussed in detail with patient. Education was provided.
--- NOTE | 2018-09-19 14:10 | PN ---
DATE: 09/19/2018 CARDIOLOGY FOLLOWUP SUBJECTIVE: The patient is ambulating with physical therapy. OBJECTIVE: VITAL SIGNS: Blood pressure 139/96, heart rates in the 70s. NECK: Negative JVD. LUNGS: Without rales. HEART: S1 and S2. EXTREMITIES: Without edema. LABORATORY DATA: Hemoglobin is 14.3. Chemistries, BUN and creatinine are unremarkable. Glucose is 155. IMPRESSION: 1. Resolution of chest pain. 2. Dilated cardiomyopathy. 3. Nonobstructive coronary artery disease. 4. Diabetes mellitus. 5. Obesity. 6. Weakness. RECOMMENDATIONS: Given these findings, the patient is being transferred to the TCU today. He would benefit from a course of physical therapy. Angus Clifton MD
[2018-09-19] MEDS: Albuterol-Ipratrop 3 mg / 0.5 (3 ml) UD IH PRN (14:33)
[2018-09-19 18:09] VITALS: BP 130/70; PULSE 80
== END 2018-09-19 20:08 | DRG 286 ==
LOC: ED 13:48 → ERH 16:17 → 2RNO 18:50 → 2RSO 09-16 12:58 → 3RSO 09-18 10:33
PROVIDERS: ADMIT Hospitalist; ATTEND Internal Medicine
PROC: 4A023N7 Measurement of Cardiac Sampling and Pressure, Left Heart, Percutaneous Approach (ICD-10-PCS; principal; 2018-09-16)
PROC: B211YZZ Fluoroscopy of Multiple Coronary Arteries using Other Contrast (ICD-10-PCS; 2018-09-16)
PROC: B215YZZ Fluoroscopy of Left Heart using Other Contrast (ICD-10-PCS; 2018-09-16)
DX: I25.110 Atherosclerotic heart disease of native coronary artery with unstable angina pectoris (principal); I50.21 Acute systolic (congestive) heart failure; I42.0 Dilated cardiomyopathy; I11.0 Hypertensive heart disease with heart failure; E11.9 Type 2 diabetes mellitus without complications; I48.2 Chronic atrial fibrillation; I25.5 Ischemic cardiomyopathy; E66.9 Obesity, unspecified; Z68.38 Body mass index [BMI] 38.0-38.9, adult; Z87.891 Personal history of nicotine dependence; Z79.01 Long term (current) use of anticoagulants; Z95.810 Presence of automatic (implantable) cardiac defibrillator; M54.5 Low back pain; E78.00 Pure hypercholesterolemia, unspecified; E78.5 Hyperlipidemia, unspecified; G89.29 Other chronic pain; E02 Subclinical iodine-deficiency hypothyroidism; R53.1 Weakness

== ENCOUNTER 2018-09-19 19:45 | Inpatient (IN) | payer OTHER, BC ==
[2018-09-19] MEDS ORDERED: Albuterol-Ipratrop 3 mg / 0.5 (3 ml) UD IH PRN (20:30)
[2018-09-19] MEDS ORDERED: Dextrose 50% SYRINGE Inj (50 ml) IV PRN (20:38)
--- NOTE | 2018-09-19 21:59 | CP.PCM.PN ---
<Ramon Jeff - Last Filed: 09/19/18 21:57> Subjective - Date & Time of Evaluation Date of Evaluation: 09/19/18 Time of Evaluation: 21:57 - Subjective Subjective: PGY1 Night Team Note: Paged by Nurse regarding Patient with low back pain. Per Patient, he stated he wants "percocet" for the pain. Currently only being treated with flexeril. Ordered 1 dose toradol 15mg IM and will consider percocet if toradol does not work. Ramon Jeff PGY1 Objective - Medications Medications: Current Medications Albuterol/Ipratropium (Duoneb 3 Mg/0.5 Mg (3 Ml) Ud) 3 ml IH Q2H PRN PRN Reason: Shortness of Breath Apixaban (Eliquis) 5 mg PO BID [facility]; Protocol Aspirin (Aspirin Chewable) 81 mg PO 0800 [facility] Benzonatate (Tessalon Perles) 100 mg PO TID [facility] Carvedilol (Coreg) 12.5 mg PO BID [facility] Cyclobenzaprine HCl (Flexeril) 10 mg PO BID PRN PRN Reason: Muscle spasm Last Admin: 09/19/18 21:09 Dose: 10 mg Dextrose (Dextrose 50% Inj) 0 ml IV STAT PRN; Protocol PRN Reason: Hypoglycemia Protocol Furosemide (Lasix) 40 mg PO BID [facility] Gabapentin (Neurontin) 100 mg PO TID [facility]; Protocol Guaifenesin (Robitussin) 100 mg PO Q4H PRN PRN Reason: Cough Dextrose (Dextrose 5% In Water 1000 Ml) 1,000 mls @ 0 mls/hr IV .Q0M PRN; Protocol PRN Reason: Hypoglycemia Protocol Insulin Human Lispro (Humalog Med) 0 units SC ACHS [facility]; Protocol Lidocaine (Lidoderm) 1 ea TD DAILY [facility] Pantoprazole Sodium (Protonix Ec Tab) 40 mg PO ACB [facility] Sacubitril/Valsartan (Entresto 24 Mg-26 Mg Tablet) 1 each PO BID [facility] <Fabian Bae - Last Filed: 09/19/18 22:04> Objective - Medications Medications: Current Medications Albuterol/Ipratropium (Duoneb 3 Mg/0.5 Mg (3 Ml) Ud) 3 ml IH Q2H PRN PRN Reason: Shortness of Breath Apixaban (Eliquis) 5 mg PO BID [facility]; Protocol Aspirin (Aspirin Chewable) 81 mg PO 0800 [facility] Benzonatate (Tessalon Perles) 100 mg PO TID [facility] Carvedilol (Coreg) 12.5 mg PO BID [facility] Cyclobenzaprine HCl (Flexeril) 10 mg PO BID PRN PRN Reason: Muscle spasm Last Admin: 09/19/18 21:09 Dose: 10 mg Dextrose (Dextrose 50% Inj) 0 ml IV STAT PRN; Protocol PRN Reason: Hypoglycemia Protocol Furosemide (Lasix) 40 mg PO BID [facility] Gabapentin (Neurontin) 100 mg PO TID [facility]; Protocol Guaifenesin (Robitussin) 100 mg PO Q4H PRN PRN Reason: Cough Dextrose (Dextrose 5% In Water 1000 Ml) 1,000 mls @ 0 mls/hr IV .Q0M PRN; Protocol PRN Reason: Hypoglycemia Protocol Insulin Human Lispro (Humalog Med) 0 units SC ACHS [facility]; Protocol Last Admin: 09/19/18 22:00 Dose: Not Given Ketorolac Tromethamine (Toradol) 15 mg IM STAT STA Stop: 09/19/18 21:56 Lidocaine (Lidoderm) 1 ea TD DAILY [facility] Pantoprazole Sodium (Protonix Ec Tab) 40 mg PO ACB [facility] Sacubitril/Valsartan (Entresto 24 Mg-26 Mg Tablet) 1 each PO BID [facility] Attending/Attestation - Attestation I have personally seen and examined this patient.: No I have fully participated in the care of the patient.: No I have reviewed all pertinent clinical information, including history, physical exam and plan: No
[2018-09-19] MEDS: Insulin Lispro (humaLOG) MEDIUM Coverage SC SCH (22:00)
[2018-09-20 01:09] VITALS: BMI 36.9
[2018-09-20] MEDS: Insulin Lispro (humaLOG) MEDIUM Coverage SC SCH ×4 (06:48→21:39)
[2018-09-20] MEDS ORDERED: Pantoprazole 40 mg EC Tab PO SCH (07:30)
[2018-09-20] MEDS: SACUBITRIL 24mg/VALSARTAN 26mg tab PO SCH ×2 (10:03→17:17)
[2018-09-20] MEDS: Lidocaine 5% Patch TD SCH (10:05)
--- NOTE | 2018-09-20 13:08 | CP.PCM.HP ---
<AllisonJm guerrero - Last Filed: 09/20/18 13:05> History of Present Illness - History of Present Illness History of Present Illness: PGY-1 H&P for Dr. Norman 63 yr old male w/ hx of AICD, afib on Eliquis, Hypertension, Hypercholesterolemia, CHF presents with chest pain along with SOB for 3 days duration. Patient states the past 3 or 4 days he has increased SOB when ambulating and admits to some orthopnea. He says he uses 4 pillows to elevate his head at night. Patient also states around 2 am today while he was sleeping he started feeling sharp chest pain, non radiating, reproducible on palpation that is constant. Over the course of his hospital stay, chest xray showed no active pulmonary disease. EKG shows normal sinus rhythm, paced. Chest CTA showed no evidence of PE. Cardiology, Dr. Clifton was consulted and did cardiac cath on 09/18 which showed Dilated and severely hypokinetic LV, LVEF 20-25%. Atherosclerosis with multiple 50% lesions throughout the course of the LAD. Continue medical therapy, afterload reduction and a cardiac risk reduction program. He recommends that patient continues medical management. Patient was started on Aspirin and Lipitor. Physical therapy evaluated the patient and recommended that he goes to TCU. PMH: Dr. Ramos PSH: Left knee meniscus repair, removal of polyp in left nares Social: denies current tobacco use, alcohol on occasion, and denies illicit drug use Allergies: metformin, PCN, Tetracyclines Medications: Eliquis, coreg, lasix, Entreso, [place] Family Hx: non contributory Present on Admission - Present on Admission Any Indicators Present on Admission: No History of DVT/PE: No History of Uncontrolled Diabetes: No Urinary Catheter: No Decubitus Ulcer Present: No Past Patient History - Infectious Disease Hx of Infectious Diseases: None - Tetanus Immunizations Tetanus Immunization: Up to Date - Past Social History Smoking Status: Never Smoked - CARDIAC Hx Cardiac Disorders: Yes (chronic afib,pacemaker, CAD) Hx Hypercholesterolemia: Yes - PULMONARY Hx Respiratory Disorders: No - NEUROLOGICAL Hx Neurological Disorder: No Hx Transient Ischemic Attacks (TIA): (pt denies) - HEENT Hx HEENT Problems: No (WEARS RX GLASSES) - RENAL Hx Chronic Kidney Disease: No - ENDOCRINE/METABOLIC Hx Endocrine Disorders: Yes Hx Diabetes Mellitus Type 2: Yes - HEMATOLOGICAL/ONCOLOGICAL Hx Blood Disorders: No - INTEGUMENTARY Hx Dermatological Problems: Yes - MUSCULOSKELETAL/RHEUMATOLOGICAL Hx Falls: No - GASTROINTESTINAL Hx Gastrointestinal Disorders: No (DIVERTICULITIS, HEMORRHOIDS, HIATAL HERNIA) - GENITOURINARY/GYNECOLOGICAL Hx Genitourinary Disorders: No Hx Reproductive Disorders: Yes - PSYCHIATRIC Hx Psychophysiologic Disorder: No Hx Emotional Abuse: No Hx Physical Abuse: No Hx Substance Use: No - SURGICAL HISTORY Hx Surgeries: Yes Hx Cardiac Catheterization: Yes Hx Orthopedic Surgery: Yes Other/Comment: LEFT MENISCUS TEAR 1996,POLPS REMOVED from NASAL PASSAGES, pt denies arthoscopic sx r knee, pt stated "I had fluid drained." oral sx to inner r cheek dr brantley removed a cyst 5 yrs ago - ANESTHESIA Hx Anesthesia: No Hx Anesthesia Reactions: No Hx Malignant Hyperthermia: No Meds Allergies/Adverse Reactions: Allergies Allergy/AdvReac Type Severity Reaction Status Date / Time codeine Allergy SWELLING Verified 09/13/18 17:35 metformin Allergy DIARRHEA Verified 09/13/18 17:35 Penicillins Allergy SWELLING Verified 09/13/18 17:35 tetracycline Allergy SWELLING Verified 09/13/18 17:35 Physical Exam - Additional Findings Additional findings: - Constitutional Appears: Well, Non-toxic, No Acute Distress - Head Exam Head Exam: ATRAUMATIC, NORMAL INSPECTION - Eye Exam Eye Exam: EOMI, Normal appearance Pupil Exam: NORMAL ACCOMODATION, PERRL - ENT Exam ENT Exam: Mucous Membranes Moist - Neck Exam Neck Exam: Full ROM - Respiratory Exam Respiratory Exam: Clear to Ausculation Bilateral. absent: Rales, Rhonchi, Wheezes, Respiratory Distress - Cardiovascular Exam Cardiovascular Exam: REGULAR RHYTHM, +S1, +S2. absent: Gallop, Rubs, Murmur - GI/Abdominal Exam GI & Abdominal Exam: Soft, Normal Bowel Sounds. absent: Tenderness Additional comments: Patient is obese. - Extremities Exam Extremities Exam: Normal Inspection. absent: Calf Tenderness, Pedal Edema, Tenderness - Back Exam Back Exam: absent: paraspinal tenderness, vertebral tenderness Additional comments: Left lower paper machine backtender to palpation. - Neurological Exam Neurological Exam: Alert, Awake, CN II-XII Intact, Oriented x3 - Psychiatric Exam Psychiatric exam: Normal Affect, Normal Mood - Skin Skin Exam: Dry, Intact, Normal Color, Warm Results - Vital Signs Recent Vital Signs: Last Vital Signs Temp Pulse 68 09/20/18 08:00 Resp BP 130/99 H 09/20/18 10:03 Pulse Ox - Labs Labs: Laboratory Results - last 24 hr 09/20/18 11:52 POC Glucose (mg/dL) 193 H Assessment & Plan - Assessment and Plan (Free Text) Assessment: Patient is a 63 year old male with a past medical history of AICD, afib on Eliquis, Hypertension, Hypercholesterolemia, and CHF admitted for CHF exacerbation. Patient is in TCU for conditioning, as per PT recommendations. Plan: CHF exacerbation - Cardiac cath (09/16): Dilated and severely hypokinetic LV, LVEF 20-25%. Atherosclerosis with multiple 50% lesions throughout the course of the LAD. Continue medical therapy, afterload reduction and a cardiac risk reduction program. - Lasix 40 PO BID - Duonebs Q2 PRN - Coreg 12.5mg PO BID - Strict Input and output - Measure daily weights Chronic low back pain - Flexeril 10mg PO Q12 PRN - Lidoderm daily - Gabapentin 100mg PO TID Hx of atrial fibrillation - Eliquis 5mg PO QD - Coreg 12.5mg PO BID - AICD - Continue to monitor Hx of CAD - Aspirin 81mg daily - Coreg 12.5mg PO BID HTN - Continue home Entresto - Coreg 12.5mg PO BID DM - ISS Medium dose - Accuchecks ACHS - Hemoglobin A1C: 7.7 Subclinical hypothyroidism - TSH: 6.22 - Free T4: 1.08 - Instructed patient to repeat TSH in 6 weeks Prophylaxis: DVT: Eliquis 5mg PO QD GI: Protonix Patient seen and case discussed with attending, Dr. Ester Gutierres, PGY-1 <Dony Norman - Last Filed: 09/20/18 15:41> Results - Vital Signs Recent Vital Signs: Last Vital Signs Temp Pulse 68 09/20/18 08:00 Resp BP 130/99 H 09/20/18 10:03 Pulse Ox - Labs Labs: Laboratory Results - last 24 hr 09/20/18 11:52 POC Glucose (mg/dL) 193 H Attending/Attestation - Attestation I have personally seen and examined this patient.: Yes I have fully participated in the care of the patient.: Yes I have reviewed all pertinent clinical information: Yes Notes (Text): 09/20/18 15:39 Medical record note made by the resident after discussion with my direction and input after the patient was personally seen and examined by me. I have reviewed the chart and agree that the record accurately reflects by personal performance of the history, physical exam, data review, and medical decision-making, in the course for the patient. I have also personally directed the plan of care. 63 yr old male with PMH of Obesity of CHF with systolic dysfunction EF 20-25% s/p AICD, afib on Eliquis, Hypertension, Hypercholesterolemia, was initially admitted to [facility] inpatient with chest pain along with SOB . CXR shows vascular congestion. BNP was elevated .Patient was treated with IV lasix.D-didmer. CT angio showed no PE.Patient underwent cardiac cath , no intervention was done.Patient dyspnea has improved. He was evaluated by PT and TCU is recommended.He is admitted to TCU for rehabilitation. Management plan was discussed in detail with patient. Education was provided.
[2018-09-21] MEDS: Pantoprazole 40 mg EC Tab PO SCH (05:25)
[2018-09-21] MEDS: Insulin Lispro (humaLOG) MEDIUM Coverage SC SCH ×4 (06:48→22:18)
[2018-09-21] MEDS: Lidocaine 5% Patch TD SCH ×2 (10:00→10:32)
[2018-09-21] MEDS: SACUBITRIL 24mg/VALSARTAN 26mg tab PO SCH ×2 (10:32→17:51)
--- NOTE | 2018-09-21 15:45 | PN ---
DATE: 09/21/2018 CARDIOLOGY FOLLOWUP SUBJECTIVE: The patient walked with physical therapy and worked out in the gym without issues. He is complaining of some lower back pain. PHYSICAL EXAMINATION VITAL SIGNS: Blood pressure 111/78 and heart rates in the 70s. NECK: Negative JVD. LUNGS: Without rales. HEART: Reveals S1 and S2. EXTREMITIES: Without edema. LABORATORY DATA: Hemoglobin is 14.3. Glucose is 132. IMPRESSION: 1. Cardiomyopathy. 2. Coronary artery disease. 3. Anemia. 4. Obesity. 5. Diabetes mellitus. 6. Weakness. Given these findings, I have encouraged the patient to stay out of bed, be active, walk in the floor and continue with physical therapy. Angus Clifton MD
[2018-09-22] MEDS: Pantoprazole 40 mg EC Tab PO SCH (05:24)
[2018-09-22] MEDS: Insulin Lispro (humaLOG) MEDIUM Coverage SC SCH ×4 (06:59→21:47)
[2018-09-22] MEDS: Lidocaine 5% Patch TD SCH (09:53)
[2018-09-22] MEDS: SACUBITRIL 24mg/VALSARTAN 26mg tab PO SCH ×2 (09:56→17:42)
[2018-09-22 11:20] LABS: BLOOD UREA NITROGEN 35 mg/dL (7-21); CALCIUM 9.2 mg/dL (8.4-10.5); GFR NON-AFRICAN AMERICAN > 60
[2018-09-22 13:17] LABS: PH,URINE 5.5 (4.7-8.0); URINE BILIRUBIN NEGATIVE (NEGATIVE); URINE BLOOD NEGATIVE (NEGATIVE); URINE GLUCOSE (UA) 100 mg/dL (NEGATIVE); URINE LEUKOCYTE ESTERASE NEGATIVE Leu/uL (NEGATIVE); URINE PROTEIN NEGATIVE mg/dL (<30 mg/dL); URINE UROBILINOGEN 0.2 E.U./dL (<1 E.U./dL)
[2018-09-22 13:19] LABS: URINE APPEARANCE CLEAR (CLEAR); URINE COLOR YELLOW (YELLOW)
--- NOTE | 2018-09-22 14:14 | CP.PCM.PN ---
<LincolnCasey - Last Filed: 09/22/18 14:11> Subjective - Date & Time of Evaluation Date of Evaluation: 09/22/18 Time of Evaluation: 14:11 - Subjective Subjective: Medicine Progress Note for Dr. Norman 63M seen and evaluated at bedside this morning. No acute events overnight. Patient complaining of difficulty with urination however nurse and [facility] state patient has voided 1100cc without difficulty. Bladder scan ordered. Denies f/c, n/v/d, SOB, CP, headaches, or dizziness. Objective - Vital Signs/Intake and Output Vital Signs (last 24 hours): Temp Pulse Resp BP Pulse Ox 97.4 F L 76 16 126/81 95 09/21/18 10:00 09/21/18 17:51 09/21/18 10:00 09/22/18 09:56 09/21/18 13:09 Intake and Output: 09/22/18 09/22/18 06:59 18:59 Intake Total 540 Output Total 400 1100 Balance 140 -1100 - Medications Medications: Current Medications Albuterol/Ipratropium (Duoneb 3 Mg/0.5 Mg (3 Ml) Ud) 3 ml IH Q2H PRN PRN Reason: Shortness of Breath Apixaban (Eliquis) 5 mg PO BID [facility]; Protocol Last Admin: 09/22/18 09:56 Dose: 5 mg Aspirin (Aspirin Chewable) 81 mg PO 0800 [facility] Last Admin: 09/22/18 08:27 Dose: 81 mg Benzonatate (Tessalon Perles) 100 mg PO TID [facility] Last Admin: 09/22/18 13:24 Dose: 100 mg Carvedilol (Coreg) 12.5 mg PO BID [facility] Last Admin: 09/22/18 09:55 Dose: 12.5 mg Dextrose (Dextrose 50% Inj) 0 ml IV STAT PRN; Protocol PRN Reason: Hypoglycemia Protocol Finasteride (Proscar) 5 mg PO DAILY [facility] Last Admin: 09/22/18 12:10 Dose: 5 mg Furosemide (Lasix) 40 mg PO BID [facility] Last Admin: 09/22/18 09:56 Dose: 40 mg Gabapentin (Neurontin) 100 mg PO TID [facility]; Protocol Last Admin: 09/22/18 13:23 Dose: 100 mg Guaifenesin (Robitussin) 100 mg PO Q4H PRN PRN Reason: Cough Dextrose (Dextrose 5% In Water 1000 Ml) 1,000 mls @ 0 mls/hr IV .Q0M PRN; Protocol PRN Reason: Hypoglycemia Protocol Insulin Human Lispro (Humalog Med) 0 units SC ACHS [facility]; Protocol Last Admin: 09/22/18 12:09 Dose: 1 unit Ketorolac Tromethamine (Toradol) 15 mg IM Q6 PRN PRN Reason: Pain, moderate (4-7) Stop: 09/26/18 13:08 Last Admin: 09/22/18 13:24 Dose: 15 mg Lidocaine (Lidoderm) 1 ea TD DAILY [facility] Last Admin: 09/22/18 09:53 Dose: 1 ea Pantoprazole Sodium (Protonix Ec Tab) 40 mg PO 0600 [facility] Last Admin: 09/22/18 05:24 Dose: 40 mg Sacubitril/Valsartan (Entresto 24 Mg-26 Mg Tablet) 1 each PO BID [facility] Last Admin: 09/22/18 09:56 Dose: 1 each - Labs Labs: 09/22/18 10:30 - Constitutional Appears: Well, Non-toxic, No Acute Distress - Head Exam Head Exam: ATRAUMATIC, NORMAL INSPECTION, NORMOCEPHALIC - Eye Exam Eye Exam: EOMI - ENT Exam ENT Exam: Mucous Membranes Moist - Respiratory Exam Respiratory Exam: Clear to Ausculation Bilateral, NORMAL BREATHING PATTERN. absent: Respiratory Distress - Cardiovascular Exam Cardiovascular Exam: REGULAR RHYTHM. absent: Tachycardia - GI/Abdominal Exam GI & Abdominal Exam: Soft, Normal Bowel Sounds. absent: Tenderness - Back Exam Back Exam: absent: CVA tenderness (L), CVA tenderness (R) - Neurological Exam Neurological Exam: Alert, Awake - Psychiatric Exam Psychiatric exam: Normal Affect, Normal Mood - Skin Skin Exam: Dry, Intact, Normal Color, Warm Assessment and Plan - Assessment and Plan (Free Text) Assessment: 63M, PMH of afib on Eliquis s/p AICD placement, Hypertension, Hypercholesterolemia, and CHF admitted for CHF exacerbation. Patient is in TCU for conditioning, as per PT recommendations. Plan: CHF exacerbation - Cardiac cath (09/16): Dilated and severely hypokinetic LV, LVEF 20-25%. Atherosclerosis with multiple 50% lesions throughout the course of the LAD. Continue medical therapy, afterload reduction and a cardiac risk reduction program. - Lasix 40 PO BID - Duonebs Q2 PRN - Coreg 12.5mg PO BID - Sacubitril/Valsartan 1 tab PO BID - Strict Input and output - Measure daily weights Urinary Retentio - Per nurse, patient voided 1100cc prior to scan - Finasteride 5mg QD - Strict Is and Os - Continue to monitor Chronic low back pain - Lidoderm daily - Gabapentin 100mg PO TID Hx of atrial fibrillation - Eliquis 5mg PO BID - ASA 81 QD - Coreg 12.5mg PO BID - AICD - Continue to monitor Hx of CAD - Aspirin 81mg daily - Coreg 12.5mg PO BID HTN - Continue home Entresto - Coreg 12.5mg PO BID DM - ISS Medium dose - Accuchecks ACHS - Hemoglobin A1C: 7.7 Subclinical hypothyroidism - TSH: 6.22 - Free T4: 1.08 - Instructed patient to repeat TSH in 6 weeks Prophylaxis: DVT: Eliquis 5mg PO QD GI: Protonix Patient seen and case discussed with attending, Dr. Ester Stark PGY1 <Dony Norman - Last Filed: 09/24/18 10:45> Objective - Vital Signs/Intake and Output Vital Signs (last 24 hours): Temp Pulse Resp BP Pulse Ox 97.8 F 73 20 152/79 H 95 09/23/18 14:00 09/24/18 05:46 09/23/18 14:00 09/24/18 09:34 09/23/18 17:03 - Medications Medications: Current Medications Acetaminophen (Tylenol 325mg Tab) 650 mg PO Q6H PRN PRN Reason: Headache Last Admin: 09/24/18 10:23 Dose: 650 mg Albuterol/Ipratropium (Duoneb 3 Mg/0.5 Mg (3 Ml) Ud) 3 ml IH Q2H PRN PRN Reason: Shortness of Breath Apixaban (Eliquis) 5 mg PO BID [facility]; Protocol Last Admin: 09/24/18 09:33 Dose: 5 mg Aspirin (Aspirin Chewable) 81 mg PO 0800 [facility] Last Admin: 09/24/18 08:02 Dose: 81 mg Benzonatate (Tessalon Perles) 100 mg PO TID [facility] Last Admin: 09/24/18 09:35 Dose: 100 mg Carvedilol (Coreg) 25 mg PO BID [facility] Last Admin: 09/24/18 09:33 Dose: 25 mg Dextrose (Dextrose 50% Inj) 0 ml IV STAT PRN; Protocol PRN Reason: Hypoglycemia Protocol Furosemide (Lasix) 40 mg PO 1000,1800 [facility] Last Admin: 09/24/18 09:34 Dose: 40 mg Gabapentin (Neurontin) 100 mg PO TID [facility]; Protocol Last Admin: 09/24/18 09:35 Dose: 100 mg Guaifenesin (Robitussin) 100 mg PO Q4H PRN PRN Reason: Cough Last Admin: 09/24/18 08:03 Dose: 100 mg Dextrose (Dextrose 5% In Water 1000 Ml) 1,000 mls @ 0 mls/hr IV .Q0M PRN; P rotocol PRN Reason: Hypoglycemia Protocol Insulin Human Lispro (Humalog Med) 0 units SC ACHS [facility]; Protocol Last Admin: 09/24/18 07:14 Dose: 1 unit Ketorolac Tromethamine (Toradol) 15 mg IM Q6 PRN PRN Reason: Pain, moderate (4-7) Stop: 09/26/18 13:08 Last Admin: 09/24/18 03:59 Dose: 15 mg Lidocaine (Lidoderm) 1 ea TD DAILY [facility] Last Admin: 09/24/18 09:36 Dose: Not Given Pantoprazole Sodium (Protonix Ec Tab) 40 mg PO 0600 [facility] Last Admin: 09/24/18 06:00 Dose: 40 mg Sacubitril/Valsartan (Entresto 24 Mg-26 Mg Tablet) 1 each PO BID [facility] Last Admin: 09/24/18 09:34 Dose: 1 each - Labs Labs: 09/22/18 10:30 Attending/Attestation - Attestation I have personally seen and examined this patient.: Yes I have fully participated in the care of the patient.: Yes I have reviewed all pertinent clinical information, including history, physical exam and plan: Yes Notes (Text): 09/24/18 10:41 Medical record note made by the resident after discussion with my direction and input after the patient was personally seen and examined by me. I have reviewed the chart and agree that the record accurately reflects by personal performance of the history, physical exam, data review, and medical decision-making, in the course for the patient. I have also personally directed the plan of care. 63 yr old male with PMH of Obesity of CHF with systolic dysfunction EF 20-25% s/ p AICD, afib on Eliquis, Hypertension, Hypercholesterolemia, was initially admitted to [facility] [place] inpatient with chest pain along with SOB . CXR shows vascular congestion. BNP was elevated .Patient was treated with IV lasix.D-didmer. CT angio showed no PE.Patient underwent cardiac cath , no intervention was done.Patient dyspnea has improved. He was evaluated by PT and TCU was recommended.He is admitted to TCU for rehabilitation. Patient is participating in physical therapy. He c/o dysurea but UA is negative for UTI.Bladder scan is unremarkable. Management plan was discussed in detail with patient. Education was provided.
--- NOTE | 2018-09-22 15:10 | PN ---
DATE: 09/22/2018 CARDIOLOGY FOLLOWUP SUBJECTIVE: The patient is chest pain free. He exercised 20 minutes with the physical therapist today. PHYSICAL EXAMINATION: VITAL SIGNS: Blood pressure 126/81, heart rates in the 70s. NECK: Negative JVD. LUNGS: Without rales. HEART: S1, S2. EXTREMITIES: Without edema. LABORATORY DATA: Include glucose of 191. IMPRESSION: 1. Dilated cardiomyopathy. 2. Coronary artery disease. 3. Obesity. 4. Diabetes mellitus. 5. Weakness. 6. Anemia. Given these findings, I have discussed with the patient about his need for weight loss and to continue his exercise program when he gets discharged from the TCU. Angus Clifton MD
[2018-09-23] MEDS: Pantoprazole 40 mg EC Tab PO SCH (05:29)
[2018-09-23] MEDS: guaiFENesin 100 mg/5 ml Syrup UD PO PRN (05:51)
[2018-09-23] MEDS: Insulin Lispro (humaLOG) MEDIUM Coverage SC SCH ×4 (08:00→21:21)
[2018-09-23] MEDS: SACUBITRIL 24mg/VALSARTAN 26mg tab PO SCH ×2 (09:05→17:13)
[2018-09-23] MEDS: Lidocaine 5% Patch TD SCH (09:06)
--- NOTE | 2018-09-23 12:13 | CP.PCM.CON ---
<Ely Bennett - Last Filed: 09/23/18 12:40> History of Present Illness - History of Present Illness History of Present Illness: Podiatry Consult Note: Dr. Gaona 63 year old male patient, with PMHx of Afib, DM, HTN, HLD, CHF, seen and evaluated in TCU for elongated nails painful nails x10. Patient states that his nails hurt in his shoes when he walks. He notes that he follows up in with a community health program representative as an outpatient and missed his appointment secondary to his hospital stay. Denies any additional pedal complaints at this time. Denies nausea/vomiting/fever/chest pain. PMHx: as above ALL: Codeine, Metformin, PCN, Tetracycline Review of Systems - Review of Systems Review of Systems: 10 point ROS negative except what was mentioned in HPI Past Patient History - Infectious Disease Hx of Infectious Diseases: None - Tetanus Immunizations Tetanus Immunization: Up to Date - Past Social History Smoking Status: Never Smoked - CARDIAC Hx Cardiac Disorders: Yes (Chronic afib,pacemaker, CAD) Hx Hypercholesterolemia: Yes Hx Hypertension: Yes - PULMONARY Hx Respiratory Disorders: No - NEUROLOGICAL Hx Neurological Disorder: No Hx Transient Ischemic Attacks (TIA): (pt denies) - HEENT Hx HEENT Problems: No (WEARS RX GLASSES) - RENAL Hx Chronic Kidney Disease: No - ENDOCRINE/METABOLIC Hx Endocrine Disorders: Yes Hx Diabetes Mellitus Type 2: Yes - HEMATOLOGICAL/ONCOLOGICAL Hx Blood Disorders: No - INTEGUMENTARY Hx Dermatological Problems: Yes - MUSCULOSKELETAL/RHEUMATOLOGICAL Hx Falls: No - GASTROINTESTINAL Hx Gastrointestinal Disorders: No (DIVERTICULITIS, HEMORRHOIDS, HIATAL HERNIA) - GENITOURINARY/GYNECOLOGICAL Hx Genitourinary Disorders: No Hx Reproductive Disorders: Yes - PSYCHIATRIC Hx Psychophysiologic Disorder: No Hx Emotional Abuse: No Hx Physical Abuse: No Hx Substance Use: No - SURGICAL HISTORY Hx Surgeries: Yes Hx Cardiac Catheterization: Yes Hx Orthopedic Surgery: Yes Other/Comment: LEFT MENISCUS TEAR 1996,POLPS REMOVED from NASAL PASSAGES, pt denies arthoscopic sx r knee, pt stated "I had fluid drained." oral sx to inner r cheek dr brantley removed a cyst 5 yrs ago - ANESTHESIA Hx Anesthesia: No Hx Anesthesia Reactions: No Hx Malignant Hyperthermia: No Meds Allergies/Adverse Reactions: Allergies Allergy/AdvReac Type Severity Reaction Status Date / Time codeine Allergy SWELLING Verified 09/13/18 17:35 metformin Allergy DIARRHEA Verified 09/13/18 17:35 Penicillins Allergy SWELLING Verified 09/13/18 17:35 tetracycline Allergy SWELLING Verified 09/13/18 17:35 - Medications Medications: Current Medications Acetaminophen (Tylenol 325mg Tab) 650 mg PO Q6H PRN PRN Reason: Headache Last Admin: 09/23/18 07:59 Dose: 650 mg Albuterol/Ipratropium (Duoneb 3 Mg/0.5 Mg (3 Ml) Ud) 3 ml IH Q2H PRN PRN Reason: Shortness of Breath Apixaban (Eliquis) 5 mg PO BID [facility]; Protocol Last Admin: 09/23/18 09:05 Dose: 5 mg Aspirin (Aspirin Chewable) 81 mg PO 0800 [facility] Last Admin: 09/23/18 07:59 Dose: 81 mg Benzonatate (Tessalon Perles) 100 mg PO TID [facility] Last Admin: 09/23/18 09:06 Dose: 100 mg Carvedilol (Coreg) 12.5 mg PO BID [facility] Last Admin: 09/23/18 09:05 Dose: 12.5 mg Dextrose (Dextrose 50% Inj) 0 ml IV STAT PRN; Protocol PRN Reason: Hypoglycemia Protocol Furosemide (Lasix) 40 mg PO 1000,1800 [facility] Gabapentin (Neurontin) 100 mg PO TID [facility]; Protocol Last Admin: 09/23/18 09:06 Dose: 100 mg Guaifenesin (Robitussin) 100 mg PO Q4H PRN PRN Reason: Cough Last Admin: 09/23/18 05:51 Dose: 100 mg Dextrose (Dextrose 5% In Water 1000 Ml) 1,000 mls @ 0 mls/hr IV .Q0M PRN; Protocol PRN Reason: Hypoglycemia Protocol Insulin Human Lispro (Humalog Med) 0 units SC ACHS [facility]; Protocol Last Admin: 09/23/18 08:00 Dose: 1 unit Ketorolac Tromethamine (Toradol) 15 mg IM Q6 PRN PRN Reason: Pain, moderate (4-7) Stop: 09/26/18 13:08 Last Admin: 09/23/18 05:52 Dose: 15 mg Lidocaine (Lidoderm) 1 ea TD DAILY [facility] Last Admin: 09/23/18 09:06 Dose: Not Given Pantoprazole Sodium (Protonix Ec Tab) 40 mg PO 0600 [facility] Last Admin: 09/23/18 05:29 Dose: 40 mg Sacubitril/Valsartan (Entresto 24 Mg-26 Mg Tablet) 1 each PO BID [facility] Last Admin: 09/23/18 09:05 Dose: 1 each Physical Exam - Constitutional Appears: Non-toxic, No Acute Distress - Head Exam Head Exam: ATRAUMATIC, NORMOCEPHALIC - Extremities Exam Additional comments: Vascular: DP/PT faintly palpable secondary to edema, CFT < 3 seconds, TG warm to warm, + 1 edema appreciated to b/l extremities Ortho: Tenderness to palpation of nails, no pain with calf compression, MMT 5/5 in all compartments Neuro: Gross sensation intact, protective sensation diminished Derm: No open lesions, no erythema, no clinical signs of infection. Elongated, dystrophic nails x10 - Neurological Exam Neurological exam: Alert, Oriented x3 - Psychiatric Exam Psychiatric exam: Normal Affect, Normal Mood Results - Vital Signs Recent Vital Signs: Last Vital Signs Temp 97.4 F L 09/21/18 10:00 Pulse 76 09/21/18 17:51 Resp 16 09/21/18 10:00 BP 145/98 H 09/23/18 09:06 Pulse Ox 95 09/21/18 13:09 - Labs Result Diagrams: 09/22/18 10:30 Labs: Laboratory Results - last 24 hr 09/22/18 09/22/18 09/22/18 13:10 17:17 21:39 POC Glucose (mg/dL) 166 H 183 H Urine Color Yellow Urine Appearance Clear Urine pH 5.5 Ur Specific [place] 1.020 Urine Protein Negative Urine Glucose (UA) 100 H Urine Ketones Negative Urine Blood Negative Urine Nitrate Negative Urine Bilirubin Negative Urine Urobilinogen 0.2 Ur Leukocyte Esterase Negative 09/23/18 04:38 POC Glucose (mg/dL) 176 H Urine Color Urine Appearance Urine pH Ur Specific [place] Urine Protein Urine Glucose (UA) Urine Ketones Urine Blood Urine Nitrate Urine Bilirubin Urine Urobilinogen Ur Leukocyte Esterase Assessment & Plan - Assessment and Plan (Free Text) Assessment: 63 year old male patient, with PMHx of Afib, HTN, HLD, CHF, seen and evaluated in TCU for elongated nails x10. Plan: Patient seen and evaluated Discussed patient in detail with Dr. Gaona Elongated nails debrided with a large nail nipper without incident Educated patient on importance of diabetic foot care and checking feet daily for any infections Podiatry to sign off at this time, please reconsult as needed Thank you for the consult - Date & Time Date: 09/23/18 Time: 12:11 <Bharat Gaona - Last Filed: 09/24/18 09:11> Meds - Medications Medications: Current Medications Acetaminophen (Tylenol 325mg Tab) 650 mg PO Q6H PRN PRN Reason: Headache Last Admin: 09/23/18 07:59 Dose: 650 mg Albuterol/Ipratropium (Duoneb 3 Mg/0.5 Mg (3 Ml) Ud) 3 ml IH Q2H PRN PRN Reason: Shortness of Breath Apixaban (Eliquis) 5 mg PO BID [facility]; Protocol Last Admin: 09/23/18 17:13 Dose: 5 mg Aspirin (Aspirin Chewable) 81 mg PO 0800 [facility] Last Admin: 09/24/18 08:02 Dose: 81 mg Benzonatate (Tessalon Perles) 100 mg PO TID [facility] Last Admin: 09/23/18 17:14 Dose: 100 mg Carvedilol (Coreg) 25 mg PO BID [facility] Dextrose (Dextrose 50% Inj) 0 ml IV STAT PRN; Protocol PRN Reason: Hypoglycemia Protocol Furosemide (Lasix) 40 mg PO 1000,1800 [facility] Last Admin: 09/23/18 17:13 Dose: 40 mg Gabapentin (Neurontin) 100 mg PO TID [facility]; Protocol Last Admin: 09/23/18 17:14 Dose: 100 mg Guaifenesin (Robitussin) 100 mg PO Q4H PRN PRN Reason: Cough Last Admin: 09/24/18 08:03 Dose: 100 mg Dextrose (Dextrose 5% In Water 1000 Ml) 1,000 mls @ 0 mls/hr IV .Q0M PRN; Protocol PRN Reason: Hypoglycemia Protocol Insulin Human Lispro (Humalog Med) 0 units SC [facility]; Protocol Last Admin: 09/24/18 07:14 Dose: 1 unit Ketorolac Tromethamine (Toradol) 15 mg IM Q6 PRN PRN Reason: Pain, moderate (4-7) Stop: 09/26/18 13:08 Last Admin: 03/09/19 03:59 Dose: 15 mg Lidocaine (Lidoderm) 1 ea TD DAILY [facility] Last Admin: 09/23/18 09:06 Dose: Not Given Pantoprazole Sodium (Protonix Ec Tab) 40 mg PO 0600 [facility] Last Admin: 09/24/18 06:00 Dose: 40 mg Sacubitril/Valsartan (Entresto 24 Mg-26 Mg Tablet) 1 each PO BID [facility] Last Admin: 09/23/18 17:13 Dose: 1 each Results - Vital Signs Recent Vital Signs: Last Vital Signs Temp 97.8 F 09/23/18 14:00 Pulse 73 09/24/18 05:46 Resp 20 09/23/18 14:00 BP 181/124 H 09/24/18 05:46 Pulse Ox 95 09/23/18 17:03 - Labs Result Diagrams: 09/22/18 10:30 Labs: Laboratory Results - last 24 hr 09/23/18 09/23/18 09/23/18 11:21 16:26 21:09 POC Glucose (mg/dL) 159 H 156 H 172 H 09/24/18 05:07 POC Glucose (mg/dL) 156 H Attending/Attestation - Attestation I have personally seen and examined this patient.: Yes I have fully participated in the care of the patient.: Yes I have reviewed all pertinent clinical information: Yes
--- NOTE | 2018-09-24 05:19 | CP.PCM.PCO ---
<Jaden Licea - Last Filed: 09/24/18 05:16> Addendum Addendum: PGY1 House Doc Note Paged about patient's BP being elevated: 181/124; previous reading 192/110. HR 70s. Patient is asymptomatic at this time. Will administer hydralazine 10mg IVP stat dose. Will continue to monitor. <Fabian Bae - Last Filed: 09/24/18 19:24> Attending/Attestation - Attestation I have personally seen and examined this patient.: No I have fully participated in the care of the patient.: No I have reviewed all pertinent clinical information: No
[2018-09-24] MEDS: Pantoprazole 40 mg EC Tab PO SCH (06:00)
[2018-09-24] MEDS: Insulin Lispro (humaLOG) MEDIUM Coverage SC SCH ×4 (07:14→21:13)
[2018-09-24] MEDS: guaiFENesin 100 mg/5 ml Syrup UD PO PRN (08:03)
--- NOTE | 2018-09-24 09:03 | CP.PCM.PN ---
<Jm Gutierres - Last Filed: 09/24/18 09:06> Subjective - Date & Time of Evaluation Date of Evaluation: 09/24/18 Time of Evaluation: 09:00 - Subjective Subjective: PGY-1 Medicine Progress note for Dr. Norman Patient seen and examined at bedside. No acute events overnight. Patient is complaining of lower quadrant abdominal pain. His last bowel movement was yesterday. He denies shortness of breath, chest pain, nausea, vomiting, diarrhea, or dysuria. Objective - Vital Signs/Intake and Output Vital Signs (last 24 hours): Temp Pulse Resp BP Pulse Ox 97.8 F 73 20 181/124 H 95 09/23/18 14:00 09/24/18 05:46 09/23/18 14:00 09/24/18 05:46 09/23/18 17:03 - Medications Medications: Current Medications Acetaminophen (Tylenol 325mg Tab) 650 mg PO Q6H PRN PRN Reason: Headache Last Admin: 09/23/18 07:59 Dose: 650 mg Albuterol/Ipratropium (Duoneb 3 Mg/0.5 Mg (3 Ml) Ud) 3 ml IH Q2H PRN PRN Reason: Shortness of Breath Apixaban (Eliquis) 5 mg PO BID [facility]; Protocol Last Admin: 09/23/18 17:13 Dose: 5 mg Aspirin (Aspirin Chewable) 81 mg PO 0800 [facility] Last Admin: 09/24/18 08:02 Dose: 81 mg Benzonatate (Tessalon Perles) 100 mg PO TID [facility] Last Admin: 09/23/18 17:14 Dose: 100 mg Carvedilol (Coreg) 12.5 mg PO BID [facility] Last Admin: 09/23/18 17:12 Dose: 12.5 mg Dextrose (Dextrose 50% Inj) 0 ml IV STAT PRN; Protocol PRN Reason: Hypoglycemia Protocol Furosemide (Lasix) 40 mg PO 1000,1800 [facility] Last Admin: 09/23/18 17:13 Dose: 40 mg Gabapentin (Neurontin) 100 mg PO TID [facility]; Protocol Last Admin: 09/23/18 17:14 Dose: 100 mg Guaifenesin (Robitussin) 100 mg PO Q4H PRN PRN Reason: Cough Last Admin: 09/24/18 08:03 Dose: 100 mg Dextrose (Dextrose 5% In Water 1000 Ml) 1,000 mls @ 0 mls/hr IV .Q0M PRN; Protocol PRN Reason: Hypoglycemia Protocol Insulin Human Lispro (Humalog Med) 0 units SC ACHS [facility]; Protocol Last Admin: 09/24/18 07:14 Dose: 1 unit Ketorolac Tromethamine (Toradol) 15 mg IM Q6 PRN PRN Reason: Pain, moderate (4-7) Stop: 09/26/18 13:08 Last Admin: 09/24/18 03:59 Dose: 15 mg Lidocaine (Lidoderm) 1 ea TD DAILY [facility] Last Admin: 09/23/18 09:06 Dose: Not Given Pantoprazole Sodium (Protonix Ec Tab) 40 mg PO 0600 [facility] Last Admin: 09/24/18 06:00 Dose: 40 mg Sacubitril/Valsartan (Entresto 24 Mg-26 Mg Tablet) 1 each PO BID [facility] Last Admin: 09/23/18 17:13 Dose: 1 each - Labs Labs: 09/22/18 10:30 - Additional Findings Additional findings: - Constitutional Appears: Well, Non-toxic, No Acute Distress - Head Exam Head Exam: ATRAUMATIC, NORMAL INSPECTION - Eye Exam Eye Exam: EOMI, Normal appearance Pupil Exam: NORMAL ACCOMODATION, PERRL - ENT Exam ENT Exam: Mucous Membranes Moist - Neck Exam Neck Exam: Full ROM - Respiratory Exam Respiratory Exam: Clear to Ausculation Bilateral. absent: Rales, Rhonchi, Wheezes, Respiratory Distress - Cardiovascular Exam Cardiovascular Exam: REGULAR RHYTHM, +S1, +S2. absent: Gallop, Rubs, Murmur - GI/Abdominal Exam GI & Abdominal Exam: Soft, Normal Bowel Sounds. absent: guarding, rigidity Additional comments: Left lower quadrant tender to deep palpation. Patient is obese. - Extremities Exam Extremities Exam: Normal Inspection. absent: Calf Tenderness, Pedal Edema, Tenderness - Back Exam Back Exam: absent: paraspinal tenderness, vertebral tenderness - Neurological Exam Neurological Exam: Alert, Awake, CN II-XII Intact, Oriented x3 - Psychiatric Exam Psychiatric exam: Normal Affect, Normal Mood - Skin Skin Exam: Dry, Intact, Normal Color, Warm Assessment and Plan - Assessment and Plan (Free Text) Assessment: Patient is a 63 year old male with a past medical history of AICD, afib on Eliquis, Hypertension, Hypercholesterolemia, and CHF admitted for CHF exacerbation. Plan: CHF exacerbation - Lasix 40 PO BID - Duonebs Q2 PRN - Coreg 25mg PO BID - Strict Input and output - Measure daily weights - Fluid restriction to 1000mL/daily HTN - Continue home Entresto - Coreg 25mg PO BID - Lasix 40 PO BID [facility] Abdominal pain - Likely 2/2 to constipation - CT Abdomen w/o contrast: pending Chronic low back pain - Toradol 15mg IM Q6 PRN - Lidoderm PRN - Gabapentin 100mg PO TID Hx of atrial fibrillation - Eliquis 5mg PO QD - Coreg 25mg PO BID - AICD Hx of CAD - Aspirin 81mg daily - Coreg 25mg PO BID DM - ISS Medium dose - Accuchecks ACHS - Hemoglobin A1C: 7.7 Subclinical hypothyroidism - Instructed patient to repeat TSH in 6 weeks Prophylaxis: DVT: Eliquis 5mg PO QD GI: Protonix Patient seen and case discussed with attending, Dr. Ester Gutierres, PGY-1 <Dony Norman - Last Filed: 09/24/18 10:40> Objective - Vital Signs/Intake and Output Vital Signs (last 24 hours): Temp Pulse Resp BP Pulse Ox 97.8 F 73 20 152/79 H 95 09/23/18 14:00 09/24/18 05:46 09/23/18 14:00 09/24/18 09:34 09/23/18 17:03 - Medications Medications: Current Medications Acetaminophen (Tylenol 325mg Tab) 650 mg PO Q6H PRN PRN Reason: Headache Last Admin: 09/24/18 10:23 Dose: 650 mg Albuterol/Ipratropium (Duoneb 3 Mg/0.5 Mg (3 Ml) Ud) 3 ml IH Q2H PRN PRN Reason: Shortness of Breath Apixaban (Eliquis) 5 mg PO BID [facility]; Protocol Last Admin: 09/24/18 09:33 Dose: 5 mg Aspirin (Aspirin Chewable) 81 mg PO 0800 [facility] Last Admin: 09/24/18 08:02 Dose: 81 mg Benzonatate (Tessalon Perles) 100 mg PO TID [facility] Last Admin: 09/24/18 09:35 Dose: 100 mg Carvedilol (Coreg) 25 mg PO BID [facility] Last Admin: 09/24/18 09:33 Dose: 25 mg Dextrose (Dextrose 50% Inj) 0 ml IV STAT PRN; Protocol PRN Reason: Hypoglycemia Protocol Furosemide (Lasix) 40 mg PO 1000,1800 [facility] Last Admin: 09/24/18 09:34 Dose: 40 mg Gabapentin (Neurontin) 100 mg PO TID [facility]; Protocol Last Admin: 09/24/18 09:35 Dose: 100 mg Guaifenesin (Robitussin) 100 mg PO Q4H PRN PRN Reason: Cough Last Admin: 09/24/18 08:03 Dose: 100 mg Dextrose (Dextrose 5% In Water 1000 Ml) 1,000 mls @ 0 mls/hr IV .Q0M PRN; Protocol PRN Reason: Hypoglycemia Protocol Insulin Human Lispro (Humalog Med) 0 units SC ACHS [facility]; Protocol Last Admin: 09/24/18 07:14 Dose: 1 unit Ketorolac Tromethamine (Toradol) 15 mg IM Q6 PRN PRN Reason: Pain, moderate (4-7) Stop: 09/26/18 13:08 Last Admin: 09/24/18 03:59 Dose: 15 mg Lidocaine (Lidoderm) 1 ea TD DAILY [facility] Last Admin: 09/24/18 09:36 Dose: Not Given Pantoprazole Sodium (Protonix Ec Tab) 40 mg PO 0600 [facility] Last Admin: 09/24/18 06:00 Dose: 40 mg Sacubitril/Valsartan (Entresto 24 Mg-26 Mg Tablet) 1 each PO BID [facility] Last Admin: 09/24/18 09:34 Dose: 1 each - Labs Labs: 09/22/18 10:30 Attending/Attestation - Attestation I have personally seen and examined this patient.: Yes I have fully participated in the care of the patient.: Yes I have reviewed all pertinent clinical information, including history, physical exam and plan: Yes Notes (Text): 09/24/18 10:34 Medical record note made by the resident after discussion with my direction and input after the patient was personally seen and examined by me. I have reviewed the chart and agree that the record accurately reflects by personal performance of the history, physical exam, data review, and medical decision-making, in the course for the patient. I have also personally directed the plan of care. 63 yr old male with PMH of Obesity of CHF with systolic dysfunction EF 20-25% s/p AICD, afib on Eliquis, Hypertension, Hypercholesterolemia, was initially admitted to [facility] inpatient with chest pain along with SOB . CXR shows vascular congestion. BNP was elevated .Patient was treated with IV lasix.D-didmer. CT angio showed no PE.Patient underwent cardiac cath , no intervention was done.Patient dyspnea has improved. He was evaluated by PT and was discharged to TCU for rehabilitation. Patient blood pressure is running high, will increase dose of Coreg to 25 mg PO BID Patient is c/o abdominal pain on left side.There is no nausea or vomiting.Patient had last bowel movemeny yesterday but has left lower quadrant tenderness on physical examination.We will get CT scan of abdomen and Pelvis to rule out colitis. Management plan was discussed in detail with patient. Education was provided. 09/24/18 10:34
[2018-09-24] MEDS: SACUBITRIL 24mg/VALSARTAN 26mg tab PO SCH ×2 (09:34→17:57)
[2018-09-24] MEDS: Lidocaine 5% Patch TD SCH (09:36)
[2018-09-25] MEDS: guaiFENesin 100 mg/5 ml Syrup UD PO PRN ×3 (01:52→17:13)
[2018-09-25] MEDS: Pantoprazole 40 mg EC Tab PO SCH (05:10)
[2018-09-25] MEDS: Insulin Lispro (humaLOG) MEDIUM Coverage SC SCH ×4 (06:59→21:49)
[2018-09-25] MEDS: SACUBITRIL 24mg/VALSARTAN 26mg tab PO SCH ×2 (09:57→17:10)
[2018-09-25] MEDS: Lidocaine 5% Patch TD SCH (09:59)
[2018-09-26] MEDS: Pantoprazole 40 mg EC Tab PO SCH (05:32)
[2018-09-26] MEDS: Insulin Lispro (humaLOG) MEDIUM Coverage SC SCH ×4 (06:48→21:20)
--- NOTE | 2018-09-26 09:05 | CP.PCM.PN ---
<Leila Richards - Last Filed: 09/26/18 14:11> Subjective - Date & Time of Evaluation Date of Evaluation: 09/26/18 Time of Evaluation: 14:11 - Subjective Subjective: Leila Richards, PGY1 Medicine Progress Note: Pt was seen and examined this AM at bedside. The pt states that yesterday and this AM he has had a small BM but notes that he still feel constipated. Pt reports that his back pain is the same as previous but his abdominal pain is improving mildly. He reports that the stool softeners are not strong enough for him to help him move his bowel. Pt at this time denies any fevers, chills, chest pain, palpitations, SOB, cough, n/v, c/d, or dysuria. He does admit to continued back pain, and abd pain. Objective - Vital Signs/Intake and Output Vital Signs (last 24 hours): Temp Pulse Resp BP Pulse Ox 97.5 F L 75 20 138/94 H 97 09/25/18 16:00 09/25/18 16:00 09/25/18 16:00 09/25/18 17:10 09/25/18 16:00 - Medications Medications: Current Medications Acetaminophen (Tylenol 325mg Tab) 650 mg PO Q6H PRN PRN Reason: Headache Last Admin: 09/24/18 10:23 Dose: 650 mg Albuterol/Ipratropium (Duoneb 3 Mg/0.5 Mg (3 Ml) Ud) 3 ml IH Q2H PRN PRN Reason: Shortness of Breath Apixaban (Eliquis) 5 mg PO BID [facility]; Protocol Last Admin: 09/25/18 17:10 Dose: 5 mg Aspirin (Aspirin Chewable) 81 mg PO 0800 [facility] Last Admin: 09/26/18 07:55 Dose: 81 mg Benzonatate (Tessalon Perles) 100 mg PO TID [facility] Last Admin: 09/25/18 17:11 Dose: 100 mg Carvedilol (Coreg) 25 mg PO BID [facility] Last Admin: 09/25/18 17:10 Dose: 25 mg Dextrose (Dextrose 50% Inj) 0 ml IV STAT PRN; Protocol PRN Reason: Hypoglycemia Protocol Docusate Sodium (Colace) 100 mg PO BID [facility] Last Admin: 09/25/18 17:09 Dose: 100 mg Furosemide (Lasix) 40 mg PO 1000,1800 [facility] Last Admin: 09/25/18 17:10 Dose: 40 mg Gabapentin (Neurontin) 100 mg PO TID [facility]; Protocol Last Admin: 09/25/18 17:11 Dose: 100 mg Guaifenesin (Robitussin) 100 mg PO Q4H PRN PRN Reason: Cough Last Admin: 09/25/18 17:13 Dose: 100 mg Dextrose (Dextrose 5% In Water 1000 Ml) 1,000 mls @ 0 mls/hr IV .Q0M PRN; Protocol PRN Reason: Hypoglycemia Protocol Insulin Human Lispro (Humalog Med) 0 units SC ACHS [facility]; Protocol Last Admin: 09/26/18 06:48 Dose: 1 unit Ketorolac Tromethamine (Toradol) 15 mg IM Q6 PRN PRN Reason: Pain, moderate (4-7) Stop: 09/26/18 13:08 Last Admin: 09/26/18 01:19 Dose: 15 mg Lidocaine (Lidoderm) 1 ea TD DAILY [facility] Last Admin: 09/25/18 09:59 Dose: 1 ea Pantoprazole Sodium (Protonix Ec Tab) 40 mg PO 0600 [facility] Last Admin: 09/26/18 05:32 Dose: 40 mg Sacubitril/Valsartan (Entresto 24 Mg-26 Mg Tablet) 1 each PO BID [facility] Last Admin: 09/25/18 17:10 Dose: 1 each - Labs Labs: 09/22/18 10:30 - Constitutional Appears: Non-toxic, No Acute Distress - Head Exam Head Exam: ATRAUMATIC, NORMAL INSPECTION, NORMOCEPHALIC - Eye Exam Eye Exam: EOMI, Normal appearance, PERRL - Respiratory Exam Respiratory Exam: Clear to Ausculation Bilateral, NORMAL BREATHING PATTERN. absent: Accessory Muscle Use, Rales, Rhonchi, Wheezes, Stridor - Cardiovascular Exam Cardiovascular Exam: RRR, +S1, +S2. absent: Gallop, Rubs - GI/Abdominal Exam GI & Abdominal Exam: Hypoactive Bowel Sounds Additional comments: Pt is obese, and has tenderness to deep palpation in LLQ. - Extremities Exam Extremities Exam: Full ROM, Normal Capillary Refill, Normal Inspection - Back Exam Back Exam: NORMAL INSPECTION. absent: CVA tenderness (L), CVA tenderness (R) - Neurological Exam Neurological Exam: Alert, Awake, Oriented x3 - Psychiatric Exam Psychiatric exam: Normal Affect, Normal Mood - Skin Skin Exam: Dry, Normal Color, Warm Assessment and Plan - Assessment and Plan (Free Text) Assessment: Pt is a 63 yo M with a pmhx of AICD, afib on Eliquis, Hypertension, Hypercholesterolemia, and CHF admitted for CHF exacerbation. Plan: 1) CHF exacerbation - Lasix 40 PO BID - Duonebs Q2 PRN - Coreg 25mg PO BID - Strict Input and output - Measure daily weights - Fluid restriction to 1000mL/daily 2) HTN - Continue home Entresto - Coreg 25mg PO BID - Lasix 40 PO BID 3) LLQ Abdominal pain - Likely 2/2 to constipation - CT Abdomen w/o contrast: No obstruction - Increased pt bowel regimen to include miralax, senna and colace. 4) Chronic low back pain - Toradol 15mg IM Q6 PRN - Lidoderm PRN - Gabapentin 100mg PO TID 5) Hx of atrial fibrillation - Eliquis 5mg PO QD - Coreg 25mg PO BID - AICD 6) Hx of CAD - Aspirin 81mg daily - Coreg 25mg PO BID 7) Hx of DM - ISS Medium dose - Accuchecks ACHS - Hemoglobin A1C: 7.7 8) Subclinical hypothyroidism - Instructed patient to repeat TSH in 6 weeks Prophylaxis: DVT: Eliquis 5mg PO QD GI: Protonix Patient seen and case discussed with attending, Dr. Julián Richards, PGY-1 <Reynaldo Gallego - Last Filed: 09/26/18 14:33> Objective - Vital Signs/Intake and Output Vital Signs (last 24 hours): Temp Pulse Resp BP Pulse Ox 97.5 F L 77 20 135/96 H 97 09/25/18 16:00 09/26/18 10:28 09/25/18 16:00 09/26/18 10:29 09/25/18 16:00 Intake and Output: 09/26/18 09/26/18 06:59 18:59 Output Total 300 Balance -300 - Medications Medications: Current Medications Acetaminophen (Tylenol 325mg Tab) 650 mg PO Q6H PRN PRN Reason: Headache Last Admin: 09/24/18 10:23 Dose: 650 mg Albuterol/Ipratropium (Duoneb 3 Mg/0.5 Mg (3 Ml) Ud) 3 ml IH Q2H PRN PRN Reason: Shortness of Breath Apixaban (Eliquis) 5 mg PO BID [facility]; Protocol Last Admin: 09/26/18 10:29 Dose: 5 mg Aspirin (Aspirin Chewable) 81 mg PO 0800 [facility] Last Admin: 09/26/18 07:55 Dose: 81 mg Benzonatate (Tessalon Perles) 100 mg PO TID [facility] Last Admin: 09/26/18 14:21 Dose: 100 mg Carvedilol (Coreg) 25 mg PO BID [facility] Last Admin: 09/26/18 10:28 Dose: 25 mg Dextrose (Dextrose 50% Inj) 0 ml IV STAT PRN; Protocol PRN Reason: Hypoglycemia Protocol Furosemide (Lasix) 40 mg PO 1000,1800 [facility] Last Admin: 09/26/18 10:29 Dose: 40 mg Gabapentin (Neurontin) 100 mg PO TID [facility]; Protocol Last Admin: 09/26/18 14:20 Dose: 100 mg Guaifenesin (Robitussin) 100 mg PO Q4H PRN PRN Reason: Cough Last Admin: 09/25/18 17:13 Dose: 100 mg Dextrose (Dextrose 5% In Water 1000 Ml) 1,000 mls @ 0 mls/hr IV .Q0M PRN; Protocol PRN Reason: Hypoglycemia Protocol Insulin Human Lispro (Humalog Med) 0 units SC ACHS [facility]; Protocol Last Admin: 09/26/18 11:50 Dose: 1 unit Ketorolac Tromethamine (Toradol) 15 mg IM Q6 PRN PRN Reason: Pain, moderate (4-7) Stop: 10/01/18 13:28 Lidocaine (Lidoderm) 1 ea TD DAILY [facility] Last Admin: 09/26/18 10:31 Dose: Not Given Pantoprazole Sodium (Protonix Ec Tab) 40 mg PO 0600 [facility] Last Admin: 09/26/18 05:32 Dose: 40 mg Polyethylene Glycol (Miralax) 17 gm PO BID [facility] Sacubitril/Valsartan (Entresto 24 Mg-26 Mg Tablet) 1 each PO BID [facility] Last Admin: 09/26/18 10:29 Dose: 1 each Senna/Docusate Sodium (Senokot S 50 Mg-8.6 Mg) 1 tab PO BID [facility] Last Admin: 09/26/18 10:53 Dose: 1 tab - Labs Labs: 09/22/18 10:30 Attending/Attestation - Attestation I have personally seen and examined this patient.: Yes I have fully participated in the care of the patient.: Yes I have reviewed all pertinent clinical information, including history, physical exam and plan: Yes Notes (Text): 09/26/18 14:29 63 year old male with past medical history of CHF s/p AICD, afib on eliquis, hypertension and chronic back pain who initially presented with chest pain and shortness of breath. Symptoms improved with iv lasix. Patient also underwent cardiac cath with cardiology who recommended medical management. Patient was transferred to TCU for physical therapy rehabilitation. Patient is tolerating PT. Abdominal pain has improved. CT abd/pelvis was negative for colitis. He is on colace for constipation and miralax is added. Reynaldo Gallego MD Hospitalist.
[2018-09-26] MEDS: SACUBITRIL 24mg/VALSARTAN 26mg tab PO SCH ×2 (10:29→17:38)
[2018-09-26] MEDS: Lidocaine 5% Patch TD SCH (10:31)
[2018-09-26] MEDS: Docusate-Senna 50 mg-8.6 mg Tab PO SCH ×2 (10:53→17:39)
[2018-09-26] MEDS: POLYETHYLENE GLYCOL 3350 17 GM/Dose PACKET PO SCH (17:38)
[2018-09-27] MEDS: Pantoprazole 40 mg EC Tab PO SCH (05:41)
[2018-09-27] MEDS: Insulin Lispro (humaLOG) MEDIUM Coverage SC SCH ×2 (07:28→12:08)
[2018-09-27] MEDS: SACUBITRIL 24mg/VALSARTAN 26mg tab PO SCH (09:29)
[2018-09-27] MEDS: Lidocaine 5% Patch TD SCH (09:30)
[2018-09-27] MEDS: POLYETHYLENE GLYCOL 3350 17 GM/Dose PACKET PO SCH (09:30)
[2018-09-27] MEDS ORDERED: POLYETHYLENE GLYCOL 3350 17 GM/Dose PACKET PO SCH (10:00)
[2018-09-27] MEDS: Docusate-Senna 50 mg-8.6 mg Tab PO SCH (10:11)
[2018-09-27] MEDS ORDERED: Magnesium Hydroxide Susp 30 ml UD PO ONE (10:32)
[2018-09-27 11:11] VITALS: BP 130/101; PULSE 75; RESP 14; TEMP 97.6; O2SAT 94
--- NOTE | 2018-09-27 15:22 | CP.PCM.DIS ---
<Leila Richards - Last Filed: 09/27/18 19:08> Provider - Provider Date of Admission: 09/19/18 19:45 Attending physician: Reynaldo Gallego MD Primary care physician: Tye Ramos MD Consults: 09/19/18 20:41 Physician Consult Routine Comment: Consulting Provider: Angus Clifton Consulting Physician: Angus Clifton Reason for Consult: CHF 09/20/18 01:56 Social Work Referral Routine Comment: EVALUATION Physician Instructions: Reason For Exam: EVALUATION 09/22/18 14:03 Podiatry Consult Routine Comment: Consulting Provider: Bharat Gaona Consulting Physician: Bharat Gaona Reason for Consult: nail clip Time Spent in preparation of Discharge (in minutes): 45 Diagnosis - Discharge Diagnosis (1) Constipation Status: Acute (2) Abdominal pain Status: Acute (3) Back pain Status: Chronic Hospital Course - Lab Results Lab Results: Most Recent Lab Values Sodium 138 mmol/L (132-148) 09/22/18 10:30 Potassium 4.0 mmol/L (3.6-5.0) 09/22/18 10:30 Chloride 98 mmol/L (98-107) 09/22/18 10:30 Carbon Dioxide 35 mmol/L (21-33) H 09/22/18 10:30 Anion Gap 8 (10-20) L 09/22/18 10:30 BUN 35 mg/dL (7-21) H 09/22/18 10:30 Creatinine 1.1 mg/dl (0.8-1.5) 09/22/18 10:30 Est GFR ( Amer) > 60 09/22/18 10:30 Est GFR (Non-Af Amer) > 60 09/22/18 10:30 POC Glucose (mg/dL) 207 mg/dL (65-110) H 09/27/18 11:18 Random Glucose 162 mg/dL (70-110) H 09/22/18 10:30 Calcium 9.2 mg/dL (8.4-10.5) 09/22/18 10:30 Urine Color Yellow (YELLOW) 09/22/18 13:10 Urine Appearance Clear (CLEAR) 09/22/18 13:10 Urine pH 5.5 (4.7-8.0) 09/22/18 13:10 Ur Specific [place] 1.020 (1.005-1.035) 09/22/18 13:10 Urine Protein Negative mg/dL (<30 mg/dL) 09/22/18 13:10 Urine Glucose (UA) 100 mg/dL (NEGATIVE) H 09/22/18 13:10 Urine Ketones Negative mg/dL (NEGATIVE) 09/22/18 13:10 Urine Blood Negative (NEGATIVE) 09/22/18 13:10 Urine Nitrate Negative (NEGATIVE) 09/22/18 13:10 Urine Bilirubin Negative (NEGATIVE) 09/22/18 13:10 Urine Urobilinogen 0.2 E.U./dL (<1 E.U./dL) 09/22/18 13:10 Ur Leukocyte Esterase Negative Jayleen/uL (NEGATIVE) 09/22/18 13:10 - Hospital Course Hospital Course: Upon Admission: Patient is a 63 yr old male with PMH of AICD, afib on Eliquis, Hypertension, Hypercholesterolemia, CHF who presented to [facility] with chest pain and SOB for 3 days duration. Patient was worked up for ACS and Dr. Clifton (Cardiology) performed a cardiac cath on 09/18 which showed Dilated and severely hypokinetic LV, LVEF 20- 25%. Atherosclerosis with multiple 50% lesions throughout the course of the LAD. After medical therapy, afterload reduction and a cardiac risk reduction program, patient was transferred to TCU on 09/19/2018 as per PT recommendation. Patient was started on Aspirin and Lipitor. Hospital (TCU) Course: Pt underwent PT and OT for reconditioning and was able to tolerate it fully. He received Toradol and Motrin for pain relief during his course and he reported improvement in his back pain and abdominal pain. Of note, the patient did complain of constipation and lack of BM for 2 days. Patient was given Miralax, Senokot and MoM which resulted in resolution of constipation as well as multiple bowel movements today. Podiatry evaluated the pt and they educated the pt about importance of diabetic foot care and checking feet daily for any infections. Pt tolerated his rehab sessions and had no additional complaints apart from his abdominal pain. Pt was approved for TCU until today and with the resolution of his constipation and subsequent resolution of his abd pain, pt expresses interest in going home. Pt was informed of the plan for d/c and he expressed understanding and agreement with the plan for d/c. All of the pts questions were addressed prior to his d/c. Patient was instructed to follow up with his PMD (Dr. Ramos) and card mounter (Ale Garcia) after discharge from TCU. He was instructed to resume home medications and continue newly added Lipitor. He was instructed to eat a heart healthy diet and exercise regularly. He was also instructed to return to the ED for worsening or newly concerning symptoms. Patient is medically stable for discharge. Discharge Exam - Head Exam Head Exam: ATRAUMATIC, NORMAL INSPECTION, NORMOCEPHALIC - Eye Exam Eye Exam: EOMI, Normal appearance, PERRL - Respiratory Exam Respiratory Exam: Clear to PA & Lateral, NORMAL BREATHING PATTERN, UNREMARKABLE. absent: Rales, Rhonchi, Wheezes, Respiratory Distress - Cardiovascular Exam Cardiovascular Exam: RRR, +S1, +S2. absent: Gallop, Rubs - GI/Abdominal Exam GI & Abdominal Exam: Normal Bowel Sounds, Soft, Unremarkable. absent: Firm, Guarding, Tenderness - Extremities Exam Extremities exam: normal capillary refill, normal inspection, pedal pulses present - Back Exam Back exam: NORMAL INSPECTION. absent: CVA tenderness (L), CVA tenderness (R) - Neurological Exam Neurological exam: Alert, Oriented x3 - Psychiatric Exam Psychiatric exam: Normal Affect, Normal Mood - Skin Skin Exam: Dry, Intact, Normal Color Discharge Plan - Discharge Medications Prescriptions: Apixaban [Eliquis] 5 mg PO BID #60 tab Carvedilol [Coreg] 25 mg PO BID #60 tab Furosemide [Lasix] 40 mg PO BID #60 tab Gabapentin [Neurontin] 100 mg PO TID #20 cap Polyethylene Glycol 3350 [Miralax] 17 gm PO BID PRN 30 Days #30 packet PRN Reason: Constipation Sacubitril/Valsartan [Entresto 24 mg-26 mg Tablet] 1 each PO BID #60 tablet - Follow Up Plan Condition: GOOD Disposition: HOME/ ROUTINE Instructions: Heart Failure, Adult (DC), Blood Glucose Monitoring, Diabetes Type 2 (DC) Additional Instructions: - Please follow up with your Primary Care Doctor, Dr. Ramos within 1 week after discharge from the hospital. - Follow up with Cardiology, Dr. Clifton in 1-2 weeks after discharge. - Please take all home medications as prescribed. - The dosage of coreg and lasix has been adjusted. See new prescriptions - Please take your new medication, Miralax once daily as needed for constipation. Please ensure that you drink plenty of water with this medication. - Please return to the emergency department if you have any new or concerning symptoms. - Per card mounter, no need for daily aspirin since you are on blood thinner Referrals: Tye Ramos MD [Primary Care Provider] - <Reynaldo Gallego - Last Filed: 09/28/18 07:16> Provider - Provider Date of Admission: 09/19/18 19:45 Attending physician: Reynaldo Gallego MD Primary care physician: Tye Ramos MD Consults: 09/19/18 20:41 Physician Consult Routine Comment: Consulting Provider: Angus Clifton Consulting Physician: Angus Clifton Reason for Consult: CHF 09/20/18 01:56 Social Work Referral Routine Comment: EVALUATION Physician Instructions: Reason For Exam: EVALUATION 09/22/18 14:03 Podiatry Consult Routine Comment: Consulting Provider: Bharat Gaona Consulting Physician: Bharat Gaona Reason for Consult: nail clip Hospital Course - Lab Results Lab Results: Most Recent Lab Values Sodium 138 mmol/L (132-148) 09/22/18 10:30 Potassium 4.0 mmol/L (3.6-5.0) 09/22/18 10:30 Chloride 98 mmol/L (98-107) 09/22/18 10:30 Carbon Dioxide 35 mmol/L (21-33) H 09/22/18 10:30 Anion Gap 8 (10-20) L 09/22/18 10:30 BUN 35 mg/dL (7-21) H 09/22/18 10:30 Creatinine 1.1 mg/dl (0.8-1.5) 09/22/18 10:30 Est GFR ( Amer) > 60 09/22/18 10:30 Est GFR (Non-Af Amer) > 60 09/22/18 10:30 POC Glucose (mg/dL) 207 mg/dL (65-110) H 09/27/18 11:18 Random Glucose 162 mg/dL (70-110) H 09/22/18 10:30 Calcium 9.2 mg/dL (8.4-10.5) 09/22/18 10:30 Urine Color Yellow (YELLOW) 09/22/18 13:10 Urine Appearance Clear (CLEAR) 09/22/18 13:10 Urine pH 5.5 (4.7-8.0) 09/22/18 13:10 Ur Specific [place] 1.020 (1.005-1.035) 09/22/18 13:10 Urine Protein Negative mg/dL (<30 mg/dL) 09/22/18 13:10 Urine Glucose (UA) 100 mg/dL (NEGATIVE) H 09/22/18 13:10 Urine Ketones Negative mg/dL (NEGATIVE) 09/22/18 13:10 Urine Blood Negative (NEGATIVE) 09/22/18 13:10 Urine Nitrate Negative (NEGATIVE) 09/22/18 13:10 Urine Bilirubin Negative (NEGATIVE) 09/22/18 13:10 Urine Urobilinogen 0.2 E.U./dL (<1 E.U./dL) 09/22/18 13:10 Ur Leukocyte Esterase Negative Jayleen/uL (NEGATIVE) 09/22/18 13:10 Attending/Attestation - Attestation I have personally seen and examined this patient.: Yes I have fully participated in the care of the patient.: Yes I have reviewed all pertinent clinical information, including history, physical exam and plan: Yes Notes (Text): 09/27/18 63 year old male with past medical history of CHF s/p AICD, afib on eliquis, hypertension and chronic back pain who initially presented with chest pain and shortness of breath. Symptoms improved with iv lasix. Patient also underwent cardiac cath with cardiology who recommended medical management. Patient is not on secondary as per pmd secondary to history of drug reaction in the past. Patient was transferred to TCU for physical therapy rehabilitation which he tolerated well. He reported abdominal pain secondary to constipation which improved today. Patient is discharged home to follow up with pmd. Follow up with card mounter. Reynaldo Gallego MD Hospitalist.
== END 2018-09-27 16:37 | disposition home or self-care (01) | DRG 293 ==
LOC: TRCU 19:45
PROVIDERS: ADMIT Internal Medicine; ATTEND Internal Medicine
PROC: F07Z9FZ Gait Training/Functional Ambulation Treatment using Assistive, Adaptive, Supportive or Protective Equipment (ICD-10-PCS; principal; 2018-09-20)
PROC: F07M6ZZ Therapeutic Exercise Treatment of Musculoskeletal System - Whole Body (ICD-10-PCS; 2018-09-20)
PROC: F08Z1ZZ Dressing Techniques Treatment (ICD-10-PCS; 2018-09-20)
PROC: F08Z2ZZ Grooming/Personal Hygiene Treatment (ICD-10-PCS; 2018-09-20)
PROC: F08Z0ZZ Bathing/Showering Techniques Treatment (ICD-10-PCS; 2018-09-20)
PROC: F08Z4ZZ Home Management Treatment (ICD-10-PCS; 2018-09-20)
DX: I11.0 Hypertensive heart disease with heart failure (principal); I50.22 Chronic systolic (congestive) heart failure; I42.0 Dilated cardiomyopathy; K59.00 Constipation, unspecified; G89.29 Other chronic pain; D64.9 Anemia, unspecified; E11.9 Type 2 diabetes mellitus without complications; E66.9 Obesity, unspecified; E78.00 Pure hypercholesterolemia, unspecified; E78.5 Hyperlipidemia, unspecified; I25.10 Atherosclerotic heart disease of native coronary artery without angina pectoris; I48.2 Chronic atrial fibrillation; E02 Subclinical iodine-deficiency hypothyroidism; Z79.01 Long term (current) use of anticoagulants; Z95.810 Presence of automatic (implantable) cardiac defibrillator; Z88.1 Allergy status to other antibiotic agents; Z88.5 Allergy status to narcotic agent; Z88.0 Allergy status to penicillin; Z88.8 Allergy status to other drugs, medicaments and biological substances; R10.32 Left lower quadrant pain; M54.5 Low back pain; Z68.38 Body mass index [BMI] 38.0-38.9, adult

== ENCOUNTER 2018-09-24 12:16 | Outpatient (CLI) | payer MEDICARE, BC | END 2018-09-24 12:17 | disposition home or self-care (01) | LOC: RAD 12:16 ==

== ENCOUNTER 2018-10-26 12:04 | Inpatient (IN) | payer MEDICARE, BC ==
--- NOTE | 2018-10-26 12:27 | ED PDOC ---
Arrival/HPI - General Chief Complaint: Dizziness/Lightheaded Time Seen by Provider: 10/26/18 12:13 Historian: Patient - History of Present Illness Narrative History of Present Illness (Text): 10/26/18 12:20 63 year old male, whose past medical history includes diabetes, hypertension, CHF and chronic back pain, pacemaker, on eliquis, with recent cath in July which showed obstructive disease, who presents to the ED for dizziness since this morning. Patient noticed symptoms when he first woke up today. Patient reports associated pain in the left side of his neck. Pain does not worsen with movement, but it worsens upon palpation to the area. Patient denies any recent fall, headache, fevers, chills, chest pain, shortness of breath, dyspnea on exertion, cough, abdominal pain, nausea, vomiting, diarrhea, dysuria, urinary/b owel changes, or any other complaints. PMD: Dr. Ramos 10/26/18 14:08 Time/Duration: 4-6 hours Symptom Onset: Gradual Symptom Course: Unchanged Activities at Onset: Light Context: Home Past Medical History - Provider Review Nursing Documentation Reviewed: Yes - Infectious Disease Hx of Infectious Diseases: None - Tetanus Immunization Tetanus Immunization: Up to Date - Cardiac Hx Cardiac Disorders: Yes (Chronic afib,pacemaker, CAD) Hx Hypertension: Yes - Pulmonary Hx Respiratory Disorders: No - Neurological Hx Neurological Disorder: No Hx Transient Ischemic Attacks (TIA): (pt denies) - HEENT Hx HEENT Disorder: No (WEARS RX GLASSES) - Renal Hx Renal Disorder: No - Endocrine/Metabolic Hx Endocrine Disorders: Yes Hx Diabetes Mellitus Type 2: Yes - Hematological/Oncological Hx Blood Disorders: No - Integumentary Hx Dermatological Disorder: Yes - Musculoskeletal/Rheumatological Hx Falls: No - Gastrointestinal Hx Gastrointestinal Disorders: No (DIVERTICULITIS, HEMORRHOIDS, HIATAL HERNIA) - Genitourinary/Gynecological Hx Genitourinary Disorders: No Hx Reproductive Disorders: Yes - Psychiatric Hx Psychophysiologic Disorder: No Hx Emotional Abuse: No Hx Physical Abuse: No Hx Substance Use: No - Surgical History Hx Cardiac Catheterization: Yes Hx Orthopedic Surgery: Yes Other/Comment: LEFT MENISCUS TEAR 1996,POLPS REMOVED from NASAL PASSAGES, pt denies arthoscopic sx r knee, pt stated "I had fluid drained." oral sx to inner r cheek dr brantley removed a cyst 5 yrs ago - Anesthesia Hx Anesthesia: No Hx Anesthesia Reactions: No Hx Malignant Hyperthermia: No - Suicidal Assessment Feels Threatened In Home Enviroment: No Family/Social History - Physician Review Nursing Documentation Reviewed: Yes Family/Social History: Unknown Family HX Smoking Status: Never Smoked Hx Alcohol Use: No Hx Substance Use: No Hx Substance Use Treatment: No Allergies/Home Meds Allergies/Adverse Reactions: Allergies codeine Allergy (Verified 09/13/18 17:35) SWELLING metformin Allergy (Verified 09/13/18 17:35) DIARRHEA Penicillins Allergy (Verified 09/13/18 17:35) SWELLING tetracycline Allergy (Verified 09/13/18 17:35) SWELLING Home Medications: Home Meds Medication Instructions Recorded Confirmed Empagliflozin/Linagliptin 1 tab PO DAILY 09/27/18 09/27/18 [Glyxambi 10 mg-5 mg Tablet] Review of Systems - Physician Review All systems were reviewed & negative as marked: Yes - Review of Systems Constitutional: Normal. absent: Fatigue, Fevers Eyes: Normal. absent: Vision Changes ENT: Normal, Sore Throat. absent: Hearing Changes, Epistaxis Respiratory: absent: SOB, Cough Cardiovascular: absent: Chest Pain Gastrointestinal: absent: Abdominal Pain, Nausea, Vomiting Genitourinary Male: absent: Dysuria, Frequency Musculoskeletal: Neck Pain (left side) Skin: absent: Rash Neurological: Dizziness (+lightheadedness). absent: Headache Endocrine: absent: Diaphoresis, Polyuria Hemo/Lymphatic: absent: Adenopathy, Easy Bleeding Psychiatric: absent: Anxiety, Depression Physical Exam Vital Signs Reviewed: Yes Vital Signs Temp Pulse Resp BP Pulse Ox 10/26/18 12:14 98.7 F 69 18 72/58 L 95 Temperature: Afebrile Blood Pressure: Hypotensive Pulse: Regular Respiratory Rate: Normal Appearance: Positive for: Well-Appearing, Non-Toxic, Comfortable, Other (obese male) Pain Distress: None (no acute distress) Mental Status: Positive for: Alert and Oriented X 3 - Systems Exam Head: Present: Atraumatic, Normocephalic Pupils: Present: PERRL Extroacular Muscles: Present: EOMI Conjunctiva: Present: Normal Neck: Present: Normal Range of Motion (left SCM muscle spasms/pain upon palpation) Respiratory/Chest: Present: Clear to Auscultation, Good Air Exchange. No: Respiratory Distress, Accessory Muscle Use Cardiovascular: Present: Regular Rate and Rhythm, Normal S1, S2. No: Murmurs Abdomen: No: Tenderness, Distention, Peritoneal Signs Upper Extremity: Present: Normal Inspection. No: Cyanosis, Edema Lower Extremity: Present: Normal Inspection. No: Edema Neurological: Present: GCS=15, CN II-XII Intact, Speech Normal Skin: Present: Warm, Dry, Normal Color. No: Rashes Psychiatric: Present: Alert, Oriented x 3, Normal Insight, Normal Concentration Medical Decision Making ED Course and Treatment: 10/26/18 12:34 Impression: 63 year old male who presents to the ED for dizziness. Plan: -- Labs -- EKG -- Chest X-Ray -- Valium -- Toradol -- IV Fluids -- Reassess and disposition Prior Visits: Notes and results from previous visits were reviewed. Patient was last seen in the emergency department on Progress Notes: EKG: Paced rhythm @ 72 bpm. Troponin elevated. Repeat EKG unchanged. Already on eliquis. 10/26/18 14:16 Julián called back and acepted patient. 10/26/18 14:[address] Clifton who recommends continuing eliquis and starting dobutamine at low dose due to mukesh - Scribe Statement The provider has reviewed the documentation as recorded by the Rhys Winston Provider Scribe Attestation: All medical record entries made by the Scribe were at my direction and personally dictated by me. I have reviewed the chart and agree that the record accurately reflects my personal performance of the history, physical exam, medical decision making, and the department course for this patient. I have also personally directed, reviewed, and agree with the discharge instructions and disposition. Disposition/Present on Arrival - Present on Arrival Any Indicators Present on Arrival: No History of DVT/PE: No History of Uncontrolled Diabetes: No Urinary Catheter: No History Surgical Site Infection Following: None - Disposition Have Diagnosis and Disposition been Completed?: Yes Diagnosis: NSTEMI (non-ST elevated myocardial infarction), MUKESH (acute kidney injury) Disposition: HOSPITALIZED Disposition Time: 14:18 Patient Plan: Observation Patient Problems: Current Active Problems Problem Status Onset NSTEMI (non-ST elevated myocardial infarction) Acute MUKESH (acute kidney injury) Acute Condition: FAIR
[2018-10-26] MEDS ORDERED: Sodium Chloride 0.9% 250 ML IV SCH (12:30)
[2018-10-26 12:57] LABS: BASO # 0.01 K/mm3 (0.0-2.0); BASO % 0.1 % (0.0-3.0); EOS # 0.1 (0.0-0.7); EOS % 0.8 % (1.5-5.0); LYMPH # 1.7 (1.2-3.4); LYMPH % 16.4 % (22.0-35.0); MEAN CELL VOLUME 89.2 fl (80.0-105.0); MEAN CORPUSCULAR HEMOGLOBIN 29.9 pg (25.0-35.0); MEAN CORPUSCULAR HGB CONC 33.5 g/dl (31.0-37.0); MEAN PLATELET VOLUME 10.9 fl (7.0-11.0); MONO % 9.8 % (1.0-6.0); RBC 6.13 10^6/uL (3.5-6.1); RED CELL DISTRIBUTION WIDTH 16.2 % (11.5-14.5); WHITE BLOOD COUNT 10.2 10^3/uL (4.5-11.0)
[2018-10-26 13:00] LABS: HEMOGLOBIN 18.3 g/dL (14.0-18.0)
[2018-10-26 13:13] LABS: ALB/GLOB RATIO 1.4 (1.1-1.8); ALBUMIN 4.6 g/dL (3.0-4.8); CALCIUM 9.8 mg/dL (8.4-10.5)
[2018-10-26 14:02] LABS: TROPONIN I 1.38 ng/mL
--- NOTE | 2018-10-26 14:03 | RAD ---
Date of service: 10/26/2018 HISTORY: lightheaded COMPARISON: 09/13/2018 TECHNIQUE: 1 view obtained. FINDINGS: LUNGS: No active pulmonary disease. PLEURA: No significant pleural effusion identified, no pneumothorax apparent. CARDIOVASCULAR: No aortic atherosclerotic calcification present. Moderate cardiomegaly no pulmonary vascular congestion. OSSEOUS STRUCTURES: No significant abnormalities. VISUALIZED UPPER ABDOMEN: Normal. OTHER FINDINGS: Dual lead pacemaker IMPRESSION: No active disease.
[2018-10-26] MEDS ORDERED: DOBUTamine 500mg/250ml D5W 500 MG/250 ML BAG IV PRN ×3 (14:35→15:10)
[2018-10-26 15:23] VITALS: BMI 36.6
--- NOTE | 2018-10-26 15:26 | CP.PCM.HP ---
<Brandyn Morton - Last Filed: 10/26/18 15:23> History of Present Illness - History of Present Illness History of Present Illness: Brandyn Morton, PGY-1 History and Physical for Hospitalist Service 63 yr old male w/ hx of AICD, Afib on Eliquis, Hypertension, Hypercholesterolemia, DM2, CHF presents with dizziness for one day duration. Patient states that he was beginning paperwork for cardiac rehab today when he started to feel dizzy and lightheaded. Patient endorses nausea but denies vomiting and diaphoresis. Patient states he is usually able to walk 1-2 blocks without issue. He says he still uses 4 pillows to elevate his head at night. Patient states his lower extremity swelling has been stable but that he has lost 15 pounds, which he believes is from the water pill. Patient reports neck pain but denies chest pain, palpitations, sick contacts, recent travel, fever, chills, nausea, vomiting, abdominal pain, diarrhea, constipation, change in urinary frequency or any other complaints at this time. Patient lives alone at home and walks with the assistance of a cane. PMHx: AICD, A-fib on Eliquis, Hypertension, Hypercholesterolemia, DM2, HFrEF PSH: Left knee meniscus repair, removal of polyp in left nares Social: denies current tobacco use, alcohol on occasion, and denies illicit drug use Allergies: metformin, PCN, Tetracyclines Medications: Eliquis, coreg, Torsemide, Entresto, Glyxambi, Spironolactone, Pravastatin Family Hx: non contributory PMD: Dr. Ramos Present on Admission - Present on Admission Any Indicators Present on Admission: No Review of Systems - Review of Systems Review of Systems: 12 point ROS completed and negative except as described in HPI. Past Patient History - Infectious Disease Hx of Infectious Diseases: None - Tetanus Immunizations Tetanus Immunization: Up to Date - Past Social History Smoking Status: Never Smoked - CARDIAC Hx Cardiac Disorders: Yes (Chronic afib,pacemaker, CAD) Hx Hypertension: Yes - PULMONARY Hx Respiratory Disorders: No - NEUROLOGICAL Hx Neurological Disorder: No Hx Transient Ischemic Attacks (TIA): (pt denies) - HEENT Hx HEENT Problems: No (WEARS RX GLASSES) - RENAL Hx Chronic Kidney Disease: No - ENDOCRINE/METABOLIC Hx Endocrine Disorders: Yes Hx Diabetes Mellitus Type 2: Yes - HEMATOLOGICAL/ONCOLOGICAL Hx Blood Disorders: No - INTEGUMENTARY Hx Dermatological Problems: Yes - MUSCULOSKELETAL/RHEUMATOLOGICAL Hx Falls: No - GASTROINTESTINAL Hx Gastrointestinal Disorders: No (DIVERTICULITIS, HEMORRHOIDS, HIATAL HERNIA) - GENITOURINARY/GYNECOLOGICAL Hx Genitourinary Disorders: No Hx Reproductive Disorders: Yes - PSYCHIATRIC Hx Psychophysiologic Disorder: No Hx Emotional Abuse: No Hx Physical Abuse: No Hx Substance Use: No - SURGICAL HISTORY Hx Cardiac Catheterization: Yes Hx Orthopedic Surgery: Yes Other/Comment: LEFT MENISCUS TEAR 1996,POLPS REMOVED from NASAL PASSAGES, pt denies arthoscopic sx r knee, pt stated "I had fluid drained." oral sx to inner r cheek dr brantley removed a cyst 5 yrs ago - ANESTHESIA Hx Anesthesia: No Hx Anesthesia Reactions: No Hx Malignant Hyperthermia: No Meds Allergies/Adverse Reactions: Allergies Allergy/AdvReac Type Severity Reaction Status Date / Time codeine Allergy SWELLING Verified 09/13/18 17:35 metformin Allergy DIARRHEA Verified 09/13/18 17:35 Penicillins Allergy SWELLING Verified 09/13/18 17:35 tetracycline Allergy SWELLING Verified 09/13/18 17:35 Physical Exam - Additional Findings Additional findings: - Constitutional Appears: Non-toxic, No Acute Distress Additional comments: obese - Head Exam Head Exam: ATRAUMATIC, NORMAL INSPECTION, NORMOCEPHALIC - Eye Exam Eye Exam: Normal appearance - ENT Exam ENT Exam: Mucous Membranes Moist - Respiratory Exam Respiratory Exam: Clear to Auscultation Bilateral, NORMAL BREATHING PATTERN - Cardiovascular Exam Cardiovascular Exam: REGULAR RHYTHM, +S1, +S2. absent: Bradycardia, Tachycardia, Irregular Rhythm, Systolic Murmur - GI/Abdominal Exam GI & Abdominal Exam: Normal Bowel Sounds, obese abdomen, Soft. absent: Tenderness - Extremities Exam Extremities exam: Positive for: Pedal pulses present. Negative for: calf tenderness, tenderness, pedal edema - Neurological Exam Neurological exam: Alert, CN II-XII Intact, Oriented x3 Results - Vital Signs Recent Vital Signs: Last Vital Signs Temp 98.7 F 10/26/18 14:11 Pulse 69 10/26/18 14:11 Resp 18 10/26/18 14:11 BP 101/63 10/26/18 14:11 Pulse Ox 95 10/26/18 14:11 - Labs Result Diagrams: 10/26/18 12:44 10/26/18 12:44 Labs: Laboratory Results - last 24 hr 10/26/18 10/26/18 12:44 12:44 WBC 10.2 D RBC 6.13 H Hgb 18.3 H* D Hct 54.7 H MCV 89.2 MCH 29.9 MCHC 33.5 RDW 16.2 H Plt Count 226 MPV 10.9 Neut % (Auto) 72.9 H Lymph % (Auto) 16.4 L [place] % (Auto) 9.8 H Eos % (Auto) 0.8 L Baso % (Auto) 0.1 Lymph # (Auto) 1.7 [place] # (Auto) 1.0 H Eos # (Auto) 0.1 Baso # (Auto) 0.01 Absolute Neuts (auto) 7.47 H Sodium 139 Potassium 4.3 Chloride 97 L Carbon Dioxide 29 Anion Gap 17 BUN 44 H Creatinine 1.9 H Est GFR ( Amer) 44 Est GFR (Non-Af Amer) 36 Random Glucose 266 H Calcium 9.8 Phosphorus 6.5 H Magnesium 2.4 H Total Bilirubin 1.3 AST 25 ALT 17 Alkaline Phosphatase 98 Troponin I 1.38 H* D NT-Pro-B Natriuret Pep 2260 H Total Protein 8.0 Albumin 4.6 Globulin 3.4 Albumin/Globulin Ratio 1.4 Assessment & Plan - Assessment and Plan (Free Text) Assessment: 63 yr old male w/ hx of AICD, afib on Eliquis, Hypertension, Hypercholesterolemia, HFrEF presents with dizziness and cardiogenic shock. Plan: Dizziness 2/2 Cardiogenic shock, r/o ACS -Likely 2/2 HFrEF exacerbation -Bradycardic, hypotensive -Dobutamine drip at 5 -Hx of recent cath showing EF 20-25 % -EKG shows paced rhythm @ 71 bpm -Troponin elevatd 1.38, trend next two -Cardiology consulted - Dr. Clifton HFrEF -BNP elevated 2260 -Torsemide 20 PO BID and Spironolactone on hold -HOB elevated -hold home entresto -cardiology consulted, Dr. Clifton, follow recs MUKESH -Cr 1.9, elevated from 1.0 -likely pre-renal demand -F/u urine studies -Renal consult placed - Dr. Andrews -recs appreciated Afib (chronic) -continue home eliquis 5 mg BID -repeat EKG ordered for AM -continue to monitor -AICD HTN -hold home meds due to hypotension and reassess restarting in AM DM -hold oral hypoglycemics -ISS Medium with ACHS -Hemoglobin A1C 7.7 6 weeks ago HLD -c/w home statin DVT Ppx: Eliquis GI: Protonix Diet: Heart Healthy with Low Sodium Patient seen, case reviewed and plan approved by Dr. Gallego. Brandyn Morton, PGY-1 <Reynaldo Gallego - Last Filed: 10/26/18 16:06> Results - Vital Signs Recent Vital Signs: Last Vital Signs Temp 98.7 F 10/26/18 14:11 Pulse 62 10/26/18 15:36 Resp 18 10/26/18 14:11 BP 96/64 L 10/26/18 15:36 Pulse Ox 95 10/26/18 14:11 - Labs Result Diagrams: 10/26/18 12:44 10/26/18 12:44 Labs: Laboratory Results - last 24 hr 10/26/18 10/26/18 10/26/18 12:44 12:44 15:50 WBC 10.2 D RBC 6.13 H Hgb 18.3 H* D Hct 54.7 H MCV 89.2 MCH 29.9 MCHC 33.5 RDW 16.2 H Plt Count 226 MPV 10.9 Neut % (Auto) 72.9 H Lymph % (Auto) 16.4 L [place] % (Auto) 9.8 H Eos % (Auto) 0.8 L Baso % (Auto) 0.1 Lymph # (Auto) 1.7 [place] # (Auto) 1.0 H Eos # (Auto) 0.1 Baso # (Auto) 0.01 Absolute Neuts (auto) 7.47 H Sodium 139 Potassium 4.3 Chloride 97 L Carbon Dioxide 29 Anion Gap 17 BUN 44 H Creatinine 1.9 H Est GFR ( Amer) 44 Est GFR (Non-Af Amer) 36 POC Glucose (mg/dL) 198 H Random Glucose 266 H Calcium 9.8 Phosphorus 6.5 H Magnesium 2.4 H Total Bilirubin 1.3 AST 25 ALT 17 Alkaline Phosphatase 98 Troponin I 1.38 H* D NT-Pro-B Natriuret Pep 2260 H Total Protein 8.0 Albumin 4.6 Globulin 3.4 Albumin/Globulin Ratio 1.4 Attending/Attestation - Attestation I have personally seen and examined this patient.: Yes I have fully participated in the care of the patient.: Yes I have reviewed all pertinent clinical information: Yes Notes (Text): 10/26/18 15:58 63 year male with past medical history of CHF s/p AICD, afib on eliquis, hy pertension and chronic back pain who presents today with complaint of dizziness and neck pain. Found to have possible NSTEMI with elevated troponin, MUKESH with elevated creatinine and low bp initially improved with ivf. PBNP is elevated but downtrending from baseline and CXR is negative; less likely acute CHF exacerbation. Started on dobuatmine in ER. Will hold torsemide, spironalactone and entresto for now. Cardiology and nephrology evaluations are requested. Will trend troponins and monitor creatinine closely. Patient is on eliquis. Recent cardiac cath done last month was reviewed. Reynaldo Gallego MD Hospitalist.
[2018-10-26] MEDS: DOBUTamine 500mg/250ml D5W 500 MG/250 ML BAG IV PRN (15:36)
--- NOTE | 2018-10-26 17:03 | CP.PCM.CON ---
History of Present Illness - History of Present Illness History of Present Illness: Nephrology Consultation Note: Assessment: Stable Acute Kidney Injury (N17.9) likely due to hemodynamic changes (low BP) and pre- renal state as evident by hemoconcentration (high Hb and albumin) elevated troponin hyperphosphatemia A fib on eliquis obesity diabetes Mellitus, hypertension sys CHF with LVEF 25-30%, hx of AICD, obesity hyperlipidemia b/l renal cyst Plan No acute need for renal replacement therapy at this time. . Hypertension control with meds as ordered. Maintain hemodynamics stable. Avoid hypotension. Patient on entresto and aldactone. suggest to hold aldactone for now Monitor Input/Output, daily weights and renal function with basic metabolic panel also favor holding diuretics pt started on inotropes can give prn IV fluids if needed for low BP with close respi status monitoring supplement lytes as needed Check urine analysis, Na/Cr Dose meds/antibiotics for reduced GFR. Avoid fleets enema/magnesium based laxatives. Avoid nephrotoxins/NSAIDs/ iodinated contrast (unless needed emergently) Glycemic control Further work up/management as per primary team Thanks for allowing me to participate in care of your patient. Will follow patient with you. Please call if any Qs. had marylouw team Dr Aleksandr Andrews Office: [phone] Chief Complaint; dizziness Reason for consult: Acute Kidney Injury HPI: Pt is a 63 Mwith hx of obesity diabetes Mellitus ( years), hypertension (years) A fib on eliquis sys CHF with LVEF 25-30%, hx of AICD, obesity hyperlipidemia presented with complaints of dizziness and found to have low BP, MUKESH and elevated troponin. also with hx of NESSA, doesn't use CPAP at night, says can't. Denies OTC/herbal meds or NSAIDs No recent iodinated contrast exposure. Noted obvious episodes of low BP. no GI fluid loss. says oral intake as usual. ROS: feels dizzy Cardiovascular: No chest pain. Pulmonary: No shortness of breath Gastrointestinal: denies abdominal pain No nausea. No vomiting. Genitourinary: No pain while urinating. Denies blood in urine. All other negative except as mentioned in HPI Physical Examination: General Appearance: Comfortable, in no acute respiratory distress, co-operative . obese Vitals reviewed and noted as below Head; Atraumatic, normocephalic ENT: no ulcers no thrush. Tongue is midline. Oropharynx: no rash or ulcers. redness wround martín-oral area (pt says due to shaving) EYES: Pupils are equal, round and reactive to light accommodation. Eye muscles and extraocular movement intact. Sclera is anicteric. Neck; supple no lymphadenopathy, no thyromegaly or bruit Lungs: Normal respiratory rate/effort. Breath sounds bilateral equal and clear Heart: Normal rate. s1s2 normal. No rub or gallop. Extremities: no edema. No varicose veins Neurological: Patient is alert, awake and oriented to person, place and time. No focal deficit. Strength bilateral appropriate and equal Skin: Warm and dry. Normal turgor. No rash. Palpitation: Normal elasticity for age Abdomen: Abdomen is soft. Bowel sounds +. There is no abdominal tenderness, no guarding/rigidity no organomegaly Psych: normal insight and normal affect/mood MSK: no joint tenderness or swelling. Digits and nails normal, no deformity : kidney or bladder not palpable Labs/imaging reviewed. Past medical history, past surgical history, family history, social history, allergy reviewed and noted as below Family hx: no hx of CKD. Rest non-contributory renal imaging: b/l cyst Past Patient History - Infectious Disease Hx of Infectious Diseases: None - Tetanus Immunizations Tetanus Immunization: Up to Date - Past Social History Smoking Status: Never Smoked - CARDIAC Hx Cardiac Disorders: Yes (Chronic afib,pacemaker, CAD) Hx Hypertension: Yes - PULMONARY Hx Respiratory Disorders: No - NEUROLOGICAL Hx Neurological Disorder: No Hx Transient Ischemic Attacks (TIA): (pt denies) - HEENT Hx HEENT Problems: No (WEARS RX GLASSES) - RENAL Hx Chronic Kidney Disease: No - ENDOCRINE/METABOLIC Hx Endocrine Disorders: Yes Hx Diabetes Mellitus Type 2: Yes - HEMATOLOGICAL/ONCOLOGICAL Hx Blood Disorders: No - INTEGUMENTARY Hx Dermatological Problems: Yes - MUSCULOSKELETAL/RHEUMATOLOGICAL Hx Falls: No - GASTROINTESTINAL Hx Gastrointestinal Disorders: No (DIVERTICULITIS, HEMORRHOIDS, HIATAL HERNIA) - GENITOURINARY/GYNECOLOGICAL Hx Genitourinary Disorders: No Hx Reproductive Disorders: Yes - PSYCHIATRIC Hx Psychophysiologic Disorder: No Hx Emotional Abuse: No Hx Physical Abuse: No Hx Substance Use: No - SURGICAL HISTORY Hx Cardiac Catheterization: Yes Hx Orthopedic Surgery: Yes Other/Comment: LEFT MENISCUS TEAR 1997,POLPS REMOVED from NASAL PASSAGES, pt denies arthoscopic sx r knee, pt stated "I had fluid drained." oral sx to inner r cheek dr brantley removed a cyst 5 yrs ago - ANESTHESIA Hx Anesthesia: No Hx Anesthesia Reactions: No Hx Malignant Hyperthermia: No Meds Allergies/Adverse Reactions: Allergies Allergy/AdvReac Type Severity Reaction Status Date / Time codeine Allergy SWELLING Verified 09/13/18 17:35 metformin Allergy DIARRHEA Verified 09/13/18 17:35 Penicillins Allergy SWELLING Verified 09/13/18 17:35 tetracycline Allergy SWELLING Verified 09/13/18 17:35 - Medications Medications: Current Medications Apixaban (Eliquis) 5 mg PO BID [facility]; Protocol Atorvastatin Calcium (Lipitor) 10 mg PO HS [facility] Dobutamine HCl/Dextrose (Dobutamine/Dextrose 5% 500mg/250ml) 500 mg in 250 mls @ 15.908 mls/hr IV .[id number] PRN PRN Reason: Systolic Blood Pressure Last Admin: 10/26/18 15:36 Dose: 15.908 mls/hr Insulin Human Lispro (Humalog Med) 0 units SC ACHS [facility]; Protocol Results - Vital Signs Recent Vital Signs: Last Vital Signs Temp 98.7 F 10/26/18 14:11 Pulse 62 10/26/18 15:36 Resp 18 10/26/18 14:11 BP 96/64 L 10/26/18 15:36 Pulse Ox 95 10/26/18 14:11 - Labs Result Diagrams: 10/26/18 12:44 10/26/18 12:44 Labs: Laboratory Results - last 24 hr 10/26/18 10/26/18 10/26/18 12:44 12:44 15:50 WBC 10.2 D RBC 6.13 H Hgb 18.3 H* D Hct 54.7 H MCV 89.2 MCH 29.9 MCHC 33.5 RDW 16.2 H Plt Count 226 MPV 10.9 Neut % (Auto) 72.9 H Lymph % (Auto) 16.4 L [place] % (Auto) 9.8 H Eos % (Auto) 0.8 L Baso % (Auto) 0.1 Lymph # (Auto) 1.7 [place] # (Auto) 1.0 H Eos # (Auto) 0.1 Baso # (Auto) 0.01 Absolute Neuts (auto) 7.47 H Sodium 139 Potassium 4.3 Chloride 97 L Carbon Dioxide 29 Anion Gap 17 BUN 44 H Creatinine 1.9 H Est GFR ( Amer) 44 Est GFR (Non-Af Amer) 36 POC Glucose (mg/dL) 198 H Random Glucose 266 H Calcium 9.8 Phosphorus 6.5 H Magnesium 2.4 H Total Bilirubin 1.3 AST 25 ALT 17 Alkaline Phosphatase 98 Troponin I 1.38 H* D NT-Pro-B Natriuret Pep 2260 H Total Protein 8.0 Albumin 4.6 Globulin 3.4 Albumin/Globulin Ratio 1.4
--- NOTE | 2018-10-26 17:05 | CARD ---
APPROVED REPORT Date of service: 10/26/2018 EKG Measurement Heart [id number] <Conclusion> Electronic ventricular pacemaker Underlying atrial fibrillation
--- NOTE | 2018-10-26 17:08 | CARD ---
APPROVED REPORT Date of service: 10/26/2018 EKG Measurement Heart [id number] <Conclusion> Electronic ventricular pacemaker
[2018-10-26 17:28] LABS: HDL CHOLESTEROL 36 mg/dL (29-60)
[2018-10-26 17:38] LABS: LDL CHOLESTEROL 174 mg/dL (0-129)
[2018-10-26] MEDS: Insulin Lispro (humaLOG) MEDIUM Coverage SC SCH ×2 (17:57→22:21)
[2018-10-26] MEDS ORDERED: Influenza Vaccine 60 mcg/0.5 mL SYR (4YR UP) IM ONE (22:27)
[2018-10-26] MEDS ORDERED: Pneumococcal 23-Valent Vaccine IM ONE (22:27)
[2018-10-27 04:29] LABS: URINE BILIRUBIN NEGATIVE (NEGATIVE); URINE BLOOD NEGATIVE (NEGATIVE); URINE GLUCOSE (UA) >=1000 mg/dL (NEGATIVE); URINE LEUKOCYTE ESTERASE NEGATIVE Leu/uL (NEGATIVE); URINE PROTEIN NEGATIVE mg/dL (<30 mg/dL); URINE UROBILINOGEN 0.2 E.U./dL (<1 E.U./dL)
[2018-10-27 04:31] LABS: URINE APPEARANCE CLEAR (CLEAR); URINE COLOR YELLOW (YELLOW)
[2018-10-27 04:53] LABS: CREATININE,RANDOM URINE 162 mg/dL
[2018-10-27] MEDS: DOBUTamine 500mg/250ml D5W 500 MG/250 ML BAG IV PRN (05:23)
[2018-10-27 07:16] LABS: BASO # 0.02 K/mm3 (0.0-2.0); BASO % 0.2 % (0.0-3.0); EOS # 0.1 (0.0-0.7); EOS % 1.2 % (1.5-5.0); HEMOGLOBIN 15.9 g/dL (14.0-18.0); LYMPH # 2.6 (1.2-3.4); LYMPH % 23.4 % (22.0-35.0); MEAN CELL VOLUME 90.1 fl (80.0-105.0); MEAN CORPUSCULAR HEMOGLOBIN 29.1 pg (25.0-35.0); MEAN CORPUSCULAR HGB CONC 32.3 g/dl (31.0-37.0); MEAN PLATELET VOLUME 10.8 fl (7.0-11.0); MONO % 9.2 % (1.0-6.0); RBC 5.46 10^6/uL (3.5-6.1); RED CELL DISTRIBUTION WIDTH 16.3 % (11.5-14.5); WHITE BLOOD COUNT 11.2 10^3/uL (4.5-11.0)
[2018-10-27 07:41] LABS: ALB/GLOB RATIO 1.3 (1.1-1.8); ALBUMIN 3.9 g/dL (3.0-4.8); CALCIUM 8.8 mg/dL (8.4-10.5)
[2018-10-27] MEDS: Insulin Lispro (humaLOG) MEDIUM Coverage SC SCH ×4 (09:31→22:13)
--- NOTE | 2018-10-27 09:40 | CARD ---
APPROVED REPORT Date of service: 10/27/2018 EKG Measurement Heart [id number] <Conclusion> Electronic ventricular pacemaker
--- NOTE | 2018-10-27 10:14 | CP.PCM.PN ---
<Brandyn Morton - Last Filed: 10/27/18 09:56> Subjective - Date & Time of Evaluation Date of Evaluation: 10/27/18 Time of Evaluation: 07:00 - Subjective Subjective: Brandyn Morton PGY-1 Progress Note for Hospitalist Service Patient seen and evaluated at bedside. No acute events reported overnight. Patient still endorsing headaches and dizziness with body movement. Denies chest pain, shortness of breath, N/V, and palpitations at this time. Objective - Vital Signs/Intake and Output Vital Signs (last 24 hours): Temp Pulse Resp BP Pulse Ox 97.4 F L 76 20 91/60 L 95 10/27/18 05:51 10/27/18 09:31 10/27/18 05:51 10/27/18 09:31 10/27/18 09:31 Intake and Output: 10/27/18 10/27/18 06:59 18:59 Intake Total 1586 Output Total 200 Balance 1386 - Medications Medications: Current Medications Apixaban (Eliquis) 5 mg PO BID [facility]; Protocol Last Admin: 10/27/18 09:31 Dose: 5 mg Aspirin (Aspirin Chewable) 81 mg PO DAILY [facility] Atorvastatin Calcium (Lipitor) 10 mg PO HS [facility] Carvedilol (Coreg) 12.5 mg PO BID [facility] Insulin Human Lispro (Humalog Med) 0 units SC [facility]; Protocol Last Admin: 10/27/18 09:31 Dose: 1 unit - Labs Labs: 10/27/18 07:00 10/27/18 07:00 - Additional Findings Additional findings: - Constitutional Appears: Non-toxic, No Acute Distress Additional comments: obese - Head Exam Head Exam: ATRAUMATIC, NORMAL INSPECTION, NORMOCEPHALIC - Eye Exam Eye Exam: Normal appearance - ENT Exam ENT Exam: Mucous Membranes Moist. Perioral rash, likely 2/2 recent shaving - Respiratory Exam Respiratory Exam: Clear to Auscultation Bilateral, NORMAL BREATHING PATTERN - Cardiovascular Exam Cardiovascular Exam: REGULAR RHYTHM, +S1, +S2. absent: Bradycardia, Tachycardia, Irregular Rhythm, Systolic Murmur - GI/Abdominal Exam GI & Abdominal Exam: Normal Bowel Sounds, obese abdomen, Soft. absent: Tend erness - Extremities Exam Extremities exam: Positive for: Pedal pulses present. Negative for: calf tenderness, tenderness, pedal edema - Neurological Exam Neurological exam: Alert, CN II-XII Intact, Oriented x3 Assessment and Plan - Assessment and Plan (Free Text) Assessment: 63 yr old male w/ hx of AICD, afib on Eliquis, Hypertension, Hypercholestero lemia, HFrEF presents with dizziness and cardiogenic shock. Plan: Dizziness 2/2 Cardiogenic shock -Likely 2/2 possible NTEMI and chronic HFrEF -Bradycardic, hypotensive on admission, remains relatively hypotensive -Discontinue Dobutamine drip at 5 per cardio -Hx of recent cath showing EF 20-25 % -EKG shows paced rhythm @ 71 bpm -Decreasing elevated Troponin 1.38, 1.26, 1.17 -Cardiology consulted - Dr. Clifton- further recs appreciated MUKESH -Cr worsening to 2.3 from 1.9, elevated from baseline -likely pre-renal demand -Will start gentle IVF hydration per nephro recs -continue to hold nephrotoxic agents -Urine Cr 152, Na 35 -Renal consult- Dr. Andrews - further recs appreciated Chronic HFrEF -BNP elevated 2260 -Torsemide 20 PO BID and Spironolactone on hold -HOB elevated -hold home entresto -cardiology consulted, Dr. Clifton, follow recs Afib (chronic) -continue home eliquis 5 mg BID -repeat EKG shows HR @ 81 bpm, ventricular pacemaker -continue to monitor HTN -continue to hold home meds due to hypotensive episodes DM -hold oral hypoglycemics -ISS Medium with ACHS -Hemoglobin A1C 7.7 6 weeks ago HLD -c/w home statin DVT Ppx: Eliquis GI: Protonix Diet: Heart Healthy Diet Patient seen, case reviewed and plan approved by Dr. Gallego. Brandyn Morton, PGY-1 <Reynaldo Gallego - Last Filed: 10/27/18 13:38> Objective - Vital Signs/Intake and Output Vital Signs (last 24 hours): Temp Pulse Resp BP Pulse Ox 98.4 F 69 20 95/72 L 95 10/27/18 12:00 10/27/18 12:00 10/27/18 12:00 10/27/18 12:00 10/27/18 09:31 Intake and Output: 10/27/18 10/27/18 06:59 18:59 Intake Total 1586 Output Total 200 Balance 1386 - Medications Medications: Current Medications Acetaminophen (Tylenol 325mg Tab) 650 mg PO Q6H PRN PRN Reason: Headache Last Admin: 10/27/18 12:39 Dose: 650 mg Apixaban (Eliquis) 5 mg PO BID [facility]; Protocol Last Admin: 10/27/18 09:31 Dose: 5 mg Aspirin (Aspirin Chewable) 81 mg PO DAILY [facility] Last Admin: 10/27/18 09:59 Dose: 81 mg Atorvastatin Calcium (Lipitor) 10 mg PO HS [facility] Carvedilol (Coreg) 12.5 mg PO BID [facility] Last Admin: 10/27/18 09:59 Dose: 12.5 mg Sodium Chloride (Sodium Chloride 0.9%) 500 mls @ 50 mls/hr IV .Q10H [facility] Stop: 10/27/18 20:29 Last Admin: 10/27/18 10:30 Dose: 50 mls/hr Insulin Human Lispro (Humalog Med) 0 units SC [facility]; Protocol Last Admin: 10/27/18 12:23 Dose: 1 unit - Labs Labs: 10/27/18 07:00 10/27/18 07:00 Attending/Attestation - Attestation I have personally seen and examined this patient.: Yes I have fully participated in the care of the patient.: Yes I have reviewed all pertinent clinical information, including history, physical exam and plan: Yes Notes (Text): 10/27/18 13:35 63 year male with past medical history of CHF s/p AICD, afib on eliquis, hypertension and chronic back pain who with complaint of dizziness and neck pain. Found to have possible NSTEMI with elevated troponin, MUKESH with elevated creatinine and low bp started on dobutamine. He is on aspirin, statin, coreg and eliquis. Dobutamine drip was discontinued today by cardiology. Started on kylie fluids for acute on chronic kidney disease. Torsemide, spironalactone and entresto are on hold for now. Will continue to monitor closely. Reynaldo Gallego MD Hospitalist.
[2018-10-27] MEDS ORDERED: Sodium Chloride 0.9% 750 ML IV SCH (10:30)
[2018-10-27] MEDS ORDERED: Sodium Chloride 0.9% 500 ML IV SCH (10:30)
--- NOTE | 2018-10-27 10:40 | CON ---
DATE OF CONSULTATION: 10/27/2018 CARDIOLOGY CONSULTATION HISTORY: The patient is a 63-year-old male, who presents with dizziness. This is likely due to combination of his cardiomyopathy as well as his Entresto. He denies shortness of breath. Denies chest pain. He also was found to have elevated troponins with progressive renal insufficiency on his laboratory testing. PAST MEDICAL HISTORY: The patient's past medical history is notable for a dilated cardiomyopathy with an EF of 20 to 25%. His recent catheterization in September revealed diffuse atherosclerosis with multiple 50% lesions in the LAD. In addition, he suffers from history of CHF in the past. He was treated with Eliquis for previous pulmonary embolism. He denies shortness of breath. Denies chest pain. SOCIAL HISTORY: The patient does not smoke. REVIEW OF SYSTEMS: Review of systems is reviewed in detail. No cardiac symptoms are noted other than his dizziness. PHYSICAL EXAMINATION: VITAL SIGNS: Blood pressure is 91/60, the heart rate is in the 70s. NECK: Negative JVD. LUNGS: Without rales. CARDIAC: Heart rate S1, S2. EXTREMITIES: Without edema. EKG shows paced rhythm. LABORATORY DATA: Hemoglobin is 15.9. Chemistries, BUN and creatinine are 56 and 2.3 with a troponin of 1.17. IMPRESSION: 1. Dizziness secondary to #2. 2. Hypotension secondary to #3. 3. Entresto and dilated cardiomyopathy. 4. Non-ST elevation myocardial infarction. 5. Progressive renal insufficiency. 6. Diabetes mellitus. 7. Coronary artery disease . PLAN: Given these findings, we will discontinue his Entresto. We will discontinue his IV dobutamine. We will add his Coreg at 12.5 b.i.d. We will continue his anticoagulation with his Eliquis, a baby aspirin has been added. We will treat his acute coronary syndrome medically, and we will hold off on his Entresto, as the patient is intolerant to it. Angus Clifton MD
--- NOTE | 2018-10-27 13:49 | CP.PCM.PCO ---
Physician Communication Note - Physician Communication Note Physician Communication Note: PT eval pending
--- NOTE | 2018-10-27 14:47 | CP.PCM.PN ---
Subjective - Date & Time of Evaluation Date of Evaluation: 10/27/18 Time of Evaluation: 14:44 - Subjective Subjective: Nephrology Consultation Note: Assessment: Stable Acute Kidney Injury (N17.9) likely due to hemodynamic changes (low BP) and pre- renal state as evident by hemoconcentration (high Hb and albumin) FeNa 0.3% elevated troponin (NSTEMI) hyperphosphatemia A fib on eliquis obesity diabetes Mellitus, hypertension sys CHF with LVEF 25-30%, hx of AICD, obesity hyperlipidemia b/l renal cyst Plan No acute need for renal replacement therapy at this time. . Hypertension control with meds as ordered. Maintain hemodynamics stable. Avoid hypotension. Patient on entresto and aldactone. suggest to hold aldactone for now Monitor Input/Output, daily weights and renal function with basic metabolic panel also hold diuretics agree with gentle IVF as NS @ 50 ml/hr supplement lytes as needed cardiology following Check urine analysis, Na/Cr. bladder sono for PVR. Dose meds/antibiotics for reduced GFR. Avoid fleets enema/magnesium based laxati ves. Avoid nephrotoxins/NSAIDs/ iodinated contrast (unless needed emergently) Glycemic control Further work up/management as per primary team Thanks for allowing me to participate in care of your patient. Will follow patient with you. Please call if any Qs. had delmy.w team Dr Aleksandr Andrews Office: [phone] Chief Complaint; dizziness Reason for consult: Acute Kidney Injury HPI: Pt is a 63 Mwith hx of obesity diabetes Mellitus ( years), hypertension (years) A fib on eliquis sys CHF with LVEF 25-30%, hx of AICD, obesity hyperlipidemia presented with complaints of dizziness and found to have low BP, MUKESH and elevated troponin. also with hx of NESSA, doesn't use CPAP at night, says can't. Denies OTC/herbal meds or NSAIDs No recent iodinated contrast exposure. Noted obvious episodes of low BP. no GI fluid loss. says oral intake as usual. ROS: feels dizzy Cardiovascular: No chest pain. Pulmonary: No shortness of breath Gastrointestinal: denies abdominal pain c/o nausea. No vomiting. Genitourinary: No pain while urinating. Denies blood in urine. All other negative except as mentioned in HPI Physical Examination: General Appearance: Comfortable, in no acute respiratory distress, co-operative . obese Vitals reviewed and noted as below Head; Atraumatic, normocephalic ENT: no ulcers no thrush. Tongue is midline. Oropharynx: no rash or ulcers. redness wround martín-oral area (pt says due to shaving) EYES: Pupils are equal, round and reactive to light accommodation. Eye muscles and extraocular movement intact. Sclera is anicteric. Neck; supple no lymphadenopathy, no thyromegaly or bruit Lungs: Normal respiratory rate/effort. Breath sounds bilateral equal and clear Heart: Normal rate. s1s2 normal. No rub or gallop. Extremities: no edema. No varicose veins Neurological: Patient is alert, awake and oriented to person, place and time. No focal deficit. Strength bilateral appropriate and equal Skin: Warm and dry. Normal turgor. No rash. Palpitation: Normal elasticity for age Abdomen: Abdomen is soft. Bowel sounds +. There is no abdominal tenderness, no guarding/rigidity no organomegaly Psych: normal insight and normal affect/mood MSK: no joint tenderness or swelling. Digits and nails normal, no deformity : kidney or bladder not palpable Labs/imaging reviewed. Past medical history, past surgical history, family history, social history, allergy reviewed and noted as below Family hx: no hx of CKD. Rest non-contributory renal imaging: b/l cyst Objective - Vital Signs/Intake and Output Vital Signs (last 24 hours): Temp Pulse Resp BP Pulse Ox 98.4 F 69 20 95/72 L 95 10/27/18 12:00 10/27/18 12:00 10/27/18 12:00 10/27/18 12:00 10/27/18 09:31 Intake and Output: 10/27/18 10/27/18 06:59 18:59 Intake Total 1586 Output Total 200 Balance 1386 - Medications Medications: Current Medications Acetaminophen (Tylenol 325mg Tab) 650 mg PO Q6H PRN PRN Reason: Headache Last Admin: 10/27/18 12:39 Dose: 650 mg Apixaban (Eliquis) 5 mg PO BID [facility]; Protocol Last Admin: 10/27/18 09:31 Dose: 5 mg Aspirin (Aspirin Chewable) 81 mg PO DAILY [facility] Last Admin: 10/27/18 09:59 Dose: 81 mg Atorvastatin Calcium (Lipitor) 10 mg PO [facility] Carvedilol (Coreg) 12.5 mg PO BID [facility] Last Admin: 10/27/18 09:59 Dose: 12.5 mg Sodium Chloride (Sodium Chloride 0.9%) 500 mls @ 50 mls/hr IV .Q10H [facility] Stop: 10/27/18 20:29 Last Admin: 10/27/18 10:30 Dose: 50 mls/hr Insulin Human Lispro (Humalog Med) 0 units SC [facility]; Protocol Last Admin: 10/27/18 12:23 Dose: 1 unit - Labs Labs: 10/27/18 07:00 10/27/18 07:00
--- NOTE | 2018-10-27 18:02 | US ---
Date of service: 10/27/2018 PROCEDURE: Urinary bladder ultrasound HISTORY: MUKESH. please assess for PVR as well COMPARISON: 10/02/2015 TECHNIQUE: Standard protocol for this study/examination. FINDINGS: Urinary bladder assessment: Prevoid volume: 315.3 ml Postvoid residual: 47.1 ml Intrinsic, mural, perivesical abnormalities: None Ureteral jets: Documented bilaterally. IMPRESSION: Small capacitance bladder. Small postvoid residual.
[2018-10-28 07:34] LABS: BASO # 0.02 K/mm3 (0.0-2.0); BASO % 0.3 % (0.0-3.0); EOS # 0.2 (0.0-0.7); EOS % 3.1 % (1.5-5.0); HEMOGLOBIN 15.8 g/dL (14.0-18.0); LYMPH # 2.4 (1.2-3.4); LYMPH % 32.9 % (22.0-35.0); MEAN CELL VOLUME 89.4 fl (80.0-105.0); MEAN CORPUSCULAR HEMOGLOBIN 28.9 pg (25.0-35.0); MEAN CORPUSCULAR HGB CONC 32.4 g/dl (31.0-37.0); MEAN PLATELET VOLUME 10.5 fl (7.0-11.0); MONO # 0.8 (0.1-0.6); MONO % 10.1 % (1.0-6.0); RBC 5.46 10^6/uL (3.5-6.1); RED CELL DISTRIBUTION WIDTH 15.8 % (11.5-14.5); WHITE BLOOD COUNT 7.4 10^3/uL (4.5-11.0)
[2018-10-28 07:46] LABS: ALB/GLOB RATIO 1.2 (1.1-1.8); ALBUMIN 3.8 g/dL (3.0-4.8); ALT/SGPT 10 U/L (7-56); AST/SGOT 26 U/L (17-59); BLOOD UREA NITROGEN 43 mg/dL (7-21); CALCIUM 8.1 mg/dL (8.4-10.5); GFR NON-AFRICAN AMERICAN 56
[2018-10-28] MEDS: Insulin Lispro (humaLOG) MEDIUM Coverage SC SCH ×4 (08:25→21:46)
--- NOTE | 2018-10-28 12:10 | CP.PCM.PN ---
Subjective - Date & Time of Evaluation Date of Evaluation: 10/28/18 Time of Evaluation: 12:07 - Subjective Subjective: Nephrology Consultation Note: Assessment: Stable Acute Kidney Injury (N17.9) likely due to hemodynamic changes (low BP) and pre- renal state as evident by hemoconcentration (high Hb and albumin) FeNa 0.3% elevated troponin (NSTEMI) hyperphosphatemia A fib on eliquis obesity diabetes Mellitus, hypertension sys CHF with LVEF 25-30%, hx of AICD, obesity hyperlipidemia b/l renal cyst Plan No acute need for renal replacement therapy at this time. . Hypertension control with meds as ordered. Maintain hemodynamics stable. Avoid hypotension. Patient was on entresto and aldactone which were held due to MUKESH and low BP. can resume them from renal perspective. Monitor Input/Output, daily weights and renal function with basic metabolic panel can resume diuretics at d/c with half dose of home regimen supplement lytes as needed cardiology following CHF optimization Dose meds/antibiotics for improved GFR. Avoid nephrotoxins/NSAIDs Glycemic control Further work up/management as per primary team pt stable from renal perspective with 1 week outpt follow up Thanks for allowing me to participate in care of your patient. Will follow ez xie with you. Please call if any Qs. had d.w team Dr Aleksandr Andrews Office: [phone] Chief Complaint; dizziness Reason for consult: Acute Kidney Injury HPI: Pt is a 63 Mwith hx of obesity diabetes Mellitus ( years), hypertension (years) A fib on eliquis sys CHF with LVEF 25-30%, hx of AICD, obesity hyperlipidemia presented with complaints of dizziness and found to have low BP, MUKESH and elevated troponin. also with hx of NESSA, doesn't use CPAP at night, says can't. Denies OTC/herbal meds or NSAIDs No recent iodinated contrast exposure. Noted obvious episodes of low BP. no GI fluid loss. says oral intake as usual. ROS: feels dizzy Cardiovascular: No chest pain. Pulmonary: No shortness of breath Gastrointestinal: denies abdominal pain no nausea. No vomiting. Genitourinary: No pain while urinating. Denies blood in urine. All other negative except as mentioned in HPI Physical Examination: General Appearance: Comfortable, in no acute respiratory distress, co-operative . obese Vitals reviewed and noted as below Head; Atraumatic, normocephalic ENT: no ulcers no thrush. Tongue is midline. Oropharynx: no rash or ulcers. redness wround martín-oral area (pt says due to shaving) EYES: Pupils are equal, round and reactive to light accommodation. Eye muscles and extraocular movement intact. Sclera is anicteric. Neck; supple no lymphadenopathy, no thyromegaly or bruit Lungs: Normal respiratory rate/effort. Breath sounds bilateral equal and clear Heart: Normal rate. s1s2 normal. No rub or gallop. Extremities: no edema. No varicose veins Neurological: Patient is alert, awake and oriented to person, place and time. No focal deficit. Strength bilateral appropriate and equal Skin: Warm and dry. Normal turgor. No rash. Palpitation: Normal elasticity for age Abdomen: Abdomen is soft. Bowel sounds +. There is no abdominal tenderness, no g uarding/rigidity no organomegaly Psych: normal insight and normal affect/mood MSK: no joint tenderness or swelling. Digits and nails normal, no deformity : kidney or bladder not palpable Labs/imaging reviewed. Past medical history, past surgical history, family history, social history, allergy reviewed and noted as below Family hx: no hx of CKD. Rest non-contributory renal imaging: b/l cyst Objective - Vital Signs/Intake and Output Vital Signs (last 24 hours): Temp Pulse Resp BP Pulse Ox 98.0 F 70 20 119/87 100 10/28/18 06:00 10/28/18 10:00 10/28/18 06:00 10/28/18 10:21 10/28/18 06:00 Intake and Output: 10/28/18 10/28/18 06:59 18:59 Intake Total 1220 Output Total 840 Balance 380 - Medications Medications: Current Medications Acetaminophen (Tylenol 325mg Tab) 650 mg PO Q6H PRN PRN Reason: Headache Last Admin: 10/28/18 04:57 Dose: 650 mg Apixaban (Eliquis) 5 mg PO BID [facility]; Protocol Last Admin: 10/28/18 10:21 Dose: 5 mg Aspirin (Aspirin Chewable) 81 mg PO DAILY [facility] Last Admin: 10/28/18 10:21 Dose: 81 mg Atorvastatin Calcium (Lipitor) 10 mg PO HS [facility] Last Admin: 04/11/19 22:10 Dose: 10 mg Carvedilol (Coreg) 12.5 mg PO BID [facility] Last Admin: 10/28/18 10:21 Dose: 12.5 mg Insulin Human Lispro (Humalog Med) 0 units SC [facility]; Protocol Last Admin: 10/28/18 12:02 Dose: Not Given - Labs Labs: 10/28/18 07:00 10/28/18 07:00
--- NOTE | 2018-10-28 15:54 | CP.PCM.PN ---
<Brandyn Morton - Last Filed: 10/28/18 15:39> Subjective - Date & Time of Evaluation Date of Evaluation: 10/28/18 Time of Evaluation: 07:45 - Subjective Subjective: Brandyn Morton PGY-1 Progress Note for Hospitalist Service Patient seen and evaluated at bedside. No acute events reported overnight. Patient reports headaches have become less severe and decreased dizziness. Denies chest pain, shortness of breath, N/V, and palpitations at this time. Objective - Vital Signs/Intake and Output Vital Signs (last 24 hours): Temp Pulse Resp BP Pulse Ox 98.1 F 71 19 138/93 H 100 10/28/18 12:00 10/28/18 12:00 10/28/18 12:00 10/28/18 12:00 10/28/18 06:00 Intake and Output: 10/28/18 10/28/18 06:59 18:59 Intake Total 1220 Output Total 840 Balance 380 - Medications Medications: Current Medications Acetaminophen (Tylenol 325mg Tab) 650 mg PO Q6H PRN PRN Reason: Headache Last Admin: 10/28/18 04:57 Dose: 650 mg Apixaban (Eliquis) 5 mg PO BID [facility]; Protocol Last Admin: 10/28/18 10:21 Dose: 5 mg Aspirin (Aspirin Chewable) 81 mg PO DAILY [facility] Last Admin: 10/28/18 10:21 Dose: 81 mg Atorvastatin Calcium (Lipitor) 10 mg PO HS [facility] Last Admin: 10/27/18 22:10 Dose: 10 mg Carvedilol (Coreg) 12.5 mg PO BID [facility] Last Admin: 10/28/18 10:21 Dose: 12.5 mg Insulin Human Lispro (Humalog Med) 0 units SC [facility]; Protocol Last Admin: 10/28/18 12:02 Dose: Not Given - Labs Labs: 10/28/18 07:00 10/28/18 07:00 - Additional Findings Additional findings: - Constitutional Appears: Non-toxic, No Acute Distress Additional comments: obese - Head Exam Head Exam: ATRAUMATIC, NORMAL INSPECTION, NORMOCEPHALIC - Eye Exam Eye Exam: Normal appearance - ENT Exam ENT Exam: Mucous Membranes Moist. Perioral rash, likely 2/2 recent shaving - Respiratory Exam Respiratory Exam: Clear to Auscultation Bilateral, NORMAL BREATHING PATTERN - Cardiovascular Exam Cardiovascular Exam: REGULAR RHYTHM, +S1, +S2. absent: Bradycardia, Tachycardia, Irregular Rhythm, Systolic Murmur - GI/Abdominal Exam GI & Abdominal Exam: Normal Bowel Sounds, obese abdomen, Soft. absent: Tenderness - Extremities Exam Extremities exam: Positive for: Pedal pulses present. Negative for: calf tenderness, tenderness, pedal edema - Neurological Exam Neurological exam: Alert, CN II-XII Intact, Oriented x3 Assessment and Plan - Assessment and Plan (Free Text) Assessment: 63 yr old male w/ hx of AICD, afib on Eliquis, Hypertension, Hypercholesterolemia, HFrEF presents with dizziness. Cardiovascular status has improved. Plan: Dizziness 2/2 Hypotension 2/2 dilated cardiomyopathy- improved -Bradycardic, hypotensive on admission, improved since -Hx of recent cath showing EF 20-25 % -EKG shows paced rhythm @ 71 bpm -Decreasing elevated Troponin 1.38, 1.26, 1.17 -Cardiology consulted - Dr. Clifton- further recs appreciated. Continue to hold Entresto. NSTEMI -C/w ASA 81 mg and Coreg 12.5 mg BID -c/w antocoagulation on Eliquis MUKESH -Cr improved to 1.3 from 2.3, back close to baseline -Likely pre-renal demand -IVF discontinued -Continue to hold nephrotoxic agents -Urine Cr 152, Na 35 -Renal consult- Dr. Andrews - further recs appreciated Chronic HFrEF -BNP elevated 2260 -Resume Aldactone per nephro -Torsemide 20 PO BID on hold. May resume on discharge -HOB elevated -cardiology consulted, Dr. Clifton, follow recs Afib (chronic) -continue home eliquis 5 mg BID -repeat EKG shows HR @ 81 bpm, ventricular pacemaker -continue to monitor HTN -controlled DM -hold oral hypoglycemics -ISS Medium with ACHS -Hemoglobin A1C 7.7 6 weeks ago HLD -c/w home statin DVT Ppx: Eliquis Diet: Heart Healthy Diet Palliative: POLST was signed by Beena Viramontes NP. Patient is DNR/DNI Patient seen, case reviewed and plan approved by Dr. Gallego. Brandyn Morton, PGY-1 <Reynaldo Gallego - Last Filed: 10/28/18 16:19> Objective - Vital Signs/Intake and Output Vital Signs (last 24 hours): Temp Pulse Resp BP Pulse Ox 98.1 F 71 19 138/93 H 100 10/28/18 12:00 10/28/18 12:00 10/28/18 12:00 10/28/18 12:00 10/28/18 06:00 Intake and Output: 10/28/18 10/28/18 06:59 18:59 Intake Total 1220 Output Total 840 Balance 380 - Medications Medications: Current Medications Acetaminophen (Tylenol 325mg Tab) 650 mg PO Q6H PRN PRN Reason: Headache Last Admin: 10/28/18 04:57 Dose: 650 mg Apixaban (Eliquis) 5 mg PO BID [facility]; Protocol Last Admin: 10/28/18 10:21 Dose: 5 mg Aspirin (Aspirin Chewable) 81 mg PO DAILY [facility] Last Admin: 10/28/18 10:21 Dose: 81 mg Atorvastatin Calcium (Lipitor) 10 mg PO HS [facility] Last Admin: 10/27/18 22:10 Dose: 10 mg Carvedilol (Coreg) 12.5 mg PO BID [facility] Last Admin: 10/28/18 10:21 Dose: 12.5 mg Insulin Human Lispro (Humalog Med) [address] [facility]; Protocol Last Admin: 10/28/18 12:02 Dose: Not Given Spironolactone (Aldactone) 25 mg PO DAILY [facility] - Labs Labs: 10/28/18 07:00 10/28/18 07:00 Attending/Attestation - Attestation I have personally seen and examined this patient.: Yes I have fully participated in the care of the patient.: Yes I have reviewed all pertinent clinical information, including history, physical exam and plan: Yes Notes (Text): 10/28/18 16:15 63 year male with past medical history of CHF s/p AICD, afib on eliquis, hypertension and chronic back pain who with complaint of dizziness and neck p ain. Found to have possible NSTEMI with elevated troponins, MUKESH with elevated creatinine and low bp started on dobutamine. He is on aspirin, statin, coreg and eliquis. He was started on gentle fluids and his torsemide, aldactone and entresto were held. His MUKESH has resolved. BP has improved. Dobutamine drip was discontinued. Spironalactone is resumed. PT evaluation was appreciated; recommended TCU. Will follow up with CMx/Sw. Reynaldo Gallego MD Hospitalist.
--- NOTE | 2018-10-28 15:58 | PN ---
DATE: 10/28/2018 SUBJECTIVE: The patient is without shortness of breath. OBJECTIVE: VITAL SIGNS: Blood pressure 119/87, heart rate in the 70s. NECK: Negative JVD. LUNGS: Without rales. HEART: S1, S2. EXTREMITIES: Without edema. LABORATORY DATA: BUN and creatinine 43 and 1.3. IMPRESSION: 1. Status post congestive heart failure. 2. Dilated cardiomyopathy. 3. Resolution of renal insufficiency. 4. Recent elevated troponins. 5. Diabetes mellitus. 6. Coronary artery disease. Given these findings, the patient is doing well from a cardiac perspective, we will continue the beta blockers and the Eliquis as well as Lipitor. Will discontinue telemetry today. No further cardiac workup is planned at this time. Angus Clifton MD
--- NOTE | 2018-10-28 19:49 | CP.PCM.CON ---
History of Present Illness - History of Present Illness History of Present Illness: Palliative consult requested by Dr Rigo Gallego Reason: Advance care planning This is 63 year old male history AICD, Afib, HTN, CHF who presented on with dizziness. He reported that he sleeps on 4 pillows at night. He also past history has his lower extremity swelling which has stabilized since being placed on a diuretic. He denied chest pain, palpitations, fever, chills, nausea, vomiting, abdominal pain, diarrhea, constipation, urinary symptoms Chest x ray: No active disease EKG: Pacing, underlying a Fib Labs on admission: HGB 18.3, HCT 54.7 PMHx: AICD, A-fib on Eliquis, HTN, HLD, DM2,dilated cardiomyopathy,LVEF 25-30% PSHX: meniscus repair L knee, AICD placement Social History: Non smoker, alcohol on occasion and denies illicit drug us. He lives alone at home. Family History: Non contributory Advance Care Planning: The patient does not have an Advance Directive [place] of Systems: As per HPI, 12 point review otherwise negative. Past Patient History - Infectious Disease Hx of Infectious Diseases: None - Tetanus Immunizations Tetanus Immunization: Up to Date - Past Social History Smoking Status: Never Smoked - CARDIAC Hx Cardiac Disorders: Yes Hx Congestive Heart Failure: Yes Hx Hypercholesterolemia: Yes Hx Hypertension: Yes - PULMONARY Hx Respiratory Disorders: Yes Hx Sleep Apnea: Yes (can't sleep with machine on) - NEUROLOGICAL Hx Neurological Disorder: No Hx Transient Ischemic Attacks (TIA): (pt denies) - HEENT Hx HEENT Problems: No (WEARS RX GLASSES) - RENAL Hx Chronic Kidney Disease: No - ENDOCRINE/METABOLIC Hx Diabetes Mellitus Type 2: Yes - HEMATOLOGICAL/ONCOLOGICAL Hx Blood Disorders: No - INTEGUMENTARY Hx Dermatological Problems: Yes Other/Comment: red skin irritation around both sides of mouth and chin from "shaving" this am. "Used a new razor.", top of left foot red itchy rash, has had it off and on for 8 or 9 months cause unknown - MUSCULOSKELETAL/RHEUMATOLOGICAL Hx Falls: Yes (06/2018) - GASTROINTESTINAL Hx Gastrointestinal Disorders: Yes (DIVERTICULITIS, HEMORRHOIDS, HIATAL HERNIA) Other/Comment: obese - GENITOURINARY/GYNECOLOGICAL Hx Genitourinary Disorders: No - PSYCHIATRIC Hx Substance Use: No - SURGICAL HISTORY Hx Surgeries: Yes Hx Cardiac Catheterization: Yes (09/2018) Hx Orthopedic Surgery: Yes Other/Comment: LEFT MENISCUS TEAR 1996,POLPS REMOVED from NASAL PASSAGES, pt denies arthoscopic sx r knee, pt stated "I had fluid drained." oral sx to inner r cheek dr brantley removed a cyst 5 yrs ago, epidurals for lower back pain & injections[pt does not know what kind of injection] at [facility]] - ANESTHESIA Hx Anesthesia: No Hx Anesthesia Reactions: No Hx Malignant Hyperthermia: No Meds Home Medications: Home Medication List Medication Instructions Recorded Confirmed Type Apixaban [Eliquis] 5 mg PO BID #60 tab 10/28/18 Rx Aspirin [Aspirin Chewable] 81 mg PO DAILY #15 chew 10/28/18 Rx Carvedilol [Coreg] 12.5 mg PO BID #30 tab 10/28/18 Rx Allergies/Adverse Reactions: Allergies Allergy/AdvReac Type Severity Reaction Status Date / Time codeine Allergy SWELLING Verified 09/13/18 17:35 metformin Allergy DIARRHEA Verified 09/13/18 17:35 Penicillins Allergy SWELLING Verified 09/13/18 17:35 tetracycline Allergy SWELLING Verified 09/13/18 17:35 - Medications Medications: Current Medications Acetaminophen (Tylenol 325mg Tab) 650 mg PO Q6H PRN PRN Reason: Headache Last Admin: 10/28/18 16:36 Dose: 650 mg Apixaban (Eliquis) 5 mg PO BID [facility]; Protocol Last Admin: 10/28/18 17:34 Dose: 5 mg Aspirin (Aspirin Chewable) 81 mg PO DAILY [facility] Last Admin: 10/28/18 10:21 Dose: 81 mg Atorvastatin Calcium (Lipitor) 10 mg PO HS [facility] Last Admin: 10/27/18 22:10 Dose: 10 mg Carvedilol (Coreg) 12.5 mg PO BID [facility] Last Admin: 10/28/18 17:34 Dose: 12.5 mg Insulin Human Lispro (Humalog Med) 0 units SC [facility]; Protocol Last Admin: 10/28/18 16:55 Dose: Not Given Spironolactone (Aldactone) 25 mg PO DAILY [facility] Physical Exam - Constitutional Appears: No Acute Distress Additional comments: obese - Head Exam Head Exam: NORMAL INSPECTION - Eye Exam Eye Exam: Normal appearance, PERRL - Neck Exam Neck exam: Positive for: Normal Inspection - Respiratory Exam Respiratory Exam: Clear to Auscultation Bilateral, NORMAL BREATHING PATTERN - Cardiovascular Exam Cardiovascular Exam: REGULAR RHYTHM, +S1, +S2 - GI/Abdominal Exam GI & Abdominal Exam: Normal Bowel Sounds, Soft - Extremities Exam Extremities exam: Positive for: pedal edema, pedal pulses present - Back Exam Back exam: NORMAL INSPECTION - Neurological Exam Neurological exam: Alert, Oriented x3 - Psychiatric Exam Psychiatric exam: Normal Affect - Skin Skin Exam: Dry, Warm - Additional Findings Additional findings: Palliative performance scale rating 60% Results - Vital Signs Recent Vital Signs: Last Vital Signs Temp 98.1 F 10/28/18 12:00 Pulse 71 10/28/18 12:00 Resp 19 10/28/18 12:00 BP 138/93 H 10/28/18 12:00 Pulse Ox 100 10/28/18 06:00 - Labs Result Diagrams: 10/29/18 07:00 10/28/18 07:00 Labs: Laboratory Results - last 24 hr 10/27/18 10/28/18 10/28/18 21:05 07:00 07:00 WBC 7.4 D RBC 5.46 Hgb 15.8 Hct 48.8 MCV 89.4 MCH 28.9 MCHC 32.4 RDW 15.8 H Plt Count 189 MPV 10.5 Neut % (Auto) 53.6 Lymph % (Auto) 32.9 [place] % (Auto) 10.1 H Eos % (Auto) 3.1 Baso % (Auto) 0.3 Lymph # (Auto) 2.4 [place] # (Auto) 0.8 H Eos # (Auto) 0.2 Baso # (Auto) 0.02 Absolute Neuts (auto) 3.97 Sodium 134 Potassium 4.7 Chloride 100 Carbon Dioxide 27 Anion Gap 12 BUN 43 H Creatinine 1.3 Est GFR ( Amer) > 60 Est GFR (Non-Af Amer) 56 POC Glucose (mg/dL) 179 H Random Glucose 141 H Calcium 8.1 L Phosphorus 4.5 Magnesium 2.6 H Total Bilirubin 0.8 AST 26 ALT 10 Alkaline Phosphatase 66 Total Protein 7.1 Albumin 3.8 Globulin 3.3 Albumin/Globulin Ratio 1.2 10/28/18 10/28/18 10/28/18 07:44 11:43 16:38 WBC RBC Hgb Hct MCV MCH MCHC RDW Plt Count MPV Neut % (Auto) Lymph % (Auto) [place] % (Auto) Eos % (Auto) Baso % (Auto) Lymph # (Auto) [place] # (Auto) Eos # (Auto) Baso # (Auto) Absolute Neuts (auto) Sodium Potassium Chloride Carbon Dioxide Anion Gap BUN Creatinine Est GFR ( Amer) Est GFR (Non-Af Amer) POC Glucose (mg/dL) 144 H 154 H 132 H Random Glucose Calcium Phosphorus Magnesium Total Bilirubin AST ALT Alkaline Phosphatase Total Protein Albumin Globulin Albumin/Globulin Ratio Assessment & Plan - Assessment and Plan (Free Text) Assessment: 63 year old male with history of AICD, A fib,HTN,HLD,dilated,cardiomyopathy who is admitted with dizziness, CHF excerbation,N STEMI. The patient is alert and oriented. The patient is aware of his medical history and the reason for this admission. Advance care planning discussed. He does not have an Advanced Directive. Benefits and burdens of resuscitation explained, questions answered. He does not want CPR or intubation A POLST Directive was completed.He named his sister, Jordy Luke as his POA Time spent with this patient in goals of and advance care planning, 20 minutes Plan: Goals of care and advance care planning; POLST DNR/DNI Hypotension/dizziness > resolved Cardiology following,recs reviewed, continue Eliquis, Aldcatone, Coreg, Lipitor,ASA. Will follow up with cardiac rehab as out patient DM: Fingertics ACHS, Lispro as ordered, dietary counseling
[2018-10-29 07:46] VITALS: BP 142/96; PULSE 72; RESP 20; TEMP 97.3; O2SAT 97
[2018-10-29 08:19] LABS: BASO # 0.03 K/mm3 (0.0-2.0); BASO % 0.4 % (0.0-3.0); EOS # 0.1 (0.0-0.7); EOS % 1.8 % (1.5-5.0); LYMPH # 2.8 (1.2-3.4); LYMPH % 35.4 % (22.0-35.0); MEAN CELL VOLUME 89.4 fl (80.0-105.0); MEAN CORPUSCULAR HEMOGLOBIN 28.9 pg (25.0-35.0); MEAN CORPUSCULAR HGB CONC 32.3 g/dl (31.0-37.0); MEAN PLATELET VOLUME 10.4 fl (7.0-11.0); MONO # 0.8 (0.1-0.6); MONO % 10.3 % (1.0-6.0); RBC 5.54 10^6/uL (3.5-6.1); RED CELL DISTRIBUTION WIDTH 15.7 % (11.5-14.5); WHITE BLOOD COUNT 7.8 10^3/uL (4.5-11.0)
[2018-10-29 08:53] LABS: ALB/GLOB RATIO 1.3 (1.1-1.8); ALT/SGPT 8 U/L (7-56); AST/SGOT 18 U/L (17-59); BLOOD UREA NITROGEN 33 mg/dL (7-21); GFR NON-AFRICAN AMERICAN > 60
[2018-10-29] MEDS: Insulin Lispro (humaLOG) MEDIUM Coverage SC SCH ×2 (10:29→12:31)
--- NOTE | 2018-10-29 13:40 | CP.PCM.DIS ---
<Brandyn Morton - Last Filed: 10/29/18 13:40> Provider - Provider Date of Admission: 10/26/18 14:18 Attending physician: Reynaldo Gallego MD Primary care physician: Dr. Ramos Consults: 10/26/18 14:19 Cardiology Consult Stat Comment: Consulting Provider: Angus Clifton Consulting Physician: Angus Clifton Reason for Consult: nstemi 10/26/18 14:40 Consult [Physician Consult] Routine Comment: Consulting Provider: Aleksandr Andrews Consulting Physician: Aleksandr Andrews Reason for Consult: MUKESH 10/26/18 21:41 Nursing Referral for Palliative Care Routine Comment: natty score Physician Instructions: Reason For Exam: assess Social Work Referral Routine Comment: d/c plan Physician Instructions: Reason For Exam: assess 10/26/18 22:27 Inpatient ENGLISH AND READING INSTRUCTOR Core Measures Referral Routine Comment: nstemi mukesh Physician Instructions: Reason For Exam: assess Transition In Care/Readmission Reduction Routine Comment: nstemi mukesh Physician Instructions: Reason For Exam: assess 10/27/18 12:30 Palliative Care Consult Routine Comment: Consulting Provider: Mary Viramontes Physician Instructions: Reason For Exam: multiple admissions, poorly controlled Hrt failure 10/28/18 11:49 TCU [Evaluation for TRCU] Routine Comment: Physician Instructions: Reason For Exam: deconditioned/unsteady gait Time Spent in preparation of Discharge (in minutes): 40 Hospital Course - Lab Results Lab Results: Most Recent Lab Values WBC 7.8 10^3/uL (4.5-11.0) 10/29/18 07:00 RBC 5.54 10^6/uL (3.5-6.1) 10/29/18 07:00 Hgb 16.0 g/dL (14.0-18.0) 10/29/18 07:00 Hct 49.5 % (42.0-52.0) 10/29/18 07:00 MCV 89.4 fl (80.0-105.0) 10/29/18 07:00 MCH 28.9 pg (25.0-35.0) 10/29/18 07:00 MCHC 32.3 g/dl (31.0-37.0) 10/29/18 07:00 RDW 15.7 % (11.5-14.5) H 10/29/18 07:00 Plt Count 183 10^3/uL (120.0-450.0) 10/29/18 07:00 MPV 10.4 fl (7.0-11.0) 10/29/18 07:00 Neut % (Auto) 52.1 % (50.0-68.0) 10/29/18 07:00 Lymph % (Auto) 35.4 % (22.0-35.0) H 10/29/18 07:00 [place] % (Auto) 10.3 % (1.0-6.0) H 10/29/18 07:00 Eos % (Auto) 1.8 % (1.5-5.0) 10/29/18 07:00 Baso % (Auto) 0.4 % (0.0-3.0) 10/29/18 07:00 Lymph # (Auto) 2.8 (1.2-3.4) 10/29/18 07:00 [place]th # (Auto) 0.8 (0.1-0.6) H 10/29/18 07:00 Eos # (Auto) 0.1 (0.0-0.7) 10/29/18 07:00 Baso # (Auto) 0.03 K/mm3 (0.0-2.0) 10/29/18 07:00 Absolute Neuts (auto) 4.04 (1.4-6.5) 10/29/18 07:00 Sodium 137 mmol/L (132-148) 10/29/18 07:00 Potassium 4.7 mmol/L (3.6-5.0) 10/29/18 07:00 Chloride 105 mmol/L (98-107) 10/29/18 07:00 Carbon Dioxide 22 mmol/L (21-33) 10/29/18 07:00 Anion Gap 15 (10-20) 10/29/18 07:00 BUN 33 mg/dL (7-21) H 10/29/18 07:00 Creatinine 1.2 mg/dl (0.8-1.5) 10/29/18 07:00 Est GFR ( Amer) > 60 10/29/18 07:00 Est GFR (Non-Af Amer) > 60 10/29/18 07:00 POC Glucose (mg/dL) 122 mg/dL (65-110) H 10/29/18 11:19 Random Glucose 127 mg/dL (70-110) H 10/29/18 07:00 Calcium 9.0 mg/dL (8.4-10.5) 10/29/18 07:00 Phosphorus 3.4 mg/dL (2.5-4.5) 10/29/18 07:00 Magnesium 2.4 mg/dL (1.7-2.2) H 10/29/18 07:00 Total Bilirubin 0.6 mg/dL (0.2-1.3) 10/29/18 07:00 AST 18 U/L (17-59) 10/29/18 07:00 ALT 8 U/L (7-56) 10/29/18 07:00 Alkaline Phosphatase 84 U/L (38-126) 10/29/18 07:00 Troponin I 1.17 ng/mL H* 10/27/18 00:48 NT-Pro-B Natriuret Pep 2260 pg/mL (0-450) H 10/26/18 12:44 Total Protein 7.3 g/dL (5.8-8.3) 10/29/18 07:00 Albumin 4.0 g/dL (3.0-4.8) 10/29/18 07:00 Globulin 3.2 gm/dL 10/29/18 07:00 Albumin/Globulin Ratio 1.3 (1.1-1.8) 10/29/18 07:00 Triglycerides 184 mg/dL (35-160) H 10/26/18 13:00 Cholesterol 232 mg/dL (130-200) H 10/26/18 13:00 LDL Cholesterol Direct 174 mg/dL (0-129) H 10/26/18 13:00 HDL Cholesterol 36 mg/dL (29-60) 10/26/18 13:00 Urine Color Yellow (YELLOW) 10/27/18 03:40 Urine Appearance Clear (CLEAR) 10/27/18 03:40 Urine pH 5.0 (4.7-8.0) 10/27/18 03:40 Ur Specific [place] 1.025 (1.005-1.035) 10/27/18 03:40 Urine Protein Negative mg/dL (<30 mg/dL) 10/27/18 03:40 Urine Glucose (UA) >=1000 mg/dL (NEGATIVE) 10/27/18 03:40 Urine Ketones Negative mg/dL (NEGATIVE) 10/27/18 03:40 Urine Blood Negative (NEGATIVE) 10/27/18 03:40 Urine Nitrate Negative (NEGATIVE) 10/27/18 03:40 Urine Bilirubin Negative (NEGATIVE) 10/27/18 03:40 Urine Urobilinogen 0.2 E.U./dL (<1 E.U./dL) 10/27/18 03:40 Ur Leukocyte Esterase Negative Jayleen/uL (NEGATIVE) 10/27/18 03:40 Ur Random Creatinine 162 mg/dL 10/27/18 03:40 Ur Random Sodium 35 meq/L 10/27/18 03:40 - Hospital Course Hospital Course: Brandyn Morton, PGY-1 Discharge Summary for Hospitalist Service 63 year male with past medical history of HFrEF s/p AICD, Afib on eliquis, hypertension and chronic back pain who was admitted with complaint of dizziness and neck pain. Patient was found to have possible NSTEMI with elevated troponins, MUKESH with elevated creatinine and bradycardia. Cardiology - Dr. Clifton - was consulted and started patient on dobutamine drip. Nephrology - Dr. Andrews - was consulted for MUKESH. Patient continued on Aspirin, Statin, Coreg and Eliquis. He was started on gentle IV fluids in light of his HFrEF for MUKESH, and his torsemide and aldactone were held. MUKESH was likely 2/2 pre-renal demand. MUKESH resolved and BP improved, at which point Dobutamine drip was discontinued and Spironalactone was resumed. Torsemide will be continued on discharge.Palliative consult was placed with Beena Paramonte, and POLST was completed and patient is DNR/DNI. PT was consulted, who recommended TCU. Patient was approved for TCU and received a bed. Patient will continue medications as on the medical floors in addition to half dose of Torsemide. For further details of hospital course, please refer to EMR. Patient seen, case reviewed and plan approved by Dr. Gallego. Discharge Exam - Additional Findings Additional findings: - Constitutional Appears: Non-toxic, No Acute Distress Additional comments: obese - Head Exam Head Exam: ATRAUMATIC, NORMAL INSPECTION, NORMOCEPHALIC - Eye Exam Eye Exam: Normal appearance - ENT Exam ENT Exam: Mucous Membranes Moist. Perioral rash, likely 2/2 recent shaving, improved - Respiratory Exam Respiratory Exam: Clear to Auscultation Bilateral, NORMAL BREATHING PATTERN - Cardiovascular Exam Cardiovascular Exam: REGULAR RHYTHM, +S1, +S2. absent: Bradycardia, Tachycardia, Irregular Rhythm, Systolic Murmur - GI/Abdominal Exam GI & Abdominal Exam: Normal Bowel Sounds, obese abdomen, Soft. absent: Tenderness - Extremities Exam Extremities exam: Positive for: Pedal pulses present. Negative for: calf tenderness, tenderness, pedal edema - Neurological Exam Neurological exam: Alert, CN II-XII Intact, Oriented x3 Discharge Plan - Discharge Medications Prescriptions: Apixaban [Eliquis] 5 mg PO BID #60 tab Aspirin [Aspirin Chewable] 81 mg PO DAILY #15 chew Carvedilol [Coreg] 12.5 mg PO BID #30 tab - Follow Up Plan Condition: FAIR Disposition: REHAB FACILITY/REHAB UNIT Instructions: Atrial Fibrillation (DC), Heart Attack (DC), Acute Kidney Failure (DC), Automatic Cardioverter Defibrillator Implantation (DC), Myocardial Infarction (DC) Additional Instructions: Discharge to TCU Your PMD will follow you there. Referrals: Mary Viramontes RN, CHIEF LOAD DISPATCHER [Staff Provider] - Angus Clifton MD [Staff Provider] - <Reynaldo Gallego - Last Filed: 10/29/18 14:11> Provider - Provider Date of Admission: 10/26/18 14:18 Attending physician: Reynaldo Gallego MD Consults: 10/26/18 14:19 Cardiology Consult Stat Comment: Consulting Provider: Angus Clifton Consulting Physician: Angus Clifton Reason for Consult: nstemi 10/26/18 14:40 Consult [Physician Consult] Routine Comment: Consulting Provider: Aleksandr Andrews Consulting Physician: Aleksandr Andrews Reason for Consult: MUKESH 10/26/18 21:41 Nursing Referral for Palliative Care Routine Comment: natty score Physician Instructions: Reason For Exam: assess Social Work Referral Routine Comment: d/c plan Physician Instructions: Reason For Exam: assess 10/26/18 22:27 Inpatient ENGLISH AND READING INSTRUCTOR Core Measures Referral Routine Comment: nstemi mukesh Physician Instructions: Reason For Exam: assess Transition In Care/Readmission Reduction Routine Comment: nstemi mukesh Physician Instructions: Reason For Exam: assess 10/27/18 12:30 Palliative Care Consult Routine Comment: Consulting Provider: Mary Viramontes Physician Instructions: Reason For Exam: multiple admissions, poorly controlled Hrt failure 10/28/18 11:49 TCU [Evaluation for TRCU] Routine Comment: Physician Instructions: Reason For Exam: deconditioned/unsteady [facility] Hospital Course - Lab Results Lab Results: Most Recent Lab Values WBC 7.8 10^3/uL (4.5-11.0) 10/29/18 07:00 RBC 5.54 10^6/uL (3.5-6.1) 10/29/18 07:00 Hgb 16.0 g/dL (14.0-18.0) 10/29/18 07:00 Hct 49.5 % (42.0-52.0) 10/29/18 07:00 MCV 89.4 fl (80.0-105.0) 10/29/18 07:00 MCH 28.9 pg (25.0-35.0) 10/29/18 07:00 MCHC 32.3 g/dl (31.0-37.0) 10/29/18 07:00 RDW 15.7 % (11.5-14.5) H 10/29/18 07:00 Plt Count 183 10^3/uL (120.0-450.0) 10/29/18 07:00 MPV 10.4 fl (7.0-11.0) 10/29/18 07:00 Neut % (Auto) 52.1 % (50.0-68.0) 10/29/18 07:00 Lymph % (Auto) 35.4 % (22.0-35.0) H 10/29/18 07:00 [place]th % (Auto) 10.3 % (1.0-6.0) H 10/29/18 07:00 Eos % (Auto) 1.8 % (1.5-5.0) 10/29/18 07:00 Baso % (Auto) 0.4 % (0.0-3.0) 10/29/18 07:00 Lymph # (Auto) 2.8 (1.2-3.4) 10/29/18 07:00 [place]th # (Auto) 0.8 (0.1-0.6) H 10/29/18 07:00 Eos # (Auto) 0.1 (0.0-0.7) 10/29/18 07:00 Baso # (Auto) 0.03 K/mm3 (0.0-2.0) 10/29/18 07:00 Absolute Neuts (auto) 4.04 (1.4-6.5) 10/29/18 07:00 Sodium 137 mmol/L (132-148) 10/29/18 07:00 Potassium 4.7 mmol/L (3.6-5.0) 10/29/18 07:00 Chloride 105 mmol/L (98-107) 10/29/18 07:00 Carbon Dioxide 22 mmol/L (21-33) 10/29/18 07:00 Anion Gap 15 (10-20) 10/29/18 07:00 BUN 33 mg/dL (7-21) H 10/29/18 07:00 Creatinine 1.2 mg/dl (0.8-1.5) 10/29/18 07:00 Est GFR ( Amer) > 60 10/29/18 07:00 Est GFR (Non-Af Amer) > 60 10/29/18 07:00 POC Glucose (mg/dL) 122 mg/dL (65-110) H 10/29/18 11:19 Random Glucose 127 mg/dL (70-110) H 10/29/18 07:00 Calcium 9.0 mg/dL (8.4-10.5) 10/29/18 07:00 Phosphorus 3.4 mg/dL (2.5-4.5) 10/29/18 07:00 Magnesium 2.4 mg/dL (1.7-2.2) H 10/29/18 07:00 Total Bilirubin 0.6 mg/dL (0.2-1.3) 10/29/18 07:00 AST 18 U/L (17-59) 10/29/18 07:00 ALT 8 U/L (7-56) 10/29/18 07:00 Alkaline Phosphatase 84 U/L (38-126) 10/29/18 07:00 Troponin I 1.17 ng/mL H* 10/27/18 00:48 NT-Pro-B Natriuret Pep 2260 pg/mL (0-450) H 10/26/18 12:44 Total Protein 7.3 g/dL (5.8-8.3) 10/29/18 07:00 Albumin 4.0 g/dL (3.0-4.8) 10/29/18 07:00 Globulin 3.2 gm/dL 10/29/18 07:00 Albumin/Globulin Ratio 1.3 (1.1-1.8) 10/29/18 07:00 Triglycerides 184 mg/dL (35-160) H 10/26/18 13:00 Cholesterol 232 mg/dL (130-200) H 10/26/18 13:00 LDL Cholesterol Direct 174 mg/dL (0-129) H 10/26/18 13:00 HDL Cholesterol 36 mg/dL (29-60) 10/26/18 13:00 Urine Color Yellow (YELLOW) 10/27/18 03:40 Urine Appearance Clear (CLEAR) 10/27/18 03:40 Urine pH 5.0 (4.7-8.0) 10/27/18 03:40 Ur Specific [place] 1.025 (1.005-1.035) 10/27/18 03:40 Urine Protein Negative mg/dL (<30 mg/dL) 10/27/18 03:40 Urine Glucose (UA) >=1000 mg/dL (NEGATIVE) 10/27/18 03:40 Urine Ketones Negative mg/dL (NEGATIVE) 10/27/18 03:40 Urine Blood Negative (NEGATIVE) 10/27/18 03:40 Urine Nitrate Negative (NEGATIVE) 10/27/18 03:40 Urine Bilirubin Negative (NEGATIVE) 10/27/18 03:40 Urine Urobilinogen 0.2 E.U./dL (<1 E.U./dL) 10/27/18 03:40 Ur Leukocyte Esterase Negative Jayleen/uL (NEGATIVE) 10/27/18 03:40 Ur Random Creatinine 162 mg/dL 10/27/18 03:40 Ur Random Sodium 35 meq/L 10/27/18 03:40 Attending/Attestation - Attestation I have personally seen and examined this patient.: Yes I have fully participated in the care of the patient.: Yes I have reviewed all pertinent clinical information, including history, physical exam and plan: Yes Notes (Text): 10/29/18 14:09 63 year male with past medical history of CHF s/p AICD, afib on eliquis, hypertension and chronic back pain who with complaint of dizziness and neck pain. He was found to have possible NSTEMI with elevated troponins, MUKESH with elevated creatinine and low bp started on dobutamine. He was started on gentle fluids and his torsemide, aldactone and entresto were held. He was on aspirin, statin, coreg and eliquis. His MUKESH has resolved. BP has improved and dobutamine drip was discontinued. Spironalactone is resumed. Torsemide can be resumed 1/2 dose as per nephrology. He was seen by PT who recommended TCU. Patient is accepted and will be transferred to TCU. Will continue to follow. Reynaldo Gallego MD Hospitalist.
--- NOTE | 2018-10-29 13:48 | CP.PCM.PN ---
Subjective - Date & Time of Evaluation Date of Evaluation: 10/29/18 Time of Evaluation: 13:47 - Subjective Subjective: Nephrology Consultation Note: Assessment: Stable Acute Kidney Injury (N17.9) likely due to hemodynamic changes (low BP) and pre- renal state as evident by hemoconcentration (high Hb and albumin) FeNa 0.3% elevated troponin (NSTEMI) hyperphosphatemia A fib on eliquis obesity diabetes Mellitus, hypertension sys CHF with LVEF 25-30%, hx of AICD, obesity hyperlipidemia b/l renal cyst Plan No acute need for renal replacement therapy at this time. MUKESH is improved bp is stable can resume diuretics at d/c with half dose of home regimen supplement lytes as needed cardiology following CHF optimization S: seen and examined no complaints Physical Examination: General Appearance: Comfortable, in no acute respiratory distress, co-operative . obese Vitals reviewed and noted as below Head; Atraumatic, normocephalic ENT: no ulcers no thrush. Tongue is midline. Oropharynx: no rash or ulcers. EYES: Pupils are equal, round and reactive to light accommodation. Eye muscles and extraocular movement intact. Sclera is anicteric. Neck; supple no lymphadenopathy, no thyromegaly or bruit Lungs: Normal respiratory rate/effort. Breath sounds bilateral equal and clear Heart: Normal rate. s1s2 normal. No rub or gallop. Extremities: no edema. No varicose veins Neurological: Patient is alert, awake and oriented to person, place and time. No focal deficit. Strength bilateral appropriate and equal Skin: Warm and dry. Normal turgor. No rash. Palpitation: Normal elasticity for age Abdomen: Abdomen is soft. Bowel sounds +. There is no abdominal tenderness, no guarding/rigidity no organomegaly Psych: normal insight and normal affect/mood MSK: no joint tenderness or swelling. Digits and nails normal, no deformity : kidney or bladder not palpable Labs/imaging reviewed. Past medical history, past surgical history, family history, social history, allergy reviewed and noted as below Family hx: no hx of CKD. Rest non-contributory renal imaging: b/l cyst Objective - Vital Signs/Intake and Output Vital Signs (last 24 hours): Temp Pulse Resp BP Pulse Ox 97.3 F L 72 20 142/96 H 97 10/29/18 06:00 10/29/18 10:42 10/29/18 06:00 10/29/18 10:42 10/29/18 06:00 Intake and Output: 10/29/18 10/29/18 06:59 18:59 Intake Total 600 Output Total 400 Balance 200 - Medications Medications: Current Medications Acetaminophen (Tylenol 325mg Tab) 650 mg PO Q6H PRN PRN Reason: Headache Last Admin: 10/28/18 23:23 Dose: 650 mg Apixaban (Eliquis) 5 mg PO BID [facility]; Protocol Last Admin: 10/29/18 10:42 Dose: 5 mg Aspirin (Aspirin Chewable) 81 mg PO DAILY [facility] Last Admin: 10/29/18 10:42 Dose: 81 mg Atorvastatin Calcium (Lipitor) 10 mg PO HS [facility] Last Admin: 10/28/18 21:37 Dose: 10 mg Carvedilol (Coreg) 12.5 mg PO BID [facility] Last Admin: 10/29/18 10:42 Dose: 12.5 mg Insulin Human Lispro (Humalog Med) 0 units SC [facility]; Protocol Last Admin: 10/29/18 12:31 Dose: Not Given Spironolactone (Aldactone) 25 mg PO DAILY [facility] Last Admin: 10/29/18 10:42 Dose: 25 mg - Labs Labs: 10/29/18 07:00 10/29/18 07:00
== END 2018-10-29 14:19 | DRG 280 ==
LOC: ED 12:04 → ERH 14:18 → 2RSO 16:09 → 5RNO 10-28 17:59
PROVIDERS: ADMIT Internal Medicine; ATTEND Internal Medicine
DX: I21.4 Non-ST elevation (NSTEMI) myocardial infarction (principal); R57.0 Cardiogenic shock; N17.9 Acute kidney failure, unspecified; I50.22 Chronic systolic (congestive) heart failure; I42.0 Dilated cardiomyopathy; I13.0 Hypertensive heart and chronic kidney disease with heart failure and stage 1 through stage 4 chronic kidney disease, or unspecified chronic kidney disease; R42 Dizziness and giddiness; M54.9 Dorsalgia, unspecified; I48.2 Chronic atrial fibrillation; I25.10 Atherosclerotic heart disease of native coronary artery without angina pectoris; Z95.810 Presence of automatic (implantable) cardiac defibrillator; Z68.36 Body mass index [BMI] 36.0-36.9, adult; E66.9 Obesity, unspecified; T50.2X5A Adverse effect of carbonic-anhydrase inhibitors, benzothiadiazides and other diuretics, initial encounter; N18.9 Chronic kidney disease, unspecified; E11.22 Type 2 diabetes mellitus with diabetic chronic kidney disease; E78.00 Pure hypercholesterolemia, unspecified; E78.5 Hyperlipidemia, unspecified; E83.39 Other disorders of phosphorus metabolism; G47.33 Obstructive sleep apnea (adult) (pediatric); G89.29 Other chronic pain; N28.1 Cyst of kidney, acquired; Z66 Do not resuscitate; Z79.01 Long term (current) use of anticoagulants; Z79.82 Long term (current) use of aspirin; Z79.899 Other long term (current) drug therapy; Z86.711 Personal history of pulmonary embolism

== ENCOUNTER 2018-10-29 14:26 | Inpatient (IN) | payer OTHER, BC ==
[2018-10-29 15:04] VITALS: BMI 37.5
[2018-10-29] MEDS ORDERED: Pneumococcal 23-Valent Vaccine IM ONE (16:27)
[2018-10-29] MEDS ORDERED: Influenza Vaccine 60 mcg/0.5 mL SYR (4YR UP) IM ONE (16:27)
[2018-10-29] MEDS: Insulin Lispro (humaLOG) MEDIUM Coverage SC SCH ×2 (16:52→21:35)
[2018-10-30] MEDS: Insulin Lispro (humaLOG) MEDIUM Coverage SC SCH ×3 (06:45→16:53)
[2018-10-30 08:51] LABS: BASO # 0.03 K/mm3 (0.0-2.0); BASO % 0.4 % (0.0-3.0); EOS # 0.1 (0.0-0.7); EOS % 1.4 % (1.5-5.0); HEMOGLOBIN 15.3 g/dL (14.0-18.0); LYMPH # 2.3 (1.2-3.4); LYMPH % 31.6 % (22.0-35.0); MEAN CELL VOLUME 89.5 fl (80.0-105.0); MEAN CORPUSCULAR HEMOGLOBIN 29.1 pg (25.0-35.0); MEAN CORPUSCULAR HGB CONC 32.5 g/dl (31.0-37.0); MEAN PLATELET VOLUME 10.9 fl (7.0-11.0); MONO # 0.6 (0.1-0.6); MONO % 8.6 % (1.0-6.0); RBC 5.26 10^6/uL (3.5-6.1); RED CELL DISTRIBUTION WIDTH 15.6 % (11.5-14.5); WHITE BLOOD COUNT 7.1 10^3/uL (4.5-11.0)
[2018-10-30 09:00] LABS: ALB/GLOB RATIO 1.3 (1.1-1.8); ALBUMIN 3.9 g/dL (3.0-4.8); ALT/SGPT 9 U/L (7-56); AST/SGOT 20 U/L (17-59); BLOOD UREA NITROGEN 30 mg/dL (7-21); CALCIUM 8.8 mg/dL (8.4-10.5); GFR NON-AFRICAN AMERICAN > 60
[2018-10-30] MEDS: Lidocaine 5% Patch TD SCH (12:11)
--- NOTE | 2018-10-30 12:53 | CP.PCM.HP ---
<Brandyn Morton - Last Filed: 10/30/18 12:49> History of Present Illness - History of Present Illness History of Present Illness: Brandyn Morton, PGY-1 History and Physical for Hospitalist Service 63 yr old male w/ hx of AICD, Afib on Eliquis, Hypertension, Hypercholesterolemia, DM2, CHF presents with dizziness. Patient was being managed on medical floor for dizziness 2/2 hypotension 2/2 dilated cardiomyopathy and Possible NSTEMI. Patient underwent MUKESH which resolved. Patient reports lower back pain but denies chest pain, shortness of breath, palpitations, headache. Patient was transferred to TCU for more acute rehab. Patient lives alone at home and walks with the assistance of a cane. PMHx: AICD, A-fib on Eliquis, Hypertension, Hypercholesterolemia, DM2, HFrEF PSH: Left knee meniscus repair, removal of polyp in left nares Social: denies current tobacco use, alcohol on occasion, and denies illicit drug use Allergies: metformin, PCN, Tetracyclines Medications: Eliquis, Coreg, Torsemide, Entresto, [place], Spironolactone, Pravastatin Family Hx: non contributory PMD: Dr. Ramos Present on Admission - Present on Admission Any Indicators Present on Admission: No Review of Systems - Review of Systems Review of Systems: 12 point ROS completed and negative except as described in HPI. Past Patient History - Infectious Disease Hx of Infectious Diseases: None - Tetanus Immunizations Tetanus Immunization: Up to Date - Past Social History Smoking Status: Never Smoked - CARDIAC Hx Cardiac Disorders: Yes Hx Congestive Heart Failure: Yes Hx Hypercholesterolemia: Yes Hx Hypertension: Yes - PULMONARY Hx Respiratory Disorders: Yes Hx Sleep Apnea: Yes (can't sleep with machine on) - NEUROLOGICAL Hx Neurological Disorder: Yes Hx Transient Ischemic Attacks (TIA): (pt denies) - HEENT Hx HEENT Problems: No (WEARS RX GLASSES) - RENAL Hx Chronic Kidney Disease: Yes (MUKESH,BILATERAL RENAL CYSTS) - ENDOCRINE/METABOLIC Hx Diabetes Mellitus Type 2: Yes - HEMATOLOGICAL/ONCOLOGICAL Hx Blood Disorders: No - INTEGUMENTARY Hx Dermatological Problems: Yes Other/Comment: red skin irritation around both sides of mouth and chin from "shaving" this am. "Used a new razor.", top of left foot red itchy rash, has had it off and on for 8 or 9 months cause unknown - MUSCULOSKELETAL/RHEUMATOLOGICAL Hx Musculoskeletal Disorders: Yes Hx Falls: Yes (06/2018) Hx Unsteady Gait: Yes - GASTROINTESTINAL Hx Gastrointestinal Disorders: Yes (DIVERTICULITIS, HEMORRHOIDS, HIATAL HERNIA) Other/Comment: obese - GENITOURINARY/GYNECOLOGICAL Hx Genitourinary Disorders: Yes (MUKESH,BILATERAL RENAL CYSTS) Hx Reproductive Disorders: No - PSYCHIATRIC Hx Psychophysiologic Disorder: No Hx Emotional Abuse: No Hx Physical Abuse: No - SURGICAL HISTORY Hx Surgeries: Yes Hx Cardiac Catheterization: Yes (09/2018) Hx Orthopedic Surgery: Yes Other/Comment: LEFT MENISCUS TEAR 1996,POLPS REMOVED from NASAL PASSAGES, pt denies arthoscopic sx r knee, pt stated "I had fluid drained." oral sx to inner r cheek dr brantley removed a cyst 5 yrs ago, epidurals for lower back pain & injections[pt does not know what kind of injection] at [facility]] - ANESTHESIA Hx Anesthesia: No Hx Anesthesia Reactions: No Hx Malignant Hyperthermia: No Meds Allergies/Adverse Reactions: Allergies Allergy/AdvReac Type Severity Reaction Status Date / Time codeine Allergy SWELLING Verified 09/13/18 17:35 metformin Allergy DIARRHEA Verified 09/13/18 17:35 Penicillins Allergy SWELLING Verified 09/13/18 17:35 tetracycline Allergy SWELLING Verified 09/13/18 17:35 Physical Exam - Additional Findings Additional findings: - Constitutional Appears: Non-toxic, No Acute Distress Additional comments: obese - Head Exam Head Exam: ATRAUMATIC, NORMAL INSPECTION, NORMOCEPHALIC - Eye Exam Eye Exam: Normal appearance - ENT Exam ENT Exam: Mucous Membranes Moist. Perioral rash, likely 2/2 recent shaving, improved - Respiratory Exam Respiratory Exam: Clear to Auscultation Bilateral, NORMAL BREATHING PATTERN - Cardiovascular Exam Cardiovascular Exam: REGULAR RHYTHM, +S1, +S2. absent: Bradycardia, Tachycardia, Irregular Rhythm, Systolic Murmur - GI/Abdominal Exam GI & Abdominal Exam: Normal Bowel Sounds, obese abdomen, Soft. absent: Tenderness - Extremities Exam Extremities exam: Positive for: Pedal pulses present. Negative for: calf tenderness, tenderness, pedal edema - Neurological Exam Neurological exam: Alert, CN II-XII Intact, Oriented x3 Results - Vital Signs Recent Vital Signs: Last Vital Signs Temp 97 F L 10/29/18 16:07 Pulse 70 10/30/18 09:24 Resp 21 10/29/18 16:07 BP 136/93 H 10/30/18 09:24 Pulse Ox - Labs Result Diagrams: 10/30/18 08:35 10/30/18 08:35 Labs: Laboratory Results - last 24 hr 10/29/18 10/29/18 10/30/18 16:49 21:15 04:58 WBC RBC Hgb Hct MCV MCH MCHC RDW Plt Count MPV Neut % (Auto) Lymph % (Auto) [place] % (Auto) Eos % (Auto) Baso % (Auto) Lymph # (Auto) [place] # (Auto) Eos # (Auto) Baso # (Auto) Absolute Neuts (auto) Sodium Potassium Chloride Carbon Dioxide Anion Gap BUN Creatinine Est GFR ( Amer) Est GFR (Non-Af Amer) POC Glucose (mg/dL) 146 H 171 H 136 H Random Glucose Calcium Total Bilirubin AST ALT Alkaline Phosphatase Total Protein Albumin Globulin Albumin/Globulin Ratio 10/30/18 10/30/18 08:35 08:35 WBC 7.1 RBC 5.26 Hgb 15.3 Hct 47.1 MCV 89.5 MCH 29.1 MCHC 32.5 RDW 15.6 H Plt Count 191 MPV 10.9 Neut % (Auto) 58.0 Lymph % (Auto) 31.6 [place] % (Auto) 8.6 H Eos % (Auto) 1.4 L Baso % (Auto) 0.4 Lymph # (Auto) 2.3 [place] # (Auto) 0.6 Eos # (Auto) 0.1 Baso # (Auto) 0.03 Absolute Neuts (auto) 4.13 Sodium 137 Potassium 4.5 Chloride 104 Carbon Dioxide 22 Anion Gap 15 BUN 30 H Creatinine 1.0 Est GFR ( Amer) > 60 Est GFR (Non-Af Amer) > 60 POC Glucose (mg/dL) Random Glucose 183 H Calcium 8.8 Total Bilirubin 0.6 AST 20 ALT 9 Alkaline Phosphatase 73 Total Protein 7.0 Albumin 3.9 Globulin 3.1 Albumin/Globulin Ratio 1.3 Assessment & Plan - Assessment and Plan (Free Text) Assessment: 63 year male with past medical history of HFrEF s/p AICD, Afib on eliquis, hypertension and chronic back pain who was admitted with complaint of dizziness and neck pain. Patient was found to have possible NSTEMI with elevated troponins, MUKESH with elevated creatinine and bradycardia. Patient in TCU for more acute rehab. Plan: Dizziness 2/2 Hypotension 2/2 dilated cardiomyopathy- improved -Bradycardic, hypotensive on admission, improved since -Hx of recent cath showing EF 20-25 % -EKG shows paced rhythm @ 71 bpm -Decreasing elevated Troponin 1.38, 1.26, 1.17 -Cardiology consulted - Dr. Clifton- further recs appreciated. Continue to hold Entresto. Chronic HFrEF -BNP elevated 2260 -Resume Aldactone -Begin Torsemide 20 PO daily -HOB elevated -cardiology consulted, Dr. Clifton, follow recs NSTEMI -C/w ASA 81 mg and Coreg 12.5 mg BID -c/w antocoagulation on Eliquis MUKESH- resolved -Cr improved to 1.2, close to baseline -Likely pre-renal demand -Continue to hold nephrotoxic agents Afib (chronic) -continue home eliquis 5 mg BID -repeat EKG shows HR @ 81 bpm, ventricular pacemaker -continue to monitor HTN -controlled DM -hold oral hypoglycemics -ISS Medium with ACHS -Hemoglobin A1C 7.7 6 weeks ago HLD -c/w home statin DVT Ppx: Eliquis Diet: Heart Healthy Diet Palliative: POLST was signed by Beena Viramontes NP. Patient is DNR/DNI Patient seen, case reviewed and plan approved by Dr. Gallego. Brandyn Morton, PGY-1 <Reynaldo Gallego - Last Filed: 10/30/18 13:24> Results - Vital Signs Recent Vital Signs: Last Vital Signs Temp 97 F L 10/29/18 16:07 Pulse 70 10/30/18 09:24 Resp 21 10/29/18 16:07 BP 136/93 H 10/30/18 09:24 Pulse Ox - Labs Result Diagrams: 10/30/18 08:35 10/30/18 08:35 Labs: Laboratory Results - last 24 hr 10/29/18 10/29/18 10/30/18 16:49 21:15 04:58 WBC RBC Hgb Hct MCV MCH MCHC RDW Plt Count MPV Neut % (Auto) Lymph % (Auto) [place] % (Auto) Eos % (Auto) Baso % (Auto) Lymph # (Auto) [place] # (Auto) Eos # (Auto) Baso # (Auto) Absolute Neuts (auto) Sodium Potassium Chloride Carbon Dioxide Anion Gap BUN Creatinine Est GFR ( Amer) Est GFR (Non-Af Amer) POC Glucose (mg/dL) 146 H 171 H 136 H Random Glucose Calcium Total Bilirubin AST ALT Alkaline Phosphatase Total Protein Albumin Globulin Albumin/Globulin Ratio 10/30/18 10/30/18 08:35 08:35 WBC 7.1 RBC 5.26 Hgb 15.3 Hct 47.1 MCV 89.5 MCH 29.1 MCHC 32.5 RDW 15.6 H Plt Count 191 MPV 10.9 Neut % (Auto) 58.0 Lymph % (Auto) 31.6 [place] % (Auto) 8.6 H Eos % (Auto) 1.4 L Baso % (Auto) 0.4 Lymph # (Auto) 2.3 [place] # (Auto) 0.6 Eos # (Auto) 0.1 Baso # (Auto) 0.03 Absolute Neuts (auto) 4.13 Sodium 137 Potassium 4.5 Chloride 104 Carbon Dioxide 22 Anion Gap 15 BUN 30 H Creatinine 1.0 Est GFR ( Amer) > 60 Est GFR (Non-Af Amer) > 60 POC Glucose (mg/dL) Random Glucose 183 H Calcium 8.8 Total Bilirubin 0.6 AST 20 ALT 9 Alkaline Phosphatase 73 Total Protein 7.0 Albumin 3.9 Globulin 3.1 Albumin/Globulin Ratio 1.3 Attending/Attestation - Attestation I have personally seen and examined this patient.: Yes I have fully participated in the care of the patient.: Yes I have reviewed all pertinent clinical information: Yes Notes (Text): 10/30/18 13:20 63 year male with past medical history of CHF s/p AICD, afib on eliquis, hypertension and chronic back pain who initially presented with complaint of dizziness and neck pain. He was found to have possible NSTEMI with elevated troponins, MUKESH with elevated creatinine and low bp started on dobutamine. He was started on gentle fluids and his torsemide, aldactone and entresto were initially held. He was on aspirin, statin, coreg and eliquis. His MUKESH has resolved and troponins trended down. BP has improved and dobutamine drip was discontinued. Spironalactone and torsemide were resumed. His dizziness also is improving. He is now in TCU for rehab therapy. Continue with PT as tolerated. Reynaldo Gallego MD Hospitalist.
[2018-10-31] MEDS ORDERED: Simethicone 80 mg Chewtab PO ONE (00:47)
[2018-10-31] MEDS: Insulin Lispro (humaLOG) MEDIUM Coverage SC SCH ×4 (00:48→17:46)
[2018-10-31] MEDS: Lidocaine 5% Patch TD SCH (09:54)
[2018-11-01] MEDS: Insulin Lispro (humaLOG) MEDIUM Coverage SC SCH ×5 (00:11→22:08)
--- NOTE | 2018-11-01 09:42 | CP.PCM.PN ---
<Brandyn Morton - Last Filed: 11/01/18 13:38> Subjective - Date & Time of Evaluation Date of Evaluation: 11/01/18 Time of Evaluation: 08:00 - Subjective Subjective: Brandyn Morton PGY-1 Progress Note for Hospitalist Service Patient seen and evaluated at bedside. No acute events reported overnight. Patient sitting up in bedside chair in no discomfort, eating breakfast. Denies nausea, vomiting, current headache, chest pain, palpitations and shortness of breath. Objective - Vital Signs/Intake and Output Vital Signs (last 24 hours): Temp Pulse Resp BP Pulse Ox 98.1 F 75 16 138/95 H 94 L 10/31/18 10:00 11/01/18 08:11 10/31/18 10:00 11/01/18 08:11 10/31/18 10:00 Intake and Output: 11/01/18 11/01/18 06:59 18:59 Intake Total 420 Balance 420 - Medications Medications: Current Medications Acetaminophen (Tylenol 325mg Tab) 650 mg PO Q6H PRN; Protocol PRN Reason: Headache Last Admin: 11/01/18 06:37 Dose: 650 mg Apixaban (Eliquis) 5 mg PO BID [facility]; Protocol Last Admin: 10/31/18 17:49 Dose: 5 mg Aspirin (Aspirin Chewable) 81 mg PO 0800 [facility]; Protocol Last Admin: 11/01/18 08:12 Dose: 81 mg Atorvastatin Calcium (Lipitor) 10 mg PO HS [facility]; Protocol Last Admin: 10/31/18 21:34 Dose: 10 mg Carvedilol (Coreg) 12.5 mg PO BID [facility]; Protocol Last Admin: 11/01/18 08:11 Dose: 12.5 mg Insulin Human Lispro (Humalog Med) 0 units SC ACHS [facility]; Protocol Last Admin: 11/01/18 06:47 Dose: Not Given Lidocaine (Lidoderm) 1 ea TD DAILY [facility] Last Admin: 10/31/18 09:54 Dose: 1 ea Spironolactone (Aldactone) 25 mg PO DAILY [facility] Last Admin: 10/31/18 09:53 Dose: 25 mg Torsemide (Demadex) 20 mg PO DAILY [facility] Last Admin: 10/31/18 09:54 Dose: 20 mg - Labs Labs: 10/30/18 08:35 10/30/18 08:35 - Additional Findings Additional findings: - Constitutional Appears: Non-toxic, No Acute Distress Additional comments: obese - Head Exam Head Exam: ATRAUMATIC, NORMAL INSPECTION, NORMOCEPHALIC - Eye Exam Eye Exam: Normal appearance - ENT Exam ENT Exam: Mucous Membranes Moist. Perioral rash, likely 2/2 recent shaving, improved - Respiratory Exam Respiratory Exam: Clear to Auscultation Bilateral, NORMAL BREATHING PATTERN - Cardiovascular Exam Cardiovascular Exam: REGULAR RHYTHM, +S1, +S2. absent: Bradycardia, Tachycardia, Irregular Rhythm, Systolic Murmur - GI/Abdominal Exam GI & Abdominal Exam: Normal Bowel Sounds, obese abdomen, Soft. absent: Tenderness - Extremities Exam Extremities exam: Positive for: Pedal pulses present. Negative for: calf tenderness, tenderness, pedal edema - Neurological Exam Neurological exam: Alert, CN II-XII Intact, Oriented x3 Assessment and Plan - Assessment and Plan (Free Text) Assessment: 63 year male with past medical history of HFrEF s/p AICD, Afib on eliquis, hypertension and chronic back pain who was admitted with complaint of dizziness and neck pain. Patient was found to have possible NSTEMI with elevated troponi ns, MUKESH with elevated creatinine and bradycardia. Patient in TCU for more acute rehab. Potential discharge on 11/06. Plan: Dizziness 2/2 Hypotension 2/2 dilated cardiomyopathy- improved -Bradycardic, hypotensive on admission, improved since -Hx of recent cath showing EF 20-25 % -EKG shows paced rhythm @ 71 bpm -Decreasing elevated Troponin 1.38, 1.26, 1.17 Chronic HFrEF -BNP elevated 2260 -Continue with Aldactone and Torsemide 20 mg PO daily -HOB elevated NSTEMI -C/w ASA 81 mg and Coreg 12.5 mg BID -c/w antocoagulation on Eliquis MUKESH- resolved -Cr improved to 1.2, close to baseline -Likely pre-renal demand -Continue to hold nephrotoxic agents Afib (chronic) -continue home eliquis 5 mg BID -ventricular pacemaker -continue to monitor HTN -controlled on Coreg, Spironolactone and Torsemide -continue to monitor DM -hold oral hypoglycemics -ISS Medium with ACHS -Hemoglobin A1C 7.7 HLD -c/w home statin DVT Ppx: Eliquis Diet: Heart Healthy Diet Palliative: POLST was signed by Beena Viramontes NP. Patient is DNR/DNI. Patient seen, case reviewed and plan approved by Dr. Norman. Brandyn Morton, PGY-1 <Dony Norman - Last Filed: 11/01/18 17:28> Objective - Vital Signs/Intake and Output Vital Signs (last 24 hours): Temp Pulse Resp BP Pulse Ox 98 F 75 20 137/100 H 97 11/01/18 16:00 11/01/18 17:22 11/01/18 16:00 11/01/18 17:22 11/01/18 16:00 Intake and Output: 11/01/18 11/01/18 06:59 18:59 Intake Total 420 Balance 420 - Medications Medications: Current Medications Acetaminophen (Tylenol 325mg Tab) 650 mg PO Q6H PRN; Protocol PRN Reason: Headache Last Admin: 11/01/18 06:37 Dose: 650 mg Apixaban (Eliquis) 5 mg PO BID [facility]; Protocol Last Admin: 11/01/18 17:22 Dose: 5 mg Aspirin (Aspirin Chewable) 81 mg PO 0800 [facility]; Protocol Last Admin: 11/01/18 08:12 Dose: 81 mg Atorvastatin Calcium (Lipitor) 10 mg PO HS [facility]; Protocol Last Admin: 10/31/18 21:34 Dose: 10 mg Carvedilol (Coreg) 12.5 mg PO BID [facility]; Protocol Last Admin: 11/01/18 17:22 Dose: 12.5 mg Insulin Human Lispro (Humalog Med) 0 units SC ACHS [facility]; Protocol Last Admin: 11/01/18 17:23 Dose: Not Given Lidocaine (Lidoderm) 1 ea TD DAILY [facility] Last Admin: 11/01/18 10:02 Dose: Not Given Spironolactone (Aldactone) 25 mg PO DAILY [facility] Last Admin: 11/01/18 10:01 Dose: 25 mg Torsemide (Demadex) 20 mg PO DAILY [facility] Last Admin: 11/01/18 10:01 Dose: 20 mg - Labs Labs: 10/30/18 08:35 10/30/18 08:35 Attending/Attestation - Attestation I have personally seen and examined this patient.: Yes I have fully participated in the care of the patient.: Yes I have reviewed all pertinent clinical information, including history, physical exam and plan: Yes Notes (Text): 11/01/18 17:25 Patient 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 63 year male with past medical history of CHF ,s/p AICD, afib on eliquis, hypertension and chronic back pain was initially admitted to [facility] Inpatient dizziness and neck pain. He was found to have possible NSTEMI with elevated troponins, MUKESH with elevated creatinine and low blood pressure, was started on dobutamine. He was started on gentle fluids and his torsemide, aldactone and entresto were initially held. He was on aspirin, statin, coreg and eliquis. His MUKESH has resolved and troponins trended down. Blood pressure improved and dobutamine drip was discontinued. Spironalactone and torsemide were resumed. His dizziness also improved. He is now admitted in TCU for rehab therapy. Blood pressure is stable with current medications. Patient is euvolemic and is participating in physical therapy. Management plan was discussed in detail with patient. Education was provided.
[2018-11-01] MEDS: Lidocaine 5% Patch TD SCH (10:02)
[2018-11-02] MEDS ORDERED: Simethicone 80 mg Chewtab PO ONE (00:11)
[2018-11-02] MEDS: Insulin Lispro (humaLOG) MEDIUM Coverage SC SCH ×4 (06:53→21:36)
[2018-11-02] MEDS: Lidocaine 5% Patch TD SCH (10:33)
[2018-11-03] MEDS: Insulin Lispro (humaLOG) MEDIUM Coverage SC SCH ×4 (06:54→21:23)
[2018-11-03] MEDS: Lidocaine 5% Patch TD SCH (10:08)
[2018-11-03] MEDS ORDERED: Alum-Mag Hydrox-Simethicone Susp (30 mL) PO PRN (10:33)
--- NOTE | 2018-11-03 13:36 | CP.PCM.PN ---
<Xi Keene - Last Filed: 11/03/18 13:30> Subjective - Date & Time of Evaluation Date of Evaluation: 11/03/18 Time of Evaluation: 13:30 - Subjective Subjective: Xi Keene PGY1 Progress Note for Dr. Norman Pt was examined at bedside this morning. He complains of headache that began this morning, which did not improve after taking tylenol. He has no other complaints, denying chest pain, abdominal pain, shortness of breath, nausea, vomiting, diarrhea. He reports feeling stronger now that he has been working with PT, and is able to walk without difficulty. Objective - Vital Signs/Intake and Output Vital Signs (last 24 hours): Temp Pulse Resp BP Pulse Ox 97.5 F L 74 20 108/79 97 11/02/18 16:00 11/03/18 06:59 11/02/18 16:00 11/03/18 06:59 11/02/18 16:00 Intake and Output: 11/03/18 11/03/18 06:59 18:59 Intake Total 120 Balance 120 - Medications Medications: Current Medications Acetaminophen (Tylenol 325mg Tab) 650 mg PO Q6H PRN; Protocol PRN Reason: Headache Last Admin: 11/03/18 05:25 Dose: 650 mg Al Hydrox/Mg Hydrox/Simethicone (Maalox Plus 30 Ml) 30 ml PO DAILY PRN PRN Reason: Indigestion / Heartburn Apixaban (Eliquis) 5 mg PO BID KATE; Protocol Last Admin: 11/03/18 10:08 Dose: 5 mg Aspirin (Aspirin Chewable) 81 mg PO 0800 KATE; Protocol Last Admin: 11/03/18 10:07 Dose: 81 mg Atorvastatin Calcium (Lipitor) 10 mg PO HS KATE; Protocol Last Admin: 11/02/18 21:37 Dose: 10 mg Carvedilol (Coreg) 12.5 mg PO 0800,1800 KATE; Protocol Last Admin: 11/03/18 10:08 Dose: Not Given Famotidine (Pepcid) 40 mg PO HS KATE Insulin Human Lispro (Humalog Med) 0 units SC ACHS KATE; Protocol Last Admin: 11/03/18 12:16 Dose: Not Given Lidocaine (Lidoderm) 1 ea TD DAILY KATE Last Admin: 11/03/18 10:08 Dose: Not Given Spironolactone (Aldactone) 25 mg PO DAILY [facility] Last Admin: 11/03/18 10:07 Dose: 25 mg Torsemide (Demadex) 20 mg PO DAILY [facility] Last Admin: 11/03/18 10:08 Dose: 20 mg - Labs Labs: 10/30/18 08:35 10/30/18 08:35 - Additional Findings Additional findings: - Constitutional Appears: Non-toxic, No Acute Distress Additional comments: obese - Head Exam Head Exam: ATRAUMATIC, NORMAL INSPECTION, NORMOCEPHALIC - Eye Exam Eye Exam: Normal appearance - ENT Exam ENT Exam: Mucous Membranes Moist. - Respiratory Exam Respiratory Exam: Clear to Auscultation Bilateral, NORMAL BREATHING PATTERN - Cardiovascular Exam Cardiovascular Exam: REGULAR RHYTHM, +S1, +S2. absent: Bradycardia, Tachycardia, Irregular Rhythm, Systolic Murmur - GI/Abdominal Exam GI & Abdominal Exam: Normal Bowel Sounds, obese abdomen, Soft. absent: Tenderness. Distended - Extremities Exam Extremities exam: Positive for: Pedal pulses present. Negative for: calf tenderness, tenderness, pedal edema - Neurological Exam Neurological exam: Alert, CN II-XII Intact, Oriented x3 Assessment and Plan - Assessment and Plan (Free Text) Assessment: 63 year male with past medical history of HFrEF s/p AICD, Afib on eliquis, hypertension and chronic back pain who was admitted with complaint of dizziness and neck pain. Patient was found to have possible NSTEMI with elevated troponins, MUKESH with elevated creatinine and bradycardia. Patient in TCU for more acute rehab. Potential discharge on 11/06. Plan: Dizziness 2/2 Hypotension 2/2 dilated cardiomyopathy- resolved -Bradycardic, hypotensive on admission, improved since -Hx of recent cath showing EF 20-25 % -EKG shows paced rhythm @ 71 bpm -Decreasing elevated Troponin 1.38, 1.26, 1.17 Headache -one time dose of motrin -tylenol 650mg PO q6h PRN Chronic HFrEF -BNP elevated 2260 -Continue with Aldactone -HOB elevated NSTEMI -C/w ASA 81 mg PO daily and Coreg 12.5 mg PO BID -c/w Eliquis 5mg PO BID MUKESH- resolved -Cr improved to 1.2, close to baseline -Likely pre-renal demand -Continue to hold nephrotoxic agents Afib (chronic) -continue home eliquis 5 mg BID -ventricular pacemaker -continue to monitor HTN -controlled on Coreg 12.5mg PO BID, Spironolactone 25mg PO daily and Torsemide 20 mg PO daily -continue to monitor DM -hold oral hypoglycemics -ISS Medium with ACHS -Hemoglobin A1C 7.7 HLD -c/w home statin DVT Ppx: Eliquis Diet: Heart Healthy Diet Palliative: POLST was signed by Kamryn Viramontes NP. Patient is DNR/DNI. Patient seen, case reviewed and plan approved by Dr. Norman. <Dony Norman - Last Filed: 11/04/18 17:43> Objective - Vital Signs/Intake and Output Vital Signs (last 24 hours): Temp Pulse Resp BP Pulse Ox 97.5 F L 70 19 140/107 H 96 11/04/18 06:00 11/04/18 13:15 11/04/18 06:00 11/04/18 13:15 11/04/18 13:15 - Medications Medications: Current Medications Acetaminophen (Tylenol 325mg Tab) 650 mg PO Q6H PRN; Protocol PRN Reason: Headache Last Admin: 11/03/18 17:25 Dose: 650 mg Al Hydrox/Mg Hydrox/Simethicone (Maalox Plus 30 Ml) 30 ml PO DAILY PRN PRN Reason: Indigestion / Heartburn Apixaban (Eliquis) 5 mg PO BID KATE; Protocol Last Admin: 11/04/18 09:14 Dose: 5 mg Aspirin (Aspirin Chewable) 81 mg PO 0800 KATE; Protocol Last Admin: 11/04/18 08:06 Dose: 81 mg Atorvastatin Calcium (Lipitor) 10 mg PO HS KATE; Protocol Last Admin: 11/03/18 21:21 Dose: 10 mg Carvedilol (Coreg) 12.5 mg PO 0800,1800 KATE; Protocol Last Admin: 11/04/18 08:06 Dose: 12.5 mg Famotidine (Pepcid) 40 mg PO HS KATE Last Admin: 11/03/18 21:21 Dose: 40 mg Insulin Human Lispro (Humalog Med) 0 units SC ACHS KATE; Protocol Last Admin: 11/04/18 11:43 Dose: Not Given Lidocaine (Lidoderm) 1 ea TD DAILY KATE Last Admin: 11/04/18 10:37 Dose: Not Given Spironolactone (Aldactone) 25 mg PO DAILY [facility] Last Admin: 11/04/18 09:14 Dose: 25 mg Torsemide (Demadex) 20 mg PO DAILY [facility] Last Admin: 11/04/18 09:14 Dose: 20 mg - Labs Labs: 10/30/18 08:35 10/30/18 08:35 Attending/Attestation - Attestation I have personally seen and examined this patient.: Yes I have fully participated in the care of the patient.: Yes I have reviewed all pertinent clinical information, including history, physical exam and plan: Yes Notes (Text): 11/04/18 17:41 Medical record note made by the resident after discussion with my direction and input after the patient was personally seen and examined by me. I have reviewed the chart and agree that the record accurately reflects by personal performance of the history, physical exam, data review, and medical decision-making, in the course for the patient. I have also personally directed the plan of care. 63 year male with past medical history of CHF ,s/p AICD, afib on eliquis, hypertension and chronic back pain was initially admitted to [facility] inpatient dizziness and neck pain. He was found to have possible NSTEMI with elevated troponins, MUKESH with elevated creatinine and low blood pressure, Patient was started on dobutamine. He was started on gentle IV fluids and his torsemide, aldactone and entresto were initially held. He was on aspirin, statin, coreg and eliquis. His MUKESH has resolved and troponins trended down. Blood pressure improved and dobutamine drip was discontinued. Spironalactone and torsemide were resumed. His dizziness also improved and he was transferred to TCU for rehab therapy. Blood pressure is stable with current medications. Patient is euvolemic and is participating in physical therapy. Management plan was discussed in detail with patient. Education was provided.
[2018-11-04] MEDS: Insulin Lispro (humaLOG) MEDIUM Coverage SC SCH ×4 (06:54→21:58)
[2018-11-04 08:26] VITALS: RESP 19; TEMP 97.5; O2SAT 96
[2018-11-04] MEDS: Lidocaine 5% Patch TD SCH (10:37)
[2018-11-04 13:33] VITALS: PULSE 70
[2018-11-05] MEDS: Insulin Lispro (humaLOG) MEDIUM Coverage SC SCH ×2 (06:59→12:22)
--- NOTE | 2018-11-05 07:01 | CP.PCM.PN ---
Subjective - Date & Time of Evaluation Date of Evaluation: 11/05/18 Time of Evaluation: 07:01 Objective - Vital Signs/Intake and Output Vital Signs (last 24 hours): Temp Pulse Resp BP Pulse Ox 97.5 F L 70 19 111/78 96 11/04/18 06:00 11/04/18 13:15 11/04/18 06:00 11/04/18 17:46 11/04/18 13:15 - Medications Medications: Current Medications Acetaminophen (Tylenol 325mg Tab) 650 mg PO Q6H PRN; Protocol PRN Reason: Headache Last Admin: 11/05/18 01:01 Dose: 650 mg Al Hydrox/Mg Hydrox/Simethicone (Maalox Plus 30 Ml) 30 ml PO DAILY PRN PRN Reason: Indigestion / Heartburn Apixaban (Eliquis) 5 mg PO BID KATE; Protocol Last Admin: 11/04/18 17:46 Dose: 5 mg Aspirin (Aspirin Chewable) 81 mg PO 0800 KATE; Protocol Last Admin: 11/04/18 08:06 Dose: 81 mg Atorvastatin Calcium (Lipitor) 10 mg PO HS KATE; Protocol Last Admin: 11/04/18 22:02 Dose: 10 mg Carvedilol (Coreg) 12.5 mg PO 0800,1800 KATE; Protocol Last Admin: 11/04/18 17:46 Dose: 12.5 mg Famotidine (Pepcid) 40 mg PO HS KATE Last Admin: 11/04/18 22:02 Dose: 40 mg Insulin Human Lispro (Humalog Med) 0 units SC ACHS [facility]; Protocol Last Admin: 11/05/18 06:59 Dose: Not Given Lidocaine (Lidoderm) 1 ea TD DAILY KATE Last Admin: 11/04/18 10:37 Dose: Not Given Spironolactone (Aldactone) 25 mg PO DAILY [facility] Last Admin: 11/04/18 09:14 Dose: 25 mg Torsemide (Demadex) 20 mg PO DAILY [facility] Last Admin: 11/04/18 09:14 Dose: 20 mg - Labs Labs: 10/30/18 08:35 10/30/18 08:35
[2018-11-05 07:32] LABS: BASO # 0.02 K/mm3 (0.0-2.0); BASO % 0.3 % (0.0-3.0); EOS # 0.2 (0.0-0.7); EOS % 2.2 % (1.5-5.0); HEMOGLOBIN 16.4 g/dL (14.0-18.0); LYMPH # 2.4 (1.2-3.4); MEAN CORPUSCULAR HEMOGLOBIN 29.5 pg (25.0-35.0); MEAN CORPUSCULAR HGB CONC 33.2 g/dl (31.0-37.0); MEAN PLATELET VOLUME 10.8 fl (7.0-11.0); MONO # 0.6 (0.1-0.6); MONO % 8.8 % (1.0-6.0); RBC 5.55 10^6/uL (3.5-6.1); RED CELL DISTRIBUTION WIDTH 15.2 % (11.5-14.5); WHITE BLOOD COUNT 7.3 10^3/uL (4.5-11.0)
[2018-11-05 07:55] LABS: ALB/GLOB RATIO 1.2 (1.1-1.8); ALBUMIN 4.2 g/dL (3.0-4.8); ALT/SGPT 8 U/L (7-56); AST/SGOT 19 U/L (17-59); BLOOD UREA NITROGEN 51 mg/dL (7-21); CALCIUM 9.6 mg/dL (8.4-10.5); GFR NON-AFRICAN AMERICAN 52
[2018-11-05 08:14] VITALS: BP 160/93
--- NOTE | 2018-11-05 09:47 | CP.PCM.DIS ---
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 Physician Instructions: Reason For Exam: EVALUATION Time Spent in preparation of Discharge (in minutes): 45 Diagnosis - Discharge Diagnosis (1) NSTEMI (non-ST elevated myocardial infarction) Status: Resolved (2) Acute on chronic combined systolic and diastolic CHF (congestive heart failure) Status: Resolved (3) MUKESH (acute kidney injury) Status: Resolved (4) HTN (hypertension) Status: Chronic (5) Back pain Status: Chronic (6) Diabetes mellitus Status: Chronic (7) Hyperlipidemia Status: Chronic (8) Atrial fibrillation Status: Chronic (9) Dizziness Status: Resolved Hospital Course - Lab Results Lab Results: Most Recent Lab Values WBC 7.3 10^3/uL (4.5-11.0) 11/05/18 07:00 RBC 5.55 10^6/uL (3.5-6.1) 11/05/18 07:00 Hgb 16.4 g/dL (14.0-18.0) 11/05/18 07:00 Hct 49.4 % (42.0-52.0) 11/05/18 07:00 MCV 89.0 fl (80.0-105.0) 11/05/18 07:00 MCH 29.5 pg (25.0-35.0) 11/05/18 07:00 MCHC 33.2 g/dl (31.0-37.0) 11/05/18 07:00 RDW 15.2 % (11.5-14.5) H 11/05/18 07:00 Plt Count 205 10^3/uL (120.0-450.0) 11/05/18 07:00 MPV 10.8 fl (7.0-11.0) 11/05/18 07:00 Neut % (Auto) 55.7 % (50.0-68.0) 11/05/18 07:00 Lymph % (Auto) 33.0 % (22.0-35.0) 11/05/18 07:00 [place] % (Auto) 8.8 % (1.0-6.0) H 11/05/18 07:00 Eos % (Auto) 2.2 % (1.5-5.0) 11/05/18 07:00 Baso % (Auto) 0.3 % (0.0-3.0) 11/05/18 07:00 Lymph # (Auto) 2.4 (1.2-3.4) 11/05/18 07:00 [place] # (Auto) 0.6 (0.1-0.6) 11/05/18 07:00 Eos # (Auto) 0.2 (0.0-0.7) 11/05/18 07:00 Baso # (Auto) 0.02 K/mm3 (0.0-2.0) 11/05/18 07:00 Absolute Neuts (auto) 4.08 (1.4-6.5) 11/05/18 07:00 Sodium 138 mmol/L (132-148) 11/05/18 07:00 Potassium 5.2 mmol/L (3.6-5.0) H 11/05/18 07:00 Chloride 101 mmol/L (98-107) 11/05/18 07:00 Carbon Dioxide 27 mmol/L (21-33) 11/05/18 07:00 Anion Gap 15 (10-20) 11/05/18 07:00 BUN 51 mg/dL (7-21) H 11/05/18 07:00 Creatinine 1.4 mg/dl (0.8-1.5) 11/05/18 07:00 Est GFR ( Amer) > 60 11/05/18 07:00 Est GFR (Non-Af Amer) 52 11/05/18 07:00 POC Glucose (mg/dL) 191 mg/dL (65-110) H 11/04/18 21:19 Random Glucose 129 mg/dL (70-110) H 11/05/18 07:00 Calcium 9.6 mg/dL (8.4-10.5) 11/05/18 07:00 Total Bilirubin 0.5 mg/dL (0.2-1.3) 11/05/18 07:00 AST 19 U/L (17-59) 11/05/18 07:00 ALT 8 U/L (7-56) 11/05/18 07:00 Alkaline Phosphatase 87 U/L (38-126) 11/05/18 07:00 Total Protein 7.5 g/dL (5.8-8.3) 11/05/18 07:00 Albumin 4.2 g/dL (3.0-4.8) 11/05/18 07:00 Globulin 3.4 gm/dL 11/05/18 07:00 Albumin/Globulin Ratio 1.2 (1.1-1.8) 11/05/18 07:00 - Hospital Course Hospital Course: 63 year male with past medical history of HFrEF s/p AICD, Afib on eliquis, hypertension and chronic back pain who was admitted with complaint of dizziness and neck pain. Patient was found to have possible NSTEMI with elevated troponins, MUKESH with elevated creatinine and bradycardia. Cardiology, Dr. Clifton was consulted and started patient on dobutamine drip. Nephrology, Dr. Andrews was consulted for MUKESH. Patient continued on Aspirin, Statin, Coreg and Eliquis. He was started on gentle IV fluids in light of his HFrEF for MUKESH, and his torsemide and aldactone were held. MUKESH was likely 2/2 pre-renal demand. MUKESH resolved and BP improved, at which point Dobutamine drip was discontinued and Spironalactone was resumed. Palliative consult was placed with Hargrove Paramonte, and POLST was completed and patient is DNR/DNI. Physical therapy evaluated patient and recommended TCU. Patient was admitted to TCU for continued physical therapy. 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 Patient is medically stable for discharge. Discharge Exam - Additional Findings Additional findings: - Constitutional Appears: Non-toxic, No Acute Distress Additional comments: obese - Head Exam Head Exam: ATRAUMATIC, NORMAL INSPECTION, NORMOCEPHALIC - Eye Exam Eye Exam: Normal appearance - ENT Exam ENT Exam: Mucous Membranes Moist. - Respiratory Exam Respiratory Exam: Clear to Auscultation Bilateral, NORMAL BREATHING PATTERN - Cardiovascular Exam Cardiovascular Exam: REGULAR RHYTHM, +S1, +S2. absent: Bradycardia, Tachycardia, Irregular Rhythm, Systolic Murmur - GI/Abdominal Exam GI & Abdominal Exam: Normal Bowel Sounds, obese abdomen, Soft. absent: Tenderness. Distended - Extremities Exam Extremities exam: Positive for: Pedal pulses present. Negative for: calf tenderness, tenderness, pedal edema - Neurological Exam Neurological exam: Alert, CN II-XII Intact, Oriented x3 Discharge Plan - Follow Up Plan Condition: GOOD Disposition: HOME/ ROUTINE Instructions: Heart Attack, Heart Failure, Adult Additional Instructions: 1. Follow up with your primary care doctor (Dr. Ramos) within 1 week of discharge. 2. Follow up with Cardiology, Dr. Clifton in 1-2 weeks after discharge. 3. Please resume all home medications as prescribed. 4. Please return to the emergency department if you have any new or concerning symptoms. 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 Physician Instructions: Reason For Exam: EVALUATION Hospital Course - Lab Results Lab Results: Most Recent Lab Values WBC 7.3 10^3/uL (4.5-11.0) 11/05/18 07:00 RBC 5.55 10^6/uL (3.5-6.1) 11/05/18 07:00 Hgb 16.4 g/dL (14.0-18.0) 11/05/18 07:00 Hct 49.4 % (42.0-52.0) 11/05/18 07:00 MCV 89.0 fl (80.0-105.0) 11/05/18 07:00 MCH 29.5 pg (25.0-35.0) 11/05/18 07:00 MCHC 33.2 g/dl (31.0-37.0) 11/05/18 07:00 RDW 15.2 % (11.5-14.5) H 11/05/18 07:00 Plt Count 205 10^3/uL (120.0-450.0) 11/05/18 07:00 MPV 10.8 fl (7.0-11.0) 11/05/18 07:00 Neut % (Auto) 55.7 % (50.0-68.0) 11/05/18 07:00 Lymph % (Auto) 33.0 % (22.0-35.0) 11/05/18 07:00 [place] % (Auto) 8.8 % (1.0-6.0) H 11/05/18 07:00 Eos % (Auto) 2.2 % (1.5-5.0) 11/05/18 07:00 Baso % (Auto) 0.3 % (0.0-3.0) 11/05/18 07:00 Lymph # (Auto) 2.4 (1.2-3.4) 11/05/18 07:00 [place] # (Auto) 0.6 (0.1-0.6) 11/05/18 07:00 Eos # (Auto) 0.2 (0.0-0.7) 11/05/18 07:00 Baso # (Auto) 0.02 K/mm3 (0.0-2.0) 11/05/18 07:00 Absolute Neuts (auto) 4.08 (1.4-6.5) 11/05/18 07:00 Sodium 138 mmol/L (132-148) 11/05/18 07:00 Potassium 5.2 mmol/L (3.6-5.0) H 11/05/18 07:00 Chloride 101 mmol/L (98-107) 11/05/18 07:00 Carbon Dioxide 27 mmol/L (21-33) 11/05/18 07:00 Anion Gap 15 (10-20) 11/05/18 07:00 BUN 51 mg/dL (7-21) H 11/05/18 07:00 Creatinine 1.4 mg/dl (0.8-1.5) 11/05/18 07:00 Est GFR ( Amer) > 60 11/05/18 07:00 Est GFR (Non-Af Amer) 52 11/05/18 07:00 POC Glucose (mg/dL) 229 mg/dL (65-110) H 11/05/18 11:34 Random Glucose 129 mg/dL (70-110) H 11/05/18 07:00 Calcium 9.6 mg/dL (8.4-10.5) 11/05/18 07:00 Total Bilirubin 0.5 mg/dL (0.2-1.3) 11/05/18 07:00 AST 19 U/L (17-59) 11/05/18 07:00 ALT 8 U/L (7-56) 11/05/18 07:00 Alkaline Phosphatase 87 U/L (38-126) 11/05/18 07:00 Total Protein 7.5 g/dL (5.8-8.3) 11/05/18 07:00 Albumin 4.2 g/dL (3.0-4.8) 11/05/18 07:00 Globulin 3.4 gm/dL 11/05/18 07:00 Albumin/Globulin Ratio 1.2 (1.1-1.8) 11/05/18 07:00 Attending/Attestation - Attestation I have personally seen and examined this patient.: Yes I have fully participated in the care of the patient.: Yes I have reviewed all pertinent clinical information, including history, physical exam and plan: Yes Notes (Text): 11/05/18 15:28 Medical record note made by the resident after discussion with my direction and input after the patient was personally seen and examined by me. I have reviewed the chart and agree that the record accurately reflects by personal performance of the history, physical exam, data review, and medical decision-making, in the course for the patient. I have also personally directed the plan of care. 63 year male with past medical history of CHF ,s/p AICD, afib on eliquis, hypertension and chronic back pain was initially admitted to [facility] inpatient dizziness and neck pain. He was found to have possible NSTEMI with elevated troponins, MUKESH with elevated creatinine and low blood pressure, Patient was started on dobutamine. He was started on gentle IV fluids and his torsemide, aldactone and entresto were initially held. He was on aspirin, statin, coreg and eliquis. His MUKESH has resolved and troponins trended down. Blood pressure improved and dobutamine drip was discontinued. Spironalactone and torsemide were resumed. His dizziness also improved and he was transferred to TCU for rehab therapy. Blood pressure is stable with current medications. CHF with systolic dysfunction.Patient is euvolemic on Torsemide/Aldactone and entresto. Management plan was discussed in detail with patient. Education was provided.
[2018-11-05] MEDS: Lidocaine 5% Patch TD SCH (09:49)
== END 2018-11-05 14:25 | disposition home or self-care (01) | DRG 280 ==
LOC: TRCU 14:26
PROVIDERS: ADMIT Internal Medicine; ATTEND Internal Medicine
PROC: F07Z9FZ Gait Training/Functional Ambulation Treatment using Assistive, Adaptive, Supportive or Protective Equipment (ICD-10-PCS; principal; 2018-10-31)
PROC: F07Z8ZZ Transfer Training Treatment (ICD-10-PCS; 2018-10-31)
PROC: F07Z5ZZ Bed Mobility Treatment (ICD-10-PCS; 2018-10-31)
PROC: F0726YZ Therapeutic Exercise Treatment of Neurological System - Lower Back / Lower Extremity using Other Equipment (ICD-10-PCS; 2018-11-01)
PROC: F08Z2ZZ Grooming/Personal Hygiene Treatment (ICD-10-PCS; 2018-11-01)
PROC: F08Z1FZ Dressing Techniques Treatment using Assistive, Adaptive, Supportive or Protective Equipment (ICD-10-PCS; 2018-11-02)
DX: I21.4 Non-ST elevation (NSTEMI) myocardial infarction (principal); I50.43 Acute on chronic combined systolic (congestive) and diastolic (congestive) heart failure; I13.0 Hypertensive heart and chronic kidney disease with heart failure and stage 1 through stage 4 chronic kidney disease, or unspecified chronic kidney disease; I42.0 Dilated cardiomyopathy; N18.9 Chronic kidney disease, unspecified; I48.2 Chronic atrial fibrillation; I95.9 Hypotension, unspecified; E78.00 Pure hypercholesterolemia, unspecified; E78.5 Hyperlipidemia, unspecified; E11.22 Type 2 diabetes mellitus with diabetic chronic kidney disease; M54.5 Low back pain; R42 Dizziness and giddiness; R51 Headache; Z66 Do not resuscitate; Z95.810 Presence of automatic (implantable) cardiac defibrillator; Z79.01 Long term (current) use of anticoagulants; Z79.84 Long term (current) use of oral hypoglycemic drugs

== ENCOUNTER 2018-11-24 16:24 | Outpatient (CLI) | payer MEDICARE, BC | END 2018-11-24 16:25 | disposition home or self-care (01) | LOC: RAD 16:24 ==